=== PATIENT | female | born 1985 | race African-American/Black ===

== ENCOUNTER 2016-07-01 11:11 | Emergency (ER) | payer MEDICAID ==
--- NOTE | 2016-07-01 12:00 | ER Document Report ---
ED Medical Screen (RME) - General Chief Complaint: Lower Abdominal Pain Stated Complaint: ABDOMINAL PAIN Time seen by provider: 12:00 Mode of Arrival: Ambulatory Information source: Patient TRAVEL OUTSIDE OF THE [place] IN LAST 30 DAYS: No - HPI Patient complains to provider of: LOWER ABD PAIN Onset: Last week Onset/Duration: Intermittent Context: Patient states she has not had a period in about 2 months. She took a home test which was positive. She was seen 1 month ago and blood test was negative. Patient states she took Plan B pills 1 week ago bleeding started 06/29/2016. Has been having intermittent lower abdominal pain for the past week. Has been getting worse the last few days. States she has had chills, no known fever, has had some diarrhea, some nausea without vomiting Quality of pain: Sharp, Stabbing Severity: Severe Pain Level: 5 Associated Symptoms: Abdominal pain, Chills, Diarrhea, Nausea, Vaginal bleeding. denies: Vomiting Exacerbated by: Denies Relieved by: Denies Similar symptoms previously: No Recently seen / treated by doctor: Yes - Related Data Smoking: Non-smoker Frequency of alcohol use: None Drug Abuse: None Allergies/Adverse Reactions: No Known Allergies Allergy (Verified 07/01/16 11:33) Past Medical History - Past Medical History Cardiac Medical History: Reports: Hx Hypercholesterolemia, Hx Hypertension GI Medical History: Reports: Hx Ulcer Musculoskeltal Medical History: Reports Hx Musculoskeletal Deformity, Reports Hx Musculoskeletal Trauma Psychiatric Medical History: Reports: Hx Anxiety, Hx Depression Past Surgical History: Reports: Hx Abdominal Surgery, Hx Section - 4 - Immunizations Immunizations up to date: Yes Hx Diphtheria, Pertussis, Tetanus Vaccination: Yes - 2014 Physical Exam - Vital signs Vitals: Temp Pulse Resp BP Pulse Ox 98.2 F 77 16 121/76 100 07/01/16 11:21 07/01/16 11:21 07/01/16 11:21 07/01/16 11:21 07/01/16 11:21 Course - Vital Signs Vital signs: Temp Pulse Resp BP Pulse Ox 98.2 F 77 16 121/76 100 07/01/16 11:21 07/01/16 11:21 07/01/16 11:21 07/01/16 11:21 07/01/16 11:21
[2016-07-01] MEDS ORDERED: HYDROCODONE/ACETAMINOPHEN 5-325 MG TABLET PO ONE (12:16)
[2016-07-01] MEDS ORDERED: ONDANSETRON 4 MG TAB.RAPDIS PO ONE (12:16)
[2016-07-01 12:42] LABS: ABSOLUTE EOSINOPHILS # (AUTO) 0.1 10^3/uL (0.0-0.6); ABSOLUTE LYMPHOCYTES (AUTO) 1.9 10^3/uL (0.5-4.7); ABSOLUTE MONOCYTES (AUTO) 0.4 10^3/uL (0.1-1.4); BASOPHILS % (AUTO) 0.9 % (0-2); EOSINOPHILS % (AUTO) 1.4 % (0-6); HEMATOCRIT 30.4 % (36.0-47.0); HEMOGLOBIN 9.3 g/dL (12.0-15.5); HGB HCT DIFFERENCE -2.5; LYMPHOCYTES % (AUTO) 34.5 % (13-45); MEAN CORPUSCULAR HEMOGLOBIN 17.5 pg (27.0-33.4); MEAN CORPUSCULAR HGB CONC 30.5 g/dL (32.0-36.0); MEAN CORPUSCULAR VOLUME 57 fl (80-97); MONOCYTES % (AUTO) 6.8 % (3-13); RED CELL DISTRIBUTION WIDTH 23.1 % (11.5-14.0); SEGMENTED NEUTROPHILS % (AUTO) 56.4 % (42-78); WHITE BLOOD COUNT 5.4 10^3/uL (4.0-10.5)
[2016-07-01 12:57] LABS: ALANINE AMINOTRANSFERASE 46 U/L (9-52); ALKALINE PHOSPHATASE 66 U/L (38-126); ANION GAP 14 (5-19); ASPARTATE AMINO TRANSFERASE 25 U/L (14-36); BILIRUBIN,TOTAL 0.3 mg/dL (0.2-1.3); BLOOD UREA NITROGEN 8 mg/dL (7-20); CALCIUM 9.4 mg/dL (8.4-10.2); CARBON DIOXIDE 22 mmol/L (22-30); CHLORIDE 107 mmol/L (98-107); CREATININE RESULT 0.67 mg/dL (0.52-1.25); GLUCOSE 81 mg/dL (75-110); POTASSIUM 3.7 mmol/L (3.6-5.0); SODIUM 142.7 mmol/L (137-145); TOTAL PROTEIN 7.5 g/dL (6.3-8.2)
[2016-07-01 13:04] LABS: ANISOCYTOSIS 3+; HYPOCHROMASIA 3+; MICROCYTOSIS 4+; OVALOCYTES 2+; POIKILOCYTOSIS 3+; ROULEAUX SLIGHT; SCHISTOCYTES 1+; TEAR DROP CELLS 1+
[2016-07-01 13:50] LABS: APPEARANCE,URINE CLOUDY; BILIRUBIN,URINE NEGATIVE (NEGATIVE); GLUCOSE, URINE NEGATIVE (NEGATIVE); KETONES,URINE NEGATIVE (NEGATIVE); URINE SPECIFIC GRAVITY 1.019
[2016-07-01 13:51] LABS: BACTERIA,URINE 2+ /HPF; LEUKOCYTE ESTERASE,URINE LARGE (NEGATIVE); NITRITE,URINE NEGATIVE (NEGATIVE); PROTEIN,URINE 100 mg/dL (NEGATIVE); RBC,URINE TOO NUMEROUS TO CNT /HPF; UROBILINOGEN,URINE NEGATIVE mg/dL (<2.0); WBC,URINE 20-30 /HPF
[2016-07-01] MEDS ORDERED: NAPROXEN 375 MG TABLET PO ONE (14:18)
--- NOTE | 2016-07-01 16:27 | ER Document Report ---
ED GI/ - General Chief Complaint: Lower Abdominal Pain Stated Complaint: ABDOMINAL PAIN Mode of Arrival: Ambulatory Information source: Patient Notes: 31 y/o F presents to ED c/o pelvic cramping and vaginal bleeding. Pt reports last normal menstrual period was 04/17/16. had a positive home urine test at home last month but was seen in the ED the following day and had negative hcg. Reports took three plan B pills last week after unprotected intercourse with significant other. began having pelvic pain/cramping and vaginal bleeding last week worse over the last 3 days. States bleeding is similar to menstrual period. Denies fever, n/v, chest pain, sob, dysuria, flank pain, or vaginal discharge. Patient states has appointment with primary care provider/[facility] in 2 days but could not wait until then. TRAVEL OUTSIDE OF THE [place] IN LAST 30 DAYS: No - HPI Patient complains to provider of: Pelvic pain, Vaginal bleeding Onset: Last week Timing/Duration: Persistent Quality of pain: Cramping Severity at maximum: Moderate Severity in ED: Moderate Pain Level: 3 Vaginal bleeding (Compared to normal period): Similar Menstrual period history: Irregular Sexual history: Active, Unprotected intercourse. denies: New partner, Multiple partners, Rectal penetration, STD exposure, control patch, Condoms, Depo, IUD Similar symptoms previously: Yes Recently seen / treated by doctor: Yes - Related Data Allergies/Adverse Reactions: No Known Allergies Allergy (Verified 07/01/16 11:33) Past Medical History - General Information source: Patient, Relative - Social History Smoking Status: Former Smoker Chew tobacco use (# tins/day): No Frequency of alcohol use: None Drug Abuse: None Family History: CAD, DM, Hyperlipidemia, Hypertension, Malignancy Patient has suicidal ideation: No Patient has homicidal ideation: No - Past Medical History Cardiac Medical History: Reports: Hx Hypercholesterolemia, Hx Hypertension GI Medical History: Reports: Hx Ulcer Musculoskeltal Medical History: Reports Hx Musculoskeletal Deformity, Reports Hx Musculoskeletal Trauma Psychiatric Medical History: Reports: Hx Anxiety, Hx Depression Past Surgical History: Reports: Hx Abdominal Surgery, Hx Section - 4 - Immunizations Immunizations up to date: Yes Hx Diphtheria, Pertussis, Tetanus Vaccination: Yes - 2014 Review of Systems - Review of Systems Constitutional: No symptoms reported EENT: No symptoms reported Cardiovascular: No symptoms reported Respiratory: No symptoms reported Gastrointestinal: No symptoms reported Genitourinary: No symptoms reported Female Genitourinary: See HPI Musculoskeletal: No symptoms reported Skin: No symptoms reported Hematologic/Lymphatic: No symptoms reported Neurological/Psychological: No symptoms reported -: Yes All other systems reviewed and negative Physical Exam - Vital signs Vitals: Temp Pulse Resp BP Pulse Ox 98.2 F 77 16 121/76 100 07/01/16 11:21 07/01/16 11:21 07/01/16 11:21 07/01/16 11:21 07/01/16 11:21 Interpretation: Normal - General General appearance: Appears well, Alert In distress: None - HEENT Head: Normocephalic, Atraumatic Eyes: Normal Pupils: PERRL - Respiratory Respiratory status: No respiratory distress Chest status: Nontender Breath sounds: Normal Chest palpation: Normal - Cardiovascular Rhythm: Regular Heart sounds: Normal auscultation Murmur: No Pulses: Normal: Radial Normal capillary refill: Yes - Abdominal Inspection: Normal Distension: No distension Bowel sounds: Normal Tenderness: Tender - Mild tenderness with palpation to mid lower and bilateral pelvic/suprapubic area.. No: Nontender, McBurney's point, Tidwell's sign, Guarding, Rebound, Other Organomegaly: No organomegaly - Genitourinary Notes: Patient refused pelvic exam. - Back Back: Normal, Nontender. No: Tender, Deformity/step-off, CVA tenderness, Vertebra tenderness, Scars, Scoliosis, Wounds, Other - Extremities General upper extremity: Normal inspection, Nontender, Normal color, Normal ROM , Normal strength, Normal temperature. No: Tender, Edema General lower extremity: Normal inspection, Nontender, Normal color, Normal ROM , Normal strength, Normal temperature, Normal weight bearing. No: Tender, Edema - Neurological Neuro grossly intact: Yes Cognition: Normal Orientation: AAOx4 [place] Coma Scale Eye Opening: Spontaneous [place] Coma Scale Verbal: Oriented [place] Coma Scale Motor: Obeys Commands Irene Coma Scale Total: 15 Speech: Normal Motor strength normal: LUE, RUE, LLE, RLE Sensory: Normal - Psychological Associated symptoms: Normal affect, Normal mood - Skin Skin Temperature: Warm Skin Moisture: Dry Skin Color: Normal Skin Turgor: Elastic Course - Re-evaluation Re-evalutation: 07/01/16 16:15 Patient hemodynamically stable, in no distress, afebrile. Pelvic ultrasound unremarkable. Patient refused pelvic exam. Decreased hemoglobin on CBC which compared to previous ED result is improved. Serum hCG negative. Will treat for possible UTI due to UA results. No suggestion or emergent infectious, inflammatory, vascular etiology at this time. Patient appears stable for discharge and agrees with home care, follow-up, and ED return precautions. - Vital Signs Vital signs: Temp Pulse Resp BP Pulse Ox 98.1 F 81 18 130/80 H 100 07/01/16 16:28 07/01/16 16:28 07/01/16 16:28 07/01/16 16:28 07/01/16 16:28 - Laboratory Result Diagrams: 07/01/16 12:18 07/01/16 12:18 Laboratory results interpreted by me: 07/01/16 07/01/16 12:18 13:18 RBC 5.30 H Hgb 9.3 L Hct 30.4 L MCV 57 L MCH 17.5 L MCHC 30.5 L RDW 23.1 H Urine Protein 100 H Urine Blood LARGE H Ur Leukocyte Esterase LARGE H - Diagnostic Test Radiology reviewed: Image reviewed, Reports reviewed Discharge - Discharge Clinical Impression: Pelvic pain, Vaginal bleeding UTI (urinary tract infection) Qualifiers: Urinary tract infection type: site unspecified Hematuria presence: with hematuria Qualified Code(s): N39.0 - Urinary tract infection, site not specified Condition: Stable Disposition: HOME, SELF-CARE Additional Instructions: PELVIC PAIN: There are many causes of pain in the pelvic area. The cause could be the tubes, ovaries, uterus, intestines, appendix, pelvic muscles and connective tissue, or the urinary tract. The cause of your pelvic pain is not clear. However, it seems safe to treat you outside the hospital. If the pain sounds like a temporary problem, we sometimes wait to see if it goes away. Other patients may need additional tests, such as pelvic ultrasound or cultures. Conditions may change. Call us or come back for reexamination if any problems occur, such as: (1) Pain that becomes more severe, steady, or becomes concentrated in one specific area. Also, pain that is more severe with movement or coughing. (2) Vomiting that persists or becomes more frequent. (3) Blood in the vomitus, urine, or bowel movements. Blood in the stool may have a tarry or black appearance. (4) Shaking chills or fever greater than 100 degrees. (5) The abdomen becomes more distended or swollen. (6) Bowel movements cease. (7) Heavy vaginal bleeding. Vaginal Bleeding You are having an episode of abnormal bleeding. Causes of abnormal vaginal bleeding can include miscarriage or tubal , tumors such as cancer or benign fibroids, medication effects, or hormone imbalance. Testing can eliminate unsuspected , tumors, or infection as a cause. "Dysfunctional uterine bleeding" is due to hormone imbalance, and is especially common at times when the normal cycle is disturbed -- whether by recent , use of control pills or hormones, or impending menopause. If the bleeding is innocent, most commonly a short course of hormones is given to restore the uterus to normal. Sometimes, the normal menstrual cycle corrects itself naturally. Sometimes , brief hormone therapy, or even a D&C is required. Your physician will advise you. Treatment for anemia may be required if bleeding is severe. You should rest and avoid intercourse until the bleeding is controlled. Call the doctor or return for re-examination if you feel faint, have increasing pain, or have a major increase in the amount of bleeding. URINARY TRACT INFECTION: Your evaluation indicates that you have a urinary tract infection. This is due to germs growing in the bladder. This is a common problem. This infection usually responds quickly to antibiotics. Your antibiotic should be taken exactly as prescribed. Drink plenty of fluids -- three to four quarts a day. Occasionally, a bladder anesthetic will be prescribed to help stop the feeling of urgency until the antibiotic has a chance to clear the infection. This may cause your urine to be dark orange. Certain urine infections require a culture. If the doctor obtained a culture, the results will be back in two days. You should call to see if a change in treatment is needed. A repeat urinalysis after you finish treatment is often recommended. The physician will let you know if further testing is required. Call the doctor if you develop fever, chills, flank pain, inability to urinate, or blood in the urine. ANTIBIOTIC THERAPY: You have been given an antibiotic prescription. It's important that you take all the medication, unless instructed otherwise by your physician. Failure to complete the entire course can result in relapse of your condition. Common side effects of antibiotics include nausea, intestinal cramping, or diarrhea. Women may develop vaginal yeast infections, and babies can get yeast (thrush) in the mouth following the use of antibiotics. Contact your physician if you develop significant side effects from this medication. Allergy to this antibiotic can result in hives, wheezing, faintness, or itching. If symptoms of allergy occur, stop the medication and call the doctor. CEPHALEXIN: The antibiotic you've been prescribed is a member of the cephalosporin class. This type of antibiotic covers a wide variety of infections, including those of the skin, lungs, and urinary tract. It's useful for staph infections. This antibiotic is slightly similar to the penicillin family. In rare cases , a person who is allergic to penicillin will also be allergic to this medication. If you have had a severe allergic reaction to penicillin, and have not taken this antibiotic since that time, notify your doctor. Antibiotics which cover many germs ("broad spectrum" antibiotics) are more likely to cause diarrhea or "yeast" infections. Women prone to vaginal yeast problems may suffer an attack after taking this antibiotic. In infants, oral thrush (white spots "stuck" on the cheek) or yeast diaper rash may result. See your doctor if these problems occur. Call at once if you develop itching, hives , shortness of breath, or lightheadedness. Fluconazole Fluconazole (Diflucan) is an antifungal drug. It is useful for serious fungal infections, but is also excellent for oral or vaginal yeast infections. Diflucan interacts with some medicines. This is a concern if you are taking anticoagulants (such as Coumadin), phenytoin (Dilantin), cyclosporin, or oral hypoglycemics (such as tolbutamide, Orinase, glipizide, Glucotrol, glyburide, DiaBeta, Glynase, and Micronase). Be sure the doctor knows if you are taking one of these medicines. We don't know how Diflucan affects . If you are planning to become , discuss this with your doctor. Diflucan has few side effects. Minor side effects may include nausea, headache, or diarrhea. Call the doctor if you develop a skin rash, shortness of breath, or other new symptoms. Oral Narcotic Medication You have been given a prescription for pain control. This medication is a narcotic. It's best taken with food, as nausea can result if taken on an empty stomach. Don't operate machinery or drive within six hours of taking this medication. Do not combine this medicine with alcohol, or with any medication which can cause sedation (such as cold tablets or sleeping pills) unless you get permission from the physician. Narcotics tend to cause constipation. If possible, drink plenty of fluids and eat a diet high in fiber and fruits. Use of Bqaq-Rnl-Fczjsca Ibuprofen Ibuprofen (Advil, Nuprin, Medipren, Motrin IB) is an excellent, safe drug for fever and pain control. In addition, it has anti- inflammatory effects which may be beneficial, especially in the treatment of injuries. It's best to take ibuprofen with food. Persons with ulcer disease or allergy to aspirin should notify their physician of this before taking ibuprofen. Ibuprofen can be given every four to six hours, for a total of four doses daily. Age Pain or fever dose Antiinflammatory dose 6-8 yr 200 mg (1 tab) 200 mg (1 tab) 9-11 yr 200 mg (1 tab) 200-400 mg (1-2 tab) 11-14 yr 200-400 mg (1-2 tab) 400 mg (2 tab) 15-adult 400 mg (2 tab) 600 mg (3 tab) FOLLOW-UP CARE: Keep your appointment and follow-up with your primary care provider/[facility] in 2 days. Return to the Emergency Department for any worsening symptoms or concerns. Prescriptions: Cephalexin Monohydrate [Keflex 500 mg Capsule] 500 mg PO Q6H 5 Days Fluconazole [Diflucan] 150 mg PO ONCE PRN #1 tablet PRN Reason: Hydrocodone/Acetaminophen [[place] 5-325 mg Tablet] 1 tab PO Q6H PRN #8 tablet PRN Reason: Referrals: MIKE ADAME MD [Primary Care Provider] - Follow up tomorrow
[2016-07-01 16:30] VITALS: BP 130/80
== END 2016-07-01 16:38 | disposition home or self-care (01) ==
LOC: ER 11:11
DX: N39.0 Urinary tract infection, site not specified (principal); R31.9 Hematuria, unspecified; N93.9 Abnormal uterine and vaginal bleeding, unspecified; R10.2 Pelvic and perineal pain; I10 Essential (primary) hypertension; Z87.891 Personal history of nicotine dependence; Z87.19 Personal history of other diseases of the digestive system
CPT/HCPCS: 99284; 36415; 87086; 84702; 85025; 80053; 81001; 76856; 93976; S0119; J3490

== ENCOUNTER 2016-09-30 13:49 | Emergency (ER) | payer MEDICAID ==
--- NOTE | 2016-09-30 14:03 | ER Document Report ---
ED Medical Screen (RME) - General Mode of Arrival: Wheelchair Information source: Patient, Relative TRAVEL OUTSIDE OF THE [place] IN LAST 30 DAYS: No - HPI Patient complains to provider of: Syncopal episode Onset: This afternoon Associated Symptoms: Other - see notes above <VIRGINIA LARSEN - Last Filed: 09/30/16 14:24> <ADRIANAOSIRIS CRISTIAN - Last Filed: 09/30/16 14:54> - General Chief Complaint: Passed Out Prior to Arrival Stated Complaint: WEAKNESS Notes: 31 year old female with history of hypertension and hyperlipidemia presents to the ED accompanied by her who states that the patient was getting her nails done at the salon when she started complaining of feeling faint and then proceeded to pass out just prior to arrival. The states that the patient was additionally complaining of fatigue, back pain, headache, leg numbness, and right sided abdominal pain (last few days), but no vomiting or diarrhea. reports that the patient had a similar episode when she suffered a heat stroke. (VIRGINIA LARSEN) - Related Data Allergies/Adverse Reactions: No Known Allergies Allergy (Verified 09/30/16 13:55) Past Medical History - General Information source: Patient, Relative - Past Medical History Cardiac Medical History: Reports: Hx Hypercholesterolemia, Hx Hypertension Renal/ Medical History: Denies: Hx Peritoneal Dialysis GI Medical History: Reports: Hx Ulcer Musculoskeltal Medical History: Reports Hx Musculoskeletal Deformity, Reports Hx Musculoskeletal Trauma Psychiatric Medical History: Reports: Hx Anxiety, Hx Depression Past Surgical History: Reports: Hx Abdominal Surgery, Hx Section - 4 - Immunizations Immunizations up to date: Yes Hx Diphtheria, Pertussis, Tetanus Vaccination: Yes - 2014 <VIRGINIA LARSEN - Last Filed: 09/30/16 14:24> Review of Systems - Review of Systems Constitutional: See HPI, Malaise, Weakness EENT: No symptoms reported Cardiovascular: No symptoms reported Respiratory: No symptoms reported Gastrointestinal: See HPI, Abdominal pain - right side Genitourinary: No symptoms reported Female Genitourinary: No symptoms reported Musculoskeletal: See HPI, Back pain Skin: No symptoms reported Hematologic/Lymphatic: No symptoms reported Neurological/Psychological: See HPI, Lost consciousness - syncopal episode earlier this afternoon, Headaches -: Yes All other systems reviewed and negative <VIRGINIA LARSEN - Last Filed: 09/30/16 14:24> Physical Exam - General General appearance: Alert, Other - Patient is responsive. Drowsy, but easily arousable. In distress: None - Respiratory Respiratory status: No respiratory distress Breath sounds: Normal - Cardiovascular Rhythm: Regular Heart sounds: Normal auscultation Pulses: Normal: Dorsalis pedis - Abdominal Inspection: Normal Distension: No distension Tenderness: Tender - RLQ abdominal pain - Extremities General upper extremity: Normal inspection, Normal ROM General lower extremity: Normal inspection, Normal ROM <VIRGINIA LARSEN - Last Filed: 09/30/16 14:24> Course - Laboratory Result Diagrams: 09/30/16 14:08 09/30/16 14:08 <VIRGINIA LARSEN - Last Filed: 09/30/16 14:24> - Laboratory Result Diagrams: 09/30/16 14:08 09/30/16 14:08 <OSIRIS WRIGHT - Last Filed: 09/30/16 14:54> - Re-evaluation Re-evalutation: 09/30/16 14:54 I personally performed the services described in the documentation, reviewed and edited the documentation which was dictated to the scribe in my presence, and it accurately records my words and actions. (OSIRIS WRIGHT) - Laboratory Laboratory results interpreted by me: 09/30/16 09/30/16 14:08 14:08 Hgb 9.6 L Hct 30.4 L MCV 61 L MCH 19.2 L MCHC 31.6 L RDW 20.6 H Potassium 3.5 L Glucose 120 H AST 48 H Scribe Documentation - Scribe Written by Kathia:: Kathia Burdick, 09/30/2016 1430 acting as scribe for :: Adriana <VIRGINIA LARSEN - Last Filed: 09/30/16 14:24>
[2016-09-30 14:20] LABS: ABSOLUTE BASOPHILS # (AUTO) 0.1 10^3/uL (0.0-0.2); ABSOLUTE EOSINOPHILS # (AUTO) 0.1 10^3/uL (0.0-0.6); ABSOLUTE LYMPHOCYTES (AUTO) 2.7 10^3/uL (0.5-4.7); ABSOLUTE MONOCYTES (AUTO) 0.6 10^3/uL (0.1-1.4); ABSOLUTE NEUT (AUTO) 3.4 10^3/uL (1.7-8.2); BASOPHILS % (AUTO) 1.5 % (0-2); EOSINOPHILS % (AUTO) 1.1 % (0-6); HEMATOCRIT 30.4 % (36.0-47.0); HEMOGLOBIN 9.6 g/dL (12.0-15.5); HGB HCT DIFFERENCE -1.6; LYMPHOCYTES % (AUTO) 38.9 % (13-45); MEAN CORPUSCULAR HEMOGLOBIN 19.2 pg (27.0-33.4); MEAN CORPUSCULAR HGB CONC 31.6 g/dL (32.0-36.0); MEAN CORPUSCULAR VOLUME 61 fl (80-97); MONOCYTES % (AUTO) 9.4 % (3-13); RED CELL DISTRIBUTION WIDTH 20.6 % (11.5-14.0); SEGMENTED NEUTROPHILS % (AUTO) 49.1 % (42-78); WHITE BLOOD COUNT 6.9 10^3/uL (4.0-10.5)
[2016-09-30 14:25] LABS: PROTHROMBIN TIME 12.7 SEC (11.4-15.4)
[2016-09-30 14:42] LABS: ALANINE AMINOTRANSFERASE 42 U/L (9-52); ALKALINE PHOSPHATASE 87 U/L (38-126); ANION GAP 13 (5-19); ASPARTATE AMINO TRANSFERASE 48 U/L (14-36); BILIRUBIN,DIRECT 0.3 mg/dL (0.0-0.4); BILIRUBIN,TOTAL 0.4 mg/dL (0.2-1.3); BLOOD UREA NITROGEN 11 mg/dL (7-20); CALCIUM 9.2 mg/dL (8.4-10.2); CARBON DIOXIDE 28 mmol/L (22-30); CHLORIDE 102 mmol/L (98-107); CREATININE RESULT 0.63 mg/dL (0.52-1.25); GLUCOSE 120 mg/dL (75-110); POTASSIUM 3.5 mmol/L (3.6-5.0); SODIUM 142.9 mmol/L (137-145); TOTAL PROTEIN 7.7 g/dL (6.3-8.2)
[2016-09-30] MEDS ORDERED: NORMAL SALINE 1000 ML 1,000 ML IV ONE (14:45)
[2016-09-30 14:52] LABS: ANISOCYTOSIS 2+; HYPOCHROMASIA 2+; MICROCYTOSIS 3+; OVALOCYTES 2+; POIKILOCYTOSIS 2+; POLYCHROMASIA 1+; ROULEAUX 1+; SCHISTOCYTES SLIGHT; TEAR DROP CELLS SLIGHT
--- NOTE | 2016-09-30 14:58 | ER Document Report ---
ED Dizziness/Weakness - General Chief Complaint: Passed Out Prior to Arrival Stated Complaint: WEAKNESS Mode of Arrival: Wheelchair Information source: Patient, Friend Notes: This is a 31-year-old -[place]ian female who presents to the emergency department for evaluation of syncope. Patient states that she has been feeling tired for the past few days and has had some intermittent right-sided abdominal flank pain. Today she was getting her nails done when she began to feel lightheaded and like she might pass out. Her fianc assisted her towards the bathroom but enroute she did have a syncopal episode and she was helped into a chair... she did not fall and did not hit her head. No seizure activity, no loss of bowel/bladder. Pt states that she has passed out before secondary to anxiety or secondary to heat stroke. No recent fevers, chills, vomiting, diarrhea. Currently she reports vague right flank and lower quadrant abdominal pain, and headache. TRAVEL OUTSIDE OF THE [place] IN LAST 30 DAYS: No - Related Data Allergies/Adverse Reactions: No Known Allergies Allergy (Verified 09/30/16 13:55) Past Medical History - General Information source: Patient, Relative, [facility] Records - Social History Smoking Status: Current Some Day Smoker Frequency of alcohol use: Rare Drug Abuse: None Family History: CAD, DM, Hyperlipidemia, Hypertension, Malignancy Patient has suicidal ideation: No Patient has homicidal ideation: No Renal/ Medical History: Denies: Hx Peritoneal Dialysis GI Medical History: Reports: Hx Ulcer Musculoskeltal Medical History: Reports Hx Musculoskeletal Deformity, Reports Hx Musculoskeletal Trauma Psychiatric Medical History: Reports: Hx Anxiety, Hx Depression Past Surgical History: Reports: Hx Abdominal Surgery, Hx Section - 4 - Immunizations Immunizations up to date: Yes Hx Diphtheria, Pertussis, Tetanus Vaccination: Yes - 2014 Review of Systems - Review of Systems Notes: REVIEW OF SYSTEMS: CONSTITUTIONAL : Denies fever, chills, or sweats. Denies recent illness. EENT: Denies eye, ear, throat, or mouth pain or symptoms. Denies nasal or sinus congestion. CARDIOVASCULAR: Denies chest pain. RESPIRATORY: Denies cough, cold, or chest congestion. Denies shortness of breath, difficulty breathing, or wheezing. GASTROINTESTINAL: As per history of present illness: GENITOURINARY: Denies difficulty urinating, painful urination, burning, frequency, or blood in urine. FEMALE GENITOURINARY: Denies vaginal bleeding, abnormal or irregular periods. LMP: 09/04/16 MUSCULOSKELETAL: Chronic back pain SKIN: Denies rash or skin lesions. HEMATOLOGIC : Denies easy bruising or bleeding. LYMPHATIC: Denies swollen, enlarged glands. NEUROLOGICAL: As per history of present illness PSYCHIATRIC: Denies anxiety or stress or depression. ALL OTHER SYSTEMS REVIEWED AND NEGATIVE. Physical Exam - Vital signs Vitals: Resp Pulse Ox 17 100 09/30/16 14:39 09/30/16 14:39 - Notes Notes: PHYSICAL EXAMINATION: GENERAL: alert and conversant adult female, appears older than stated age, appears tired, well-nourished and in no acute distress. HEAD: Atraumatic, normocephalic. EYES: Pupils equal round and reactive to light, extraocular movements intact, sclera anicteric, conjunctiva are normal. ENT: nares patent, oropharynx clear without exudates. Moist mucous membranes. NECK: Normal range of motion, supple without lymphadenopathy LUNGS: Breath sounds clear to auscultation bilaterally and equal. No wheezes rales or rhonchi. HEART: Regular rate and rhythm without murmurs ABDOMEN: Soft, mild R flank, RLQ, suprapubic TTP, normoactive bowel sounds. No guarding, no rebound. No masses appreciated. EXTREMITIES: Normal range of motion, no pitting or edema. No cyanosis. NEUROLOGICAL: Cranial nerves grossly intact. Normal speech. Motor strength +5/ 5 bilateral upper and lower extremities, sensation intact PSYCH: Normal mood,flat affect SKIN: Warm, Dry, normal turgor, no rashes or lesions noted. Course - Re-evaluation Re-evalutation: 09/30/16 16:13 Labs and radiology reviewed. CT of abdomen and pelvis is negative as is chest x -ray EKG is within normal limits. Labs demonstrate an anemia which upon chart review patient to be her chronic baseline. - Vital Signs Vital signs: Temp Pulse Resp BP Pulse Ox 98.1 F 13 103/53 L 99 09/30/16 14:41 09/30/16 15:01 09/30/16 15:00 09/30/16 15:01 - Laboratory Result Diagrams: 09/30/16 14:08 09/30/16 14:08 Laboratory results interpreted by me: 09/30/16 09/30/16 09/30/16 14:08 14:08 14:08 Hgb 9.6 L Hct 30.4 L MCV 61 L MCH 19.2 L MCHC 31.6 L RDW 20.6 H Potassium 3.5 L Glucose 120 H AST 48 H Urine Protein Salicylates < 1.0 L Acetaminophen < 10 L 09/30/16 16:20 Hgb Hct MCV MCH MCHC RDW Potassium Glucose AST Urine Protein 30 H Salicylates Acetaminophen - Diagnostic Test Radiology reviewed: Image reviewed - CT abd/pelvis: 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 There is a first-degree AV block. Nonspecific T-wave abnormalities. There is no ST segment elevation or depression. Discharge - Discharge Clinical Impression: Chronic anemia Syncope Qualifiers: Syncope type: unspecified Qualified Code(s): R55 - Syncope and collapse Condition: Stable Disposition: HOME, SELF-CARE Additional Instructions: Syncopal Episode Syncope (fainting or near-fainting) can occur from many different health problems. Or it can be a simple fainting spell requiring no treatment. It is safe for you to go home, but further evaluation will likely be necessary. Your work-up may include tests for internal bleeding, heart disease, medication problems, or near-strokes. Tests are not always required, however, depending on the nature of your problem. The warning signs of an impending faint include: dizziness, lightheadedness , nausea, hot flashes, tingling, and weakness. If this happens, lay down and put your feet up, then wait until all of these symptoms have passed before standing up again. If these episodes become recurrent, or if you develop chest pain, heart palpitations, mental confusion, blurred vision, or headache, then you should call the physician, or go to the emergency room. Dehydration Dehydration can result from vomiting or diarrhea, fever, or decreased intake of fluids. If severe, hospitalization and intravenous fluids may be required. Most cases are treated at home with fluids by mouth. For the next 24 hours, drink lots of clear fluids. In mild cases, this can be soda pop or sports drinks. For more severe dehydration, the doctor may recommend special fluids such as Pedialyte or Lytren. Try to get three liters ( 3 quarts) of fluid per day. If vomiting occurs, continue to drink the fluids frequently (every 15 to 20 minutes), but in small amounts (one or two ounces). Depending on the type of dehydration, the doctor may prescribe antinausea medicine or potassium replacements. Call the doctor or return for re-examination if you become progressively weak, vomit repeatedly, or have other new symptoms. Anemia You have been found to have a significant anemia (a lower than normal amount of red blood cells). Anemia can be due to iron deficiency, vitamin deficiency, abnormal bleeding, or internal diseases. Usually, further tests are necessary to find the exact cause of the anemia. The most common cause of anemia is iron deficiency, often brought on by blood loss. This can be treated with iron supplements. If this appears to be the most likely cause, iron tablets may be prescribed even before all tests are complete. Contact the doctor at once if you note black or tarry-looking stools, bloody vomiting, shortness of breath, chest pain, or faintness. Follow up with your primary physician this week. Take iron supplements as previously prescribed. Rest and drink pleny of fluids. Return to ER for any worsening symptoms or concerns. Referrals: MIKE ADAME MD [Primary Care Provider] - Follow up as needed
[2016-09-30 15:01] LABS: ALCOHOL < 10 mg/dL (NONE DETECTED)
[2016-09-30] MEDS ORDERED: ACETAMINOPHEN 325 MG TABLET PO ONE (16:00)
[2016-09-30 17:04] LABS: URINE BARBITURATES SCREEN NEGATIVE; URINE METHADONE SCREEN NEGATIVE; URINE OPIATES LOW NEGATIVE; URINE PHENCYCLIDINE SCREEN NEGATIVE
[2016-09-30 17:08] LABS: APPEARANCE,URINE CLEAR; BILIRUBIN,URINE NEGATIVE (NEGATIVE); GLUCOSE, URINE NEGATIVE (NEGATIVE); KETONES,URINE NEGATIVE (NEGATIVE); LEUKOCYTE ESTERASE,URINE NEGATIVE (NEGATIVE); NITRITE,URINE NEGATIVE (NEGATIVE); PROTEIN,URINE 30 mg/dL (NEGATIVE); UROBILINOGEN,URINE NEGATIVE mg/dL (<2.0)
[2016-09-30 17:13] LABS: URINE SPECIFIC GRAVITY > 1.060
[2016-09-30 19:05] VITALS: BP 116/87
--- NOTE | 2016-10-01 22:10 | EKG REPORT ---
SEVERITY:- ABNORMAL ECG - SINUS RHYTHM FIRST DEGREE AV BLOCK BORDERLINE T ABNORMALITIES, ANTERIOR LEADS : Confirmed by: Dolores Monique MD 01-Oct-2016 22:09:09
== END 2016-09-30 19:00 | disposition home or self-care (01) ==
LOC: ER 13:49
DX: R55 Syncope and collapse (principal); D64.9 Anemia, unspecified; R53.1 Weakness; F17.200 Nicotine dependence, unspecified, uncomplicated
CPT/HCPCS: 93005; 99284; 36415; 87086; 80307 ×4; 84703; 85025; 85610; 81025; 80053; 81001; 71010; 74177; 93010; J3490; J7030

== ENCOUNTER 2016-11-28 20:34 | Emergency (ER) | payer MEDICAID ==
[2016-11-28 21:41] LABS: ABSOLUTE BASOPHILS # (AUTO) 0.1 10^3/uL (0.0-0.2); ABSOLUTE EOSINOPHILS # (AUTO) 0.2 10^3/uL (0.0-0.6); ABSOLUTE LYMPHOCYTES (AUTO) 2.3 10^3/uL (0.5-4.7); ABSOLUTE MONOCYTES (AUTO) 0.8 10^3/uL (0.1-1.4); ABSOLUTE NEUT (AUTO) 3.6 10^3/uL (1.7-8.2); BASOPHILS % (AUTO) 1.2 % (0-2); EOSINOPHILS % (AUTO) 2.7 % (0-6); HEMATOCRIT 37.3 % (36.0-47.0); HEMOGLOBIN 11.8 g/dL (12.0-15.5); HGB HCT DIFFERENCE -1.9; LYMPHOCYTES % (AUTO) 32.6 % (13-45); MEAN CORPUSCULAR HEMOGLOBIN 22.3 pg (27.0-33.4); MEAN CORPUSCULAR HGB CONC 31.7 g/dL (32.0-36.0); MEAN CORPUSCULAR VOLUME 70 fl (80-97); MONOCYTES % (AUTO) 10.9 % (3-13); RED CELL DISTRIBUTION WIDTH 23.6 % (11.5-14.0); SEGMENTED NEUTROPHILS % (AUTO) 52.6 % (42-78); WHITE BLOOD COUNT 6.9 10^3/uL (4.0-10.5)
[2016-11-28 22:11] LABS: ANISOCYTOSIS 2+; HYPOCHROMASIA 1+; MICROCYTOSIS 2+; OVALOCYTES SLIGHT; POIKILOCYTOSIS 2+; TOXIC GRANULATION SLIGHT
[2016-11-28 22:12] LABS: ROULEAUX SLIGHT; SCHISTOCYTES SLIGHT
[2016-11-28] MEDS ORDERED: ONDANSETRON HCL INJ/PF 4 MG/2 ML SDV IV ONE (22:59)
[2016-11-28] MEDS ORDERED: MORPHINE SULFATE 10 MG/ML INJ IV ONE (22:59)
--- NOTE | 2016-11-28 23:02 | ER Document Report ---
ED General - General Chief Complaint: Abdominal Pain Stated Complaint: VAGINAL BLEEDING Time Seen by Provider: 11/28/16 22:29 Mode of Arrival: Medic Information source: Patient Notes: This is a 31-year-old -Bangl[place] female who presents with 3 days of worsening right-sided abdominal pain. She also presents with vaginal bleeding. She states that her menstrual cycle began yesterday but that today the bleeding has become very heavy to the point where she is changing her pad 2-3 times an hour. She also reports passing nickel size clots. She has had no syncope. No fevers or chills. No nausea or vomiting. She does have a prior history of chronic iron deficiency anemia but no prior history of blood transfusion. TRAVEL OUTSIDE OF THE [place] IN LAST 30 DAYS: No - Related Data Allergies/Adverse Reactions: No Known Allergies Allergy (Verified 09/30/16 13:55) Past Medical History - General Information source: Patient, [facility] Records - Social History Smoking Status: Never Smoker Chew tobacco use (# tins/day): No Frequency of alcohol use: None Drug Abuse: None Family History: CAD, DM, Hyperlipidemia, Hypertension, Malignancy - Past Medical History Cardiac Medical History: Reports: Hx Hypercholesterolemia, Hx Hypertension Renal/ Medical History: Reports: Hx Ovarian Cysts. Denies: Hx Peritoneal Dialysis GI Medical History: Reports: Hx Ulcer Musculoskeltal Medical History: Reports Hx Musculoskeletal Deformity, Reports Hx Musculoskeletal Trauma Psychiatric Medical History: Reports: Hx Anxiety, Hx Depression Past Surgical History: Reports: Hx Abdominal Surgery, Hx Section - 4 - Immunizations Immunizations up to date: Yes Hx Diphtheria, Pertussis, Tetanus Vaccination: Yes - 2014 Review of Systems - Review of Systems Constitutional: No symptoms reported. denies: Chills, Fever, Recent illness EENT: No symptoms reported Cardiovascular: No symptoms reported Respiratory: No symptoms reported Gastrointestinal: See HPI, Abdominal pain Genitourinary: No symptoms reported Female Genitourinary: See HPI Musculoskeletal: No symptoms reported Skin: No symptoms reported Hematologic/Lymphatic: Anemia Neurological/Psychological: No symptoms reported Physical Exam - Vital signs Vitals: Temp Pulse Resp BP Pulse Ox 98.2 F 95 18 129/94 H 98 11/28/16 20:40 11/28/16 20:40 11/28/16 20:40 11/28/16 20:40 11/28/16 20:40 - Notes Notes: PHYSICAL EXAMINATION: GENERAL: Well-appearing, well-nourished and in no acute distress. HEAD: Atraumatic, normocephalic. EYES: Pupils equal round and reactive to light, extraocular movements intact, sclera anicteric, conjunctiva are normal. ENT: nares patent, oropharynx clear without exudates. Moist mucous membranes. NECK: Normal range of motion, supple without lymphadenopathy LUNGS: Breath sounds clear to auscultation bilaterally and equal. No wheezes rales or rhonchi. HEART: Regular rate and rhythm without murmurs ABDOMEN: Soft, normoactive bowel sounds. Mild RLQ TTP. No guarding, no rebound. No masses appreciated. PELVIC: No external lesions. Moderate blood in vault. No clots or tissue noted. Cervix visualized with mild bleeding. EXTREMITIES: Normal range of motion NEUROLOGICAL: Cranial nerves grossly intact. No gross focal motor or sensory deficits appreciated. PSYCH: Normal mood, normal affect. SKIN: Warm, Dry, normal turgor, no rashes or lesions noted. Course - Re-evaluation Re-evalutation: 11/29/16 05:23 Patient has remained hemodynamically stable in the ER. Her pelvic ultrasound demonstrated no acute abnormality with the right ovary. Her CT demonstrated a normal appendix however she did have increased stool burden in the right colon. She will be treated with Provera for her menorrhagia. She is to follow-up with her [employer] physicians at [facility] on Thursday. Strict return precautions were discussed. She is comfortable with this plan and would like to go home this morning. - Vital Signs Vital signs: Temp Pulse Resp BP Pulse Ox 98.2 F 95 20 103/85 100 11/28/16 20:40 11/28/16 20:40 11/29/16 03:01 11/29/16 03:01 11/29/16 03:01 - Laboratory Result Diagrams: 11/28/16 21:20 11/28/16 21:20 Laboratory results interpreted by me: 11/28/16 21:20 RBC 5.30 H Hgb 11.8 L MCV 70 L MCH 22.3 L MCHC 31.7 L RDW 23.6 H 11/29/16 05:26 Serum HCG negative Discharge - Discharge Clinical Impression: Abdominal pain in female patient Menorrhagia Qualifiers: Menorrahagia type: with irregular cycle Qualified Code(s): N92.1 - Excessive and frequent menstruation with irregular cycle Condition: Stable Disposition: HOME, SELF-CARE Additional Instructions: VAGINAL BLEEDING: You are having an episode of abnormal bleeding. Causes of abnormal vaginal bleeding can include miscarriage or tubal , tumors such as cancer or benign fibroids, medication effects, or hormone imbalance. Testing can eliminate unsuspected , tumors, or infection as a cause. "Dysfunctional uterine bleeding" is due to hormone imbalance, and is especially common at times when the normal cycle is disturbed -- whether by recent , use of control pills or hormones, or impending menopause. If the bleeding is innocent, most commonly a short course of hormones is given to restore the uterus to normal. Sometimes, the normal menstrual cycle corrects itself naturally. Sometimes , brief hormone therapy, or even a D&C is required. Your physician will advise you. Treatment for anemia may be required if bleeding is severe. You should rest and avoid intercourse until the bleeding is controlled. Call the doctor or return for re-examination if you feel faint, have increasing pain, or have a major increase in the amount of bleeding. NORMAL EXAM AND WORKUP: At this time, except for vaginal bleeding, your examination and workup show no significant abnormality. No significant abnormal physical findings were noted. All laboratory, EKG, and imaging (x-ray, CT scans, ultrasound) studies that were ordered show no significant abnormality. Although your examination and all studies that were ordered showed no significant abnormal finding, there are no examinations and no studies that are 100% accurate. There is always the possibility that some abnormality could exist and not be detected with physical examination or within the limits and capabilities of laboratory and other studies. You should return or follow up as you were instructed on your visit today for further evaluation if your symptoms do not resolve. PROVERA: Provera (medroxyprogesterone) is usually used to stop excessive uterine bleeding or to regulate the periods. Provera is a form of progesterone, the hormone that stimulates the uterus lining to mature during the second half of your cycle. High doses of Provera can usually stop uterine bleeding. It's most useful for the abnormal bleeding that occurs when periods are irregular, such as around menopause. Provera usually isn't helpful for bleeding that occurs after Depo-Provera or Norplant. There is often another heavy "period" when you finish the Provera. Afterwards, the periods usually return to normal within a month or two. Contact your doctor if bleeding becomes more severe, or if you develop abdominal pain, lightheadedness, fever, or other new symptoms. ORAL NARCOTIC MEDICATION: You have been given a prescription for pain control. This medication is a narcotic. It's best taken with food, as nausea can result if taken on an empty stomach. Don't operate machinery or drive within six hours of taking this medication. Do not combine this medicine with alcohol, or with any medication which can cause sedation (such as cold tablets or sleeping pills) unless you get permission from the physician. Narcotics tend to cause constipation. If possible, drink plenty of fluids and eat a diet high in fiber and fruits. Please be aware that prescription narcotics also have the potential for abuse. People become addicted to these medications because of the general sense of wellbeing that they induce. This feeling along with a significant reduction in tension, anxiety, and aggression provides a stimulating seductive quality to these drugs. Once your pain is under control, we encourage you to discard your unused narcotics. FOLLOW-UP CARE: If you have been referred to a physician for follow-up care, call the physician s office for an appointment as you were instructed or within the next two days. If you experience worsening or a significant change in your symptoms (very heavy bleeding with large clots of blood, passage of tissue, more severe abdominal / pelvic pain or cramping, feeling faint or severe weakness, fever, etc.), notify the physician immediately or return to the Emergency Department at any time for re-evaluation. [facility]STETRIC[facility]GYNECOLOG[facility] ([facility] [place]: [facility] [address] [place] [address] [phone] Prescriptions: Hydrocodone/Acetaminophen [[place] 5-325 mg Tablet] 1 tab PO Q6H PRN #10 tablet PRN Reason: For Pain Medroxyprogesterone Acet [Provera 10 Mg Tablet] 10 mg PO DAILY #4 tablet Referrals: [facility] [Provider Group] - 12/01/16
[2016-11-28 23:23] LABS: ALANINE AMINOTRANSFERASE 46 U/L (9-52); ALBUMIN 3.7 g/dL (3.5-5.0); ALKALINE PHOSPHATASE 79 U/L (38-126); ANION GAP 10 (5-19); ASPARTATE AMINO TRANSFERASE 34 U/L (14-36); BILIRUBIN,DIRECT 0.3 mg/dL (0.0-0.4); BILIRUBIN,TOTAL 0.3 mg/dL (0.2-1.3); BLOOD UREA NITROGEN 12 mg/dL (7-20); CALCIUM 9.2 mg/dL (8.4-10.2); CARBON DIOXIDE 26 mmol/L (22-30); CHLORIDE 103 mmol/L (98-107); CREATININE RESULT 0.66 mg/dL (0.52-1.25); GLUCOSE 85 mg/dL (75-110); POTASSIUM 3.6 mmol/L (3.6-5.0); SODIUM 139.3 mmol/L (137-145); TOTAL PROTEIN 7.4 g/dL (6.3-8.2)
[2016-11-29] MEDS ORDERED: HYDROMORPHONE HCL INJ/PF 2 MG/ML AMPULE IV ONE (00:36)
[2016-11-29 01:54] LABS: PROTHROMBIN TIME 12.6 SEC (11.4-15.4)
[2016-11-29 01:55] LABS: PARTIAL THROMBOPLASTIN TIME 28.1 SEC (23.5-35.8)
--- NOTE | 2016-11-29 03:02 | RADIOLOGY REPORT (SQ) ---
EXAM DESCRIPTION: U/S NON OB PEL TV W/DOPPLER COMPLETED DATE/TIME: 11/29/2016 2:26 am REASON FOR STUDY: severe R adnexal pain and vaginal bleeding . Negative serum beta HCG. COMPARISON: Pelvic ultrasound 07/01/2016, CT abdomen and pelvis 09/30/2016. TECHNIQUE: Dynamic and static grayscale images acquired of the pelvis via transvaginal approach and recorded on PACS. Additional selected color Doppler and spectral images recorded. LIMITATIONS: Overlying bowel gas. FINDINGS: UTERUS: Measures 10.6 x 4.9 x 8.8 cm. There is a bicornuate configuration of the uterus. No focal myometrial mass was identified. ENDOMETRIAL STRIPE: The right-sided endometrium measures 11.9 mm, the left-sided endometrium measures 4.8 mm. CERVIX: Measures 4.2 cm in length. RIGHT OVARY: The right ovary measures 2.8 x 3.6 x 2.4 cm. Flow by Doppler was shown to the right ova ry. LEFT OVARY: The left ovary was obscured by overlying bowel gas. FREE FLUID: None noted. IMPRESSION: Bicornuate uterus. Nonvisualized left ovary. No sonographic abnormality at the right ovary. TECHNICAL DOCUMENTATION: JOB ID: [id number] [id number] 2010 [employer]- All Rights Reserved
--- NOTE | 2016-11-29 04:41 | RADIOLOGY REPORT (SQ) ---
EXAM DESCRIPTION: CT ABD/PELVIS WITH IV ONLY COMPLETED DATE/TIME: 11/29/2016 4:05 am REASON FOR STUDY: RLQ pain x 3 days. Heavy vaginal bleeding with clots. COMPARISON: CT abdomen and pelvis 09/30/2016. TECHNIQUE: CT scan of the abdomen and pelvis performed using helical scanning technique with dynamic intravenous contrast injection. No oral contrast. Images reviewed with lung, soft tissue, and bone windows. Reconstructed coronal and sagittal MPR images reviewed. Delayed images for evaluation of the urinary system also acquired. All images stored on PACS. All CT scanners at this facility use dose modulation, iterative reconstruction, and/or weight based d osing when appropriate to reduce radiation dose to as low as reasonably achievable (ALARA). [facility]: Dose Right [facility]: CareDose [facility]: Dose Right [facility]: Teradose 4D [facility]: [employer] CONTRAST TYPE AND DOSE: 64mL Isovue 370 RENAL FUNCTION: Creatinine 0.66 RADIATION DOSE: 12.40mGy. LIMITATIONS: None. FINDINGS: LOWER CHEST: No consolidation or pleural effusion. LIVER: Normal size. No masses or dilated ducts. SPLEEN: Normal size. PANCREAS: No significant calcifications. No adjacent inflammation or peripancreatic fluid collections . Pancreatic duct not dilated. GALLBLADDER: No identified stones by CT criteria. No inflammatory changes to suggest cholecystitis. ADRENAL GLANDS: No significant masses or asymmetry. RIGHT KIDNEY AND URETER: Absent. LEFT KIDNEY AND URETER: No solid masses. No significant calcifications. No hydronephrosis or hydr oureter. AORTA AND VESSELS: No abdominal aortic aneurysm. RETROPERITONEUM: No retroperitoneal hemorrhage or masses. BOWEL AND PERITONEAL CAVITY: No dilated small bowel loops or inflammatory changes. No free fluid or f ree air. Large amount of stool in the colon. APPENDIX: Normal. PELVIS: The urinary bladder is partially distended. The uterus is present. No free fluid. ABDOMINAL WALL: There is diastasis recti. BONES: No acute findings. Osseous hemangioma at T11 vertebral body. IMPRESSION: Large amount of stool in the colon. Absent right kidney. Otherwise, no acute findings. TECHNICAL DOCUMENTATION: JOB ID: [id number] [facility] Quality ID # [id number]: Final reports with documentation of one or more dose reduction techniques (e.g., Au tomated exposure control, adjustment of the mA and/or kV according to patient size, use of iterative reconstruction technique) 2010 [employer]- All Rights Reserved
[2016-11-29] MEDS ORDERED: HYDROCODONE/ACETAMINOPHEN 5-325 MG TABLET PO ONE (05:13)
[2016-11-29] MEDS ORDERED: MEDROXYPROGESTERONE ACET 10 MG TABLET PO ONE (05:14)
[2016-11-29 06:27] VITALS: BP 119/70
== END 2016-11-29 05:20 | disposition home or self-care (01) ==
LOC: ER 20:34
DX: N92.1 Excessive and frequent menstruation with irregular cycle (principal); R10.9 Unspecified abdominal pain
CPT/HCPCS: 99284; 51701; 96374; 96375; 86900; 86901; 36415; 86850; 84703; 85025; 85610; 85730; 80053; 76830; 93976; 74177; J3490; J2270; J1170; J2405

== ENCOUNTER 2017-01-19 13:34 | Emergency (ER) | payer MEDICAID ==
--- NOTE | 2017-01-19 14:38 | ER Document Report ---
ED GI/ - General Chief Complaint: Flank Pain Stated Complaint: LEFT FLANK PAIN,URINATION PROBLEMS Time Seen by Provider: 01/19/17 14:34 Mode of Arrival: Ambulatory Information source: Patient TRAVEL OUTSIDE OF THE [place] IN LAST 30 DAYS: No - HPI Patient complains to provider of: Other - Pt with one kidney with L-sided flank pain for the past 1-2 days. Denies h/o kidney stones - Related Data Allergies/Adverse Reactions: No Known Allergies Allergy (Verified 01/19/17 13:59) Past Medical History - Social History Smoking Status: Never Smoker Chew tobacco use (# tins/day): No Frequency of alcohol use: None Drug Abuse: None Family History: CAD, DM, Hyperlipidemia, Hypertension, Malignancy - Past Medical History Cardiac Medical History: Reports: Hx Hypercholesterolemia, Hx Hypertension Renal/ Medical History: Reports: Hx Ovarian Cysts. Denies: Hx Peritoneal Dialysis GI Medical History: Reports: Hx Ulcer Musculoskeltal Medical History: Reports Hx Musculoskeletal Deformity, Reports Hx Musculoskeletal Trauma Psychiatric Medical History: Reports: Hx Anxiety, Hx Depression Past Surgical History: Reports: Hx Abdominal Surgery, Hx Section - 4 - Immunizations Immunizations up to date: Yes Hx Diphtheria, Pertussis, Tetanus Vaccination: Yes - 2014 Physical Exam - Vital signs Vitals: Temp Pulse Resp BP Pulse Ox 98.1 F 67 16 111/65 100 01/19/17 14:02 01/19/17 14:02 01/19/17 14:02 01/19/17 14:02 01/19/17 14:02 Course - Vital Signs Vital signs: Temp Pulse Resp BP Pulse Ox 98.1 F 67 16 111/65 100 01/19/17 14:02 01/19/17 14:02 01/19/17 14:02 01/19/17 14:02 01/19/17 14:02
[2017-01-19] MEDS ORDERED: TRAMADOL HCL 50 MG TABLET PO ONE (14:56)
[2017-01-19] MEDS ORDERED: IBUPROFEN 600 MG TABLET PO ONE (15:01)
[2017-01-19 15:15] LABS: ABSOLUTE EOSINOPHILS # (AUTO) 0.1 10^3/uL (0.0-0.6); ABSOLUTE LYMPHOCYTES (AUTO) 2.1 10^3/uL (0.5-4.7); ABSOLUTE MONOCYTES (AUTO) 0.5 10^3/uL (0.1-1.4); ABSOLUTE NEUT (AUTO) 1.4 10^3/uL (1.7-8.2); BASOPHILS % (AUTO) 0.2 % (0-2); EOSINOPHILS % (AUTO) 3.6 % (0-6); HEMATOCRIT 38.2 % (36.0-47.0); HEMOGLOBIN 12.5 g/dL (12.0-15.5); HGB HCT DIFFERENCE -0.7; LYMPHOCYTES % (AUTO) 50.8 % (13-45); MEAN CORPUSCULAR HEMOGLOBIN 24.2 pg (27.0-33.4); MEAN CORPUSCULAR HGB CONC 32.8 g/dL (32.0-36.0); MEAN CORPUSCULAR VOLUME 74 fl (80-97); MONOCYTES % (AUTO) 11.6 % (3-13); RED BLOOD COUNT 5.17 10^6/uL (3.72-5.28); SEGMENTED NEUTROPHILS % (AUTO) 33.8 % (42-78); WHITE BLOOD COUNT 4.1 10^3/uL (4.0-10.5)
[2017-01-19 15:18] LABS: APPEARANCE,URINE SLIGHTLY-CLOUDY; BILIRUBIN,URINE NEGATIVE (NEGATIVE); GLUCOSE, URINE NEGATIVE (NEGATIVE); KETONES,URINE NEGATIVE (NEGATIVE); LEUKOCYTE ESTERASE,URINE NEGATIVE (NEGATIVE); NITRITE,URINE NEGATIVE (NEGATIVE); PROTEIN,URINE NEGATIVE (NEGATIVE); URINE SPECIFIC GRAVITY 1.026; UROBILINOGEN,URINE NEGATIVE mg/dL (<2.0)
[2017-01-19 15:31] LABS: ALANINE AMINOTRANSFERASE 51 U/L (9-52); ALBUMIN 3.8 g/dL (3.5-5.0); ALKALINE PHOSPHATASE 95 U/L (38-126); ANION GAP 9 (5-19); ASPARTATE AMINO TRANSFERASE 26 U/L (14-36); BILIRUBIN,DIRECT 0.3 mg/dL (0.0-0.4); BILIRUBIN,TOTAL 0.3 mg/dL (0.2-1.3); BLOOD UREA NITROGEN 17 mg/dL (7-20); CALCIUM 9.3 mg/dL (8.4-10.2); CARBON DIOXIDE 26 mmol/L (22-30); CHLORIDE 106 mmol/L (98-107); CREATININE RESULT 0.76 mg/dL (0.52-1.25); GLUCOSE 77 mg/dL (75-110); POTASSIUM 4.3 mmol/L (3.6-5.0); SODIUM 141.4 mmol/L (137-145); TOTAL PROTEIN 7.4 g/dL (6.3-8.2)
[2017-01-19 15:42] LABS: ANISOCYTOSIS 1+; HYPOCHROMASIA 1+; MICROCYTOSIS 2+; OVALOCYTES SLIGHT; POIKILOCYTOSIS 1+; TARGET CELLS SLIGHT; TEAR DROP CELLS SLIGHT
--- NOTE | 2017-01-19 16:08 | RADIOLOGY REPORT (SQ) ---
EXAM DESCRIPTION: CT LTD RENAL STONE PROTOCOL ON COMPLETED DATE/TIME: 01/19/2017 3:36 pm REASON FOR STUDY: L flank pain COMPARISON: None. TECHNIQUE: CT scan of the abdomen and pelvis performed without intravenous or oral contrast. Images reviewed with lung, soft tissue, and bone windows. Reconstructed coronal and sagittal MPR images revi ewed. All images stored on PACS. All CT scanners at this facility use dose modulation, iterative reconstruction, and/or weight based d osing when appropriate to reduce radiation dose to as low as reasonably achievable (ALARA). [facility]: Dose Right [facility]: CareDose [facility]: Dose Right [facility]: Teradose 4D [facility]: Smart Earth Class Mail RADIATION DOSE: Up-to-date CT equipment and radiation dose reduction techniques were employed. CTDIv ol: 5.5 mGy. DLP: 256 mGy-cm.mGy. LIMITATIONS: Lack of oral contrast and paucity of intra-abdominal fat. FINDINGS: LOWER CHEST: No significant findings. No nodules or infiltrates. NON-CONTRASTED LIVER, SPLEEN, ADRENALS: Evaluation limited by lack of IV contrast. No identified sign ificant masses. PANCREAS: No masses. No peripancreatic inflammatory changes. GALLBLADDER: Contracted. No stones. RIGHT KIDNEY AND URETER: Absent LEFT KIDNEY AND URETER: Compensatory hypertrophy. No masses. No significant calcifications. No h ydronephrosis or hydroureter. AORTA AND RETROPERITONEUM: No aneurysm. No retroperitoneal masses or adenopathy. BOWEL AND PERITONEAL CAVITY: No obvious masses or inflammatory changes. No free fluid. APPENDIX: Not identified. PELVIS, BLADDER, AND ABDOMINAL WALL:The urinary bladder is unremarkable. Uterus is normal for age. There is no adnexal mass or fluid collection. BONES: Mild levoscoliosis in the upper lumbar spine. There is a likely hemangioma involving the T11 vertebral body. OTHER: No other significant finding. IMPRESSION: 1. Solitary left kidney with no ureteral stone or obstruction. 2. Mild scoliosis. There is a likely hemangioma at T11. TECHNICAL DOCUMENTATION: JOB ID: [id number] Quality ID # [id number]: Final reports with documentation of one or more dose reduction techniques (e.g., Au tomated exposure control, adjustment of the mA and/or kV according to patient size, use of iterative reconstruction technique) 2010 [employer]- All Rights Reserved
[2017-01-19] MEDS ORDERED: HYDROCODONE/ACETAMINOPHEN 5-325 MG TABLET PO ONE (16:18)
[2017-01-19 16:33] VITALS: BP 117/87
== END 2017-01-19 16:37 | disposition home or self-care (01) ==
LOC: ER 13:34
DX: R10.9 Unspecified abdominal pain (principal); I10 Essential (primary) hypertension; Z90.5 Acquired absence of kidney; Z87.42 Personal history of other diseases of the female genital tract
CPT/HCPCS: 99284; 36415; 85025; 81025; 80053; 81001; 76380; J3490

== ENCOUNTER → 2017-03-11 | Outpatient (CLI) | payer MEDICAID ==
--- NOTE | 2017-03-11 17:01 | WOMENS IMAGING REPORT ---
EXAM DESCRIPTION: BILAT DIAGNOSTIC MAMMO W/CAD; U/S BREAST UNILATERAL, COMPL COMPLETED DATE/TIME: 03/11/2017 9:49 am; 03/11/2017 10:44 am REASON FOR STUDY: MASTODYNIA; N64.4; LT BREAST PAIN N64.4 MASTODYNIA COMPARISON: None. TECHNIQUE: Standard craniocaudal and mediolateral oblique views of each breast recorded using digita l acquisition. Bilateral 90 mediolateral views. Left breast ultrasound was performed today for left breast pain. Patient indicated that she has diff use right breast pain today, she will return for right breast ultrasound for followup. LIMITATIONS: None. FINDINGS: RIGHT BREAST MASSES: No suspicious masses. CALCIFICATIONS: No new or suspicious calcifications. ARCHITECTURAL DISTORTION: None. DEVELOPING DENSITY: None. ASYMMETRY: None noted. OTHER: No other significant findings. LEFT BREAST MASSES: No suspicious masses. CALCIFICATIONS: No new or suspicious calcifications. ARCHITECTURAL DISTORTION: None. DEVELOPING DENSITY: None. ASYMMETRY: None noted. OTHER: No other significant finding. Read with the assistance of CAD: .[facility] - R2 Cenova Version 1.3 .[facility] Imaging - R2 Cenova Version 1.3 .[facility] - R2 Cenova Version 2.4 .[facility] – [place] - R2 Cenova Version 2.4 .[facility] - R2 Platform Builder Version 9.2 Left breast ultrasound: Ultrasound of the left breast was performed. No focal findings. No cysts. No masses. No worrisome acoustic absorption. IMPRESSION: No mammographic or sonographic evidence for malignancy left breast. No mammographic evidence for malignancy right breast. Patient indicates that she has right breast pa in. She will return for follow-up right breast ultrasound. BREAST DENSITY: c. The breasts are heterogeneously dense, which may obscure small masses. BIRAD: 1 Negative. RECOMMENDATION: RECOMMENDED FOLLOW UP: Right breast ultrasound is pending. Clinical followup for bilateral breast pain. Patient should begin bilateral screening tomosynthesis yearly, based upon her lifetime risk assessmen t for breast cancer Kelsy model. SPECIFIC INTERVENTION/IMAGING/CONSULTATION RECOMMENDED:Right breast ultrasound for breast pain. COMMUNICATION:Patient notified by letter COMMENT: The patient has been notified of the results by letter per MQSA requirements. Additional no tification policies are in place for contacting patient with suspicious or incomplete findings. Quality ID #[id number]: The [employer] recommends an annual screening mammogram for women aged 40 years or over. This facility utilizes a reminder system to ensure that all patients receive reminder letters, and/or direct phone calls for appointments. This includes reminders for routine scr eening mammograms, diagnostic mammograms, or other Breast Imaging Interventions when appropriate. Th is patient will be placed in the appropriate reminder system. The [employer] (ACR) has developed recommendations for screening MRI of the breast s in certain patient populations, to be used in conjunction with mammography. Breast MRI surveillanc e may be appropriate for women with more than 20% lifetime risk of developing breast cancer as deter mined by genetic testing, significant family history of the disease, or history of mantle radiation f or Hodgkins Disease. ACR Practice Guidelines 2008. TECHNICAL DOCUMENTATION: FINDING NUMBER: (1) ASSESSMENT: (1) JOB ID: [id number] [employer]- All Rights Reserved
--- NOTE | 2017-03-11 17:01 | WOMENS IMAGING REPORT ---
EXAM DESCRIPTION: BILAT DIAGNOSTIC MAMMO W/CAD; U/S BREAST UNILATERAL, COMPL COMPLETED DATE/TIME: 03/11/2017 9:49 am; 03/11/2017 10:44 am REASON FOR STUDY: MASTODYNIA; N64.4; LT BREAST PAIN N64.4 MASTODYNIA COMPARISON: None. TECHNIQUE: Standard craniocaudal and mediolateral oblique views of each breast recorded using digita l acquisition. Bilateral 90 mediolateral views. Left breast ultrasound was performed today for left breast pain. Patient indicated that she has diff use right breast pain today, she will return for right breast ultrasound for followup. LIMITATIONS: None. FINDINGS: RIGHT BREAST MASSES: No suspicious masses. CALCIFICATIONS: No new or suspicious calcifications. ARCHITECTURAL DISTORTION: None. DEVELOPING DENSITY: None. ASYMMETRY: None noted. OTHER: No other significant findings. LEFT BREAST MASSES: No suspicious masses. CALCIFICATIONS: No new or suspicious calcifications. ARCHITECTURAL DISTORTION: None. DEVELOPING DENSITY: None. ASYMMETRY: None noted. OTHER: No other significant finding. Read with the assistance of CAD: .[facility] - R2 Cenova Version 1.3 .[facility] - R2 Cenova Version 1.3 .[facility] Imaging - R2 Cenova Version 2.4 .[facility] [place] - R2 Cenova Version 2.4 .[facility] - R2 Store Host Version 9.2 Left breast ultrasound: Ultrasound of the left breast was performed. No focal findings. No cysts. No masses. No worrisome acoustic absorption. IMPRESSION: No mammographic or sonographic evidence for malignancy left breast. No mammographic evidence for malignancy right breast. Patient indicates that she has right breast pa in. She will return for follow-up right breast ultrasound. BREAST DENSITY: c. The breasts are heterogeneously dense, which may obscure small masses. BIRAD: 1 Negative. RECOMMENDATION: RECOMMENDED FOLLOW UP: Right breast ultrasound is pending. Clinical followup for bilateral breast pain. Patient should begin bilateral screening tomosynthesis yearly, based upon her lifetime risk assessmen t for breast cancer Kelsy model. SPECIFIC INTERVENTION/IMAGING/CONSULTATION RECOMMENDED:Right breast ultrasound for breast pain. COMMUNICATION:Patient notified by letter COMMENT: The patient has been notified of the results by letter per MQSA requirements. Additional no tification policies are in place for contacting patient with suspicious or incomplete findings. Quality ID #[id number]: The [employer] recommends an annual screening mammogram for women aged 40 years or over. This facility utilizes a reminder system to ensure that all patients receive reminder letters, and/or direct phone calls for appointments. This includes reminders for routine scr eening mammograms, diagnostic mammograms, or other Breast Imaging Interventions when appropriate. Th is patient will be placed in the appropriate reminder system. The [employer] (ACR) has developed recommendations for screening MRI of the breast s in certain patient populations, to be used in conjunction with mammography. Breast MRI surveillanc e may be appropriate for women with more than 20% lifetime risk of developing breast cancer as deter mined by genetic testing, significant family history of the disease, or history of mantle radiation f or Hodgkins Disease. ACR Practice Guidelines 2008. TECHNICAL DOCUMENTATION: FINDING NUMBER: (1) ASSESSMENT: (1) JOB ID: [id number] [employer] ([employer])- All Rights Reserved
== END ==
LOC: WI 09:27
PROVIDERS: ATTEND Family Medicine
DX: N64.4 Mastodynia (principal)
CPT/HCPCS: 76641; G0204; 77066

== ENCOUNTER 2017-03-25 11:57 | Emergency (ER) | payer MEDICAID ==
[2017-03-25 12:01] VITALS: BP 124/77
[2017-03-25] MEDS ORDERED: OXYCODONE-ACETAMINOPHEN 5-325 MG TABLET PO ONE (12:54)
[2017-03-25] MEDS ORDERED: LIDOCAINE 5% (700 MG) TRANSDERMAL ADH..PATCH TP ONE (12:54)
--- NOTE | 2017-03-25 13:00 | ER Document Report ---
ED Neck/Back Problem - General Chief Complaint: Headache Stated Complaint: HEADACHE,BACK PAIN Time Seen by Provider: 03/25/17 12:36 Mode of Arrival: Ambulatory Information source: Patient Notes: 32-year-old female presents to ED for complaint of headache caused by her backache. She has a history of scoliosis and has frequent backaches. She is on oxycodone and Tylenol and Advil for her back pain. She states she ran out of her Percocet yesterday and has been using Tylenol and ibuprofen. States she has an appointment with her doctor tomorrow to get a refill on the Percocet. TRAVEL OUTSIDE OF THE [place] IN LAST 30 DAYS: No - HPI Patient complains to provider of: Pain, Neck - And head, Lower back Onset: Other - 2 days Onset: Chronic Timing: Still present Quality of pain: Achy, Sharp Pain Level: 4 Context: Lifting, Turning Recent injury: No Associated symptoms: Lower back pain Exacerbated by: Nothing Relieved by: Nothing Similar symptoms previously: Yes Recently seen / treated by doctor: No - Related Data Allergies/Adverse Reactions: acetaminophen [From Tylenol-Codeine #3] Adverse Reaction (Verified 03/25/17 12: 00) Anxiety codeine [From Tylenol-Codeine #3] Adverse Reaction (Verified 03/25/17 12:00) Anxiety tramadol Adverse Reaction (Verified 03/25/17 12:00) Anxiety Past Medical History - General Information source: Patient - Social History Smoking Status: Never Smoker Cigarette use (# per day): No Chew tobacco use (# tins/day): No Smoking Education Provided: No Frequency of alcohol use: None Drug Abuse: None Family History: CAD, DM, Hyperlipidemia, Hypertension, Malignancy Patient has suicidal ideation: No Patient has homicidal ideation: No - Past Medical History Cardiac Medical History: Reports: Hx Hypercholesterolemia, Hx Hypertension Pulmonary Medical History: Reports: None EENT Medical History: Reports: None Neurological Medical History: Reports: None Endocrine Medical History: Reports: None Renal/ Medical History: Reports: Hx Ovarian Cysts Malignancy Medical History: Reports: None GI Medical History: Reports: Hx Ulcer Musculoskeltal Medical History: Reports Hx Muscle Spasm, Reports Hx Musculoskeletal Deformity, Reports Hx Musculoskeletal Trauma, Reports Other - scoliosis Skin Medical History: Reports None Psychiatric Medical History: Reports: Hx Anxiety, Hx Depression Traumatic Medical History: Reports: None Infectious Medical History: Reports: None Past Surgical History: Reports: Hx Abdominal Surgery, Hx Section - 4 - Immunizations Immunizations up to date: Yes Hx Diphtheria, Pertussis, Tetanus Vaccination: Yes - 2014 Review of Systems - Review of Systems Constitutional: No symptoms reported EENT: No symptoms reported Cardiovascular: No symptoms reported Respiratory: No symptoms reported Gastrointestinal: No symptoms reported Genitourinary: No symptoms reported Female Genitourinary: No symptoms reported Musculoskeletal: Back pain, Muscle pain Skin: No symptoms reported Hematologic/Lymphatic: No symptoms reported Neurological/Psychological: Headaches -: Yes All other systems reviewed and negative Physical Exam - Vital signs Vitals: Temp Pulse Resp BP Pulse Ox 99.0 F 91 14 124/77 100 03/25/17 12:00 03/25/17 12:00 03/25/17 12:00 03/25/17 12:00 03/25/17 12:00 Interpretation: Normal - General General appearance: Appears well, Alert - HEENT Head: Normocephalic, Atraumatic Eyes: Normal Pupils: PERRL - Respiratory Respiratory status: No respiratory distress Chest status: Nontender Breath sounds: Normal Chest palpation: Normal - Cardiovascular Rhythm: Regular Heart sounds: Normal auscultation Murmur: No - Abdominal Inspection: Normal Distension: No distension Bowel sounds: Normal Tenderness: Nontender Organomegaly: No organomegaly - Back Back: Normal, Nontender, Scoliosis. No: Tender, Deformity/step-off, CVA tenderness, Vertebra tenderness, Scars, Wounds - Extremities General upper extremity: Normal inspection, Nontender, Normal color, Normal ROM , Normal temperature General lower extremity: Normal inspection, Nontender, Normal color, Normal ROM , Normal temperature, Normal weight bearing. No: Santi's sign - Neurological Neuro grossly intact: Yes Cognition: Normal Orientation: AAOx4 Irene Coma Scale Eye Opening: Spontaneous [place]ao Coma Scale Verbal: Oriented Irene Coma Scale Motor: Obeys Commands Irene Coma Scale Total: 15 Speech: Normal Cranial nerves: Normal Cerebellar coordination: Normal Motor strength normal: LUE, RUE, LLE, RLE Additional motor exam normals: Equal prototyper Babinski reflex: Normal (flexor plantar) Sensory: Normal Knee - Reflex grade: 2 = Normal Ankle - Reflex grade: 2 = Normal - Psychological Associated symptoms: Normal affect, Normal mood - Skin Skin Temperature: Warm Skin Moisture: Dry Skin Color: Normal Course - Re-evaluation Re-evalutation: 03/25/17 13:08 No loss control of bowel bladder, no loss of control of the legs, and no loss of sensation. No signs or symptoms of cauda equina. Patient states that the headache is due to the scoliosis which is causing her to be tense. - Vital Signs Vital signs: Temp Pulse Resp BP Pulse Ox 99.0 F 91 14 124/77 100 03/25/17 12:00 03/25/17 12:00 03/25/17 12:00 03/25/17 12:00 03/25/17 12:00 Discharge - Discharge Clinical Impression: Scoliosis Qualifiers: Scoliosis type: unspecified scoliosis Spinal region: unspecified Qualified Code (s): M41.9 - Scoliosis, unspecified Headache Qualifiers: Headache type: unspecified Headache chronicity pattern: unspecified pattern Intractability: not intractable Qualified Code(s): R51 - Headache Condition: Stable Disposition: HOME, SELF-CARE Additional Instructions: LOW BACK PAIN: Three out of every four people will have an episode of disabling back pain during their lifetime. Most commonly the pain is due to straining of the muscles and ligaments in the low back. Usual treatment includes: (1) Rest on a firm surface. Avoid lying on your stomach. (2) Ice pack the painful area. After a few days, gentle heat may be used intermittently to relax the area, or ice packs can be continued. (3) Medication may be needed -- muscle relaxers and antiinflammatory medicines are commonly used. (4) As the back improves, exercises are prescribed to strengthen the back and abdominal muscles. Your doctor will advise you on the proper care for your back at each stage in your recovery. You may be better in a few days -- or healing may take several weeks. If new symptoms of a "herniated disc" (radiation of pain, numbness, or tingling down the back of the leg or weakness in the leg) occur, you should be re-examined. Further testing may be necessary. I will give you a Lidoderm patch in the emergency room. This can only stay on for 12 hours then needs to be removed. As you have Medicaid, you will probably not be able to afford these at home but you can use Aspercreme. Chronic Pain Control Stress, inactivity, and depression make pain more severe regardless of the cause of the pain. Stress and poor physical condition can cause pain such as headaches and backache. Relaxation: Rest in a quiet place with your eyes closed for 20 minutes twice daily. Concentrate on a pleasant image, or simply "feel" your breathing. Clear your mind. Stress management: Deal with your "stressors." Either take action, or eliminate the stressor from your life. Don't let things hang over you. Accept those things you can't change. Nutrition: Eat small, balanced meals -- don't skip, don't overeat. Meals should be high-carbohydrate, low-sugar, low-fat. Exercise: Exercise helps painful conditions and eases stress. Get 30 minutes of moderate exercise, five days a week. Do an activity that does not flare your pain. Precautions: Pain which continues to disrupt daily activities, or which changes in nature, requires a medical evaluation. Pain Clinic referral is available. We do not manage chronic pain in the Emergency Department. We will try to appropriately help you through an acute flare of your chronic painful condition , but for on-going chronic pain that does not improve, you will need to see your private doctor or house painting instructor. We do not provide repeated medication management of chronic painful conditions. If you wish, we can provide the name of local pain management physicians. ORAL NARCOTIC MEDICATION: You have been given a percocet for pain control. This medication is a narcotic. It's best taken with food, as nausea can result if taken on an empty stomach. Don't operate machinery or drive within six hours of taking this medication. Do not combine this medicine with alcohol, or with any medication which can cause sedation (such as cold tablets or sleeping pills) unless you get permission from the physician. Narcotics tend to cause constipation. If possible, drink plenty of fluids and eat a diet high in fiber and fruits. Please be aware that prescription narcotics also have the potential for abuse. People become addicted to these medications because of the general sense of wellbeing that they induce. This feeling along with a significant reduction in tension, anxiety, and aggression provides a stimulating seductive quality to these drugs. Once your pain is under control, we encourage you to discard your unused narcotics. ICE PACKS: Apply ice packs frequently against the painful area. Many different schedules are recommended, such as "20 minutes on, 20 minutes off" or "one hour ice, two hours rest." If you need to work, you may need to go longer between ice treatments. You should plan to have the area ice packed AT LEAST one fourth of the time. The ice should be applied over the wrap, tape, or splint, or over a layer of cloth -- not directly against the skin. Some ice bags have a built-in cloth and can be put directly on the skin. WARM PACKS: After approximately two days, apply gentle heat (such as a heating pad or hot water bottle) for about 20 to 30 minutes about every two hours -- at least four times daily. Warmth and elevation will help you make a more rapid recovery , and will ease the pain considerably. Do not use HOT heat, and never apply heat for longer than 30 minutes. The continuous heat can invisibly damage skin and muscles -- even when no burn is seen on the surface. Damaged muscles can make you MORE sore. FOLLOW-UP CARE: If you have been referred to a physician for follow-up care, call the physician s office for an appointment as you were instructed or within the next two days. If you experience worsening or a significant change in your symptoms, notify the physician immediately or return to the Emergency Department at any time for re-evaluation. Referrals: MIKE ADAME MD [ACTIVE STAFF] - Follow up as needed
== END 2017-03-25 13:15 | disposition home or self-care (01) ==
LOC: ER 11:57
DX: M41.9 Scoliosis, unspecified (principal); R51 Headache; M54.2 Cervicalgia; M54.5 Low back pain; G89.29 Other chronic pain; Z79.891 Long term (current) use of opiate analgesic; Z79.1 Long term (current) use of non-steroidal anti-inflammatories (NSAID); Z79.899 Other long term (current) drug therapy; I10 Essential (primary) hypertension
CPT/HCPCS: 99284; J3490

== ENCOUNTER 2017-04-14 12:46 | Emergency (ER) | payer MEDICAID ==
[2017-04-14 12:56] VITALS: BP 122/72
--- NOTE | 2017-04-14 14:17 | ER Document Report ---
ED Fall - General Chief Complaint: Fall Injury Stated Complaint: FALL/LEFT LEG PAIN Time Seen by Provider: 04/14/17 13:30 Mode of Arrival: Wheelchair Information source: Patient Notes: 32-year-old female presents to ED for complaint of left leg and bilateral shoulder pain after she fell down the stairs last night. She states she fell down 6 stairs. States she has bruises to right upper arm and left lower leg. TRAVEL OUTSIDE OF THE [place] IN LAST 30 DAYS: No - HPI Occurred: Yesterday Where: Home Context: Tripped Associated symptoms: None Location of injury/pain: Upper extremity, Lower extremity Quality of pain: Sharp Severity: Severe Pain Level: 5 - Related data Allergies/Adverse Reactions: acetaminophen [From Tylenol-Codeine #3] Adverse Reaction (Verified 04/14/17 12: 54) Anxiety codeine [From Tylenol-Codeine #3] Adverse Reaction (Verified 04/14/17 12:54) Anxiety tramadol Adverse Reaction (Verified 04/14/17 12:54) Anxiety Past Medical History - General Information source: Patient - Social History Smoking Status: Former Smoker Cigarette use (# per day): No Chew tobacco use (# tins/day): No Smoking Education Provided: No Frequency of alcohol use: None Drug Abuse: None Lives with: Family Family History: CAD, DM, Hyperlipidemia, Hypertension, Malignancy - Past Medical History Cardiac Medical History: Reports: Hx Hypercholesterolemia, Hx Hypertension Renal/ Medical History: Reports: Hx Ovarian Cysts. Denies: Hx Peritoneal Dialysis GI Medical History: Reports: Hx Ulcer Musculoskeltal Medical History: Reports Hx Muscle Spasm, Reports Hx Musculoskeletal Deformity, Reports Hx Musculoskeletal Trauma Psychiatric Medical History: Reports: Hx Anxiety, Hx Depression Past Surgical History: Reports: Hx Abdominal Surgery, Hx Section - 4 - Immunizations Immunizations up to date: Yes Hx Diphtheria, Pertussis, Tetanus Vaccination: Yes - 2014 Review of Systems - Review of Systems Constitutional: No symptoms reported EENT: No symptoms reported Cardiovascular: No symptoms reported Respiratory: No symptoms reported Gastrointestinal: No symptoms reported Genitourinary: No symptoms reported Female Genitourinary: No symptoms reported Musculoskeletal: Muscle pain, Muscle stiffness, Other - Bilateral shoulder right arm and left leg pain Skin: Other - Ecchymosis to right upper arm and left lower leg Hematologic/Lymphatic: No symptoms reported Neurological/Psychological: No symptoms reported -: Yes All other systems reviewed and negative Physical Exam - Vital signs Vitals: Temp Pulse BP Pulse Ox 98.4 F 76 122/72 99 04/14/17 12:53 04/14/17 12:53 04/14/17 12:53 04/14/17 12:53 Interpretation: Normal - General General appearance: Appears well, Alert - HEENT Head: Normocephalic, Atraumatic Eyes: Normal Pupils: PERRL - Respiratory Respiratory status: No respiratory distress Chest status: Nontender Breath sounds: Normal Chest palpation: Normal - Cardiovascular Rhythm: Regular Heart sounds: Normal auscultation Murmur: No - Abdominal Inspection: Normal Distension: No distension Bowel sounds: Normal Tenderness: Nontender Organomegaly: No organomegaly - Back Back: Normal, Nontender - Extremities General upper extremity: Normal color, Normal ROM, Normal temperature General lower extremity: Normal inspection, Nontender, Normal color, Normal ROM , Normal temperature, Normal weight bearing. No: Santi's sign Shoulder: Tender. No: Limited ROM Arm: Tender, Ecchymosis Elbow: Normal, Nontender Thigh: Normal, Nontender Knee: Normal, Nontender Calf: Tender, Ecchymosis Ankle: Normal, Nontender Foot: Normal, Nontender - Neurological Neuro grossly intact: Yes Cognition: Normal Orientation: AAOx4 [place] Coma Scale Eye Opening: Spontaneous [place] Coma Scale Verbal: Oriented [place] Coma Scale Motor: Obeys Commands [place] Coma Scale Total: 15 Speech: Normal Motor strength normal: LUE, RUE, LLE, RLE Sensory: Normal - Psychological Associated symptoms: Normal affect, Normal mood - Skin Skin Temperature: Warm Skin Moisture: Dry Skin Color: Normal Course - Re-evaluation Re-evalutation: 04/14/17 19:26 X-rays discussed with patient and written reports given to patient pain. Patient is on chronic pain management gets 90 Percocets a month. There is no acute fractures no acute injuries except for contusions and bruises. Patient requested a Eduarod wrap to her left lower leg. This was applied by nurse. Patient was discharged home to follow-up with her primary doctor. - Vital Signs Vital signs: Temp Pulse Resp BP Pulse Ox 98.4 F 76 122/72 99 04/14/17 12:53 04/14/17 12:53 04/14/17 12:53 04/14/17 12:53 - Diagnostic Test Radiology reviewed: Image reviewed, Reports reviewed Procedures - Immobilization Left Leg Immobilizer type: Eduardo wrap Performed by: RN Post-Proc Neuro Vasc Exam: Normal Discharge - Discharge Clinical Impression: Fall Qualifiers: Encounter type: initial encounter Qualified Code(s): W19.XXXA - Unspecified fall, initial encounter Contusion of left lower leg Qualifiers: Encounter type: initial encounter Qualified Code(s): S80.12XA - Contusion of left lower leg, initial encounter Bilateral shoulder injury Qualifiers: Encounter type: initial encounter Qualified Code(s): S49.91XA - Unspecified injury of right shoulder and upper arm, initial encounter Condition: Stable Disposition: HOME, SELF-CARE Additional Instructions: MUSCLE STRAIN: You have strained a muscle -- torn the fibers within the muscle. This often occurs with strenuous exertion, or during an injury that suddenly stretches the muscle. The seriousness of a strain varies. Some strains heal within days, others cause problems for months. X-rays cannot show a muscle strain. X-rays are taken only if symptoms suggest that a fracture could be present. The usual treatment of a muscle strain is rest and ice packs. Sometimes, a sling, splint, or crutches may be necessary to rest the muscle. The muscle can be used again once pain subsides. Severe strains require a special exercise and stretching program to prevent permanent stiffness and disability. Your doctor will advise you if this will be necessary. Call the doctor immediately if pain or swelling becomes severe, or if numbness or discoloration develop. CONTUSION: Your injury has resulted in a contusion -- a crushing of the deep tissues. No injury to important structures was detected during the physician's exam. Contusions vary in the amount of pain they cause, and in the length of time required for healing. Typically, the area will become bruised, and will remain painful to touch for two or three weeks. However, most patients are back to working and playing within a few days. After the initial period of rest and cold-packs, your symptoms (together with the doctor's recommendations) will determine how rapidly you can get back to full activity. Usually this means "do what feels okay, but don't do things that hurt." If re-examination was recommended, it's important to follow up as instructed. Call the doctor or return any time if pain increases, if swelling becomes severe, if you develop numbness or weakness in an injured extremity, or if any other alarming symptoms occur. USE OF TYLENOL (ACETAMINOPHEN): Acetaminophen may be taken for pain relief or fever control. It's much safer than aspirin, offering a wider range of "safe" dosages. It is safe during . Some brand names are Tylenol, Panadol, Datril, Anacin 3, Tempra, and Liquiprin. Acetaminophen can be repeated every four hours. The following are maximum recommended dosages: WEIGHT Dose Drops Elixir Chewable( 80mg) (LBS.) drprs=droppers tsp=teaspoon 6 40 mg 0.4 ml (1/2) 6-11 80 mg 0.8 ml (full) tsp 1 tab 12-16 120 mg 1 1/2 drprs 3/4 tsp 1 1/2 tabs 17-23 160 mg 2 drprs 1 tsp 2 tabs 24-30 240 mg 3 drprs 1 1/2 tsp 3 tabs 30-35 320 mg 2 tsp 4 tabs 36-41 360 mg 2 1/4 tsp 4 1/2 tabs 42-47 400 mg 2 1/2 tsp 5 tabs 48-53 480 mg 3 tsp 6 tabs 54-59 520 mg 3 1/4 tsp 6 1/2 tabs 60-64 560 mg 3 1/2 tsp 7 tabs 65-70 600 mg 3 3/4 tsp 7 1/2 tabs 71-76 640 mg 4 tsp 8 tabs 77-82 720 mg 4 1/2 tsp 9 tabs 83-88 800 mg 5 tsp 10 tabs >89 pounds or adults 650 mg to 900 mg Acetaminophen can be repeated every four hours. Maximum dose not to exceed 4000 mg a day. These maximum recommended dosages are slightly higher than the dosages written on the product container, but these dosages are very safe and below the toxic dosage for acetaminophen. Shoulder Injury You have injured your shoulder. This usually results from stretching or tearing of the tendons during trauma. Time and protection are required in order to heal properly. Many injuries are quite disabling, and should be taken seriously. Initial treatment includes cold packs and a sling to rest the shoulder. The physician has assessed the seriousness of your injury, and has outlined a treatment plan. Understand that this treatment may change, depending on how you progress. If a re-examination was recommended, it is important that you follow up as instructed. Some shoulder injuries (such as partial tear of the rotator cuff) are only suspected after you've failed to improve. Call us if there's severe pain, numbness, or loss of function. ICE PACKS: Apply ice packs frequently against the painful area. Many different schedules are recommended, such as "20 minutes on, 20 minutes off" or "one hour ice, two hours rest." If you need to work, you may need to go longer between ice treatments. You should plan to have the area ice packed AT LEAST one fourth of the time. The ice should be applied over the wrap, tape, or splint, or over a layer of cloth -- not directly against the skin. Some ice bags have a built-in cloth and can be put directly on the skin. WARM PACKS: After approximately two days, apply gentle heat (such as a heating pad or hot water bottle) for about 20 to 30 minutes about every two hours -- at least four times daily. Warmth and elevation will help you make a more rapid recovery , and will ease the pain considerably. Do not use HOT heat, and never apply heat for longer than 30 minutes. The continuous heat can invisibly damage skin and muscles -- even when no burn is seen on the surface. Damaged muscles can make you MORE sore. Chronic Pain Control Stress, inactivity, and depression make pain more severe regardless of the cause of the pain. Stress and poor physical condition can cause pain such as headaches and backache. Relaxation: Rest in a quiet place with your eyes closed for 20 minutes twice daily. Concentrate on a pleasant image, or simply "feel" your breathing. Clear your mind. Stress management: Deal with your "stressors." Either take action, or eliminate the stressor from your life. Don't let things hang over you. Accept those things you can't change. Nutrition: Eat small, balanced meals -- don't skip, don't overeat. Meals should be high-carbohydrate, low-sugar, low-fat. Exercise: Exercise helps painful conditions and eases stress. Get 30 minutes of moderate exercise, five days a week. Do an activity that does not flare your pain. Precautions: Pain which continues to disrupt daily activities, or which changes in nature, requires a medical evaluation. Pain Clinic referral is available. We do not manage chronic pain in the Emergency Department. We will try to appropriately help you through an acute flare of your chronic painful condition , but for on-going chronic pain that does not improve, you will need to see your private doctor or sign painter helper. We do not provide repeated medication management of chronic painful conditions. If you wish, we can provide the name of local pain management physicians. FOLLOW-UP CARE: If you have been referred to a physician for follow-up care, call the physician s office for an appointment as you were instructed or within the next two days. If you experience worsening or a significant change in your symptoms, notify the physician immediately or return to the Emergency Department at any time for re-evaluation. Referrals: MIKE ADAME MD [Primary Care Provider] - Follow up as needed NELL BRANDT MD [ACTIVE STAFF] - Follow up as needed
--- NOTE | 2017-04-14 14:48 | RADIOLOGY REPORT (SQ) ---
EXAM DESCRIPTION: TIBIA FIBULA LEFT COMPLETED DATE/TIME: 04/14/2017 2:32 pm REASON FOR STUDY: fall yesterday with pain COMPARISON: None. NUMBER OF VIEWS: Two views. TECHNIQUE: Two radiographic images acquired of the left tibia and fibula to include the knee and ank le in at least one projection. LIMITATIONS: None. FINDINGS: MINERALIZATION: Normal. BONES: No acute fracture or dislocation. No worrisome bone lesions. SOFT TISSUES: No obvious swelling or foreign body. OTHER: No other significant finding. IMPRESSION: NEGATIVE STUDY OF THE LEFT TIBIA AND FIBULA. NO RADIOGRAPHIC EVIDENCE OF ACUTE INJURY. TECHNICAL DOCUMENTATION: JOB ID: [id number] [employer]- All Rights Reserved
--- NOTE | 2017-04-14 14:50 | RADIOLOGY REPORT (SQ) ---
EXAM DESCRIPTION: SHOULDER BILAT 2 OR MORE VIEWS COMPLETED DATE/TIME: 04/14/2017 2:32 pm REASON FOR STUDY: fall yesterday with pain COMPARISON: None. NUMBER OF VIEWS: Three views. TECHNIQUE: Internal rotation, external rotation, and Y view images acquired of the right and left sh oulder. LIMITATIONS: None. FINDINGS: MINERALIZATION: Normal. BONES: No acute fracture or dislocation. No worrisome bone lesions. Mild convex rightward thoracic curvature. JOINTS: No glenohumeral malalignment or acromioclavicular joint widening bilaterally VISUALIZED LUNGS AND RIBS: No pneumothorax. No rib fracture. SOFT TISSUES: No radiopaque foreign body. OTHER: No other significant finding. IMPRESSION: No acute changes TECHNICAL DOCUMENTATION: JOB ID: [id number] [employer]- All Rights Reserved
== END 2017-04-14 15:43 | disposition home or self-care (01) ==
LOC: ER 12:46
DX: S80.12XA Contusion of left lower leg, initial encounter (principal); S40.021A Contusion of right upper arm, initial encounter; S49.92XA Unspecified injury of left shoulder and upper arm, initial encounter; M79.605 Pain in left leg; M25.511 Pain in right shoulder; M25.512 Pain in left shoulder; W10.9XXA Fall (on) (from) unspecified stairs and steps, initial encounter; Y93.89 Activity, other specified; Y92.009 Unspecified place in unspecified non-institutional (private) residence as the place of occurrence of the external cause; I10 Essential (primary) hypertension; G89.29 Other chronic pain; Z79.891 Long term (current) use of opiate analgesic; Z87.891 Personal history of nicotine dependence
CPT/HCPCS: 99283

== ENCOUNTER 2017-06-15 11:26 | Emergency (ER) | payer MEDICAID ==
[2017-06-15] MEDS ORDERED: CLINDAMYCIN HCL 150 MG CAPSULE PO ONE (12:57)
--- NOTE | 2017-06-15 13:05 | ER Document Report ---
ED General - General Chief Complaint: Toothache Stated Complaint: TOOTHACHE Time Seen by Provider: 06/15/17 12:43 Mode of Arrival: Ambulatory Information source: Patient, Friend TRAVEL OUTSIDE OF THE [place] IN LAST 30 DAYS: No - HPI Context: 32-year-old female presents today with complaints of left lower dental pain that started approximately 1 week ago. pain is 6/10, achy and throbbing with eating. denies any fevers or chills. denies cp, sob, n/v/d, blurred vision, double vision. does not have a dentist. better with advil, worse with eating hard foods. reports cold sensitivity. - Related Data Allergies/Adverse Reactions: acetaminophen [From Tylenol-Codeine #3] Adverse Reaction (Verified 06/15/17 11: 29) Anxiety codeine [From Tylenol-Codeine #3] Adverse Reaction (Verified 06/15/17 11:29) Anxiety tramadol Adverse Reaction (Verified 06/15/17 11:29) Anxiety Past Medical History - General Information source: Patient - Social History Smoking Status: Never Smoker Frequency of alcohol use: None Drug Abuse: None Family History: CAD, DM, Hyperlipidemia, Hypertension, Malignancy Patient has suicidal ideation: No Patient has homicidal ideation: No - Past Medical History Cardiac Medical History: Reports: Hx Hypercholesterolemia, Hx Hypertension Renal/ Medical History: Reports: Hx Ovarian Cysts. Denies: Hx Peritoneal Dialysis GI Medical History: Reports: Hx Ulcer Musculoskeltal Medical History: Reports Hx Muscle Spasm, Reports Hx Musculoskeletal Deformity, Reports Hx Musculoskeletal Trauma Psychiatric Medical History: Reports: Hx Anxiety, Hx Depression Past Surgical History: Reports: Hx Abdominal Surgery, Hx Section - 4 - Immunizations Immunizations up to date: Yes Hx Diphtheria, Pertussis, Tetanus Vaccination: Yes - 2014 Review of Systems - Review of Systems Constitutional: No symptoms reported EENT: Dental problem Cardiovascular: No symptoms reported Respiratory: No symptoms reported Gastrointestinal: No symptoms reported Genitourinary: No symptoms reported Musculoskeletal: No symptoms reported Skin: No symptoms reported Physical Exam - Vital signs Vitals: Temp Pulse Resp BP Pulse Ox 98.7 F 73 14 129/74 H 99 06/15/17 11:34 06/15/17 11:34 06/15/17 11:34 06/15/17 11:34 06/15/17 11:34 Interpretation: Normal - General General appearance: Appears well - HEENT Eyes: Normal Conjunctiva: Normal Pupils: PERRL Tympanic membrane: Normal Notes: #18 gingiva with swelling, erythema and induration. No drainage or open wounds. No fluctuance. No facial swelling. - Respiratory Respiratory status: No respiratory distress Chest status: Nontender Breath sounds: Normal - Cardiovascular Rhythm: Regular Murmur: No Normal capillary refill: Yes - Abdominal Inspection: Normal - Neurological Neuro grossly intact: Yes - Skin Skin Temperature: Warm Skin Moisture: Dry Course - Re-evaluation Re-evalutation: After performing a Medical Screening Examination, I estimate there is LOW risk for a DEEP SPACE INFECTION (e.g., STEPHEN'S ANGINA OR RETROPHARYNGEAL ABSCESS), MENINGITIS, INTRACRANIAL HEMORRHAGE, or AIRWAY COMPROMISE, thus I consider the discharge disposition reasonable. Also, there is no evidence or peritonitis, sepsis, or toxicity. I have reevaluated this patient multiple times and no significant life threatening changes are noted. The patient and I have discussed the diagnosis and risks, and we agree with discharging home with close follow-up with the understanding that symptoms and presentations can change. We also discussed returning to the Emergency Department immediately if new or worsening symptoms occur. We have discussed the symptoms which are most concerning (e.g., changing or worsening pain, trouble swallowing or breathing, neck stiffness or fever) that necessitate immediate return. 06/15/17 13:07 - Vital Signs Vital signs: Temp Pulse Resp BP Pulse Ox 98.7 F 73 14 129/74 H 99 06/15/17 11:34 06/15/17 11:34 06/15/17 11:34 06/15/17 11:34 06/15/17 11:34 Discharge - Discharge Clinical Impression: Dental caries Condition: Good Disposition: HOME, SELF-CARE Instructions: Caring [facility], Clindamycin ([facility]), Toothache ([facility]) Additional Instructions: Follow-up with dentist. Take antibiotics as directed. Saltwater gargles. Use Peridex, do not drink or eat after. Take meloxicam once a day, did not take any ibuprofen or other NSAIDs as directed. Return to ER if signs and symptoms become worse. Prescriptions: Chlorhexidine Gluconate [Peridex 0.12% Oral Rinse 473 ml] 15 ml MM QHS #1 bottle Clindamycin HCl 300 mg PO Q6 #28 capsule Lidocaine 30 gm TP PRN PRN #1 oint...g. PRN Reason: Meloxicam 7.5 mg PO DAILY #7 tablet Referrals: CHARMAINE HERNANDEZ DO [Primary Care Provider] - Follow up in 3-5 days
[2017-06-15] MEDS ORDERED: KETOROLAC TROMETHAMINE 60 MG/2 ML SDV IM ONE (13:39)
[2017-06-15 13:50] VITALS: BP 122/83
== END 2017-06-15 13:51 | disposition home or self-care (01) ==
LOC: ER 11:26
DX: K02.9 Dental caries, unspecified (principal); K08.89 Other specified disorders of teeth and supporting structures; I10 Essential (primary) hypertension
CPT/HCPCS: 99282; J3490

== ENCOUNTER 2017-08-14 10:21 | Emergency (ER) | payer MEDICAID ==
[2017-08-14 10:37] VITALS: BP 103/69
--- NOTE | 2017-08-14 10:52 | ER Document Report ---
ED Medical Screen (RME) - General Chief Complaint: Chest Pain Stated Complaint: BODY WEAKNESS Time Seen by Provider: 08/14/17 10:51 Mode of Arrival: Ambulatory Information source: Patient Notes: 32-year-old female with a history of iron deficiency anemia and fainting who presents to the emergency room with weakness, fatigue, foul-smelling flatulence. Patient denies any fever, chills, shortness of breath, chest pain, abdominal pain, black stools. Patient does see Dr. Norris and had seen this doctor 2 days ago. TRAVEL OUTSIDE OF THE [place] IN LAST 30 DAYS: No - Related Data Allergies/Adverse Reactions: acetaminophen [From Tylenol-Codeine #3] Adverse Reaction (Verified 08/14/17 10: 22) Anxiety codeine [From Tylenol-Codeine #3] Adverse Reaction (Verified 08/14/17 10:22) Anxiety tramadol Adverse Reaction (Verified 08/14/17 10:22) Anxiety Past Medical History - Social History Chew tobacco use (# tins/day): No Frequency of alcohol use: None Drug Abuse: None - Past Medical History Cardiac Medical History: Reports: Hx Hypercholesterolemia, Hx Hypertension Renal/ Medical History: Reports: Hx Ovarian Cysts. Denies: Hx Peritoneal Dialysis GI Medical History: Reports: Hx Ulcer Musculoskeltal Medical History: Reports Hx Muscle Spasm, Reports Hx Musculoskeletal Deformity, Reports Hx Musculoskeletal Trauma Psychiatric Medical History: Reports: Hx Anxiety, Hx Depression Past Surgical History: Reports: Hx Abdominal Surgery, Hx Section - 4 - Immunizations Immunizations up to date: Yes Hx Diphtheria, Pertussis, Tetanus Vaccination: Yes - 2014 Physical Exam - Vital signs Vitals: Temp Pulse Resp BP Pulse Ox 98.2 F 71 18 103/69 100 08/14/17 10:35 08/14/17 10:35 08/14/17 10:35 08/14/17 10:35 08/14/17 10:35 Course - Vital Signs Vital signs: Temp Pulse Resp BP Pulse Ox 98.2 F 71 18 103/69 100 08/14/17 10:35 08/14/17 10:35 08/14/17 10:35 08/14/17 10:35 08/14/17 10:35
--- NOTE | 2017-08-14 11:03 | EKG REPORT ---
SEVERITY:- ABNORMAL ECG - SINUS RHYTHM FIRST DEGREE AV BLOCK : Confirmed by: Devang Angel 14-Aug-2017 11:02:15
[2017-08-14 11:18] LABS: APPEARANCE,URINE CLEAR; BILIRUBIN,URINE NEGATIVE (NEGATIVE); COLOR,URINE YELLOW; GLUCOSE, URINE NEGATIVE (NEGATIVE); KETONES,URINE NEGATIVE (NEGATIVE); LEUKOCYTE ESTERASE,URINE NEGATIVE (NEGATIVE); NITRITE,URINE NEGATIVE (NEGATIVE); PROTEIN,URINE NEGATIVE (NEGATIVE); URINE SPECIFIC GRAVITY 1.024; UROBILINOGEN,URINE NEGATIVE mg/dL (<2.0)
[2017-08-14 11:29] LABS: ABSOLUTE BASOPHILS # (AUTO) 0.1 10^3/uL (0.0-0.2); ABSOLUTE EOSINOPHILS # (AUTO) 0.1 10^3/uL (0.0-0.6); ABSOLUTE LYMPHOCYTES (AUTO) 1.8 10^3/uL (0.5-4.7); ABSOLUTE MONOCYTES (AUTO) 0.5 10^3/uL (0.1-1.4); ABSOLUTE NEUT (AUTO) 2.4 10^3/uL (1.7-8.2); BASOPHILS % (AUTO) 1.6 % (0-2); EOSINOPHILS % (AUTO) 1.9 % (0-6); HEMOGLOBIN 10.2 g/dL (12.0-15.5); MEAN CORPUSCULAR HEMOGLOBIN 20.1 pg (27.0-33.4); MEAN CORPUSCULAR HGB CONC 30.9 g/dL (32.0-36.0); MEAN CORPUSCULAR VOLUME 65 fl (80-97); MONOCYTES % (AUTO) 10.1 % (3-13); PLATELET COUNT 234 10^3/uL (150-450); RED BLOOD COUNT 5.08 10^6/uL (3.72-5.28); RED CELL DISTRIBUTION WIDTH 18.3 % (11.5-14.0); SEGMENTED NEUTROPHILS % (AUTO) 49.4 % (42-78); TOTAL CELLS COUNTED % (AUTO) 100 %; WHITE BLOOD COUNT 4.9 10^3/uL (4.0-10.5)
[2017-08-14 11:31] LABS: ALANINE AMINOTRANSFERASE 23 U/L (9-52); ALBUMIN 4.2 g/dL (3.5-5.0); ALKALINE PHOSPHATASE 74 U/L (38-126); ANION GAP 9 (5-19); ASPARTATE AMINO TRANSFERASE 23 U/L (14-36); BLOOD UREA NITROGEN 14 mg/dL (7-20); CALCIUM 9.8 mg/dL (8.4-10.2); CARBON DIOXIDE 28 mmol/L (22-30); CHLORIDE 103 mmol/L (98-107); GLUCOSE 79 mg/dL (75-110); POTASSIUM 4.5 mmol/L (3.6-5.0); SODIUM 140.2 mmol/L (137-145)
[2017-08-14 11:32] LABS: BILIRUBIN,TOTAL < 0.1 mg/dL (0.2-1.3)
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
[2017-08-14 11:45] LABS: CREATINE KINASE 51 U/L (30-135)
[2017-08-14 11:58] LABS: CREATINE KINASE MB 0.26 ng/mL (<4.55)
[2017-08-14 11:59] LABS: TROPONIN I < 0.012 ng/mL
== END 2017-08-14 12:18 | disposition left against medical advice (07) ==
LOC: ER 10:21
DX: R07.9 Chest pain, unspecified (principal); R53.83 Other fatigue; Z86.2 Personal history of diseases of the blood and blood-forming organs and certain disorders involving the immune mechanism; R53.1 Weakness; R63.0 Anorexia; E78.00 Pure hypercholesterolemia, unspecified; I10 Essential (primary) hypertension; Z87.891 Personal history of nicotine dependence
CPT/HCPCS: 36415; 80053; 81001; 82550; 82553; 84443; 84484; 85025; 93005; 93010; 99285

== ENCOUNTER 2017-08-26 22:45 | Emergency (ER) | payer MEDICAID ==
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
[2017-08-27] MEDS ORDERED: ASPIRIN 81 MG TABLET, CHEWABLE PO ONE (01:07)
[2017-08-27 01:17] LABS: ABSOLUTE BASOPHILS # (AUTO) 0.1 10^3/uL (0.0-0.2); ABSOLUTE EOSINOPHILS # (AUTO) 0.1 10^3/uL (0.0-0.6); ABSOLUTE LYMPHOCYTES (AUTO) 2.5 10^3/uL (0.5-4.7); ABSOLUTE MONOCYTES (AUTO) 0.4 10^3/uL (0.1-1.4); BASOPHILS % (AUTO) 2.2 % (0-2); EOSINOPHILS % (AUTO) 2.7 % (0-6); HEMATOCRIT 30.5 % (36.0-47.0); HEMOGLOBIN 9.9 g/dL (12.0-15.5); LYMPHOCYTES % (AUTO) 48.6 % (13-45); MEAN CORPUSCULAR HEMOGLOBIN 20.6 pg (27.0-33.4); MEAN CORPUSCULAR HGB CONC 32.3 g/dL (32.0-36.0); MONOCYTES % (AUTO) 8.3 % (3-13); PLATELET COUNT 180 10^3/uL (150-450); RED CELL DISTRIBUTION WIDTH 19.1 % (11.5-14.0); SEGMENTED NEUTROPHILS % (AUTO) 38.2 % (42-78); TOTAL CELLS COUNTED % (AUTO) 100 %; WHITE BLOOD COUNT 5.2 10^3/uL (4.0-10.5)
[2017-08-27 01:28] LABS: APPEARANCE,URINE CLEAR; BILIRUBIN,URINE NEGATIVE (NEGATIVE); COLOR,URINE YELLOW; GLUCOSE, URINE NEGATIVE (NEGATIVE); KETONES,URINE NEGATIVE (NEGATIVE); LEUKOCYTE ESTERASE,URINE NEGATIVE (NEGATIVE); NITRITE,URINE NEGATIVE (NEGATIVE); PROTEIN,URINE NEGATIVE (NEGATIVE); URINE SPECIFIC GRAVITY 1.029; UROBILINOGEN,URINE NEGATIVE mg/dL (<2.0)
[2017-08-27 01:29] LABS: ANION GAP 9 (5-19); BLOOD UREA NITROGEN 12 mg/dL (7-20); CALCIUM 9.2 mg/dL (8.4-10.2); CARBON DIOXIDE 25 mmol/L (22-30); CHLORIDE 106 mmol/L (98-107); GLUCOSE 108 mg/dL (75-110); POTASSIUM 3.2 mmol/L (3.6-5.0); SODIUM 140.2 mmol/L (137-145)
--- NOTE | 2017-08-27 01:36 | RADIOLOGY REPORT (SQ) ---
EXAM DESCRIPTION: CHEST PA/LAT CLINICAL HISTORY: 32 years, Female, chest pain COMPARISON: September 30, 2016 NUMBER OF VIEWS: 2 FINDINGS: Normal lung volume, clear parenchyma, normal cardiac silhouette, and mild scoliotic curvature. IMPRESSION: No acute cardiopulmonary findings.
[2017-08-27 01:42] LABS: ANISOCYTOSIS 2+; HYPOCHROMASIA 3+; OVALOCYTES SLIGHT; PLATELET COMMENT ADEQUATE; POIKILOCYTOSIS SLIGHT; POLYCHROMASIA SLIGHT
[2017-08-27 01:44] LABS: MEAN CORPUSCULAR VOLUME 64 fl (80-97)
[2017-08-27 02:47] VITALS: BP 108/73
--- NOTE | 2017-08-27 09:31 | EKG REPORT ---
SEVERITY:- BORDERLINE ECG - SINUS RHYTHM PROBABLE LEFT ATRIAL ABNORMALITY : Confirmed by: Armani De La Cruz MD 27-Aug-2017 09:30:39
== END 2017-08-27 02:25 | disposition home or self-care (01) ==
LOC: ER 22:45
DX: R07.89 Other chest pain (principal)
CPT/HCPCS: 36415; 71046; 80048; 81001; 84443; 84484; 84703; 85025; 93005; 93010; 99285

== ENCOUNTER → 2017-08-28 | Outpatient (CLI) | payer MEDICAID ==
--- NOTE | 2017-08-28 17:01 | RADIOLOGY REPORT (SQ) ---
EXAM DESCRIPTION: U/S NON-OB PELVIS TV W/O DOP COMPLETED DATE/TIME: 08/28/2017 3:19 pm REASON FOR STUDY: R10.2 PELVIC AND PERINEAL PAIN R10.2 PELVIC AND PERINEAL PAIN COMPARISON: None. TECHNIQUE: Dynamic and static grayscale images acquired of the pelvis via transvaginal approach and recorded on PACS. Additional selected color Doppler and spectral images recorded. LIMITATIONS: Body habitus. FINDINGS: UTERUS: Bicornuate uterus. No mass. ENDOMETRIAL STRIPE: See below. CERVIX: No nabothian cysts. RIGHT OVARY: No abnormal masses. RIGHT OVARY DOPPLER: Normal arterial vascular flow without evidence for torsion. LEFT OVARY: Small cyst or dominant follicle measuring 1.6 cm. LEFT OVARY DOPPLER: Normal arterial vascular flow without evidence for torsion. FREE FLUID: Small amount. OTHER: No other significant finding. MEASUREMENTS: UTERUS: 11.3 x 7.4 x 4.3 cm ENDOMETRIAL STRIPE: 6 mm and 7 mm. RIGHT OVARY: 3.8 x 1.8 x 2.4 cm LEFT OVARY: 3.3 x 2.4 x 2.6 cm IMPRESSION: Technically limited study. Bicornuate uterus. No acute findings. TECHNICAL DOCUMENTATION: JOB ID: [id number] [employer]- All Rights Reserved Reading location - IP/workstation name: [email or web address]
== END ==
LOC: RAD 13:55
PROVIDERS: ATTEND Family Medicine
DX: R10.2 Pelvic and perineal pain (principal)
CPT/HCPCS: 76830

== ENCOUNTER 2018-01-27 14:01 | Emergency (ER) | payer MEDICAID ==
[2018-01-27 14:15] VITALS: BP 125/85
--- NOTE | 2018-01-27 21:50 | EKG REPORT ---
SEVERITY:- BORDERLINE ECG - SINUS RHYTHM PROBABLE LEFT ATRIAL ABNORMALITY : Confirmed by: Devang Angel 27-Jan-2018 21:50:21
== END 2018-01-27 15:55 | disposition left against medical advice (07) ==
LOC: ER 14:01
DX: Z53.21 Procedure and treatment not carried out due to patient leaving prior to being seen by health care provider (principal)
CPT/HCPCS: 93005; 93010

== ENCOUNTER 2018-02-01 21:03 | Emergency (ER) | payer MEDICAID ==
[2018-02-02] MEDS ORDERED: HYDROMORPHONE HCL INJ/PF 2 MG/ML AMPULE IM ONE (00:25)
[2018-02-02] MEDS ORDERED: LIDOCAINE 5% (700 MG) TRANSDERMAL ADH..PATCH TP ONE (00:25)
--- NOTE | 2018-02-02 00:28 | ER Document Report ---
HPI - HPI Patient complains to provider of: Low back pain Onset: Other - Chronic, worse today Onset/Duration: Worse Quality of pain: Sharp Pain Level: 5 Context: Patient presents complaining of a flareup of her chronic low back pain. Patient states she has scoliosis and takes narcotics to treat her chronic pain. Patient states that she has had her pain medication today and the medicine has not helped her back pain. Patient denies any new injury. Patient states pain is in the location that she always has her chronic back pain. Patient denies any fever, urinary retention or incontinence. Patient denies any radiculopathy or paresthesia. Patient states that her primary doctor did have an MRI performed 2 weeks ago which showed scoliosis. Associated Symptoms: Other - Low back pain. denies: Fever Exacerbated by: Movement Relieved by: Denies Similar symptoms previously: Yes Recently seen / treated by doctor: Yes - ROS ROS below otherwise negative: Yes Systems Reviewed and Negative: Yes All other systems reviewed and negative - CONSTITUTIONAL Constitutional: DENIES: Fever, Chills - EENT EENT: DENIES: Sore Throat, Ear Pain, Eye problems - NEURO Neurology: DENIES: Vision blurred - GASTROINTESTINAL Gastrointestinal: DENIES: Abdominal Pain, Nausea, Black / Bloody Stools - MUSCULOSKELETAL Musculoskeletal: REPORTS: Back Pain. DENIES: Extremity pain - DERM Skin Color: Normal Skin Problems: None Past Medical History - General Information source: Patient - Social History Smoking Status: Never Smoker Chew tobacco use (# tins/day): No Frequency of alcohol use: None Drug Abuse: None Occupation: None Lives with: Family Family History: CAD, DM, Hyperlipidemia, Hypertension, Malignancy Patient has suicidal ideation: No Patient has homicidal ideation: No - Past Medical History Cardiac Medical History: Reports: Hx Hypercholesterolemia Renal/ Medical History: Reports: Hx Ovarian Cysts. Denies: Hx Peritoneal Dialysis GI Medical History: Reports: Hx Ulcer Musculoskeletal Medical History: Reports Hx Muscle Spasm, Reports Hx Musculoskeletal Deformity, Reports Hx Musculoskeletal Trauma Psychiatric Medical History: Reports: Hx Anxiety, Hx Depression Past Surgical History: Reports: Hx Section - 4, Hx Hysterectomy - Immunizations Immunizations up to date: Yes Hx Diphtheria, Pertussis, Tetanus Vaccination: Yes - 2014 Vertical Provider Document - CONSTITUTIONAL Agree With Documented VS: Yes Exam Limitations: No Limitations General Appearance: WD/WN, No Apparent Distress Notes: PHYSICAL EXAMINATION: GENERAL: Well-appearing, well-nourished and in no acute distress. HEAD: Atraumatic, normocephalic. EYES: sclera clear, anicteric, conjunctiva are normal. ENT: nares patent, Moist mucous membranes. NECK: Normal range of motion, supple no lymphadenopathy LUNGS: respirations unlabored HEART: Regular rate and rhythm without murmurs EXTREMITIES: Normal range of motion, no pitting or edema. No cyanosis. Gait normal, pt ambulates without difficulty BACK: Lower thoracolumbar midline tenderness, no deformities or step-offs. No CVA tenderness. NEUROLOGICAL: Cranial nerves grossly intact. Normal speech, normal gait. No saddle anesthesia. 2+ bilateral patellar reflexes, no footdrop PSYCH: Normal mood, normal affect. SKIN: Warm, Dry, normal turgor, no rashes or lesions noted. - INFECTION CONTROL TRAVEL OUTSIDE OF THE [place] IN LAST 30 DAYS: No Course - Re-evaluation Re-evalutation: 02/02/18 00:26 The patient presents with low back pain without signs of spinal cord compression , cauda equina syndrome, infection, aneurysm, or other serious etiology. The patient is neurologically intact. Given the extremely risk of these diagnoses further testing and evaluation for these possibilities does not appear to be indicated at this time. Patient has been instructed to return if the symptoms worsen or change in any way. - Vital Signs Vital signs: Temp Pulse Resp BP Pulse Ox 98.0 F 88 14 124/81 99 02/01/18 21:16 02/01/18 21:16 02/01/18 21:16 02/01/18 21:16 02/01/18 21:16 Discharge - Discharge Clinical Impression: Chronic back pain Qualifiers: Back pain location: low back pain Back pain laterality: midline Sciatica presence: without sciatica Qualified Code(s): M54.5 - Low back pain Condition: Stable Disposition: HOME, SELF-CARE Instructions: Chronic Back Pain ([facility]), Ice Packs ([facility]), Warm Packs ([facility]) Additional Instructions: Return immediately for any new or worsening symptoms Followup with your primary care provider, call tomorrow to make a followup appointment Referrals: SHIRA NEVAREZ PA-C [PHYSICIAN RECREATION DIRECTOR] - Follow up tomorrow
[2018-02-02 00:46] VITALS: BP 121/71
== END 2018-02-02 01:04 | disposition home or self-care (01) ==
LOC: ER 21:03
DX: G89.29 Other chronic pain (principal); M54.5 Low back pain; E78.00 Pure hypercholesterolemia, unspecified; Z90.710 Acquired absence of both cervix and uterus
CPT/HCPCS: 99283; 96372; J1170; J3490

== ENCOUNTER 2018-02-15 18:14 | Emergency (ER) | payer MEDICAID ==
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
[2018-02-15] MEDS ORDERED: MORPHINE SULFATE 10 MG/ML INJ IV ONE (19:34)
[2018-02-15] MEDS ORDERED: NORMAL SALINE 1000 ML 1,000 ML IV ONE (19:34)
[2018-02-15] MEDS ORDERED: ONDANSETRON HCL INJ/PF 4 MG/2 ML SDV IV ONE (19:34)
--- NOTE | 2018-02-15 20:15 | RADIOLOGY REPORT (SQ) ---
EXAM DESCRIPTION: CHEST 2 VIEWS COMPLETED DATE/TIME: 02/15/2018 7:59 pm REASON FOR STUDY: back pain COMPARISON: 08/27/2017 EXAM PARAMETERS: NUMBER OF VIEWS: two views TECHNIQUE: Digital Frontal and Lateral radiographic views of the chest acquired. RADIATION DOSE: NA LIMITATIONS: none FINDINGS: LUNGS AND PLEURA: No opacities, masses or pneumothorax. No pleural effusion. MEDIASTINUM AND HILAR STRUCTURES: No masses or contour abnormalities. HEART AND VASCULAR STRUCTURES: Heart normal size. No evidence for failure. BONES: Stable scoliosis. HARDWARE: None in the chest. OTHER: No other significant finding. IMPRESSION: NO ACUTE RADIOGRAPHIC FINDING IN THE CHEST. TECHNICAL DOCUMENTATION: JOB ID: [id number] [employer]- All Rights Reserved Reading location - IP/workstation name: [email or web address]
[2018-02-15 20:38] LABS: ABSOLUTE BASOPHILS # (AUTO) 0.1 10^3/uL (0.0-0.2); ABSOLUTE EOSINOPHILS # (AUTO) 0.1 10^3/uL (0.0-0.6); ABSOLUTE LYMPHOCYTES (AUTO) 1.8 10^3/uL (0.5-4.7); ABSOLUTE MONOCYTES (AUTO) 0.6 10^3/uL (0.1-1.4); ABSOLUTE NEUT (AUTO) 3.4 10^3/uL (1.7-8.2); BASOPHILS % (AUTO) 1.3 % (0-2); EOSINOPHILS % (AUTO) 1.1 % (0-6); HEMATOCRIT 40.8 % (36.0-47.0); HEMOGLOBIN 13.1 g/dL (12.0-15.5); LYMPHOCYTES % (AUTO) 30.1 % (13-45); MEAN CORPUSCULAR HEMOGLOBIN 22.8 pg (27.0-33.4); MEAN CORPUSCULAR HGB CONC 32.2 g/dL (32.0-36.0); MEAN CORPUSCULAR VOLUME 71 fl (80-97); MONOCYTES % (AUTO) 9.8 % (3-13); PLATELET COUNT 224 10^3/uL (150-450); RED BLOOD COUNT 5.77 10^6/uL (3.72-5.28); RED CELL DISTRIBUTION WIDTH 20.2 % (11.5-14.0); SEGMENTED NEUTROPHILS % (AUTO) 57.7 % (42-78); TOTAL CELLS COUNTED % (AUTO) 100 %; WHITE BLOOD COUNT 5.9 10^3/uL (4.0-10.5)
[2018-02-15 20:53] LABS: ALANINE AMINOTRANSFERASE 32 U/L (9-52); ALBUMIN 4.6 g/dL (3.5-5.0); ALKALINE PHOSPHATASE 69 U/L (38-126); ANION GAP 15 (5-19); ASPARTATE AMINO TRANSFERASE 29 U/L (14-36); BILIRUBIN,DIRECT 0.2 mg/dL (0.0-0.4); BILIRUBIN,TOTAL 0.3 mg/dL (0.2-1.3); BLOOD UREA NITROGEN 12 mg/dL (7-20); CALCIUM 9.9 mg/dL (8.4-10.2); CARBON DIOXIDE 26 mmol/L (22-30); CHLORIDE 102 mmol/L (98-107); GLUCOSE 72 mg/dL (75-110); POTASSIUM 3.7 mmol/L (3.6-5.0); SODIUM 142.6 mmol/L (137-145); TOTAL PROTEIN 8.4 g/dL (6.3-8.2)
[2018-02-15] MEDS ORDERED: HYDROMORPHONE HCL INJ/PF 2 MG/ML AMPULE IV ONE (21:27)
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
--- NOTE | 2018-02-15 22:21 | RADIOLOGY REPORT (SQ) ---
EXAM DESCRIPTION: CT ABD/PELVIS WITH IV ONLY COMPLETED DATE/TIME: 02/15/2018 10:09 pm REASON FOR STUDY: abd pain COMPARISON: 11/29/2016 TECHNIQUE: CT scan of the abdomen and pelvis performed using helical scanning technique with dynamic intravenous contrast injection. No oral contrast. Images reviewed with lung, soft tissue, and bone windows. Reconstructed coronal and sagittal MPR images reviewed. Delayed images for evaluation of the urinary system also acquired. All images stored on PACS. All CT scanners at this facility use dose modulation, iterative reconstruction, and/or weight based d osing when appropriate to reduce radiation dose to as low as reasonably achievable (ALARA). [facility]: Dose Right [facility]: CareDose [facility]: Dose Right [facility]: Teradose 4D [facility]: [employer] CONTRAST TYPE AND DOSE: contrast/concentration: Isovue 300.00 mg/ml; Total Contrast Delivered: 61.0 ml; Total Saline Delivered: 35.0 ml RENAL FUNCTION: None required. The patient is less than 50 years old. RADIATION DOSE: CT Rad equipment meets quality standard of care and radiation dose reduction techniq ues were employed. CTDIvol: 4.8 mGy. DLP: 423 mGy-cm.. LIMITATIONS: None. FINDINGS: LOWER CHEST: No significant findings. No nodules or infiltrates. LIVER: Normal size. No masses. No dilated ducts. SPLEEN: Normal size. No focal lesions. PANCREAS: No masses. No significant calcifications. No adjacent inflammation or peripancreatic fluid collections. Pancreatic duct not dilated. GALLBLADDER: No identified stones by CT criteria. No inflammatory changes to suggest cholecystitis. ADRENAL GLANDS: No significant masses or asymmetry. RIGHT KIDNEY AND URETER: Absent LEFT KIDNEY AND URETER: No solid masses. No significant calcifications. No hydronephrosis or hydr oureter. AORTA AND VESSELS: No aneurysm. No dissection. Renal arteries, SMA, celiac without stenosis. RETROPERITONEUM: No retroperitoneal adenopathy, hemorrhage or masses. BOWEL AND PERITONEAL CAVITY: No masses or inflammatory changes. No free fluid or peritoneal masses. APPENDIX: Normal. PELVIS: No mass. No free fluid. Normal bladder. ABDOMINAL WALL: No masses. No hernias. BONES: Scoliosis. OTHER: No other significant finding. IMPRESSION: No acute findings. Absent right kidney. TECHNICAL DOCUMENTATION: JOB ID: [id number] Quality ID # [id number]: Final reports with documentation of one or more dose reduction techniques (e.g., Au tomated exposure control, adjustment of the mA and/or kV according to patient size, use of iterative reconstruction technique) 2010 [employer]- All Rights Reserved Reading location - IP/workstation name: [email or web address]
[2018-02-15] MEDS ORDERED: HYDROCODONE/ACETAMINOPHEN 5-325 MG (6 TAB/ER DISP) PO PRN (22:52)
[2018-02-15] MEDS ORDERED: ONDANSETRON ODT 4 MG TAB (6 TAB/ER DISP) PO PRN (22:52)
[2018-02-16 02:42] VITALS: BP 119/79
== END 2018-02-15 23:25 | disposition home or self-care (01) ==
LOC: ER 18:14
DX: R10.9 Unspecified abdominal pain (principal); M54.5 Low back pain; Y00.XXXA Assault by blunt object, initial encounter; Z90.5 Acquired absence of kidney; G89.29 Other chronic pain; I10 Essential (primary) hypertension
CPT/HCPCS: 99285; 96361; 96374; 96375; 36415; 85025; 80053; 71046; 74177; J2270; J1170; J2405; J7030

== ENCOUNTER 2018-02-21 20:19 | Emergency (ER) | payer MEDICAID ==
[2018-02-21 20:46] VITALS: BP 115/76
[2018-02-21] MEDS ORDERED: HYDROCODONE/ACETAMINOPHEN 5-325 MG (6 TAB/ER DISP) PO PRN (21:46)
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
== END 2018-02-21 22:03 | disposition home or self-care (01) ==
LOC: ER 20:19
DX: O9A.219 Injury, poisoning and certain other consequences of external causes complicating pregnancy, unspecified trimester (principal); S70.12XA Contusion of left thigh, initial encounter; M54.5 Low back pain; Y00.XXXA Assault by blunt object, initial encounter; O26.899 Other specified pregnancy related conditions, unspecified trimester; O99.89 Other specified diseases and conditions complicating pregnancy, childbirth and the puerperium; M41.9 Scoliosis, unspecified; O99.320 Drug use complicating pregnancy, unspecified trimester; F11.20 Opioid dependence, uncomplicated; O16.9 Unspecified maternal hypertension, unspecified trimester
CPT/HCPCS: 99283

== ENCOUNTER 2018-04-05 17:05 | Emergency (ER) | payer SELFPAY ==
[2018-04-05 17:24] VITALS: BP 112/75
[2018-04-05] MEDS ORDERED: OXYCODONE HCL IR 5 MG TABLET PO ONE (17:59)
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
== END 2018-04-05 18:27 | disposition home or self-care (01) ==
LOC: ER 17:05
DX: G89.29 Other chronic pain (principal); M54.5 Low back pain; T39.96XA Underdosing of unspecified nonopioid analgesic, antipyretic and antirheumatic, initial encounter; Z91.128 Patient's intentional underdosing of medication regimen for other reason; Z91.14 Patient's other noncompliance with medication regimen; I10 Essential (primary) hypertension
CPT/HCPCS: 99283

== ENCOUNTER 2018-04-09 08:28 | Emergency (ER) | payer SELFPAY ==
[2018-04-09 08:41] VITALS: BP 109/79
[2018-04-09] MEDS ORDERED: LORAZEPAM 1 MG TABLET PO ONE (09:36)
--- NOTE | 2018-04-09 09:51 | ER Document Report ---
HPI - HPI Pain Level: 4 Notes: Patient is a 33-year-old female with a history of chronic pain and chronic opioid abuse who presents to the ED requesting narcotic medication as her PCM will not give her another refill. Patient was last refilled for 60-10 mg oxycodone's 2 weeks ago, but states that she left them in [place]. Patient was here a few days ago and received 10 mg oxycodone p.o. once. Patient states that her primary care doctor told her to come here. Patient states that she has chronic neck and back pain that remains unchanged. She is eating and drinking without any difficulties. She is urinating normally and having normal bowel movements. Denies any headache, fever, changes in vision/speech/mentation /hearing, URI, sore throat, chest pain, palpitations, syncope, cough, shortness of breath, wheeze, dyspnea, abdominal pain, nausea/vomiting/diarrhea, urinary retention, dysuria, hematuria, loss of control of bowel or bladder, numbness/ tingling, saddle anesthesia, muscle paralysis/weakness, or rash. - ROS Systems Reviewed and Negative: Yes All other systems reviewed and negative - CONSTITUTIONAL Constitutional: DENIES: Fever, Chills - EENT EENT: DENIES: Sore Throat, Ear Pain, Eye problems - NEURO Neurology: DENIES: Headache - CARDIOVASCULAR Cardiovascular: DENIES: Chest pain - RESPIRATORY Respiratory: DENIES: Trouble Breathing, Coughing - GASTROINTESTINAL Gastrointestinal: DENIES: Abdominal Pain, Black / Bloody Stools - URINARY Urinary: DENIES: Dysuria, Urgency, Frequency - REPRODUCTIVE Reproductive: DENIES: : - MUSCULOSKELETAL Musculoskeletal: DENIES: Extremity pain Past Medical History - Social History Smoking Status: Smoker,Current Status Unk Family History: CAD, DM, Hyperlipidemia, Hypertension, Malignancy Patient has suicidal ideation: No Patient has homicidal ideation: No - Past Medical History Cardiac Medical History: Reports: Hx Hypercholesterolemia, Hx Hypertension Renal/ Medical History: Reports: Hx Ovarian Cysts. Denies: Hx Peritoneal Dialysis GI Medical History: Reports: Hx Ulcer Musculoskeletal Medical History: Reports Hx Muscle Spasm, Reports Hx Musculoskeletal Deformity, Reports Hx Musculoskeletal Trauma Psychiatric Medical History: Reports: Hx Anxiety, Hx Depression Past Surgical History: Reports: Hx Abdominal Surgery, Hx Section - 4, Hx Hysterectomy, Hx Kidney (Renal Surgery) - one removed - Immunizations Immunizations up to date: Yes Hx Diphtheria, Pertussis, Tetanus Vaccination: Yes - 2014 [facility] Provider Document - CONSTITUTIONAL Agree With Documented VS: Yes Notes: PHYSICAL EXAMINATION: GENERAL: Well-appearing, well-nourished and in no acute distress. Neck: Full range of motion. No midline tenderness. No rigidity/meningismus. + tenderness and hypersensitivity to light palpation C-paraspinal mm. LUNGS: Breath sounds clear to auscultation bilaterally and equal. No wheezes rales or rhonchi. HEART: Regular rate and rhythm without murmurs, rubs, gallops. ABDOMEN: Soft, nontender, nondistended abdomen. No guarding, no rebound. No masses appreciated. Normal bowel sounds present. No CVA tenderness bilaterally. No pulsatile mass Musculoskeletal: LE's b/l: FROM to passive/active. Strength 5+/5. No deficits noted. No bony tenderness of extremities. Back: FROM to passive/active. Strength 5+/5. No vertebral point tenderness, stepoffs, or deformities. No other bony tenderness, erythema, swelling, or ecchymosis. SLR negative b/l. + very hypersensitive to light palpation throughout the T/L spine paraspinally. No SI jt tenderness. No foot drop Extremities: No cyanosis, clubbing, or edema b/l. Peripheral pulses 2+. Capillary refill less than 2 seconds. NEUROLOGICAL: Normal speech, normal gait. Normal sensory, motor exams. Reflexes 2+ b/l. PSYCH: Normal mood, normal affect. SKIN: Warm, Dry, normal turgor, no rashes or lesions noted. - INFECTION CONTROL TRAVEL OUTSIDE OF THE [place] IN LAST 30 DAYS: No Course - Re-evaluation Re-evalutation: 04/09/18 09:40 Patient is an afebrile, well-hydrated, 33-year-old female who presents to the ED with chronic neck and low back pain. Vitals are acceptable. PE is otherwise unremarkable for any focal neurological deficits. Patient declined any other treatment including Toradol, Lidoderm patches, steroids. She has no significant tachycardia, tachypnea, or hypoxia. She is nontoxic-appearing and is tolerating p.o. without difficulties. There are no signs of infection. No other red flag symptoms noted. No other labs or imaging warranted at this time based on H&P. Low suspicion for any meningitis, fracture, expanding/ruptured AAA, cauda equina syndrome, epidural mass lesion/abscess, herniated disc causing severe spinal stenosis, severe withdrawal, or other systemic infection at this time. Patient is aware that this condition can change from initial presentation and that she needs monitor symptoms closely for any acute changes. Conservative measures otherwise for symptoms. Recheck with your PCM in 3-5 days. Consider consult with orthopedic/physical therapy. Return to the ED with any worsening/concerning symptoms otherwise as reviewed discharge. Patient is in agreement. I did thoroughly review with patient that I believe her pain is primarily hyper analgesia from chronic opioid use. Patient is very hypersensitive to light touch and has been on chronic narcotics for years. I reviewed with patient thoroughly our chronic narcotic policy and I will not be refilling her medications. Patient has declined any other conservative alternative measure that I have offered her. I reviewed with patient that she should consider going through complete detox to see what her true pain is at and she has been on narcotics for such a long time and I believe that this can benefit her in the long run. I did review with patient that she should be on a pain contract as well. Reviewed that this will not only help protect her but her provider that she is getting her medicine from as well if she is going to continue with narcotics. Pt had a very emotional conversation with me that did involve anger at times, but I told her my position on chronic opiod use and our policy that I will not be giving her the narcotics. I do feel that I went well beyond what someone would have educated her on in regards to chronic opiod use, and gave her 20 minutes or more of discussion alone (in supertrack). I do not expect a great review, possibly even a complaint, but I feel strongly that the patient should be seeking care from a specialist and considering detox. - Vital Signs Vital signs: Temp Pulse Resp BP Pulse Ox 98.4 F 84 18 109/79 100 04/09/18 08:39 04/09/18 08:39 04/09/18 08:39 04/09/18 08:39 04/09/18 08:39 Discharge - Discharge Clinical Impression: Chronic back pain Qualifiers: Back pain location: low back pain Back pain laterality: bilateral Sciatica presence: without sciatica Qualified Code(s): M54.5 - Low back pain; G89.29 - Other chronic pain; G89.29 - Other chronic pain Condition: Stable Disposition: HOME, SELF-CARE Instructions: Low Back Pain ([facility]), Stretching Exercises for the Back ([facility]) Additional Instructions: As reviewed, I encourage you to consider complete detox from narcotics. I would consider being under a pain contract and seeing a specialist for your pain to help give you a 'team treatment approach' while considering other treatment modalities. You have declined steroids, antiinflammatories, and lidoderm patches today. Rest, Ice, Compression Tylenol/ibuprofen as needed Light stretches daily Strength exercises as able Moist heat and massage may help F/u with your PCP in 3-5 days for a recheck Consider consult(s) with Orthopedics/physical therapy/pain management for ongoing/worsening symptoms Return to the ED with any worsening symptoms and/or development of fever, headache, chest pain, palpitations, syncope, shortness of breath, trouble breathing, abdominal pain, n/v/d, blood in stool/urine, loss of control of bowel /bladder, urinary retention, muscle weakness/paralysis, saddle anesthesia, numbness/tingling, or other worsening symptoms that are concerning to you. Prescriptions: Hydroxyzine HCl 25 mg PO TID PRN #10 tablet PRN Reason: Forms: Smoking Cessation Education Referrals: SHIRA NEVAREZ PA-C [PHYSICIAN MEDICAL GENETICS DIRECTOR] - Follow up in 3-5 days [facility] [Provider Group] - Follow up as needed
== END 2018-04-09 10:01 | disposition home or self-care (01) ==
LOC: ER 08:28
DX: G89.29 Other chronic pain (principal); M54.5 Low back pain; M54.2 Cervicalgia; I10 Essential (primary) hypertension
CPT/HCPCS: 99283

== ENCOUNTER 2018-05-24 23:13 | Emergency (ER) | payer SELFPAY ==
[2018-05-25 00:27] LABS: ABSOLUTE BASOPHILS # (AUTO) 0.1 10^3/uL (0.0-0.2); ABSOLUTE EOSINOPHILS # (AUTO) 0.1 10^3/uL (0.0-0.6); ABSOLUTE LYMPHOCYTES (AUTO) 2.1 10^3/uL (0.5-4.7); ABSOLUTE MONOCYTES (AUTO) 0.5 10^3/uL (0.1-1.4); BASOPHILS % (AUTO) 0.8 % (0-2); EOSINOPHILS % (AUTO) 0.9 % (0-6); HEMATOCRIT 41.6 % (36.0-47.0); HEMOGLOBIN 13.7 g/dL (12.0-15.5); LYMPHOCYTES % (AUTO) 31.5 % (13-45); MEAN CORPUSCULAR HEMOGLOBIN 24.8 pg (27.0-33.4); MEAN CORPUSCULAR VOLUME 75 fl (80-97); MONOCYTES % (AUTO) 6.9 % (3-13); PLATELET COUNT 191 10^3/uL (150-450); RED BLOOD COUNT 5.55 10^6/uL (3.72-5.28); RED CELL DISTRIBUTION WIDTH 17.2 % (11.5-14.0); SEGMENTED NEUTROPHILS % (AUTO) 59.9 % (42-78); TOTAL CELLS COUNTED % (AUTO) 100 %; WHITE BLOOD COUNT 6.7 10^3/uL (4.0-10.5)
[2018-05-25 01:43] LABS: ALANINE AMINOTRANSFERASE 48 U/L (9-52); ALBUMIN 4.4 g/dL (3.5-5.0); ALKALINE PHOSPHATASE 74 U/L (38-126); ANION GAP 13 (5-19); ASPARTATE AMINO TRANSFERASE 33 U/L (14-36); BILIRUBIN,DIRECT 0.1 mg/dL (0.0-0.4); BILIRUBIN,TOTAL 0.2 mg/dL (0.2-1.3); BLOOD UREA NITROGEN 11 mg/dL (7-20); CALCIUM 9.7 mg/dL (8.4-10.2); CARBON DIOXIDE 24 mmol/L (22-30); CHLORIDE 103 mmol/L (98-107); GLUCOSE 95 mg/dL (75-110); LIPASE 69.9 U/L (23-300); POTASSIUM 4.1 mmol/L (3.6-5.0); SODIUM 140.4 mmol/L (137-145); TOTAL PROTEIN 7.9 g/dL (6.3-8.2)
== END 2018-05-25 00:50 | disposition left against medical advice (07) ==
LOC: ER 23:13
DX: Z53.21 Procedure and treatment not carried out due to patient leaving prior to being seen by health care provider (principal)
CPT/HCPCS: 36415; 80053; 83690; 84703; 85025

== ENCOUNTER 2018-06-06 10:19 | Emergency (ER) | payer SELFPAY ==
--- NOTE | 2018-06-06 10:45 | ER Document Report ---
ED Medical Screen (RME) - General Chief Complaint: Abdominal Pain Stated Complaint: BACK PAIN Time Seen by Provider: 06/06/18 10:31 TRAVEL OUTSIDE OF THE [place] IN LAST 30 DAYS: No - HPI Notes: 06/06/18 10:44 Right lower quadrant abdominal pain worse over the last few days however chronic issue going coming for the last few months. Patient also has scoliosis and is on chronic pain management states is been then able to follow-up with her chronic pain management due to lack of payment. Patient denies any fever chills nausea vomiting states partial hysterectomy - Related Data Allergies/Adverse Reactions: codeine [From Tylenol-Codeine #3] Adverse Reaction (Verified 04/09/18 08:30) Anxiety tramadol Adverse Reaction (Verified 04/09/18 08:30) Anxiety Past Medical History - Social History Frequency of alcohol use: Occasional Drug Abuse: None - Past Medical History Cardiac Medical History: Reports: Hx Hypercholesterolemia, Hx Hypertension Renal/ Medical History: Reports: Hx Ovarian Cysts. Denies: Hx Peritoneal Dialysis GI Medical History: Reports: Hx Ulcer Musculoskeltal Medical History: Reports Hx Muscle Spasm, Reports Hx Musculoskeletal Deformity, Reports Hx Musculoskeletal Trauma Psychiatric Medical History: Reports: Hx Anxiety, Hx Depression Past Surgical History: Reports: Hx Abdominal Surgery, Hx Section - 4, Hx Hysterectomy, Hx Kidney (Renal Surgery) - one removed - Immunizations Immunizations up to date: Yes Hx Diphtheria, Pertussis, Tetanus Vaccination: Yes - 2014 Review of Systems - Review of Systems Gastrointestinal: Abdominal pain -: Yes All other systems reviewed and negative Physical Exam - Vital signs Vitals: Temp Pulse Resp BP Pulse Ox 97.6 F 89 14 118/75 97 06/06/18 10:21 06/06/18 10:21 06/06/18 10:21 06/06/18 10:21 06/06/18 10:21 - Respiratory Respiratory status: No respiratory distress Chest status: Nontender Breath sounds: Normal Chest palpation: Normal - Cardiovascular Rhythm: Regular Heart sounds: Normal auscultation Course - Vital Signs Vital signs: Temp Pulse Resp BP Pulse Ox 97.6 F 89 14 118/75 97 06/06/18 10:21 06/06/18 10:21 06/06/18 10:21 06/06/18 10:21 06/06/18 10:21
[2018-06-06] MEDS ORDERED: ACETAMINOPHEN 325 MG TABLET PO ONE (10:49)
[2018-06-06] MEDS ORDERED: DICYCLOMINE HCL 20 MG TABLET PO ONE (10:49)
[2018-06-06 11:11] LABS: ABSOLUTE LYMPHOCYTES (AUTO) 1.1 10^3/uL (0.5-4.7); ABSOLUTE MONOCYTES (AUTO) 0.4 10^3/uL (0.1-1.4); ABSOLUTE NEUT (AUTO) 3.8 10^3/uL (1.7-8.2); BASOPHILS % (AUTO) 0.9 % (0-2); EOSINOPHILS % (AUTO) 0.7 % (0-6); HEMATOCRIT 40.9 % (36.0-47.0); HEMOGLOBIN 13.6 g/dL (12.0-15.5); LYMPHOCYTES % (AUTO) 20.3 % (13-45); MEAN CORPUSCULAR HEMOGLOBIN 25.3 pg (27.0-33.4); MEAN CORPUSCULAR HGB CONC 33.3 g/dL (32.0-36.0); MEAN CORPUSCULAR VOLUME 76 fl (80-97); MONOCYTES % (AUTO) 8.1 % (3-13); PLATELET COUNT 197 10^3/uL (150-450); RED CELL DISTRIBUTION WIDTH 16.7 % (11.5-14.0); TOTAL CELLS COUNTED % (AUTO) 100 %; WHITE BLOOD COUNT 5.4 10^3/uL (4.0-10.5)
[2018-06-06 11:24] LABS: ALANINE AMINOTRANSFERASE 28 U/L (9-52); ALBUMIN 4.5 g/dL (3.5-5.0); ALKALINE PHOSPHATASE 72 U/L (38-126); ANION GAP 14 (5-19); ASPARTATE AMINO TRANSFERASE 16 U/L (14-36); BILIRUBIN,DIRECT 0.2 mg/dL (0.0-0.4); BILIRUBIN,TOTAL 0.6 mg/dL (0.2-1.3); BLOOD UREA NITROGEN 13 mg/dL (7-20); CALCIUM 9.9 mg/dL (8.4-10.2); CARBON DIOXIDE 27 mmol/L (22-30); CHLORIDE 102 mmol/L (98-107); GLUCOSE 94 mg/dL (75-110); POTASSIUM 4.1 mmol/L (3.6-5.0); SODIUM 143.1 mmol/L (137-145); TOTAL PROTEIN 8.2 g/dL (6.3-8.2)
[2018-06-06] MEDS ORDERED: MORPHINE SULFATE 10 MG/ML INJ IM ONE (12:02)
[2018-06-06 12:20] LABS: T.VAGINALIS (WET MOUNT) NO TRICHOMONAS SEEN; WBCS (WET MOUNT) FEW WBCS SEEN; YEAST (WET MOUNT) NO YEAST SEEN
--- NOTE | 2018-06-06 12:26 | ER Document Report ---
ED General - General Chief Complaint: Abdominal Pain Stated Complaint: BACK PAIN Time Seen by Provider: 06/06/18 10:31 Mode of Arrival: Ambulatory Information source: Patient, [facility] Records, Outside Facility Records Notes: 33-year-old female with hypertension, hyperlipidemia, depression, anxiety, chronic back pain, chronic abdominal pain presents with complaint of back and abdominal pain. Patient states back pain is ongoing for several years since having her last son. Patient's abdominal pain has been intermittent for 1 month. It is located in the right lower quadrant and described as a stabbing pain. Patient denies associated nausea, vomiting, diarrhea, chest pain, shortness of breath, fever, chills, recent injury, history of IV drug use. Patient denies being in pain management. She denies any current narcotic medication use although her narcotic database shows that the patient received 130 10 mg oxycodone tablets in the month of April provided by 3 different physicians. Patient is tearful, difficult to interview and not cooperative with exam. TRAVEL OUTSIDE OF THE [place] IN LAST 30 DAYS: No - HPI Onset: Other Onset/Duration: Gradual, Intermittent, Worse Quality of pain: Sharp, Throbbing Severity: Moderate Associated symptoms: Other - Back pain, abdominal pain. denies: Chest pain, Nonproductive cough, Productive cough, Fever, Nausea, Vomiting, Shortness of breath Exacerbated by: Denies Relieved by: Denies Similar symptoms previously: Yes Recently seen / treated by doctor: Yes - Related Data Allergies/Adverse Reactions: codeine [From Tylenol-Codeine #3] Adverse Reaction (Verified 04/09/18 08:30) Anxiety tramadol Adverse Reaction (Verified 04/09/18 08:30) Anxiety Past Medical History - General Information source: Patient - Social History Smoking Status: Never Smoker Frequency of alcohol use: Occasional Drug Abuse: None, Prescription drugs Lives with: Family Family History: CAD, DM, Hyperlipidemia, Hypertension, Malignancy Patient has suicidal ideation: No Patient has homicidal ideation: No - Past Medical History Cardiac Medical History: Reports: Hx Hypercholesterolemia, Hx Hypertension Renal/ Medical History: Reports: Hx Ovarian Cysts. Denies: Hx Peritoneal Dialysis GI Medical History: Reports: Hx Ulcer Musculoskeletal Medical History: Reports Hx Muscle Spasm, Reports Hx Musculoskeletal Deformity, Reports Hx Musculoskeletal Trauma Psychiatric Medical History: Reports: Hx Anxiety, Hx Depression Past Surgical History: Reports: Hx Abdominal Surgery, Hx Section - 4, Hx Hysterectomy, Hx Kidney (Renal Surgery) - one removed - Immunizations Immunizations up to date: Yes Hx Diphtheria, Pertussis, Tetanus Vaccination: Yes - 2014 Review of Systems - Review of Systems Notes: REVIEW OF SYSTEMS: CONSTITUTIONAL : Denies fever, chills, or sweats. Denies recent illness. Denies weight loss, recent hospitalizations. EENT: Denies visual changes, eye pain. Denies sore throat, oral lesions, difficulty swallowing. CARDIOVASCULAR: Denies chest pain. Denies palpitations. Denies lower extremity edema. RESPIRATORY: Denies cough. Denies shortness of breath, wheezing. GASTROINTESTINAL: Denies abdominal distention. Denies nausea, vomiting, or diarrhea. Denies blood in vomitus, stools, or per rectum. Denies black, tarry stools. Denies constipation. GENITOURINARY: Denies difficulty urinating, painful urination, frequency, blood in urine, or vaginal discharge. MUSCULOSKELETAL: Denies back or neck pain or stiffness. Denies joint pain or swelling. SKIN: Denies rash, lesions or sores. HEMATOLOGIC : Denies easy bruising or bleeding. LYMPHATIC: Denies swollen glands. NEUROLOGICAL: Denies confusion or altered mental status. Denies loss of consciousness. Denies dizziness or lightheadedness. Denies headache. Denies weakness or paralysis. Denies problems difficulty with ambulation, slurred speech. Denies sensory loss, numbness, or tingling. Denies seizures. PSYCHIATRIC: Denies anxiety or stress. Denies depression, suicidal ideation, or homicidal ideation. Denies visual or auditory hallucinations. Physical Exam - Vital signs Vitals: Temp Pulse Resp BP Pulse Ox 97.6 F 89 14 118/75 97 06/06/18 10:21 06/06/18 10:21 06/06/18 10:21 06/06/18 10:21 06/06/18 10:21 - Notes Notes: PHYSICAL EXAMINATION: GENERAL: Appears to be in pain HEAD: Atraumatic, normocephalic. EYES: Pupils equal round and reactive to light, extraocular movements intact, conjunctiva are normal. ENT: Nares patent, oropharynx clear without exudates. Moist mucous membranes. NECK: Normal range of motion, supple without lymphadenopathy LUNGS: Breath sounds clear to auscultation bilaterally and equal. No wheezes rales or rhonchi. HEART: Regular rate and rhythm without murmurs ABDOMEN: Tenderness with palpation to the right lower quadrant.. No guarding, no rebound. No masses appreciated. No CVA tenderness. Female : Pelvic exam; External genitalia unremarkable. Speculum exam with white discharge. Vaginal wall unremarkable. Absence of cervix secondary to hysterectomy. Right adnexal tenderness or masses appreciated. Swabs obtained for gonorrhea, chlamydia and wet prep. Musculoskeletal: Normal range of motion, no pitting or edema. No cyanosis. No midline tenderness of the NEUROLOGICAL: Cranial nerves grossly intact. Normal speech, normal gait. Normal sensory, motor exams. 5/5 dorsi and plantar flexion. Ambulates without difficulty. PSYCH: Tearful, uncooperative SKIN: Warm, Dry, normal turgor, no rashes or lesions noted. Course - Re-evaluation Re-evalutation: Laboratory 06/06/18 06/06/18 06/06/18 10:52 10:52 11:58 WBC 5.4 RBC 5.40 H Hgb 13.6 Hct 40.9 MCV 76 L MCH 25.3 L MCHC 33.3 RDW 16.7 H Plt Count 197 Seg Neutrophils % 70.0 Lymphocytes % 20.3 Monocytes % 8.1 Eosinophils % 0.7 Basophils % 0.9 Absolute Neutrophils 3.8 Absolute Lymphocytes 1.1 Absolute Monocytes 0.4 Absolute Eosinophils 0.0 Absolute Basophils 0.0 Sodium 143.1 Potassium 4.1 Chloride 102 Carbon Dioxide 27 Anion Gap 14 BUN 13 Creatinine 0.71 Est GFR ( Amer) > 60 Est GFR (Non-Af Amer) > 60 Glucose 94 Calcium 9.9 Total Bilirubin 0.6 Direct Bilirubin 0.2 Neonat Total Bilirubin Not Reportable Neonat Direct Bilirubin Not Reportable Neonat Indirect Bili Not Reportable AST 16 ALT 28 Alkaline Phosphatase 72 Total Protein 8.2 Albumin 4.5 Lipase 73.0 Urine Color Urine Appearance Urine pH Ur Specific [place] Urine Protein Urine Glucose (UA) Urine Ketones Urine Blood Urine Nitrite Urine Bilirubin Urine Urobilinogen Ur Leukocyte Esterase Urine WBC (Auto) Urine RBC (Auto) Urine Bacteria (Auto) Squamous Epi Cells Auto Urine Mucus (Auto) Urine Ascorbic Acid Urine HCG, Qual Trichomonas (Wet Prep) Vaginal WBC Vaginal Yeast Chlamydia DNA (PCR) NOT DETECTED N.gonorrhoeae DNA (PCR) NOT DETECTED 06/06/18 06/06/18 11:58 16:00 WBC RBC Hgb Hct MCV MCH MCHC RDW Plt Count Seg Neutrophils % Lymphocytes % Monocytes % Eosinophils % Basophils % Absolute Neutrophils Absolute Lymphocytes Absolute Monocytes Absolute Eosinophils Absolute Basophils Sodium Potassium Chloride Carbon Dioxide Anion Gap BUN Creatinine Est GFR ( Amer) Est GFR (Non-Af Amer) Glucose Calcium Total Bilirubin Direct Bilirubin Neonat Total Bilirubin Neonat Direct Bilirubin Neonat Indirect Bili AST ALT Alkaline Phosphatase Total Protein Albumin Lipase Urine Color YELLOW Urine Appearance SLIGHTLY-CLOUDY Urine pH 5.0 Ur Specific [place] > 1.060 Urine Protein NEGATIVE Urine Glucose (UA) NEGATIVE Urine Ketones 80 H Urine Blood NEGATIVE Urine Nitrite NEGATIVE Urine Bilirubin NEGATIVE Urine Urobilinogen NEGATIVE Ur Leukocyte Esterase NEGATIVE Urine WBC (Auto) 1 Urine RBC (Auto) 2 Urine Bacteria (Auto) TRACE Squamous Epi Cells Auto 10 Urine Mucus (Auto) RARE Urine Ascorbic Acid NEGATIVE Urine HCG, Qual NEGATIVE Trichomonas (Wet Prep) NO TRICHOMONAS SEEN Vaginal WBC FEW WBCS SEEN Vaginal Yeast NO YEAST SEEN Chlamydia DNA (PCR) N.gonorrhoeae DNA (PCR) Pelvis Ultrasound 06/06/18 10:40 IMPRESSION: Limited, transabdominal only examination status post hysterectomy. The bilateral ovaries are nonvisualized. Consider CT to further evaluate unexplained right adnexal pain. Abdomen/Pelvis CT 06/06/18 12:47 IMPRESSION: No acute findings. Absent right kidney. Temp Pulse Resp BP Pulse Ox 98.1 F 88 18 124/76 99 06/06/18 16:45 06/06/18 16:45 06/06/18 16:45 06/06/18 16:45 06/06/18 16:45 33-year-old female with chronic back pain and chronic abdominal pain presents with complaint of back and abdominal pain that have been ongoing for over several years with worsening of pain over the last month. Patient states that she has not been able to afford to go back to the physician who provides her with her narcotic medications. Vital signs reviewed and within normal limits. Patient is afebrile, normotensive, not tachycardic or hypoxic. Patient's narcotic report was obtained which showed that the patient received 130 tabs of 10 mg oxycodone from 3 different providers in the month of April with the last prescription being filled on May 27, 2018 for 40 tabs. Patient is tearful, uncooperative, difficult to interview. Consistently request pain medication. Previous medical records and nursing notes reviewed. Patient has had multiple CAT scans in the past. She has been seen multiple times for her back pain. She has no red flag symptoms including saddle anesthesia weakness, fever, urinary retention, fecal incontinence, history of IV drug use. Transvaginal ultrasound was ordered but patient refused and a transabdominal ultrasound was performed which was not useful in assessing the patient's pain. I did try to avoid repeat CAT scan of the abdomen and pelvis and discussed the risks of cancer in the future due to radiation exposure but patient continues to complain of severe right lower quadrant pain and is willing to accept the risk. CAT scan of the abdomen pelvis showed no evidence of appendicitis, urolithiasis, aneurysm, abscess, free fluid in the abdomen. Patient is displaying drug-seeking behavior. She was patient 1 of our psychiatric room secondary to overflow so care was or not initially on but after the patient's persistent complaint of pain I wanted to observe her while she was alone. Patient was observed sleeping comfortably and every time I would enter the room she would sit up and start complaining of pain. Patient is requesting home- going pain medication which she was denied. I did explain the emergency department will not provide her any further narcotic medications. Patient persistently asks me why she cannot be given any further pain medications and when I explained to her that she had an exorbitant amount of pain medications prescribed to her in the month of April she stated "well it is May now" . She was provided pain medication in the emergency department as well as Benadryl. She persistently asked for my presence in the room. Patient discharged home with Nicole. Presentation of a well appearing patient complaining of acute on chronic back pain. No rapid progression of symptoms, systemic symptoms including fevers, chills, weight loss, history of recent bacterial infection, bilateral symptoms, numbness, weakness, difficulty walking , urinary retention or bowel incontinence, personal history of cancer, immunosuppression, diabetes, known AAA, or history of IV drug use. Exam is without point tenderness over vertebral bodies, pulsatile abdominal mass, and patient has symmetric and intact lower extremity strength, sensation, and reflexes without clonus. 2+ symmetric medial malleolar and dorsalis pedis pulses 06/06/18 16:53 Patient refusing transvaginal ultrasound. She has persistently requested pain medication. Denies filling her 130 tabs of 10 mg oxycodone although it is documented in the narcotic databank. No evidence of infection, appendicitis, PID. 06/06/18 20:58 06/06/18 21:06 06/06/18 21:07 - Vital Signs Vital signs: Temp Pulse Resp BP Pulse Ox 98.1 F 88 18 124/76 99 06/06/18 16:45 06/06/18 16:45 06/06/18 16:45 06/06/18 16:45 06/06/18 16:45 - Laboratory Result Diagrams: 06/06/18 10:52 06/06/18 10:52 Laboratory results interpreted by me: 06/06/18 06/06/18 10:52 16:00 RBC 5.40 H MCV 76 L MCH 25.3 L RDW 16.7 H Urine Ketones 80 H - Diagnostic Test Radiology reviewed: Image reviewed, Reports reviewed Discharge - Discharge Clinical Impression: Chronic abdominal pain, Drug-seeking behavior Chronic back pain Qualifiers: Back pain location: low back pain Back pain laterality: right Sciatica presence : without sciatica Qualified Code(s): M54.5 - Low back pain Condition: Good Disposition: HOME, SELF-CARE Instructions: Abdominal Pain ([facility]), Oral Narcotic Medication ([facility]) Additional Instructions: Please take Tylenol as needed for your pain. Your narcotic data report shows that you received 130 tabs of 10 mg oxycodone in the month of April 2018 with your last prescription administered on May 25, 2018 with a quantity of 40. You will not receive any further narcotic medication. It is against the law to provide you with any further home going narcotic medication at this time. You have been seen in the Emergency Department (ED) for abdominal pain. Your evaluation did not identify a clear cause of your symptoms but was generally reassuring. Please follow up with your doctor as soon as possible regarding today's emergent visit and the symptoms that are bothering you. Return to the ED if your abdominal pain worsens or fails to improve, you develop bloody vomiting, bloody diarrhea, you are unable to tolerate fluids due to vomiting, fever greater than 101, or other symptoms that concern you. You have been seen in the Emergency Department (ED) today for back pain. Your workup and exam have not shown any acute abnormalities and you are likely suffering from muscle strain or possible problems with your discs, but there is no treatment that will fix your symptoms at this time. Please take the naproxen that has been prescribed as directed. You should also purchase a local lidocaine cream such as "aspercreme with lidocaine" and use per bottle instructions to the affected area. Apply heat to the area as often as you are able. Continue to keep active and avoid prolonged periods of bed rest. Please follow up with your doctor as soon as possible regarding today's ED visit and your back pain. Return to the ED for worsening back pain, fever, weakness or numbness of either leg, or if you develop either (1) an inability to urinate or have bowel movements, or (2) loss of your ability to control your bathroom functions (if you start having "accidents"), or if you develop other new symptoms that concern you.concern you. Prescriptions: Dicyclomine HCl [Bentyl 20 mg Tablet] 20 mg PO QID #15 tablet Forms: Return to Work
--- NOTE | 2018-06-06 12:33 | RADIOLOGY REPORT (SQ) ---
EXAM DESCRIPTION: U/S NON OB PEL W/DOPPLER COMPLETED DATE/TIME: 06/06/2018 11:53 am REASON FOR STUDY: Right adnexal pain COMPARISON: 08/28/2017 TECHNIQUE: Dynamic and static grayscale images acquired of the pelvis via transabdominal approach an d recorded on PACS. Additional selected color Doppler and spectral images recorded. LIMITATIONS: Transabdominal only examination performed due to patient refusal of transvaginal portio n of the examination. FINDINGS: UTERUS: Status post hysterectomy. RIGHT OVARY AND DOPPLER: Nonvisualized. LEFT OVARY AND DOPPLER: Nonvisualized. FREE FLUID: None noted. OTHER: No other significant finding. IMPRESSION: Limited, transabdominal only examination status post hysterectomy. The bilateral ovarie s are nonvisualized. Consider CT to further evaluate unexplained right adnexal pain. TECHNICAL DOCUMENTATION: JOB ID: [id number] [employer]- All Rights Reserved Rev-11/13 Reading location - IP/workstation name: [email or web address]
[2018-06-06] MEDS ORDERED: OXYCODONE-ACETAMINOPHEN 5-325 MG TABLET PO ONE (12:47)
[2018-06-06 13:51] LABS: CHLAM PCR NOT DETECTED (NOT DETECT); GON PCR NOT DETECTED (NOT DETECT)
--- NOTE | 2018-06-06 14:02 | RADIOLOGY REPORT (SQ) ---
EXAM DESCRIPTION: CT ABD/PELVIS WITH IV ONLY COMPLETED DATE/TIME: 06/06/2018 1:51 pm REASON FOR STUDY: Right lower quadrant abdominal pain COMPARISON: Teen TECHNIQUE: CT scan of the abdomen and pelvis performed using helical scanning technique with dynamic intravenous contrast injection. No oral contrast. Images reviewed with lung, soft tissue, and bone windows. Reconstructed coronal and sagittal MPR images reviewed. Delayed images for evaluation of the urinary system also acquired. All images stored on PACS. All CT scanners at this facility use dose modulation, iterative reconstruction, and/or weight based d osing when appropriate to reduce radiation dose to as low as reasonably achievable (ALARA). [facility]: Dose Right [facility]: CareDose [facility]: Dose Right [facility]: Teradose 4D [facility]: Smart Biopharmacopae CONTRAST TYPE AND DOSE: Not recorded not recorded RENAL FUNCTION: Choose RADIATION DOSE: CT Rad equipment meets quality standard of care and radiation dose reduction techniq ues were employed. CTDIvol: 4.8 - 5.2 mGy. DLP: 503 mGy-cm.. LIMITATIONS: None. FINDINGS: LOWER CHEST: No significant findings. No nodules or infiltrates. LIVER: Normal size. No masses. No dilated ducts. SPLEEN: Normal size. No focal lesions. PANCREAS: No masses. No significant calcifications. No adjacent inflammation or peripancreatic fluid collections. Pancreatic duct not dilated. GALLBLADDER: No identified stones by CT criteria. No inflammatory changes to suggest cholecystitis. ADRENAL GLANDS: No significant masses or asymmetry. RIGHT KIDNEY AND URETER: Absent. LEFT KIDNEY AND URETER: No solid masses. No significant calcifications. No hydronephrosis or hydr oureter. AORTA AND VESSELS: No aneurysm. No dissection. Renal arteries, SMA, celiac without stenosis. RETROPERITONEUM: No retroperitoneal adenopathy, hemorrhage or masses. BOWEL AND PERITONEAL CAVITY: No masses or inflammatory changes. No free fluid or peritoneal masses. APPENDIX: Normal. PELVIS: No mass. No free fluid. Normal bladder. ABDOMINAL WALL: No masses. No hernias. BONES: No significant or acute findings. OTHER: No other significant finding. IMPRESSION: No acute findings. Absent right kidney. TECHNICAL DOCUMENTATION: JOB ID: [id number] Quality ID # [id number]: Final reports with documentation of one or more dose reduction techniques (e.g., Au tomated exposure control, adjustment of the mA and/or kV according to patient size, use of iterative reconstruction technique) 2010 [employer]- All Rights Reserved Reading location - IP/workstation name: [email or web address]
[2018-06-06] MEDS ORDERED: HYDROMORPHONE HCL INJ/PF 2 MG/ML AMPULE IM ONE (14:12)
[2018-06-06] MEDS ORDERED: FENTANYL CITRATE INJ/PF 100 MCG/2 ML AMPUL IV ONE (15:09)
[2018-06-06 16:33] LABS: APPEARANCE,URINE SLIGHTLY-CLOUDY; BILIRUBIN,URINE NEGATIVE (NEGATIVE); COLOR,URINE YELLOW; GLUCOSE, URINE NEGATIVE (NEGATIVE); KETONES,URINE 80 mg/dL (NEGATIVE); LEUKOCYTE ESTERASE,URINE NEGATIVE (NEGATIVE); NITRITE,URINE NEGATIVE (NEGATIVE); PROTEIN,URINE NEGATIVE (NEGATIVE); UROBILINOGEN,URINE NEGATIVE mg/dL (<2.0)
[2018-06-06] MEDS ORDERED: DIPHENHYDRAMINE HCL 50 MG/ML VIAL IV ONE (16:38)
[2018-06-06 16:39] LABS: URINE SPECIFIC GRAVITY > 1.060
[2018-06-06 17:22] VITALS: BP 124/76
== END 2018-06-06 17:18 | disposition home or self-care (01) ==
LOC: ER 10:19
DX: M54.5 Low back pain (principal); R10.9 Unspecified abdominal pain; M54.9 Dorsalgia, unspecified; G89.29 Other chronic pain; Z76.5 Malingerer [conscious simulation]; I10 Essential (primary) hypertension; E78.5 Hyperlipidemia, unspecified; F32.9 Major depressive disorder, single episode, unspecified; F41.9 Anxiety disorder, unspecified; R10.31 Right lower quadrant pain; Z79.899 Other long term (current) drug therapy
CPT/HCPCS: 99284; 96372; 96374; 96375; 36415; 87210; 83690; 85025; 81025; 80053; 81001; 87491; 87591; 76856; 93976; 74177; J3490; J1200; J3010; J2270; J1170

== ENCOUNTER 2018-06-11 11:55 | Emergency (ER) | payer SELFPAY ==
--- NOTE | 2018-06-11 12:39 | ER Document Report ---
ED General - General Chief Complaint: Chest Pain Stated Complaint: CHEST PAIN, DIZZY Time Seen by Provider: 06/11/18 12:34 Mode of Arrival: Ambulatory Information source: Patient Notes: Chief complaint: Anxiety History of complain:( obtained from----patient) 33 years old female presents today with anxiety attack with the chest pain shortness of breath lasted about an hour ago. After she received the news that 10-year relationship has ended as well as her 2 kids are being taken away from her by the DSS. Currently feeling more comfortable. Denies any left arm numbness tingling sensation nausea vomiting palpitation or diaphoresis Onset: Duration: Severity: Quality: Context: Exacerbating factor and relieving factors: REVIEW OF SYSTEMS: CONSTITUTIONAL : Denies fever, chills, or sweats. Denies recent illness. EENT: Denies eye, ear, throat, or mouth pain or symptoms. Denies nasal or sinus congestion or discharge. Denies throat, tongue, or mouth swelling or difficulty swallowing. CARDIOVASCULAR: Denies chest pain. Denies palpitations or racing or irregular heart beat. Denies ankle edema. RESPIRATORY: Denies cough, cold, or chest congestion. Denies shortness of breath, difficulty breathing, or wheezing. GASTROINTESTINAL: Denies distention. Denies nausea, vomiting, or diarrhea. Denies blood in vomitus, stools, or per rectum. Denies black, tarry stools. Denies constipation. GENITOURINARY: Denies difficulty urinating, painful urination, burning, frequency, blood in urine, or discharge. FEMALE GENITOURINARY: Denies vaginal bleeding, heavy or abnormal periods, irregular periods. Denies vaginal discharge or odor. MUSCULOSKELETAL: Denies back or neck pain or stiffness. Denies joint pain or swelling. SKIN: Denies rash, lesions or sores. HEMATOLOGIC : Denies easy bruising or bleeding. LYMPHATIC: Denies swollen, enlarged glands. NEUROLOGICAL: Denies confusion or altered mental status. Denies passing out or loss of consciousness. Denies dizziness or lightheadedness. Denies headache. Denies weakness or paralysis or loss of use of either side. Denies problems with gait or speech. Denies sensory loss, numbness, or tingling. Denies seizures. PSYCHIATRIC: Denies anxiety or stress. Denies depression, suicidal ideation, or homicidal ideation. ALL OTHER SYSTEMS REVIEWED AND NEGATIVE. PHYSICAL EXAMINATION: GENERAL: Well-appearing, well-nourished and in no acute distress. HEAD: Atraumatic, normocephalic. EYES: Pupils equal round and reactive to light, extraocular movements intact, conjunctiva are normal. ENT: Nares patent, oropharynx clear without exudates. Moist mucous membranes. NECK: Normal range of motion, supple without lymphadenopathy LUNGS: Breath sounds clear to auscultation bilaterally and equal. No wheezes rales or rhonchi. HEART: Regular rate and rhythm without murmurs ABDOMEN: Soft, nontender, nondistended abdomen. No guarding, no rebound. No masses appreciated. Examination of genitals-deferred Musculoskeletal: Normal range of motion, no pitting or edema. No cyanosis. NEUROLOGICAL: Cranial nerves grossly intact. Normal speech, normal gait. Normal sensory, motor exams PSYCH: Normal mood, normal affect. SKIN: Warm, Dry, normal turgor, no rashes or lesions noted. Dictation was performed using [employer] voice recognition software TRAVEL OUTSIDE OF THE [place] IN LAST 30 DAYS: No - HPI Notes: Dictated - Related Data Allergies/Adverse Reactions: codeine [From Tylenol-Codeine #3] Adverse Reaction (Verified 06/11/18 11:57) Anxiety tramadol Adverse Reaction (Verified 06/11/18 11:57) Anxiety Past Medical History - Social History Smoking Status: Current Every Day Smoker Cigarette use (# per day): No Chew tobacco use (# tins/day): No Smoking Education Provided: No Frequency of alcohol use: Rare Drug Abuse: None Lives with: Family Family History: Reviewed & Not Pertinent, CAD, DM, Hyperlipidemia, Hypertension , Malignancy Patient has suicidal ideation: No Patient has homicidal ideation: No - Past Medical History Cardiac Medical History: Reports: Hx Hypercholesterolemia, Hx Hypertension Renal/ Medical History: Reports: Hx Ovarian Cysts. Denies: Hx Peritoneal Dialysis GI Medical History: Reports: Hx Ulcer Musculoskeletal Medical History: Reports Hx Muscle Spasm, Reports Hx Musculoskeletal Deformity, Reports Hx Musculoskeletal Trauma Psychiatric Medical History: Reports: Hx Anxiety, Hx Depression Past Surgical History: Reports: Hx Abdominal Surgery, Hx Section - 4, Hx Hysterectomy, Hx Kidney (Renal Surgery) - one removed - Immunizations Immunizations up to date: Yes Hx Diphtheria, Pertussis, Tetanus Vaccination: Yes - 2014 Review of Systems - Review of Systems Notes: Dictated Physical Exam - Vital signs Vitals: Temp Pulse Resp BP Pulse Ox 98.6 F 77 16 120/79 100 06/11/18 12:13 06/11/18 12:13 06/11/18 12:13 06/11/18 12:13 06/11/18 12:13 - Notes Notes: Dictated Course - Re-evaluation Re-evalutation: 06/11/18 12:38 Given BuSpar - Vital Signs Vital signs: Temp Pulse Resp BP Pulse Ox 98.6 F 77 16 120/79 100 06/11/18 12:13 06/11/18 12:13 06/11/18 12:13 06/11/18 12:13 06/11/18 12:13 - EKG Interpretation by Md EKG shows normal: Sinus rhythm - 72 bpm normal axis no acute ST-T wave changes. Discharge - Discharge Clinical Impression: Anxiety Condition: Fair Instructions: Anxiety ([facility]) Prescriptions: Buspirone HCl [Buspar 10 mg Tablet] 10 mg PO BID #60 tablet
[2018-06-11 13:17] VITALS: BP 114/89
--- NOTE | 2018-06-12 07:49 | EKG REPORT ---
SEVERITY:- NORMAL ECG - SINUS RHYTHM : Confirmed by: Dolores Monique MD 12-Jun-2018 07:48:28
== END 2018-06-11 13:17 | disposition home or self-care (01) ==
LOC: ER 11:55
DX: F41.9 Anxiety disorder, unspecified (principal); R07.9 Chest pain, unspecified; R42 Dizziness and giddiness; F17.200 Nicotine dependence, unspecified, uncomplicated; E78.00 Pure hypercholesterolemia, unspecified; I10 Essential (primary) hypertension; Z90.710 Acquired absence of both cervix and uterus
CPT/HCPCS: 93005; 93010; 99284

== ENCOUNTER 2018-07-06 21:11 | Emergency (ER) | payer SELFPAY ==
[2018-07-06] MEDS ORDERED: HYDROCODONE/ACETAMINOPHEN 10-325 MG TABLET PO ONE (22:55)
[2018-07-06] MEDS ORDERED: FLUCONAZOLE 100 MG TABLET PO ONE (22:56)
--- NOTE | 2018-07-06 23:37 | RADIOLOGY REPORT (SQ) ---
EXAM DESCRIPTION: XR FEMUR 2 VIEWS COMPLETED DATE/TME: 07/06/2018 23:08 CLINICAL HISTORY: 33 years, Female, pain COMPARISON: None. NUMBER OF VIEWS: 4 TECHNIQUE: 4 view right femur LIMITATIONS: None. FINDINGS: Negative for acute fracture or dislocation. Joint spaces are preserved. Soft tissues are unremarkable IMPRESSION: Negative exam copyright 2011 [employer]- All Rights Reserved
--- NOTE | 2018-07-06 23:42 | RADIOLOGY REPORT (SQ) ---
EXAM DESCRIPTION: XR LUMBAR SPINE ANTEROPOSTERIOR, LATERAL, AND OBLIQUES COMPLETED DATE/TME: 07/06/2018 23:08 CLINICAL HISTORY: 33 years, Female, pain COMPARISON: 11/15/2016 lumbar spine NUMBER OF VIEWS: 5 TECHNIQUE: 5 view lumbar spine LIMITATIONS: None. FINDINGS: Levoconvex scoliosis of the upper lumbar spine. 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 5 lumbar type vertebral bodies. No discrete pars defects. Height and alignment is preserved. Disc spaces are maintained IMPRESSION: Levoconvex scoliosis of the upper lumbar spine. Remainder unremarkable copyright 2010 [employer]- All Rights Reserved
[2018-07-07] MEDS ORDERED: HYDROCODONE/ACETAMINOPHEN 5-325 MG (6 TAB/ER DISP) PO PRN (00:11)
--- NOTE | 2018-07-07 00:17 | ER Document Report ---
ED General - General Chief Complaint: Back Pain Stated Complaint: LOWER BACK PAIN Time Seen by Provider: 07/06/18 22:14 Notes: Patient is a 33-year-old female presents to the emergency department complaining of chronic back pain. Patient states she has a long-standing history of chronic back pain due to scoliosis. States 2 days ago she fell in the bathroom hitting her right lower back and her right femur. Patient states she has had increased pain ever since. Patient states she recently lost her insurance and has Been unable to get any of her narcotic pain medications represcribed. Patient is also complaining of vaginal itching. Patient states she has had multiple yeast infections due to "stress" states she is not concerned about sexually transmitted diseases. States she has a scant white discharge and vaginal itching. Patient denies dysuria, loss of bowel or bladder, urinary retention. Past medical history: Scoliosis Medications: Ativan, Percocet Allergies: Toradol, Flexeril, lidocaine, tramadol, codeine TRAVEL OUTSIDE OF THE [place] IN LAST 30 DAYS: No - Related Data Allergies/Adverse Reactions: codeine [From Tylenol-Codeine #3] Adverse Reaction (Verified 06/11/18 11:57) Anxiety tramadol Adverse Reaction (Verified 06/11/18 11:57) Anxiety Past Medical History - General Information source: Patient - Social History Smoking Status: Never Smoker Family History: Reviewed & Not Pertinent, CAD, DM, Hyperlipidemia, Hypertension, Malignancy Patient has suicidal ideation: No Patient has homicidal ideation: No - Past Medical History Cardiac Medical History: Reports: Hx Hypercholesterolemia, Hx Hypertension Renal/ Medical History: Reports: Hx Ovarian Cysts. Denies: Hx Peritoneal Dialysis GI Medical History: Reports: Hx Ulcer Musculoskeletal Medical History: Reports Hx Muscle Spasm, Reports Hx Musculoskeletal Deformity, Reports Hx Musculoskeletal Trauma Psychiatric Medical History: Reports: Hx Anxiety, Hx Depression Past Surgical History: Reports: Hx Abdominal Surgery, Hx Section - 4, Hx Hysterectomy, Hx Kidney (Renal Surgery) - one removed - Immunizations Immunizations up to date: Yes Hx Diphtheria, Pertussis, Tetanus Vaccination: Yes - 2014 Review of Systems - Review of Systems Constitutional: No symptoms reported EENT: No symptoms reported Cardiovascular: No symptoms reported Respiratory: No symptoms reported Gastrointestinal: No symptoms reported Genitourinary: See HPI Female Genitourinary: See HPI Musculoskeletal: See HPI Skin: No symptoms reported Hematologic/Lymphatic: No symptoms reported Neurological/Psychological: No symptoms reported Physical Exam - Vital signs Vitals: Temp Pulse Resp BP Pulse Ox 98.4 F 71 15 113/73 100 07/06/18 21:38 07/06/18 21:38 07/06/18 21:38 07/06/18 21:38 07/06/18 21:38 - Notes Notes: GENERAL: Alert, interacts well. No acute distress. HEAD: Normocephalic, atraumatic. EYES: Pupils equal, round, and reactive to light. Extraocular movements intact. ENT: Oral mucosa moist, tongue midline. NECK: Full range of motion. Supple. Trachea midline. LUNGS: Clear to auscultation bilaterally, no wheezes, rales, or rhonchi. No respiratory distress. HEART: Regular rate and rhythm. No murmur ABDOMEN: Soft, non-tender. Non-distended. Bowel sounds present in all 4 quadrants. EXTREMITIES: Moves all 4 extremities spontaneously. No edema, normal radial and dorsalis pedis pulses bilaterally. No cyanosis. 5 out of 5 strength all 4 extremities. Patient complains of distal right femur pain more so upon palpation. Patient denies any right hip pain, right knee pain, right ankle pain. BACK: no cervical, thoracic midline tenderness. No saddle anesthesia, normal distal neurovascular exam. Patient does complain of lumbar spinal tenderness as well as bilateral paraspinal tenderness. NEUROLOGICAL: Alert and oriented x3. Normal speech. cranial nerves II through XII grossly intact PSYCH: Normal affect, normal mood. SKIN: Warm, dry, normal turgor. No rashes or lesions noted. Course - Re-evaluation Re-evalutation: 07/07/18 00:15 Patient's x-ray reveals no signs of fractures. It does reveal extensive history of scoliosis which patient admits to. Patient's pain was treated in the emergency room. Discussed with her I am unable to write her prescriptions for l david-term pain management. Discussed following up at [facility] for potential referrals. Patient is refusing a pelvic exam at this time. Patient states she has extensive history with yeast infections and this feels just like a yeast infection. Patient states she is not sexually active and has not been sexually active for years. Discussed treatment with Diflucan. Patient states that is typically what her primary care provider gives her. Patient stable for discharge. - Vital Signs Vital signs: Temp Pulse Resp BP Pulse Ox 98.4 F 71 15 113/73 100 07/06/18 21:38 07/06/18 21:38 07/06/18 21:38 07/06/18 21:38 07/06/18 21:38 Discharge - Discharge Clinical Impression: Yeast infection Chronic lower back pain Qualifiers: Back pain laterality: bilateral Sciatica presence: without sciatica Qualified Code(s): M54.5 - Low back pain; G89.29 - Other chronic pain Condition: Stable Disposition: HOME, SELF-CARE Instructions: Warm Packs ([facility]), Low Back Pain ([facility]), Vaginal Yeast Infection ([facility]) Additional Instructions: As we discussed you have been seen and treated in the emergency department for your lower back pain and a vaginal yeast infection. Please take medications as prescribed. Please follow-up with your primary care provider in the next 24-48 hours. Phone numbers for [facility] will be provided in this packet. Please return to the emergency room for any other concerning symptoms. Prescriptions: Fluconazole [Diflucan] 150 mg PO ONCE PRN #1 tablet PRN Reason: Referrals: [facility] [Provider Group] - Follow up as needed
[2018-07-07 00:33] VITALS: BP 112/80
== END 2018-07-07 00:36 | disposition home or self-care (01) ==
LOC: ER 21:11
DX: B37.3 Candidiasis of vulva and vagina (principal); M54.5 Low back pain; G89.29 Other chronic pain; M54.9 Dorsalgia, unspecified; I10 Essential (primary) hypertension; W19.XXXA Unspecified fall, initial encounter; Y92.002 Bathroom of unspecified non-institutional (private) residence as the place of occurrence of the external cause; Z79.899 Other long term (current) drug therapy
CPT/HCPCS: 72110; 99283

== ENCOUNTER 2018-07-07 13:26 | Emergency (ER) | payer SELFPAY ==
[2018-07-07 13:40] VITALS: BP 127/87
[2018-07-07] MEDS ORDERED: OXYCODONE-ACETAMINOPHEN 5-325 MG TABLET PO ONE (14:24)
--- NOTE | 2018-07-07 14:43 | ER Document Report ---
HPI - HPI Time Seen by Provider: 07/07/18 13:49 Pain Level: 5 Notes: Patient is a 33-year-old male who presents to the emergency department with chief complaint of back pain that radiates into her left leg. Patient states she was seen here last night for the same complaint and the pain has not improved. Patient reports that she was being prescribed chronic pain medications, Percocet however she lost her insurance and has been unable to afford to see a provider to have them refilled. She denies any new injury. She denies any numbness, tingling or saddle anesthesia. She denies any bowel incontinence and reports she is able to urinate without difficulty. She reports that she had x-rays obtained last night and was given hydrocodone however she states hydrocodone does not help her pain. - CONSTITUTIONAL Constitutional: DENIES: Fever, Chills - REPRODUCTIVE Reproductive: DENIES: : - MUSCULOSKELETAL Musculoskeletal: REPORTS: Extremity pain - right leg Past Medical History - Social History Smoking Status: Unknown if Ever Smoked Family History: Reviewed & Not Pertinent, CAD, DM, Hyperlipidemia, Hypertension, Malignancy Patient has suicidal ideation: No Patient has homicidal ideation: No - Past Medical History Cardiac Medical History: Reports: Hx Hypercholesterolemia, Hx Hypertension Renal/ Medical History: Reports: Hx Ovarian Cysts. Denies: Hx Peritoneal Dialysis GI Medical History: Reports: Hx Ulcer Musculoskeletal Medical History: Reports Hx Muscle Spasm, Reports Hx Musculoskeletal Deformity, Reports Hx Musculoskeletal Trauma Psychiatric Medical History: Reports: Hx Anxiety, Hx Depression Past Surgical History: Reports: Hx Abdominal Surgery, Hx Section - 4, Hx Hysterectomy, Hx Kidney (Renal Surgery) - one removed - Immunizations Immunizations up to date: Yes Hx Diphtheria, Pertussis, Tetanus Vaccination: Yes - 2014 [facility] Provider Document - CONSTITUTIONAL Notes: PHYSICAL EXAMINATION: GENERAL: Well-appearing, well-nourished and in no acute distress. HEAD: Atraumatic, normocephalic. EYES: Pupils equal round extraocular movements intact, conjunctiva are normal. ENT: Nares patent NECK: Normal range of motion LUNGS: No respiratory distress Musculoskeletal: Normal range of motion NEUROLOGICAL: Normal speech, normal gait. PSYCH: Normal mood, normal affect. SKIN: Warm, Dry, normal turgor, no rashes or lesions noted. - INFECTION CONTROL TRAVEL OUTSIDE OF THE [place] IN LAST 30 DAYS: No Course - Re-evaluation Re-evalutation: Extensive discussion was had with the patient while the nurse was at bedside regarding chronic pain in the emergency department. I explained to the patient that since she does not have any new injury we are unable to prescribe opioid medications for chronic pain. I did offer her a dose of Percocet here in the emergency department as she is tearful and reporting her pain is 5/5. I did offer patient alternative therapies such as Tylenol, ibuprofen, Toradol (which she states she is allergic to and her allergy record was updated), Voltaren gel or Voltaren tablets and lidocaine patches. Patient declines any of these and states that she does not want to "experiment" with medications and the only thing that works for her is Percocet 10 mg tablets. Patient then asked if it was possible that she had a blood clot in her leg. Patient has no swelling or erythema noted. Patient now reporting that she has a history of blood clots. I did tell patient that although it does not appear that she has a blood clot I would be happy to order a venous Doppler ultrasound if that would make her feel more comfortable. I also indicated that if she did have a blood clot we would be prescribing blood thinners and not opioid pain medications. Patient declining the venous Doppler and requesting to speak to somebody to get a second opinion. Charge nurse went to the bedside, patient agrees to take 1 tablet of Percocet and be discharged home. - Vital Signs Vital signs: Temp Pulse Resp BP Pulse Ox 97.8 F 71 20 127/87 H 100 07/07/18 13:38 07/07/18 13:38 07/07/18 13:38 07/07/18 13:38 07/07/18 13:38 Discharge - Discharge Clinical Impression: Back pain Qualifiers: Back pain location: back pain in unspecified location Chronicity: chronic Back pain laterality: unspecified Qualified Code(s): M54.9 - Dorsalgia, unspecified Leg pain Qualifiers: Laterality: unspecified laterality Qualified Code(s): M79.606 - Pain in leg, unspecified Condition: Stable Disposition: HOME, SELF-CARE Additional Instructions: Chronic Pain Control Stress, inactivity, and depression make pain more severe regardless of the cause of the pain. Stress and poor physical condition can cause pain such as headaches and backache. Relaxation: Rest in a quiet place with your eyes closed for 20 minutes twice daily. Concentrate on a pleasant image, or simply "feel" your breathing. Clear your mind. Stress management: Deal with your "stressors." Either take action, or eliminate the stressor from your life. Don't let things hang over you. Accept those things you can't change. Nutrition: Eat small, balanced meals -- don't skip, don't overeat. Meals should be high-carbohydrate, low-sugar, low-fat. Exercise: Exercise helps painful conditions and eases stress. Get 30 minutes of moderate exercise, five days a week. Do an activity that does not flare your pain. Precautions: Pain which continues to disrupt daily activities, or which changes in nature, requires a medical evaluation. Pain Clinic referral is available. We do not manage chronic pain in the Emergency Department. We will try to appropriately help you through an acute flare of your chronic painful condition, but for on-going chronic pain that does not improve, you will need to see your private doctor or ski edge painter. We do not provide repeated medication management of chronic painful conditions. If you wish, we can provide the name of local pain management physicians.
== END 2018-07-07 14:50 | disposition home or self-care (01) ==
LOC: ER 13:26
DX: G89.29 Other chronic pain (principal); M54.9 Dorsalgia, unspecified; I10 Essential (primary) hypertension; M79.606 Pain in leg, unspecified
CPT/HCPCS: 99283

== ENCOUNTER 2018-07-07 19:08 | Emergency (ER) | payer SELFPAY ==
[2018-07-07 19:33] VITALS: BP 131/97
--- NOTE | 2018-07-07 19:59 | ER Document Report ---
HPI - HPI Pain Level: 3 - REPRODUCTIVE Reproductive: DENIES: : Past Medical History - Social History Family History: Reviewed & Not Pertinent, CAD, DM, Hyperlipidemia, Hypertension, Malignancy - Past Medical History Cardiac Medical History: Reports: Hx Hypercholesterolemia, Hx Hypertension Renal/ Medical History: Reports: Hx Ovarian Cysts. Denies: Hx Peritoneal Dialysis GI Medical History: Reports: Hx Ulcer Musculoskeletal Medical History: Reports Hx Muscle Spasm, Reports Hx Musculoskel etal Deformity, Reports Hx Musculoskeletal Trauma Psychiatric Medical History: Reports: Hx Anxiety, Hx Depression Past Surgical History: Reports: Hx Abdominal Surgery, Hx Section - 4, Hx Hysterectomy, Hx Kidney (Renal Surgery) - one removed - Immunizations Immunizations up to date: Yes Hx Diphtheria, Pertussis, Tetanus Vaccination: Yes - 2014 [employer] Provider Document - INFECTION CONTROL TRAVEL OUTSIDE OF THE [place] IN LAST 30 DAYS: No Course - Vital Signs Vital signs: Temp Pulse Resp BP Pulse Ox 98.5 F 99 18 131/97 H 100 07/07/18 19:31 07/07/18 19:31 07/07/18 19:31 07/07/18 19:31 07/07/18 19:31
--- NOTE | 2018-07-07 22:38 | ER Document Report ---
ED General - General Chief Complaint: Back Pain Stated Complaint: BACK PAIN Time Seen by Provider: 07/07/18 21:14 Notes: Patient is a 33-year-old female. This is her third visit in the last 36 hours. She presents with back pain. She says she has a history of chronic back pain and issues with her lower back. She used to be on oxycodone. Patient's last prescription was in May. Last prescription was June 09. Patient says she is been out of her pain medicine for 2-3 days now. Says she is having pain in her back and she wants him for pain. She was seen by the physician's pizza hut assistant yesterday. Physician's pizza hut assistant tried to explain to her that we do not prescribe chronic pain medicine that she would have to follow back up with primary care doctor. Patient was upset with this and left. Patient says that she lost her insurance and that when she has not been back to her doctor. She denies any vomiting. No diarrhea. No abdominal cramping. No symptoms consistent with withdrawal at this time. No weakness or numbness in her legs. Difficulty urinating. Last bowel movement was yesterday and was normal. No loss of bowel control. TRAVEL OUTSIDE OF THE [place] IN LAST 30 DAYS: No - Related Data Allergies/Adverse Reactions: ketorolac [From Toradol] Allergy (Verified 07/07/18 19:10) Hives codeine [From Tylenol-Codeine #3] Adverse Reaction (Verified 07/07/18 19:10) Anxiety tramadol Adverse Reaction (Verified 07/07/18 19:10) Anxiety Past Medical History - Social History Smoking Status: Never Smoker Chew tobacco use (# tins/day): No Frequency of alcohol use: None Drug Abuse: None Family History: Reviewed & Not Pertinent, CAD, DM, Hyperlipidemia, Hypertension, Malignancy Patient has suicidal ideation: No Patient has homicidal ideation: No - Past Medical History Cardiac Medical History: Reports: Hx Hypercholesterolemia, Hx Hypertension Renal/ Medical History: Reports: Hx Ovarian Cysts. Denies: Hx Peritoneal Dialysis GI Medical History: Reports: Hx Ulcer Musculoskeletal Medical History: Reports Hx Muscle Spasm, Reports Hx Musculoskeletal Deformity, Reports Hx Musculoskeletal Trauma Psychiatric Medical History: Reports: Hx Anxiety, Hx Depression Past Surgical History: Reports: Hx Abdominal Surgery, Hx Section - 4, Hx Hysterectomy, Hx Kidney (Renal Surgery) - one removed - Immunizations Immunizations up to date: Yes Hx Diphtheria, Pertussis, Tetanus Vaccination: Yes - 2014 Review of Systems - Review of Systems Notes: My Normal Review Basic REVIEW OF SYSTEMS: CONSTITUTIONAL : Denies fever, chills, or sweats. Denies recent illness. RESPIRATORY: Denies cough, cold, or chest congestion. Denies shortness of breath, difficulty breathing, or wheezing. GASTROINTESTINAL: Denies abdominal pain. Denies nausea, vomiting, or diarrhea. GENITOURINARY: Denies difficulty urinating, painful urination, burning, frequency, or blood in urine. MUSCULOSKELETAL: Back pain SKIN: Denies rash or skin lesions. NEUROLOGICAL: Denies sensory or motor loss. ALL OTHER SYSTEMS REVIEWED AND NEGATIVE. Physical Exam - Vital signs Vitals: Temp Pulse Resp BP Pulse Ox 98.5 F 99 18 131/97 H 100 07/07/18 19:31 07/07/18 19:31 07/07/18 19:31 07/07/18 19:31 07/07/18 19:31 - Notes Notes: General Appearance: Well nourished, alert, cooperative, no acute distress, moderate obvious discomfort. Vitals: reviewed, See vital signs table. Eyes: PERRL, EOMI, Conjuctiva clear Back pain: Some painful reproduction is mainly over the right lumbar paraspinal musculature. Some pain to the left as well. Minimal midline tenderness. No redness or swelling over the back. No tenderness to thoracic spine. Extremities: strength 5/5 in all extremities, good pulses in all extremities, no swelling or tenderness in the extremities, no edema. Skin: warm, dry, appropriate color, no rash Neuro: speech clear, oriented x 3, normal affect, responds appropriately to questions. Patient has good strength plantar dorsiflexion against resistance. Good distal sensation. No signs of lower extremity weakness on exam. Course - Re-evaluation Re-evalutation: 07/08/18 06:11 I spoke with the patient at length. I spent a lot of time explaining to the patient how opiate medications work and why she has increasing pain now that she no longer has her medications. Patient became very upset every time I mentioned the opiate medications and the fact that they up regulate her pain receptors and therefore without these medications she has increasing pain however as her pain receptors start to reset her pain would improve. I informed her that based on recommendations and guidelines from CDC and state boards it is not appropriate for me to continue prescribing pain medicine for her chronic back pain and this should be managed by a single prescriber such as a bait painter. I informed her that this is for her benefit and for her health and not to ignore her pain. I informed her that there are other things that I could do for her pain such as to a trial of gabapentin to see if this helps with her pain and also this would help blunt withdrawal and there is other medicines we could use to help blunt any future withdrawal she might develop. Fortunately patient does not have any withdrawal symptoms at this time I suspect this because patient says she has been taking some leftover tramadol that she had. This was confusing to make being the patient actually has tramadol as an allergy on her allergy list. When I asked her about this she then immediately said that she is allergic to tramadol however this does not make sense being that she has been taking it the last few days. I did look up the patient on the state controlled substance database. Her last prescription was filled on June 09 and was filled for a 30-day supply which means that the patient should still have medications for at least another 2 days. She says she ran out 2-3 days ago. I talked her about this and patient says that she was taking them as prescribed and that she disagreed with state controlled substance database. Anytime I mentioned a medication to help her with her pain other than opiates patient immediately becomes upset and says she does not want that and says that I am not helping her. I informed her that this is the way that I think is appropriate to help her and I think what is best for health. Patient eventually became further upset and said that she does not want me to see her anymore and wishes to leave. Currently patient has no signs of cauda equina syndrome. She has good strength in her lower extremities. She denies any numbness in her extremities. She has not had any loss of bowel control. She has been urinating fine. I feel that she is safe to be discharged as she requests. I informed her that even though she does not want my help today we are more than willing to try to help her in t he future if she changes her mind about the appropriate opiate alternative treatments that we are willing to offer her. Dictation of this chart was performed using voice recognition software; therefo re, there may be some unintended grammatical errors. - Vital Signs Vital signs: Temp Pulse Resp BP Pulse Ox 98.5 F 99 18 131/97 H 100 07/07/18 19:31 07/07/18 19:31 07/07/18 19:31 07/07/18 19:31 07/07/18 19:31 Discharge - Discharge Clinical Impression: Chronic lower back pain Qualifiers: Back pain laterality: bilateral Sciatica presence: without sciatica Qualified Code(s): M54.5 - Low back pain Opiate dependence Qualifiers: Substance use status: uncomplicated Qualified Code(s): F11.20 - Opioid dependence, uncomplicated Condition: Good Disposition: HOME, SELF-CARE Additional Instructions: As discussed with you, your worsening back pain is related to you being without your chronic pain medicine. Going without your pain medicine causes your pain to increase and could eventually create withdrawl symptoms such as vomiting, abdominal pain, and diarrhea. I want to prescribe a medication called gabapentin which would help some with the pain and potentially blunt any withdrawl symptoms. We could alos do other medicaitions such as phenergan for nausea in case you do develop nausea form withdrawl. You have refused this medication today. I recomeend you at least start taking Ibuprofen 400mg every 6 hours with food in conjunction with Tylenol 500mg every 4 hours for pain control. Even though you are refusing this treatment at this time we are more than happy to see you again in the ER if you change your mind about the above mentioned treatment options we want to provide and feel are best for you. Please return to the ER if you have loss of bowel control, inability to urinate, leg weakness, leg numbness, or have further concerns
== END 2018-07-07 23:20 | disposition home or self-care (01) ==
LOC: ER 19:08
DX: G89.29 Other chronic pain (principal); M54.5 Low back pain; F11.20 Opioid dependence, uncomplicated; I10 Essential (primary) hypertension; Z88.8 Allergy status to other drugs, medicaments and biological substances
CPT/HCPCS: 99283

== ENCOUNTER 2018-07-19 09:44 | Emergency (ER) | payer SELFPAY ==
[2018-07-19 09:55] VITALS: BP 103/77
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
--- NOTE | 2018-07-19 12:10 | RADIOLOGY REPORT (SQ) ---
EXAM DESCRIPTION: KNEE RIGHT 4 VIEWS COMPLETED DATE/TIME: 07/19/2018 12:00 pm REASON FOR STUDY: pain s/p injury COMPARISON: None. NUMBER OF VIEWS: Four views. TECHNIQUE: AP, lateral, and both oblique radiographic images acquired of the right knee. LIMITATIONS: None. FINDINGS: MINERALIZATION: Normal. BONES: No acute fracture or dislocation. No worrisome bone lesions. JOINT: No effusion. SOFT TISSUES: No soft tissue swelling. No radio-opaque foreign body. OTHER: No other significant finding. IMPRESSION: 1. NEGATIVE STUDY OF THE RIGHT KNEE. TECHNICAL DOCUMENTATION: JOB ID: [id number] [employer]- All Rights Reserved Reading location - IP/workstation name: [email or web address]
--- NOTE | 2018-07-19 12:13 | RADIOLOGY REPORT (SQ) ---
EXAM DESCRIPTION: L SPINE WHOLE COMPLETED DATE/TIME: 07/19/2018 12:00 pm REASON FOR STUDY: pain s/p injury COMPARISON: 07/06/2018 NUMBER OF VIEWS: Five views including obliques. TECHNIQUE: AP, lateral, oblique, and sacral radiographic images acquired of the lumbar spine. LIMITATIONS: None. FINDINGS: MINERALIZATION: Normal. SEGMENTATION: Normal. No transitional anatomy. ALIGNMENT: Levoconvex scoliosis of the lumbar spine, stable finding. VERTEBRAE: Maintained height. No fracture or worrisome bone lesion. DISCS: Preserved height. No significant osteophytes or end plate irregularity. POSTERIOR ELEMENTS: Pedicles and facets are intact. No pars defect or posterior arch defects. HARDWARE: None in the spine. PARASPINAL SOFT TISSUES: Normal. PELVIS: Intact as visualized. No fractures or worrisome bone lesions. SI joints intact. OTHER: No other significant finding. IMPRESSION: 1. No significant interval changes since the prior study dated 07/06/2018. Levoconvex sc oliosis of the lumbar spine. 2. No acute osseous findings. TECHNICAL DOCUMENTATION: JOB ID: [id number] [employer]- All Rights Reserved Reading location - IP/workstation name: [email or web address]
== END 2018-07-19 13:53 | disposition home or self-care (01) ==
LOC: ER 09:44
DX: M25.561 Pain in right knee (principal); M54.5 Low back pain; Y01.XXXA Assault by pushing from high place, initial encounter; Z87.891 Personal history of nicotine dependence; I10 Essential (primary) hypertension
CPT/HCPCS: 99283; 73564; 72110; L1830

== ENCOUNTER 2018-08-11 18:03 | Emergency (ER) | payer SELFPAY ==
[2018-08-11] MEDS ORDERED: LORAZEPAM INJ 2 MG/1 ML VIAL IM ONE (19:00)
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
[2018-08-11 23:02] VITALS: BP 136/81
[2018-08-12] MEDS ORDERED: OXYCODONE-ACETAMINOPHEN 5-325 MG TABLET PO ONE (00:31)
--- NOTE | 2018-08-12 01:23 | RADIOLOGY REPORT (SQ) ---
EXAM DESCRIPTION: XR LUMBAR SPINE ANTEROPOSTERIOR, LATERAL, AND OBLIQUES COMPLETED DATE/TME: 08/12/2018 00:31 CLINICAL HISTORY: 33 years, Female, fall down stairs, tender over thoracolumbar juncti COMPARISON: 07/19/2018 NUMBER OF VIEWS: Five TECHNIQUE: Findings the lumbar spine LIMITATIONS: None. FINDINGS: Again noted is mild levoscoliosis of the lumbar spine. There is no acute fracture or subluxation. The vertebral heights and disc spaces are maintained. IMPRESSION: No acute fracture or subluxation. copyright 2010 [employer]- All Rights Reserved
--- NOTE | 2018-08-12 01:24 | RADIOLOGY REPORT (SQ) ---
EXAM DESCRIPTION: XR THORACIC SPINE 2 VIEWS COMPLETED DATE/TME: 08/12/2018 00:31 CLINICAL HISTORY: 33 years, Female, fall down stairs, tender over thoracolumbar juncti COMPARISON: None. NUMBER OF VIEWS: Two TECHNIQUE: Two views of the thoracic spine LIMITATIONS: None. FINDINGS: There is mild dextroscoliosis of the mid to lower thoracic spine. There is no acute fractures or subluxation. The vertebral heights are maintained. No large paraspinal hematoma. No rib fracture is identified. The visualized portions of the lungs are clear. IMPRESSION: No acute fracture or subluxation copyright 2010 [employer]- All Rights Reserved
--- NOTE | 2018-08-12 04:03 | ER Document Report ---
Entered by MARILEE ROSA SCRIBE 08/12/18 0115 Acting as scribe for:TESSY BRIZUELA DO ED General - General Chief Complaint: Back Pain Stated Complaint: BACK PAIN Time Seen by Provider: 08/11/18 19:00 Mode of Arrival: Ambulatory Information source: Patient Notes: Patient is a 33 year old female with scoliosis presents to the emergency department complaining of back pain and an elevated blood pressure. Patient states she fell down a copious amount of stairs 2 days ago while doing laundry in [place]. She states she presented to the ED in [place] and reports she was told there was nothing they could do for her symptoms. She her back pain pain is located on her left side and sends pain into her legs bilaterally. She denies any dysuria or fecal and urinary incontinence. She states while at her mother's house today, she recorded a blood pressure of 169/105 which is abnormal for her. On the way to the emergency department today she reports having spasms of her hands and feet which have since completely resolved. Patient states due to her scoliosis she was previously prescribed 5 mg Percocet for years and had recently been transitioned to 10 mg Percocets, further states she feels this is the only medications that works for her. Patient last had narcotic pain medications prescribed to her at the end of June. States she has not had any in several weeks because she cannot afford to go to pain management. TRAVEL OUTSIDE OF THE [place] IN LAST 30 DAYS: No - Related Data Allergies/Adverse Reactions: ketorolac [From Toradol] Allergy (Verified 08/11/18 18:05) Hives codeine [From Tylenol-Codeine #3] Adverse Reaction (Verified 08/11/18 18:05) Anxiety tramadol Adverse Reaction (Verified 08/11/18 18:05) Anxiety Past Medical History - General Information source: Patient - Social History Smoking Status: Current Every Day Smoker Cigarette use (# per day): No Chew tobacco use (# tins/day): No Smoking Education Provided: No Family History: Reviewed & Not Pertinent, CAD, DM, Hyperlipidemia, Hypertension, Malignancy Patient has suicidal ideation: No Patient has homicidal ideation: No - Past Medical History Cardiac Medical History: Reports: Hx Hypercholesterolemia, Hx Hypertension Renal/ Medical History: Reports: Hx Ovarian Cysts GI Medical History: Reports: Hx Ulcer Musculoskeletal Medical History: Reports Hx Muscle Spasm, Reports Hx Musculoskeletal Deformity, Reports Hx Musculoskeletal Trauma Psychiatric Medical History: Reports: Hx Anxiety, Hx Depression Past Surgical History: Reports: Hx Abdominal Surgery, Hx Section - 4, Hx Hysterectomy, Hx Kidney (Renal Surgery) - one removed - Immunizations Immunizations up to date: Yes Hx Diphtheria, Pertussis, Tetanus Vaccination: Yes - 2014 Review of Systems - Review of Systems Constitutional: No symptoms reported EENT: No symptoms reported Cardiovascular: No symptoms reported Respiratory: No symptoms reported Gastrointestinal: No symptoms reported Genitourinary: No symptoms reported Female Genitourinary: No symptoms reported Musculoskeletal: See HPI, Back pain Skin: No symptoms reported Hematologic/Lymphatic: No symptoms reported Neurological/Psychological: No symptoms reported -: Yes All other systems reviewed and negative Physical Exam - Vital signs Vitals: Pulse Resp BP Pulse Ox 150 H 19 152/100 H 100 08/11/18 18:16 08/11/18 18:16 08/11/18 18:16 08/11/18 18:16 - Notes Notes: GENERAL: Alert, interacts well. No acute distress. Laying on her side, able to sit up without difficulty. HEAD: Normocephalic, atraumatic. EYES: Pupils equal, round, and reactive to light. Extraocular movements intact. ENT: Oral mucosa moist, tongue midline. NECK: Full range of motion. Supple. Trachea midline. LUNGS: Clear to auscultation bilaterally, no wheezes, rales, or rhonchi. No respiratory distress. HEART: Mild tachycardia. During my examination her heart rate was approximately 110, she was no longer tachycardic to the 150s as she was on her intake vitals, no murmurs, gallops, or rubs. ABDOMEN: Soft, non-tender. Non-distended. Bowel sounds present in all 4 quadrants. EXTREMITIES: Moves all 4 extremities spontaneously. No edema, radial and arnie salis pedis pulses 2/4 bilaterally. No cyanosis. Initially reports no sensation to the inner thighs, then states she has decreased sensation to the inner thighs. Negative straight leg raise which causes pain in her calf, not continuously from her buttock to her calf. 5 out of 5 great toe raising strength bilaterally. NEUROLOGICAL: Alert and oriented x3. Normal speech. PSYCH: Normal affect, normal mood. SKIN: Warm, dry, normal turgor. No rashes or lesions noted. BACK: Midline bony tenderness palpation, no signs of trauma, step-offs or deformities. Course - Re-evaluation Re-evalutation: 08/12/18 02:00 No evidence of cauda equina. No red flag symptoms. Given the midline bony tenderness to palpation patient had radiographic imaging performed, x-rays are negative for any acute process. Patient was given 1 Percocet 5 mg here for pain. Patient will be discharged to home, offered muscle relaxers in the form of Robaxin. - Vital Signs Vital signs: Temp Pulse Resp BP Pulse Ox 97.7 F 110 H 20 136/81 H 100 08/11/18 23:00 08/11/18 23:00 08/11/18 23:00 08/11/18 23:00 08/11/18 23:00 Discharge - Discharge Clinical Impression: Lumbar contusion Qualifiers: Encounter type: initial encounter Qualified Code(s): S30.0XXA - Contusion of lower back and pelvis, initial encounter Low back pain Qualifiers: Chronicity: acute Back pain laterality: bilateral Sciatica presence: with sciatica Sciatica laterality: bilateral sciatica Qualified Code(s): M54.42 - Lumbago with sciatica, left side; M54.41 - Lumbago with sciatica, right side Condition: Stable Disposition: HOME, SELF-CARE Additional Instructions: Low Back Pain Three out of every four people will have an episode of disabling back pain during their lifetime. Most commonly the pain is due to straining of the muscles and ligaments in the low back. Usual treatment includes: (1) Rest on a firm surface. Avoid lying on your stomach. (2) Ice pack the painful area. After a few days, gentle heat may be used intermittently to relax the area, or ice packs can be continued. (3) Medication may be needed -- muscle relaxers and antiinflammatory medicines are commonly used. (4) As the back improves, exercises are prescribed to strengthen the back and abdominal muscles. Your doctor will advise you on the proper care for your back at each stage in your recovery. You may be better in a few days -- or healing may take several weeks. If new symptoms of a "herniated disc" (radiation of pain, numbness, or tingling down the back of the leg or weakness in the leg) occur, you should be re-examined. Further testing may be necessary. Muscle Relaxers Muscle relaxing medications are usually prescribed for acute muscle spasm or injury to the neck and back. They are often combined with antiinflammatory pain medication for increased relief. You may stop the muscle relaxer when the pain and stiffness have improved. Start the medication again if spasms recur. Muscle relaxers may cause drowsiness, especially with the first dose. Do not operate machinery or drive while under the effects of the medication. Most muscle relaxers last up to 24 hours. Do not combine the medication with alcohol. Prescriptions: Methocarbamol [Robaxin 750 mg Tablet] 750 mg PO ASDIR PRN #40 tablet PRN Reason: Scribe Attestation: 08/12/18 04:03 I personally performed the services described in the documentation, reviewed and edited the documentation which was dictated to the scribe in my presence, and it accurately records my words and actions. I personally performed the services described in the documentation, reviewed and edited the documentation which was dictated to the scribe in my presence, and it accurately records my words and actions.
== END 2018-08-12 02:39 | disposition home or self-care (01) ==
LOC: ER 18:03
DX: S30.0XXA Contusion of lower back and pelvis, initial encounter (principal); M54.42 Lumbago with sciatica, left side; M54.41 Lumbago with sciatica, right side; M54.9 Dorsalgia, unspecified; R03.0 Elevated blood-pressure reading, without diagnosis of hypertension; M41.9 Scoliosis, unspecified; M79.604 Pain in right leg; M79.605 Pain in left leg; M62.838 Other muscle spasm; W10.9XXA Fall (on) (from) unspecified stairs and steps, initial encounter; I10 Essential (primary) hypertension; F17.200 Nicotine dependence, unspecified, uncomplicated
CPT/HCPCS: 99283; 72110; 72070; J2060

== ENCOUNTER 2018-08-28 02:34 | Emergency (ER) | payer SELFPAY ==
[2018-08-28] MEDS ORDERED: LORAZEPAM INJ 2 MG/1 ML VIAL IV ONE (02:57)
[2018-08-28 03:09] LABS: ABSOLUTE EOSINOPHILS # (AUTO) 0.1 10^3/uL (0.0-0.6); ABSOLUTE LYMPHOCYTES (AUTO) 2.8 10^3/uL (0.5-4.7); ABSOLUTE MONOCYTES (AUTO) 0.4 10^3/uL (0.1-1.4); ABSOLUTE NEUT (AUTO) 1.9 10^3/uL (1.7-8.2); BASOPHILS % (AUTO) 0.8 % (0-2); EOSINOPHILS % (AUTO) 1.6 % (0-6); HEMATOCRIT 45.4 % (36.0-47.0); HEMOGLOBIN 15.2 g/dL (12.0-15.5); LYMPHOCYTES % (AUTO) 52.8 % (13-45); MEAN CORPUSCULAR HEMOGLOBIN 25.9 pg (27.0-33.4); MEAN CORPUSCULAR HGB CONC 33.4 g/dL (32.0-36.0); MEAN CORPUSCULAR VOLUME 78 fl (80-97); MONOCYTES % (AUTO) 8.2 % (3-13); PLATELET COUNT 206 10^3/uL (150-450); RED BLOOD COUNT 5.86 10^6/uL (3.72-5.28); RED CELL DISTRIBUTION WIDTH 14.5 % (11.5-14.0); SEGMENTED NEUTROPHILS % (AUTO) 36.6 % (42-78); TOTAL CELLS COUNTED % (AUTO) 100 %; WHITE BLOOD COUNT 5.3 10^3/uL (4.0-10.5)
[2018-08-28] MEDS: NORMAL SALINE 1000 ML 1,000 ML IV PRN ×2 (03:09→04:12)
[2018-08-28 03:22] LABS: ALANINE AMINOTRANSFERASE 23 U/L (9-52); ALCOHOL 20 mg/dL (NONE DETECTED); ALKALINE PHOSPHATASE 93 U/L (38-126); ANION GAP 18 (5-19); ASPARTATE AMINO TRANSFERASE 44 U/L (14-36); BILIRUBIN,DIRECT 0.2 mg/dL (0.0-0.4); BILIRUBIN,TOTAL 0.2 mg/dL (0.2-1.3); BLOOD UREA NITROGEN 14 mg/dL (7-20); CALCIUM 10.1 mg/dL (8.4-10.2); CARBON DIOXIDE 24 mmol/L (22-30); CHLORIDE 102 mmol/L (98-107); GLUCOSE 146 mg/dL (75-110); POTASSIUM 3.1 mmol/L (3.6-5.0); SODIUM 143.6 mmol/L (137-145); TOTAL PROTEIN 8.3 g/dL (6.3-8.2)
[2018-08-28 03:36] LABS: ACETAMINOPHEN < 10 ug/mL (10-30); SALICYLATE < 1.0 mg/dL (2.0-20.0)
[2018-08-28 03:55] LABS: APPEARANCE,URINE CLEAR; BILIRUBIN,URINE NEGATIVE (NEGATIVE); COLOR,URINE STRAW; GLUCOSE, URINE 50 mg/dL (NEGATIVE); KETONES,URINE TRACE mg/dL (NEGATIVE); LEUKOCYTE ESTERASE,URINE NEGATIVE (NEGATIVE); NITRITE,URINE NEGATIVE (NEGATIVE); PROTEIN,URINE NEGATIVE (NEGATIVE); URINE SPECIFIC GRAVITY 1.013; UROBILINOGEN,URINE NEGATIVE mg/dL (<2.0)
[2018-08-28 04:09] LABS: URINE AMPHETAMINES SCREEN NEGATIVE; URINE BARBITURATES SCREEN NEGATIVE; URINE BENZODIAZEPINES SCREEN UNCONFIRMED POSITIVE; URINE COCAINE SCREEN NEGATIVE; URINE MARIJUANA (THC) SCREEN NEGATIVE; URINE METHADONE SCREEN NEGATIVE; URINE PHENCYCLIDINE SCREEN NEGATIVE
[2018-08-28] MEDS ORDERED: ACETAMINOPHEN 325 MG TABLET PO ONE (04:15)
--- NOTE | 2018-08-28 04:46 | RADIOLOGY REPORT (SQ) ---
EXAM DESCRIPTION: XR THORACIC SPINE 2 VIEWS COMPLETED DATE/TME: 08/28/2018 02:58 CLINICAL HISTORY: 33 years, Female, fell off stool, back hurts COMPARISON: None. NUMBER OF VIEWS: Two TECHNIQUE: Two views of the thoracic spine LIMITATIONS: None. FINDINGS: There is mild S-shaped scoliosis of the thoracolumbar spine. There is no acute fracture or subluxation. The vertebral heights are maintained. The visualized portions of the lungs are clear. IMPRESSION: No acute fracture or subluxation of the thoracic spine copyright 2010 [email or web address]- All Rights Reserved
--- NOTE | 2018-08-28 04:47 | RADIOLOGY REPORT (SQ) ---
EXAM DESCRIPTION: XR LUMBAR SPINE ANTEROPOSTERIOR, LATERAL, AND OBLIQUES COMPLETED DATE/TME: 08/28/2018 02:58 CLINICAL HISTORY: 33 years, Female, fell off stool, back hurts COMPARISON: 08/12/2018 NUMBER OF VIEWS: Five TECHNIQUE: Five views of the lumbar spine LIMITATIONS: None. FINDINGS: There is mild levoscoliosis of the lumbar spine. There is no acute fracture or subluxation. The vertebral heights are maintained. There is mild facet arthropathy at L5-S1 IMPRESSION: No acute fracture or subluxation copyright 2010 [employer]- All Rights Reserved
[2018-08-28] MEDS ORDERED: CLONIDINE 0.1 MG/24 HR PATCH.TDWK TD ONE (04:49)
[2018-08-28] MEDS ORDERED: CLONIDINE HCL 0.1 MG TABLET PO ONE (04:50)
[2018-08-28] MEDS ORDERED: POTASSIUM CHLORIDE 10 MEQ CAPSULE.ER PO ONE (05:20)
[2018-08-28 05:37] VITALS: BP 129/91
[2018-08-28 05:41] LABS: BACTERIA (WET MOUNT) 4+ BACTERIA SEEN; EPITHELIALS (WET MOUNT) 4+ EPITHELIALS SEEN; RBCS (WET MOUNT) FEW RBCS SEEN; T.VAGINALIS (WET MOUNT) NO TRICHOMONAS SEEN; WBCS (WET MOUNT) 1+ WBCS SEEN; YEAST (WET MOUNT) NO YEAST SEEN
--- NOTE | 2018-08-28 06:28 | ER Document Report ---
Entered by NIMA ESCUDERO SCRIBE 08/28/18 0322 Acting as scribe for:TESSY BRIZUELA DO ED General - General Chief Complaint: Overdose Stated Complaint: POSSIBLE OVERDOSE Time Seen by Provider: 08/28/18 02:45 Primary Care Provider: OCTAVIO HOYOS PA-C [Primary Care Provider] - Follow up in 3-5 days Mode of Arrival: Ambulatory Information source: Patient Notes: 33 year old female that presents to the emergency department today with complaints of possibly "ingesting [place]" at a green party with friends just prior to arrival. Patient states she was at a green party with friends and after drinking a "bahAdWired mama punch" fell out of a barstool. Patient states she was "feeling weird" prior to falling backwards out of the stool. Patient complains of mid back pain from striking her back on the floor when she fell. Patient states her legs are numb bilaterally. Patient states she only had on one cup of this punch. TRAVEL OUTSIDE OF THE [place] IN LAST 30 DAYS: No - Related Data Allergies/Adverse Reactions: ketorolac [From Toradol] Allergy (Verified 08/28/18 03:18) Hives codeine [From Tylenol-Codeine #3] Adverse Reaction (Verified 08/28/18 03:18) Anxiety tramadol Adverse Reaction (Verified 08/28/18 03:18) Anxiety Past Medical History - General Information source: Patient - Social History Smoking Status: Never Smoker Cigarette use (# per day): No Frequency of alcohol use: None Drug Abuse: None Lives with: Family Family History: Reviewed & Not Pertinent, CAD, DM, Hyperlipidemia, Hypertension, Malignancy - Past Medical History Cardiac Medical History: Reports: Hx Hypercholesterolemia, Hx Hypertension Renal/ Medical History: Reports: Hx Ovarian Cysts GI Medical History: Reports: Hx Ulcer Musculoskeletal Medical History: Reports Hx Muscle Spasm, Reports Hx Musculoskeletal Deformity, Reports Hx Musculoskeletal Trauma Psychiatric Medical History: Reports: Hx Anxiety, Hx Depression Past Surgical History: Reports: Hx Abdominal Surgery, Hx Section - 4, Hx Hysterectomy, Hx Kidney (Renal Surgery) - one removed - Immunizations Immunizations up to date: Yes Hx Diphtheria, Pertussis, Tetanus Vaccination: Yes - 2014 Review of Systems - Review of Systems Constitutional: See HPI, Other - possible ingestion of "[place]" EENT: No symptoms reported Cardiovascular: No symptoms reported Respiratory: No symptoms reported Gastrointestinal: No symptoms reported Genitourinary: No symptoms reported Female Genitourinary: No symptoms reported Musculoskeletal: See HPI, Back pain Skin: No symptoms reported Hematologic/Lymphatic: No symptoms reported Neurological/Psychological: See HPI, Numbness - legs bilaterally -: Yes All other systems reviewed and negative Physical Exam - Vital signs Vitals: Pulse Ox 100 08/28/18 02:54 - Notes Notes: PHYSICAL EXAM GENERAL: Alert, interacts well. No acute distress. HEAD: Normocephalic, atraumatic. EYES: Pupils equal, round, and reactive to light. Extraocular movements intact. ENT: Oral mucosa moist, tongue midline. NECK: Full range of motion. Supple. Trachea midline. LUNGS: Clear to auscultation bilaterally, no wheezes, rales, or rhonchi. No respiratory distress. HEART: Regular rate and rhythm. No murmurs, gallops, or rubs. ABDOMEN: Soft, non-tender. Non-distended. Bowel sounds present in all 4 quadra nts. No guarding, rigidity, or rebound. BACK: Mild scoliosis. Mild tenderness with palpation over the thoracolumbar junction without step-off/deformity. EXTREMITIES: Moves all 4 extremities spontaneously. No edema, radial and dorsalis pedis pulses 2/4 bilaterally. No cyanosis. 5 out of 5 great toe raising strength bilaterally. NEUROLOGICAL: Alert and oriented x3. Normal speech. Biceps and patellar DTRs 2+ bilaterally. Sensation intact. PSYCH: Anxious. SKIN: Warm, dry, normal turgor. No rashes or lesions noted. PELVIC: Thick white discharge, no cervical motion tenderness, no external skin changes, no odor. Course - Re-evaluation Re-evalutation: 08/28/18 05:12 CBC grossly unremarkable, CMP shows slightly low potassium at 3.1 otherwise unremarkable, test is negative, urinalysis shows trace ketones otherwise unremarkable, salicylates and acetaminophen are undetectable, alcohol level was 20, there are unconfirmed opiates and benzodiazepines. 08/28/18 05:13 Thoracic and lumbar spine x-rays do not show any acute fracture. There is a mild S-shaped scoliosis of the thoracolumbar spine. And mild facet arthropathy at L5-S1. Patient's heart rate and blood pressure both came down slightly with the Ativan. She appears much less anxious at this time. She is refusing acetaminophen for pain at this time. Patient lists ketorolac, codeine and tramadol as allergies. I am concerned that her hypertension and tachycardia are being caused by narcotic withdrawal. When I saw this patient 2 weeks ago she told me that she had been out of her narcotics for 2 weeks however one Percocet normalized her heart rate and her blood pressure. Her presentation was very similar to today. Patient today tells me that she will not be able to see pending management until the end of August, 2 weeks ago she told me she would not be able to see them until the end of July. This week she tells me that she has narcotics in her urine because she still has 2 Percocet left over from Octavio Hoyos that she has saved and is only taking one half at a time. 2 weeks ago she told me that she was completely out of her narcotics from KATIUSKA Prather. 2 weeks ago she told me that I was heartless for leaving her to not have any pain medication for the next 2 weeks until she got into see pain management. Today she is telling me that she will not be in to see pain management for another month. At this point I am very concerned that the patient is exhibiting potential drug- seeking behaviors. I am concerned by the presence of opiates and benzodiazepines in her urine drug screen. Patient has no explanation for why there are benzodiazepines in her urine drug screen. Patient is being given clonidine 0.1 mg by mouth to help control her heart rate and her blood pressure from her narcotic withdrawal. Patient at this time now mentions that she has an odor "down there". Patient wants to know if her scoliosis might be causing this. I told her no and patient then questioned whether or not the clonidine would help with her odor. Discussed with patient that if she is concerned about any problems with her vagina we could discuss this further. Patient states she knows what the problem is that she "has a bacterial infection in her vagina, that is what makes that smell all fishy and shit and to have the discharge." Patient has grudgingly agreed to allow me to perform a pelvic exam prior to prescribing metronidazole for possible bacterial vaginosis. Additionally did discuss with the patient my concerns that she states that she has been told by her primary care provider KATIUSKA Prather that she has such severe scoliosis that she needs to be on narcotics all the time and that she will be in a wheelchair within 5 years. Patient then asks me if I can refer her to have a lenka put in her spine. Discussed with patient that she needs to follow-up with orthospine or other hospital cleaning specialist to discuss her scoliosis and whether or not they feel she is at risk for the scoliosis progressing. I find it unlikely that with her degree of curvature she would need daily narcotics for her pain. Discussed with patient that I am concerned that there may be other causes for her chronic pain that still need to be fully investigated. 08/28/18 05:54 Wet prep shows 4+ epithelials, 4+ bacteria, no trichomonas and no yeast. Given these findings despite the lack of a fishy odor on examination patient will be treated for bacterial vaginosis using Flagyl 500 mg twice a day for the next 7 days. Patient has been given clonidine, I would like to wait until her heart rate normalizes however patient is refusing to stay treated patient is no acute distress, is not having significant pain right now, does appear significantly improved since she arrived. Patient will be discharged home. - Vital Signs Vital signs: Temp Pulse Resp BP Pulse Ox 15 129/91 H 100 08/28/18 05:01 08/28/18 05:01 08/28/18 04:21 - Laboratory Result Diagrams: 08/28/18 02:53 08/28/18 02:53 Laboratory results interpreted by me: 08/28/18 08/28/18 08/28/18 02:53 02:53 03:44 RBC 5.86 H MCV 78 L MCH 25.9 L RDW 14.5 H Seg Neutrophils % 36.6 L Lymphocytes % 52.8 H Potassium 3.1 L Glucose 146 H AST 44 H Total Protein 8.3 H Urine Glucose (UA) 50 H Urine Ketones TRACE H Salicylates < 1.0 L Acetaminophen < 10 L Discharge - Discharge Clinical Impression: Hypokalemia, Bacterial vaginosis Fall at home Qualifiers: Encounter type: initial encounter Qualified Code(s): W19.XXXA - Unspecified fall, initial encounter; Y92.009 - Unspecified place in unspecified non- institutional (private) residence as the place of occurrence of the external cause Low back pain Qualifiers: Chronicity: chronic Back pain laterality: bilateral Sciatica presence: without sciatica Qualified Code(s): M54.5 - Low back pain; G89.29 - Other chronic pain Scoliosis Qualifiers: Scoliosis type: unspecified scoliosis Spinal region: thoracolumbar Qualified Code(s): M41.9 - Scoliosis, unspecified Condition: Stable Disposition: HOME, SELF-CARE Additional Instructions: I am sorry that you are having continuing pain with your back. It is very important that you continue to work through your primary care provider KATIUSKA Garcia to further investigate where your pain is coming from. It is very i mportant that you follow-up with a specialist such as an orthopedic spine surgeon or a neurosurgeon who deals with spines to discuss Mr. Hoyos's conclusion that your back pain, which he feels needs daily narcotics, is coming from your scoliosis. You told me that you are concerned that you may need a lenka in your spine. This should be discussed with ortho spine or a neurosurgeon. You also have bacterial vaginosis. Please take 1 tablet of metronidazole twice a day for the next 7 days. Today you appear to be in narcotic withdrawal and appeared to be having an anxiety attack. Your symptoms improved with Ativan and clonidine. Please do not take narcotics unless they are prescribed to you. Prescriptions: Fluconazole [Diflucan] 150 mg PO ONCE PRN #1 tablet PRN Reason: Metronidazole [Flagyl 500 mg Tablet] 500 mg PO BID #14 tablet Referrals: OCTAVIO HOYOS PA-C [Primary Care Provider] - Follow up in 3-5 days I personally performed the services described in the documentation, reviewed and edited the documentation which was dictated to the scribe in my presence, and it accurately records my words and actions.
[2018-08-28 07:06] LABS: CHLAM PCR NOT DETECTED (NOT DETECT); GON PCR NOT DETECTED (NOT DETECT)
--- NOTE | 2018-08-29 22:52 | EKG REPORT ---
SEVERITY:- ABNORMAL ECG - SINUS TACHYCARDIA DESTINY, CONSIDER BIATRIAL ABNORMALITIES ST DEPRESSION, CONSIDER ISCHEMIA, ANT-LAT LDS PROLONGED QT INTERVAL : Confirmed by: Devang Angel 29-Aug-2018 22:51:32
== END 2018-08-28 06:02 | disposition home or self-care (01) ==
LOC: ER 02:34
DX: Z04.3 Encounter for examination and observation following other accident (principal); M41.9 Scoliosis, unspecified; M12.9 Arthropathy, unspecified; M54.5 Low back pain; G89.29 Other chronic pain; F19.939 Other psychoactive substance use, unspecified with withdrawal, unspecified; E87.6 Hypokalemia; N76.0 Acute vaginitis; B96.89 Other specified bacterial agents as the cause of diseases classified elsewhere; R00.0 Tachycardia, unspecified; I10 Essential (primary) hypertension; R20.0 Anesthesia of skin; Z88.8 Allergy status to other drugs, medicaments and biological substances
CPT/HCPCS: 93005; 99284; 96361; 96374; 36415; 87210; 80307 ×4; 84703; 85025; 80053; 81001; 87491; 87591; 72110; 72070; 93010; J2060; J7030

== ENCOUNTER 2018-09-13 19:13 | Emergency (ER) | payer SELFPAY | END 2018-09-13 21:30 | disposition left against medical advice (07) | LOC: ER 19:13 | DX: Z53.21 Procedure and treatment not carried out due to patient leaving prior to being seen by health care provider (principal) ==

== ENCOUNTER 2018-09-14 | Emergency (ER) | payer SELFPAY ==
[2018-09-14] MEDS ORDERED: NORMAL SALINE 1000 ML 1,000 ML IV ONE (00:06)
[2018-09-14] MEDS ORDERED: DIAZEPAM 5 MG TABLET PO ONE (00:10)
--- NOTE | 2018-09-14 00:12 | ER Document Report ---
Addendum entered and electronically signed by STANFORD HUTCHINSON PA 09/26/18 07:37: Discharge - Discharge Clinical Impression: Tachycardia, Lumbar muscle pain Lower back pain Qualifiers: Chronicity: acute Back pain laterality: bilateral Sciatica presence: without sciatica Qualified Code(s): M54.5 - Low back pain Condition: Stable Disposition: HOME, SELF-CARE Additional Instructions: Your workup shows that your thyroid screening test the TSH is elevated, this can be consistent with hypothyroidism, I recommend a follow-up with primary care for a thyroid panel for additional management. You will likely be progressively sore for approximately 48 hours. Apply heat, avoid lifting/twisting, take Robaxin muscle relaxer, and rest. Return for any concerning symptoms including inability to urinate, inability to control your bowels, numbness, fever, passing out, or any other concerning symptoms. Prescriptions: Methocarbamol [Robaxin-750] 750 mg PO QID PRN #20 tablet PRN Reason: Forms: Return to Work Referrals: SHIRA NEVAREZ PA-C [PHYSICIAN [employer]INE] - Follow up as needed Original Note: ED General - General Stated Complaint: BACK PAIN,PALPITATIONS Time Seen by Provider: 09/14/18 00:06 Primary Care Provider: SHIRA NEVAREZ PA-C [PHYSICIAN [employer]] - Follow up as needed Notes: Patient is a 33-year-old female that comes emergency department for chief complaint of back pain and palpitations. She states that she was at work, she lifted an ice bucket, she slipped on a piece of ice, jerked her back, felt pain in her lower back. She states that since that time she feels like her heart is been racing. She states that she has a history of panic attacks, she states she took one half of a 0.5 mg tablet of Ativan but this did not help her feeling of racing heart and anxiety. She denies chest pain, she denies any other locations of pain, she denies numbness in her legs, incontinence of bowel, inability to urinate. She reports past medical history of chronic back pain, hysterectomy, and panic attacks, denies medical history otherwise. TRAVEL OUTSIDE OF THE [place] IN LAST 30 DAYS: No - Related Data Allergies/Adverse Reactions: ketorolac [From Toradol] Allergy (Verified 08/28/18 03:18) Hives codeine [From Tylenol-Codeine #3] Adverse Reaction (Verified 08/28/18 03:18) Anxiety tramadol Adverse Reaction (Verified 08/28/18 03:18) Anxiety Past Medical History - General Information source: Patient - Social History Smoking Status: Never Smoker Frequency of alcohol use: None Lives with: Family Family History: Reviewed & Not Pertinent, CAD, DM, Hyperlipidemia, Hypertension, Malignancy - Past Medical History Cardiac Medical History: Reports: Hx Hypercholesterolemia, Hx Hypertension Renal/ Medical History: Reports: Hx Ovarian Cysts. Denies: Hx Peritoneal Dialysis GI Medical History: Reports: Hx Ulcer Musculoskeletal Medical History: Reports Hx Muscle Spasm, Reports Hx Musculoskeletal Deformity, Reports Hx Musculoskeletal Trauma Psychiatric Medical History: Reports: Hx Anxiety, Hx Depression Past Surgical History: Reports: Hx Abdominal Surgery, Hx Section - 4, Hx Hysterectomy, Hx Kidney (Renal Surgery) - one removed - Immunizations Immunizations up to date: Yes Hx Diphtheria, Pertussis, Tetanus Vaccination: Yes - 2014 Review of Systems - Review of Systems Constitutional: No symptoms reported EENT: No symptoms reported Cardiovascular: See HPI Respiratory: No symptoms reported Gastrointestinal: No symptoms reported Genitourinary: No symptoms reported Female Genitourinary: No symptoms reported Musculoskeletal: See HPI Skin: No symptoms reported Hematologic/Lymphatic: No symptoms reported Neurological/Psychological: No symptoms reported Physical Exam - Vital signs Vitals: Temp Pulse Resp BP Pulse Ox 98.0 F 133 H 14 132/98 H 100 09/14/18 00:01 09/14/18 00:01 09/14/18 00:01 09/14/18 00:01 09/14/18 00:01 - Notes Notes: GENERAL: Patient mildly anxious but does not appear to be in distress. HEAD: Normocephalic, atraumatic. EYES: Pupils equal, round, and reactive to light. Extraocular movements intact. ENT: Oral mucosa moist, tongue midline. Oropharynx unremarkable. Airway patent. Nares patent, no nasal septal hematoma, TM's intact. NECK: Full range of motion. Supple. Trachea midline. LUNGS: Clear to auscultation bilaterally, no wheezes, rales, or rhonchi. No respiratory distress. HEART: Sinus tachycardia, normal rhythm, no murmur. ABDOMEN: Soft, non-tender. Non-distended. Bowel sounds present in all 4 quadrants. GENITOURINARY: Deferred EXTREMITIES: Moves all 4 extremities spontaneously. No edema, normal radial and dorsalis pedis pulses bilaterally. No cyanosis. BACK: no cervical, thoracic, lumbar midline tenderness. There is some mild bilateral paralumbar musculature tenderness, otherwise unremarkable exam. No saddle anesthesia, normal distal neurovascular exam. NEUROLOGICAL: Alert and oriented x3. Normal speech. [cranial nerves II through XII grossly intact]. PSYCH: Anxious and borderline tearful SKIN: Warm, dry, normal turgor. No rashes or lesions noted. Course - Re-evaluation Re-evalutation: On initial evaluation patient is anxious, borderline tearful, otherwise her examination is unremarkable. She has mild tenderness in the bilateral paralumbar musculature, there is no midline tenderness, no saddle anesthesia, no neurological deficits noted or reported. She is afebrile. She denies chest pain, shortness of breath. She states she feels her heart elevate and feels like occasionally there is palpitation. She denies dizziness or syncope. EKG shows sinus tachycardia with no T wave inversions or ST segment changes in consecutive leads, unremarkable ID interval and QTc. CBC unremarkable, chemistry shows borderline hypokalemia. TSH is elevated. Patient was given some Valium because of reported back pain and her anxiety on exam, she was also given some IV fluids. Heart rate came down to 110 on monitoring, when I enter the room patient becomes anxious and her heart rate elevates again. Appears to be some anxiety component. Patient began explaining to me why she needs to be on long-term pain medication, she states that her doctor told her that if she does not take opiate medication because of her scoliosis that she will end up being stuck in a wheelchair. I explained that based on her back strain I cannot give her an opiate prescription, and her back strain today does not warrant this either. I had a long conversation with patient at bedside including workup and recommendations. Patient did vent about home, her back, and then calmed down and asked about her thyroid panel. After the discussion at bedside patient's heart rate did decrease into the 90s, how ever unfortunately this was not recorded, I did note this on bedside monitoring. I do not suspect a pulmonary embolism, she has no symptoms suggesting this, we do not suspect infection causing her back pain because of her specific injury and benign exam, I feel patient is stable for discharge. I did discuss her thyroid panel follow-up because of her abnormal TSH, I did discuss return precautions with patient in detail. - Vital Signs Vital signs: Temp Pulse Resp BP Pulse Ox 98.0 F 133 H 18 126/88 H 100 09/14/18 00:01 09/14/18 00:01 09/14/18 02:01 09/14/18 02:01 09/14/18 02:01 - Laboratory Result Diagrams: 09/14/18 00:08 09/14/18 01:15 Laboratory results interpreted by me: 09/14/18 09/14/18 09/14/18 00:08 00:08 01:15 RBC 5.68 H MCV 77 L MCH 25.9 L RDW 14.4 H Potassium 3.4 L Creatinine 0.51 L TSH 8.86 H Discharge - Discharge Clinical Impression: Tachycardia Lower back pain Qualifiers: Chronicity: acute Back pain laterality: bilateral Sciatica presence: without sciatica Qualified Code(s): M54.5 - Low back pain Condition: Stable Disposition: HOME, SELF-CARE Additional Instructions: Your workup shows that your thyroid screening test the TSH is elevated, this can be consistent with hypothyroidism, I recommend a follow-up with primary care for a thyroid panel for additional management. You will likely be progressively sore for approximately 48 hours. Apply heat, avoid lifting/twisting, take Robaxin muscle relaxer, and rest. Return for any concerning symptoms including inability to urinate, inability to control your bowels, numbness, fever, passing out, or any other concerning symptoms. Prescriptions: Methocarbamol [Robaxin-750] 750 mg PO QID PRN #20 tablet PRN Reason: Forms: Return to Work Referrals: SHIRA NEVAREZ PA-C [PHYSICIAN [employer]] - Follow up as needed
[2018-09-14 00:21] LABS: ABSOLUTE BASOPHILS # (AUTO) 0.1 10^3/uL (0.0-0.2); ABSOLUTE MONOCYTES (AUTO) 0.6 10^3/uL (0.1-1.4); ABSOLUTE NEUT (AUTO) 4.4 10^3/uL (1.7-8.2); EOSINOPHILS % (AUTO) 0.2 % (0-6); HEMATOCRIT 43.9 % (36.0-47.0); HEMOGLOBIN 14.7 g/dL (12.0-15.5); LYMPHOCYTES % (AUTO) 28.5 % (13-45); MEAN CORPUSCULAR HEMOGLOBIN 25.9 pg (27.0-33.4); MEAN CORPUSCULAR HGB CONC 33.5 g/dL (32.0-36.0); MEAN CORPUSCULAR VOLUME 77 fl (80-97); MONOCYTES % (AUTO) 8.9 % (3-13); PLATELET COUNT 194 10^3/uL (150-450); RED BLOOD COUNT 5.68 10^6/uL (3.72-5.28); RED CELL DISTRIBUTION WIDTH 14.4 % (11.5-14.0); SEGMENTED NEUTROPHILS % (AUTO) 61.4 % (42-78); TOTAL CELLS COUNTED % (AUTO) 100 %; WHITE BLOOD COUNT 7.1 10^3/uL (4.0-10.5)
[2018-09-14 01:40] LABS: ANION GAP 10 (5-19); BLOOD UREA NITROGEN 9 mg/dL (7-20); CALCIUM 9.3 mg/dL (8.4-10.2); CARBON DIOXIDE 23 mmol/L (22-30); CHLORIDE 105 mmol/L (98-107); GLUCOSE 78 mg/dL (75-110); POTASSIUM 3.4 mmol/L (3.6-5.0); SODIUM 137.5 mmol/L (137-145)
[2018-09-14] MEDS ORDERED: OXYCODONE-ACETAMINOPHEN 5-325 MG TABLET PO ONE (02:11)
[2018-09-14 02:13] VITALS: BP 126/88
--- NOTE | 2018-09-14 17:05 | EKG REPORT ---
SEVERITY:- BORDERLINE ECG - SINUS TACHYCARDIA BORDERLINE T WAVE ABNORMALITIES : Confirmed by: Devang Angel 14-Sep-2018 17:03:59
== END 2018-09-14 02:32 | disposition home or self-care (01) ==
LOC: ER
DX: S39.012A Strain of muscle, fascia and tendon of lower back, initial encounter (principal); W18.41XA Slipping, tripping and stumbling without falling due to stepping on object, initial encounter; Y93.89 Activity, other specified; Y99.0 Civilian activity done for income or pay; F41.9 Anxiety disorder, unspecified; R00.0 Tachycardia, unspecified; I10 Essential (primary) hypertension; Z88.8 Allergy status to other drugs, medicaments and biological substances
CPT/HCPCS: 93005; 99285; 96360; 36415; 84443; 85025; 80048; 93010; J7030

== ENCOUNTER 2018-09-16 18:50 | Emergency (ER) | payer SELFPAY ==
[2018-09-16 19:22] VITALS: BP 136/89
[2018-09-16] MEDS ORDERED: METRONIDAZOLE 500 MG TABLET PO ONE (20:20)
--- NOTE | 2018-09-16 20:23 | ER Document Report ---
ED GI/ - General Chief Complaint: Vaginal Discharge Stated Complaint: VAGINAL DISCHARGE Time Seen by Provider: 09/16/18 20:18 Mode of Arrival: Ambulatory Information source: Patient Notes: 33-year-old female presents to ED for facial smelling foul odor vaginal discharge since her last couple visits. She states she was told that she had bacterial vaginosis but never received any antibiotics or treatment. She states she would like to get the treatment for the bacterial vaginosis. She is having no symptoms except for the foul-smelling fishy odor vaginal discharge. She denies any pelvic pain or pain with urination. She is alert oriented respirations regular and unlabored speaking in full sentences. We will send self swabs for GC chlamydia and a wet mount and a urinalysis and treat the patient with Flagyl for the bacterial vaginosis that was positive on her last visit. TRAVEL OUTSIDE OF THE [place] IN LAST 30 DAYS: No - HPI Patient complains to provider of: Vaginal discharge Onset: Other - More than 2 weeks Timing/Duration: Persistent Quality of pain: No pain Pain Level: Denies Vaginal bleeding (Compared to normal period): None Associated symptoms: Vaginal discharge Exacerbated by: Denies Relieved by: Denies Similar symptoms previously: Yes Recently seen / treated by doctor: Yes - Related Data Allergies/Adverse Reactions: ketorolac [From Toradol] Allergy (Verified 08/28/18 03:18) Hives codeine [From Tylenol-Codeine #3] Adverse Reaction (Verified 08/28/18 03:18) Anxiety tramadol Adverse Reaction (Verified 08/28/18 03:18) Anxiety Past Medical History - General Information source: Patient - Social History Smoking Status: Never Smoker Frequency of alcohol use: Social Drug Abuse: Marijuana Occupation: fast food Lives with: Family Family History: Reviewed & Not Pertinent, CAD, DM, Hyperlipidemia, Hypertension, Malignancy Patient has suicidal ideation: No Patient has homicidal ideation: No - Past Medical History Cardiac Medical History: Reports: Hx Hypercholesterolemia, Hx Hypertension Pulmonary Medical History: Reports: None EENT Medical History: Reports: None Neurological Medical History: Reports: None Endocrine Medical History: Reports: None Renal/ Medical History: Reports: Hx Ovarian Cysts Malignancy Medical History: Reports: None GI Medical History: Reports: Hx Ulcer Musculoskeletal Medical History: Reports Hx Muscle Spasm, Reports Hx Musculoskeletal Deformity, Reports Hx Musculoskeletal Trauma Skin Medical History: Reports None Psychiatric Medical History: Reports: Hx Anxiety, Hx Depression Traumatic Medical History: Reports: None Infectious Medical History: Reports: None Past Surgical History: Reports: Hx Abdominal Surgery, Hx Section - 4, Hx Hysterectomy, Hx Kidney (Renal Surgery) - one removed - Immunizations Immunizations up to date: Yes Hx Diphtheria, Pertussis, Tetanus Vaccination: Yes - 2014 Review of Systems - Review of Systems Constitutional: No symptoms reported EENT: No symptoms reported Cardiovascular: No symptoms reported Respiratory: No symptoms reported Gastrointestinal: No symptoms reported Genitourinary: No symptoms reported Female Genitourinary: Vaginal discharge Musculoskeletal: No symptoms reported Skin: No symptoms reported Hematologic/Lymphatic: No symptoms reported Neurological/Psychological: No symptoms reported Physical Exam - Vital signs Vitals: Temp Pulse Resp BP Pulse Ox 98.2 F 98 16 136/89 H 100 09/16/18 19:21 09/16/18 19:21 09/16/18 19:21 09/16/18 19:21 09/16/18 19:21 Interpretation: Normal - General General appearance: Appears well, Alert - HEENT Head: Normocephalic, Atraumatic Eyes: Normal Pupils: PERRL - Respiratory Respiratory status: No respiratory distress Chest status: Nontender Breath sounds: Normal Chest palpation: Normal - Cardiovascular Rhythm: Regular Heart sounds: Normal auscultation Murmur: No - Abdominal Inspection: Normal Distension: No distension Bowel sounds: Normal Tenderness: Nontender Organomegaly: No organomegaly - Genitourinary Notes: She did self swabs she states there is no pain just a foul-smelling vaginal discharge. Patient was diagnosed with bacterial vaginosis about 2 weeks ago and was not treated yet. - Back Back: Normal, Nontender - Extremities General upper extremity: Normal inspection, Nontender, Normal color, Normal ROM, Normal temperature General lower extremity: Normal inspection, Nontender, Normal color, Normal ROM, Normal temperature, Normal weight bearing. No: Santi's sign - Neurological Neuro grossly intact: Yes Cognition: Normal Orientation: AAOx4 Irene Coma Scale Eye Opening: Spontaneous [place] Coma Scale Verbal: Oriented [place] Coma Scale Motor: Obeys Commands Irene Coma Scale Total: 15 Speech: Normal Motor strength normal: LUE, RUE, LLE, RLE Sensory: Normal - Psychological Associated symptoms: Normal affect, Normal mood - Skin Skin Temperature: Warm Skin Moisture: Dry Skin Color: Normal Course - Vital Signs Vital signs: Temp Pulse Resp BP Pulse Ox 98.2 F 98 16 136/89 H 100 09/16/18 19:21 09/16/18 19:21 09/16/18 19:21 09/16/18 19:21 09/16/18 19:21 - Laboratory Laboratory results interpreted by me: 09/16/18 20:15 Urine Ketones TRACE H Urine Urobilinogen 2.0 H Discharge - Discharge Clinical Impression: Bacterial vaginosis Condition: Stable Disposition: HOME, SELF-CARE Additional Instructions: VAGINOSIS, BACTERIAL: Your exam shows you have bacterial vaginosis. This condition is due to an overgrowth of bacteria in the vagina. Symptoms may include vaginal itching or pain, a smelly discharge, and sometimes burning with urination. Normally this is not transmitted by sexual contact. Vaginosis can be treated with oral or topical antibiotics. Metronidazole (Flagyl) pills are usually effective. Topical vaginal creams include Cleocin and Metro-Gel. You should avoid sexual contact until your symptoms are all better. Call the doctor if you develop pelvic pain, fever, or problems with urination, or if you don't improve as expected. METRONIDAZOLE: Metronidazole (Flagyl) has been prescribed. This medication is used to kill a type of bacteria called anaerobes, and protozoan parasites such as trichomonas and Giardia. Flagyl often causes a metallic taste in the mouth and mild nausea. Do not use alcohol in any form with Flagyl (including alcohol in medication elixirs). Flagyl interacts with alcohol to cause flushing, palpitations, headache, stomach cramps, and vomiting. Do not use Flagyl if you are taking Antabuse (disulfiram). Call the doctor at once if you develop rash, shortness of breath, itching, or lightheadedness. FOLLOW-UP CARE: If you have been referred to a physician for follow-up care, call the physicians office for an appointment as you were instructed or within the next two days. If you experience worsening or a significant change in your symptoms, notify the physician immediately or return to the Emergency Department at any time for re-evaluation. Prescriptions: Metronidazole [Flagyl 500 mg Tablet] 500 mg PO BID #14 tablet Forms: Elevated Blood Pressure
[2018-09-16 20:36] LABS: BACTERIA (WET MOUNT) 3+ BACTERIA SEEN; EPITHELIALS (WET MOUNT) 4+ EPITHELIALS SEEN; T.VAGINALIS (WET MOUNT) NO TRICHOMONAS SEEN; WBCS (WET MOUNT) FEW WBCS SEEN; YEAST (WET MOUNT) NO YEAST SEEN
[2018-09-16 20:41] LABS: APPEARANCE,URINE SLIGHTLY-CLOUDY; BILIRUBIN,URINE NEGATIVE (NEGATIVE); COLOR,URINE YELLOW; GLUCOSE, URINE NEGATIVE (NEGATIVE); KETONES,URINE TRACE mg/dL (NEGATIVE); LEUKOCYTE ESTERASE,URINE NEGATIVE (NEGATIVE); NITRITE,URINE NEGATIVE (NEGATIVE); PROTEIN,URINE NEGATIVE (NEGATIVE); URINE SPECIFIC GRAVITY 1.021
[2018-09-16 22:03] LABS: CHLAM PCR NOT DETECTED (NOT DETECT); GON PCR NOT DETECTED (NOT DETECT)
== END 2018-09-16 20:38 | disposition home or self-care (01) ==
LOC: ER 18:50
DX: N76.0 Acute vaginitis (principal); B96.89 Other specified bacterial agents as the cause of diseases classified elsewhere; E78.00 Pure hypercholesterolemia, unspecified; I10 Essential (primary) hypertension; Z90.710 Acquired absence of both cervix and uterus; Z88.6 Allergy status to analgesic agent
CPT/HCPCS: 81001; 87210; 87491; 87591; 99283

== ENCOUNTER 2018-09-28 11:06 | Emergency (ER) | payer SELFPAY ==
--- NOTE | 2018-09-28 11:24 | ER Document Report ---
ED Medical Screen (RME) - General Chief Complaint: Back Pain Stated Complaint: BACK PAIN Time Seen by Provider: 09/28/18 11:24 TRAVEL OUTSIDE OF THE [place] IN LAST 30 DAYS: No - HPI Notes: 09/28/18 11:24 Patient is a 33-year-old female, well known to the ED, with a history of feeling palpitations over the last couple days which she has had before. Patient states that her thyroid is "out of whack." Patient also has ongoing chronic left lower back pain, anxiety, and elevated blood pressure. She is eating and drinking without difficulty. She is urinating normally and having normal bowel movements. No other concerns or complaints. No significant cardiopulmonary medical history otherwise. Denies any headache, fever, neck pain, URI, sore throat, chest pain, syncope, cough, shortness of breath, wheeze, dyspnea, abdominal pain, nausea/vomiting/diarrhea, urinary retention, dysuria, hematuria, loss of control of bowel or bladder, numbness/tingling, saddle anesthesia, muscle paralysis/weakness, or rash. I have treated and performed a rapid initial assessment of this patient. A comprehensive ED assessment and evaluation of the patient, analysis of test results and completion of medical decision making process will be conducted by additional ED providers. PHYSICAL EXAMINATION: GENERAL: Well-appearing, well-nourished and in no acute distress. A&Ox4. Answers questions appropriately. LUNGS: Breath sounds clear to auscultation bilaterally and equal. No wheezes rales or rhonchi. HEART: Regular rate and rhythm without murmurs, rubs, gallops. Extremities: No cyanosis, clubbing, or edema b/l. NEUROLOGICAL: Normal speech, normal gait. PSYCH: Normal mood, normal affect. - Related Data Allergies/Adverse Reactions: ketorolac [From Toradol] Allergy (Verified 08/28/18 03:18) Hives codeine [From Tylenol-Codeine #3] Adverse Reaction (Verified 08/28/18 03:18) Anxiety tramadol Adverse Reaction (Verified 08/28/18 03:18) Anxiety Past Medical History - Social History Chew tobacco use (# tins/day): No Frequency of alcohol use: None Drug Abuse: None - Past Medical History Cardiac Medical History: Reports: Hx Hypercholesterolemia, Hx Hypertension Renal/ Medical History: Reports: Hx Ovarian Cysts. Denies: Hx Peritoneal Dialysis GI Medical History: Reports: Hx Ulcer Musculoskeltal Medical History: Reports Hx Muscle Spasm, Reports Hx Musculoskeletal Deformity, Reports Hx Musculoskeletal Trauma Psychiatric Medical History: Reports: Hx Anxiety, Hx Depression Past Surgical History: Reports: Hx Abdominal Surgery, Hx Section - 4, Hx Hysterectomy, Hx Kidney (Renal Surgery) - one removed - Immunizations Immunizations up to date: Yes Hx Diphtheria, Pertussis, Tetanus Vaccination: Yes - 2014
[2018-09-28 12:34] LABS: ABSOLUTE LYMPHOCYTES (AUTO) 1.2 10^3/uL (0.5-4.7); ABSOLUTE MONOCYTES (AUTO) 0.5 10^3/uL (0.1-1.4); ABSOLUTE NEUT (AUTO) 3.4 10^3/uL (1.7-8.2); BASOPHILS % (AUTO) 0.7 % (0-2); EOSINOPHILS % (AUTO) 0.8 % (0-6); HEMATOCRIT 42.1 % (36.0-47.0); MEAN CORPUSCULAR HEMOGLOBIN 25.7 pg (27.0-33.4); MEAN CORPUSCULAR HGB CONC 33.2 g/dL (32.0-36.0); MEAN CORPUSCULAR VOLUME 78 fl (80-97); MONOCYTES % (AUTO) 10.5 % (3-13); PLATELET COUNT 155 10^3/uL (150-450); RED BLOOD COUNT 5.43 10^6/uL (3.72-5.28); RED CELL DISTRIBUTION WIDTH 14.7 % (11.5-14.0); TOTAL CELLS COUNTED % (AUTO) 100 %; WHITE BLOOD COUNT 5.2 10^3/uL (4.0-10.5)
[2018-09-28] MEDS ORDERED: ACETAMINOPHEN 325 MG TABLET PO ONE (12:35)
[2018-09-28 12:55] LABS: ALANINE AMINOTRANSFERASE 27 U/L (9-52); ALBUMIN 3.9 g/dL (3.5-5.0); ALKALINE PHOSPHATASE 83 U/L (38-126); ANION GAP 8 (5-19); ASPARTATE AMINO TRANSFERASE 20 U/L (14-36); BILIRUBIN,DIRECT 0.1 mg/dL (0.0-0.4); BILIRUBIN,TOTAL 0.1 mg/dL (0.2-1.3); BLOOD UREA NITROGEN 14 mg/dL (7-20); CALCIUM 9.7 mg/dL (8.4-10.2); CARBON DIOXIDE 31 mmol/L (22-30); CHLORIDE 100 mmol/L (98-107); GLUCOSE 99 mg/dL (75-110); PHOSPHORUS 3.7 mg/dL (2.5-4.5); POTASSIUM 4.1 mmol/L (3.6-5.0); SODIUM 139.3 mmol/L (137-145); TOTAL PROTEIN 7.2 g/dL (6.3-8.2)
[2018-09-28 13:02] VITALS: BP 120/80
[2018-09-28 13:11] LABS: FREE T3 5.76 pg/mL (2.77-5.27); FREE T4 (FREE THYROXINE) 1.51 ng/dL (0.78-2.19)
[2018-09-28 13:24] LABS: THYROID STIMULATING HORMONE 0.49 uIU/mL (0.47-4.68)
--- NOTE | 2018-09-28 13:29 | EKG REPORT ---
SEVERITY:- NORMAL ECG - SINUS RHYTHM : Confirmed by: Armani De La Cruz MD 28-Sep-2018 13:28:51
== END 2018-09-28 12:25 | disposition left against medical advice (07) ==
LOC: ER 11:06
DX: Z53.21 Procedure and treatment not carried out due to patient leaving prior to being seen by health care provider (principal); M54.9 Dorsalgia, unspecified; R00.2 Palpitations; M54.5 Low back pain; G89.29 Other chronic pain; I10 Essential (primary) hypertension
CPT/HCPCS: 36415; 80053; 83735; 84100; 84439; 84443; 84481; 85025; 93005; 93010; 99281

== ENCOUNTER 2018-10-02 16:46 | Observation (INO) | payer SELFPAY ==
[2018-10-02] MEDS ORDERED: ASPIRIN 81 MG TABLET, CHEWABLE PO ONE (17:01)
[2018-10-02] MEDS ORDERED: HYDROMORPHONE HCL INJ/PF 2 MG/ML AMPULE IV ONE (17:03)
[2018-10-02] MEDS ORDERED: ONDANSETRON HCL INJ/PF 4 MG/2 ML SDV IV ONE (17:04)
--- NOTE | 2018-10-02 17:13 | ER Document Report ---
ED General - General Chief Complaint: Chest Pain Stated Complaint: CHEST PAIN Time Seen by Provider: 10/02/18 16:54 Mode of Arrival: Ambulatory Information source: Patient TRAVEL OUTSIDE OF THE [place] IN LAST 30 DAYS: No - HPI Patient complains to provider of: Chest and back pain, palpitations, question thyroid problem Onset: Just prior to arrival Onset/Duration: Sudden Quality of pain: Sharp, Stabbing Severity: Severe Pain Level: 5 Associated symptoms: denies: Chills, Fever Exacerbated by: Denies Relieved by: Denies Similar symptoms previously: No Recently seen / treated by doctor: No Notes: 33-year-old -[place] female with multiple visits to the ER for pain complaints coming in today with chest and back pain and shortness of breath. Patient has very tachycardic and blood pressure is high. Apparently she was seen here recently being worked up and eloped or left AGAINST MEDICAL ADVICE. - Related Data Allergies/Adverse Reactions: ketorolac [From Toradol] Allergy (Verified 10/02/18 16:47) Hives codeine [From Tylenol-Codeine #3] Adverse Reaction (Verified 10/02/18 16:47) Anxiety tramadol Adverse Reaction (Verified 10/02/18 16:47) Anxiety Past Medical History - General Information source: Patient - Social History Smoking Status: Smoker,Current Status Unk Family History: Reviewed & Not Pertinent, CAD, DM, Hyperlipidemia, Hypertension, Malignancy - Past Medical History Cardiac Medical History: Reports: Hx Hypercholesterolemia, Hx Hypertension Renal/ Medical History: Reports: Hx Ovarian Cysts. Denies: Hx Peritoneal Dialysis GI Medical History: Reports: Hx Ulcer Musculoskeletal Medical History: Reports Hx Muscle Spasm, Reports Hx Musculoskeletal Deformity, Reports Hx Musculoskeletal Trauma Psychiatric Medical History: Reports: Hx Anxiety, Hx Depression Past Surgical History: Reports: Hx Abdominal Surgery, Hx Section - 4, Hx Hysterectomy, Hx Kidney (Renal Surgery) - one removed - Immunizations Immunizations up to date: Yes Hx Diphtheria, Pertussis, Tetanus Vaccination: Yes - 2014 Review of Systems - Review of Systems Notes: Constitutional: No fevers. No chills. EENT: No eye redness. No eye pain. No ear pain. No sore throat. Cardiovascular: Positive for chest pain, positive for tachycardia Respiratory: No cough. Positive for shortness of breath Gastrointestinal: No abdominal pain. No nausea, vomiting, or diarrhea. Genitourinary: Atraumatic. No lesions. No pain. No discharge. Musculoskeletal: Atraumatic. No swelling. No deformities. Positive for back pain Skin: No rash or lesions. Lymphatic: No swollen lymph nodes. Neurologic: No headache. No syncope. Psychiatric: No suicidal or homicidal ideation. Physical Exam - Vital signs Vitals: Temp Pulse Resp BP Pulse Ox 97.8 F 137 H 16 166/105 H 100 10/02/18 17:02 10/02/18 17:02 10/02/18 17:02 10/02/18 17:02 10/02/18 17:02 - Notes Notes: General: Well-developed, well-nourished. Mild to moderate distress. Non-toxic appearing. Cardiac: Well-perfused. Sinus tachycardia Pulmonary: No respiratory distress. No cyanosis. Bilateral lung walters are clear to auscultation. Abdominal: Non-distended. Non-rigid. Bowels sounds are present in all four quadrants. No guarding or rebound. HEENT: Head is atraumatic. Conjunctivae not reddened. No tearing. PERRL. EOMI. Orbits atraumatic. No periorbital swelling or erythema. Oropharynx is without erythema, swelling, or exudates. Neck: Supple. No adenopathy. No meningismus. Dermatologic: Warm with good turgor. No rash. Atraumatic. Chest: Atraumatic. No chest wall tenderness to palpation. Musculoskeletal: Moves all extremities well. No range of motion deficits. no muscular or joint tenderness. No paraspinal muscle tenderness. no midline spinal tenderness or step-off. Genitourinary: Examination deferred Neurologic: No gross neurologic deficits. Psychiatric: Normal mood. Course - Re-evaluation Re-evalutation: 10/02/18 17:23 There is a mixed bag of diagnoses possible. Given patient's very rapid heart rate and back and chest pain PE is high on my list as is aortic issues. We will check the thyroid gland and a drug screen as well as typical cardiac workup pain medication for her pain to reduce the stress. We may need to give something for the heart rate if this does not come down on its own. 10/02/18 19:49 Patient continues tachycardic in the 140s regular rhythm. I am and asked the hospitalist to admit her as I do not have a definitive cause for her tachycardia or chest pain. Dr. Chen asked me to give a small bolus of Cardizem 10 mg now and give 250 bolus of IV normal saline with 100 mils per hour thereafter. He w ill assess and admit - Vital Signs Vital signs: Temp Pulse Resp BP Pulse Ox 97.8 F 137 H 16 166/105 H 100 10/02/18 17:02 10/02/18 17:02 10/02/18 17:02 10/02/18 17:02 10/02/18 17:02 - Laboratory Result Diagrams: 10/02/18 17:31 10/02/18 17:31 Laboratory results interpreted by me: 10/02/18 17:31 WBC 3.3 L RBC 5.56 H MCV 78 L MCH 26.0 L RDW 14.8 H Absolute Neutrophils 1.5 L - EKG Interpretation by Tx EKG shows normal: Sinus rhythm, [place], QRS Complexes, ST-T Waves Rate: Tachycardia Discharge - Discharge Clinical Impression: Tachycardia Chest pain Qualifiers: Chest pain type: unspecified Qualified Code(s): R07.9 - Chest pain, unspecified Condition: Stable Disposition: ADMITTED OBSERVATION Admitting Provider: April (Hospitalist) Unit Admitted: Telemetry
--- NOTE | 2018-10-02 17:29 | RADIOLOGY REPORT (SQ) ---
EXAM DESCRIPTION: CHEST 2 VIEWS COMPLETED DATE/TIME: 10/02/2018 5:21 pm REASON FOR STUDY: cp COMPARISON: 02/15/2018 and earlier EXAM PARAMETERS: NUMBER OF VIEWS: two views TECHNIQUE: Digital Frontal and Lateral radiographic views of the chest acquired. RADIATION DOSE: NA LIMITATIONS: none FINDINGS: LUNGS AND PLEURA: No opacities, masses or pneumothorax. No pleural effusion. MEDIASTINUM AND HILAR STRUCTURES: No masses or contour abnormalities. HEART AND VASCULAR STRUCTURES: Heart normal size. No evidence for failure. BONES: No acute findings. HARDWARE: None in the chest. OTHER: No other significant finding. IMPRESSION: NO ACUTE RADIOGRAPHIC FINDING IN THE CHEST. TECHNICAL DOCUMENTATION: JOB ID: [id number] [employer]- All Rights Reserved Reading location - IP/workstation name: [email or web address]
[2018-10-02 17:51] LABS: ABSOLUTE EOSINOPHILS # (AUTO) 0.1 10^3/uL (0.0-0.6); ABSOLUTE LYMPHOCYTES (AUTO) 1.4 10^3/uL (0.5-4.7); ABSOLUTE MONOCYTES (AUTO) 0.4 10^3/uL (0.1-1.4); ABSOLUTE NEUT (AUTO) 1.5 10^3/uL (1.7-8.2); BASOPHILS % (AUTO) 1.2 % (0-2); HEMATOCRIT 43.3 % (36.0-47.0); HEMOGLOBIN 14.5 g/dL (12.0-15.5); LYMPHOCYTES % (AUTO) 41.8 % (13-45); MEAN CORPUSCULAR HGB CONC 33.4 g/dL (32.0-36.0); MEAN CORPUSCULAR VOLUME 78 fl (80-97); MONOCYTES % (AUTO) 10.7 % (3-13); PLATELET COUNT 163 10^3/uL (150-450); RED BLOOD COUNT 5.56 10^6/uL (3.72-5.28); RED CELL DISTRIBUTION WIDTH 14.8 % (11.5-14.0); SEGMENTED NEUTROPHILS % (AUTO) 44.3 % (42-78); TOTAL CELLS COUNTED % (AUTO) 100 %; WHITE BLOOD COUNT 3.3 10^3/uL (4.0-10.5)
[2018-10-02 18:28] LABS: ALANINE AMINOTRANSFERASE 19 U/L (9-52); ALBUMIN 4.4 g/dL (3.5-5.0); ALKALINE PHOSPHATASE 66 U/L (38-126); ANION GAP 11 (5-19); ASPARTATE AMINO TRANSFERASE 19 U/L (14-36); BILIRUBIN,DIRECT 0.2 mg/dL (0.0-0.4); BILIRUBIN,TOTAL 0.3 mg/dL (0.2-1.3); BLOOD UREA NITROGEN 13 mg/dL (7-20); CARBON DIOXIDE 25 mmol/L (22-30); CHLORIDE 103 mmol/L (98-107); GLUCOSE 103 mg/dL (75-110); POTASSIUM 4.3 mmol/L (3.6-5.0); SODIUM 138.6 mmol/L (137-145); TOTAL PROTEIN 7.9 g/dL (6.3-8.2)
--- NOTE | 2018-10-02 18:34 | RADIOLOGY REPORT (SQ) ---
EXAM DESCRIPTION: CTA CHEST COMPLETED DATE/TIME: 10/02/2018 6:21 pm REASON FOR STUDY: chest pain, tachycardia COMPARISON: Same day chest radiograph and earlier TECHNIQUE: CT scan of the chest performed using helical scanning technique with dynamic intravenous contrast injection. Images reviewed with lung, soft tissue and bone windows. Reconstructed coronal and sagittal MPR images reviewed. Additional 3 dimensional post-processing performed to develop Maximal Intensity Projection images (AR P). All images stored on PACS. All CT scanners at this facility use dose modulation, iterative reconstruction, and/or weight based d osing when appropriate to reduce radiation dose to as low as reasonably achievable (ALARA). [facility]: Dose Right [facility]: CareDose [facility]: Dose Right [facility]: Teradose 4D [facility]: [employer] CONTRAST TYPE AND DOSE: contrast/concentration: Isovue 350.00 mg/ml; Total Contrast Delivered: 65.0 ml; Total Saline Delivered: 89.4 ml 65 mL IV of Omnipaque 350- low osmolar. Contrast bolus optimized for the pulmonary arteries. Not diagnostic for the aorta. RENAL FUNCTION: BUN 14 creatinine 0.75 RADIATION DOSE: CT Rad equipment meets quality standard of care and radiation dose reduction techniq ues were employed. CTDIvol: 14.5 - 19.8 mGy. DLP: 482 mGy-cm. . LIMITATIONS: None. FINDINGS: LUNGS AND PLEURA: No masses, infiltrates, or pneumothorax. No pleural effusions or pleura l calcifications. AORTA AND GREAT VESSELS: No aneurysm. Contrast bolus not optimized for the aorta. HEART: No pericardial effusion. No significant coronary artery calcifications. PULMONARY ARTERIES: No pulmonary embolus visualized. HILAR AND MEDIASTINAL STRUCTURES: No identified masses or abnormal nodes. HARDWARE: None in the chest. UPPER ABDOMEN: No significant findings. Limited exam. THYROID AND OTHER SOFT TISSUES: No masses. No adenopathy. BONES: T12 vertebral body hemangioma. No acute osseous finding. 3D MIPS: Confirm above findings. OTHER: No other significant finding. IMPRESSION: NORMAL CTA OF THE CHEST. NO PULMONARY EMBOLI. COMMENT: Quality ID # [id number]: Final reports with documentation of one or more dose reduction techniques (e.g., Automated exposure control, adjustment of the mA and/or kV according to patient size, use of iterative reconstruction technique) TECHNICAL DOCUMENTATION: JOB ID: [id number]- All Rights Reserved Reading location - IP/workstation name: [email or web address]
[2018-10-02] MEDS ORDERED: DILTIAZEM HCL INJ 25 MG/5 ML VIAL IV ONE (19:44)
[2018-10-02] MEDS ORDERED: NORMAL SALINE 250 ML IV ONE (19:45)
[2018-10-02] MEDS ORDERED: NORMAL SALINE 1000 ML 1,000 ML IV ONE (19:46)
[2018-10-02] MEDS ORDERED: ACETAMINOPHEN 325 MG TABLET PO PRN (20:23)
[2018-10-02] MEDS ORDERED: GLUCAGON,HUMAN RECOMB 1 MG INJ SUBCUT PRN (20:23)
[2018-10-02] MEDS ORDERED: ZOLPIDEM TARTRATE 5 MG TABLET PO PRN (20:23)
[2018-10-02] MEDS ORDERED: NORMAL SALINE 1000 ML 1,000 ML IV PRN (20:23)
[2018-10-02] MEDS ORDERED: ONDANSETRON HCL INJ/PF 4 MG/2 ML SDV IV PRN (20:23)
[2018-10-02] MEDS ORDERED: DEXTROSE 50%-WATER 25 GM/50 ML DISP.SYRIN IV PRN ×2 (20:23)
[2018-10-02] MEDS ORDERED: MAGNESIUM HYDROXIDE SUSP 30 ML UDCUP PO PRN (20:23)
[2018-10-02] MEDS ORDERED: DEXTROSE 40% GEL 15 GM TUBE PO PRN ×2 (20:23)
[2018-10-02] MEDS ORDERED: NITROGLYCERIN 0.4 MG/TAB 25 TAB/BOTTLE SL PRN (20:34)
[2018-10-02] MEDS ORDERED: GABAPENTIN 100 MG CAPSULE PO PRN (20:35)
--- NOTE | 2018-10-02 21:08 | EKG REPORT ---
SEVERITY:- BORDERLINE ECG - SINUS TACHYCARDIA BORDERLINE T ABNORMALITIES, ANTERIOR LEADS : Confirmed by: Armani De La Cruz MD 02-Oct-2018 21:07:20
[2018-10-02 21:15] LABS: FREE T3 4.62 pg/mL (2.77-5.27); FREE T4 (FREE THYROXINE) 1.06 ng/dL (0.78-2.19)
[2018-10-02] MEDS ORDERED: BUSPIRONE HCL 10 MG TABLET PO ONE (21:30)
[2018-10-02] MEDS ORDERED: HYDROXYZINE PAMOATE 25 MG CAPSULE PO PRN (21:30)
[2018-10-02] MEDS: MORPHINE SULFATE 10 MG/ML INJ IV PRN (21:31)
[2018-10-02] MEDS ORDERED: DICYCLOMINE HCL 20 MG TABLET PO SCH (22:00)
[2018-10-02] MEDS ORDERED: CHLORHEXIDINE GLUCONATE 0.12% ORAL RINSE 15 ML UDC MM SCH (22:00)
[2018-10-02 22:19] LABS: URINE AMPHETAMINES SCREEN NEGATIVE; URINE BARBITURATES SCREEN NEGATIVE; URINE BENZODIAZEPINES SCREEN NEGATIVE; URINE COCAINE SCREEN UNCONFIRMED POSITIVE; URINE MARIJUANA (THC) SCREEN NEGATIVE; URINE METHADONE SCREEN NEGATIVE; URINE PHENCYCLIDINE SCREEN NEGATIVE
--- NOTE | 2018-10-02 22:38 | PDOC H&P ---
History of Present Illness Admission Date/PCP: 10/02/18 19:57 Patient complains of: Chest pain History of Present Illness: ARIANA CHAN is a 33 year old -[place] female who presented to the emergency room with acute onset of midsternal chest pain felt this pressure and tightness and graded 10/10 in severity with occasional radiation to back and associated dyspnea as well as palpitations. She admits to dry cough without wheezing. She denies any fever or chills. No nausea or vomiting or abdominal pain. No bleeding diathesis. She has been recently treated for bacterial vaginosis with p.o. Flagyl. She finished that 3 days ago. Upon presentation to the emergency room her EKG showed sinus tachycardia with a rate of 121 with poor R wave progression. Her vital signs revealed a pulse of 137 with a blood pressure 165, temperature 97.8 and pulse 79% on room air with respiratory rate of 16. Labs revealed a WBC of 3.3 and microcytosis with abs olute neutrophils of 1.5. CMP was unremarkable and percent of my back negative. I checked the TSH level that came back normal. I also ordered free T3 and free T4 that M of normal. Her urine test and drug screen are currently pending. Portable chest x-ray showed no acute cardiopulmonary disease. She had a chest CTA that showed no evidence for PE and was essentially normal. An abdom inal CT scan also came back unremarkable The patient was given 1 mg of IV Dilaudid and 4 baby aspirin as well as 10 mg of IV Cardizem and 8 mg of IV Zofran. She will be admitted to an observation te lemetry bed for further evaluation and management. Past Medical History Medical History: Other - Ongoing marijuana abuse Cardiac Medical History: Reports: Hyperlipidema, Hypertension Musculoskeletal History Note: History of scoliosis. She has not been apparently compliant with treatment Psychiatric Medical History: Reports: Depression, Other - Panic Hematology: Reports: Anemia Past Surgical History Past Surgical History: Reports: Section - 4, Hysterectomy Social History Smoking Status: Never Smoker Drugs: Marijuana Past Social History Note: She denies any history of tobacco or alcohol abuse. She smokes marijuana and has done it 2 weeks ago. She drinks a glass of wine about every month Family History Family History: CAD, DM, Hyperlipidemia, Hypertension, Malignancy Parental Family History Reviewed: Yes Children Family History Reviewed: Yes Sibling(s) Family History Reviewed.: Yes Medication/Allergy Home Medications: Cephalexin Monohydrate [Keflex 500 mg Capsule] 500 mg PO Q6H 5 Days capsule 07/01/16 Fluconazole [Diflucan] 150 mg PO ONCE PRN #1 tablet 07/01/16 Hydrocodone/Acetaminophen [Newberry 5-325 mg Tablet] 1 tab PO Q6H PRN #8 tablet 0 07/01/16 Hydrocodone/Acetaminophen [Newberry 5-325 mg Tablet] 1 tab PO Q6H PRN #10 tablet 11/29/16 Medroxyprogesterone Acet [Provera 10 Mg Tablet] 10 mg PO DAILY #4 tablet 11/29/16 Hydrocodone/Acetaminophen [Newberry 5-325 mg Tablet] 1 tab PO BID #10 tablet 01/19/17 Chlorhexidine Gluconate [Peridex 0.12% Oral Rinse 473 ml] 15 ml MM QHS #1 bottle 06/15/17 Clindamycin HCl 300 mg PO Q6 #28 capsule 06/15/17 Lidocaine 30 gm TP PRN PRN #1 oint...g. 06/15/17 Meloxicam 7.5 mg PO DAILY #7 tablet 06/15/17 Gabapentin 2 cap PO BID PRN #30 capsule 02/21/18 Promethazine HCl [Phenergan 25 mg Tablet] 25 mg PO Q6H PRN #20 tablet 02/21/18 Hydroxyzine HCl 25 mg PO TID PRN #10 tablet 04/09/18 Dicyclomine HCl [Bentyl 20 mg Tablet] 20 mg PO QID #15 tablet 06/06/18 Buspirone HCl [Buspar 10 mg Tablet] 10 mg PO BID #60 tablet 06/11/18 Fluconazole [Diflucan] 150 mg PO ONCE PRN #1 tablet 07/07/18 Methocarbamol [Robaxin 750 mg Tablet] 750 mg PO ASDIR PRN #40 tablet 08/12/18 Fluconazole [Diflucan] 150 mg PO ONCE PRN #1 tablet 08/28/18 Metronidazole [Flagyl 500 mg Tablet] 500 mg PO BID #14 tablet 08/28/18 Methocarbamol [Robaxin-750] 750 mg PO QID PRN #20 tablet 09/14/18 Metronidazole [Flagyl 500 mg Tablet] 500 mg PO BID #14 tablet 09/16/18 Allergies/Adverse Reactions: ketorolac [From Toradol] Allergy (Verified 04/06/19 16:47) Hives codeine [From Tylenol-Codeine #3] Adverse Reaction (Verified 10/02/18 16:47) Anxiety tramadol Adverse Reaction (Verified 10/02/18 16:47) Anxiety Review of Systems Review of Systems: As per history of present illness. All pertinent systems were reviewed above. Constitutional, HEENT, cardiovascular, respiratory, GI, , musculoskeletal, neuro, psychiatric, endocrine, integumentary and hematologic systems were reviewed and are otherwise negative/unremarkable except for positive findings mentioned above in the HPI. Physical Exam Vital Signs: Temp Pulse Resp BP Pulse Ox 98.6 F 98 12 145/85 H 99 10/02/18 21:01 10/02/18 21:49 10/02/18 21:01 10/02/18 21:01 10/02/18 21:01 Intake & Output 10/01/18 10/02/18 10/03/18 06:59 06:59 06:59 Intake Total 250 Balance 250 Weight 54.5 kg Exam: Generally: Pleasant middle-aged -[place]aur[place] female in no acute distress Vital signs-as listed Head - atraumatic, normocephalic. Pupils - equal, round and reactive to light and accommodation. Extraocular movements are intact. No scleral icterus. Oropharynx - moist mucous membranes and tongue. No pharyngeal erythema or exudate. Neck - supple. No JVD. Carotid pulses 2+ bilaterally. No carotid bruits. No palpable thyromegaly or lymphadenopathy. Cardiovascular - regular rate and rhythm. Normal S1 and S2. No murmurs, gallops or rubs. Lungs - clear to auscultation bilaterally. Abdomen - soft and nontender. Positive bowel sounds. No palpable organomegaly or masses. Extremities - no pitting edema, clubbing or cyanosis. Neuro - grossly non-focal. Skin - no rashes. Breast, pelvic and rectal - deferred Results Laboratory Results: 10/02/18 17:31 10/02/18 17:31 10/02/18 10/02/18 10/02/18 17:31 17:31 17:31 WBC 3.3 L RBC 5.56 H Hgb 14.5 Hct 43.3 MCV 78 L MCH 26.0 L MCHC 33.4 RDW 14.8 H Plt Count 163 Seg Neutrophils % 44.3 Lymphocytes % 41.8 Monocytes % 10.7 Eosinophils % 2.0 Basophils % 1.2 Absolute Neutrophils 1.5 L Absolute Lymphocytes 1.4 Absolute Monocytes 0.4 Absolute Eosinophils 0.1 Absolute Basophils 0.0 Sodium 138.6 Potassium 4.3 Chloride 103 Carbon Dioxide 25 Anion Gap 11 BUN 13 Creatinine 0.73 Est GFR ( Amer) > 60 Est GFR (Non-Af Amer) > 60 Glucose 103 Calcium 10.0 Magnesium Total Bilirubin 0.3 AST 19 ALT 19 Alkaline Phosphatase 66 Total Protein 7.9 Albumin 4.4 TSH 0.87 Free T4 Free T3 pg/mL 10/02/18 10/02/18 17:31 17:31 WBC RBC Hgb Hct MCV MCH MCHC RDW Plt Count Seg Neutrophils % Lymphocytes % Monocytes % Eosinophils % Basophils % Absolute Neutrophils Absolute Lymphocytes Absolute Monocytes Absolute Eosinophils Absolute Basophils Sodium Potassium Chloride Carbon Dioxide Anion Gap BUN Creatinine Est GFR ( Amer) Est GFR (Non-Af Amer) Glucose Calcium Magnesium 1.8 Total Bilirubin AST ALT Alkaline Phosphatase Total Protein Albumin TSH Free T4 1.06 Free T3 pg/mL 4.62 10/02/18 17:31 Troponin I < 0.012 Impressions: Chest X-Ray 10/02/18 17:05 IMPRESSION: NO ACUTE RADIOGRAPHIC FINDING IN THE CHEST. Chest/Abdomen CTA 10/02/18 17:14 IMPRESSION: NORMAL CTA OF THE CHEST. NO PULMONARY EMBOLI. Assessment and Plan - Diagnosis (1) Chest pain Qualifiers: Chest pain type: unspecified Qualified Code(s): R07.9 - Chest pain, unspecified Is this a current diagnosis for this admission?: Yes Plan: Chest pain, rule out acute coronary syndrome. The patient will be admitted to an observation telemetry bed. Will follow serial cardiac enzymes and EKGs. We will obtain a cardiology consult in a.m. for further cardiac risk stratification. The patient will be placed on cautious aspirin as well as p.r.n. sublingual nitroglycerin and morphine sulfate for pain. I suspect GI etiology as she has been on BC powder for headache. (2) Sinus tachycardia Is this a current diagnosis for this admission?: Yes Plan: Thyroid function is normal. Chest CT angiogram came back negative blood pressure and heart rate have improved exam. Potassium was 4.3. Will optimize her magnesium came back 1.8. This could be related to panic attacks or possible drug withdrawal. Her urine drug screen is pending. We will continue monitoring her. (3) Chronic low back pain Is this a current diagnosis for this admission?: No Plan: Pain management will be provided. (4) Hypertension Is this a current diagnosis for this admission?: Yes Plan: This is apparently diet managed. Her blood pressure is currently better. He will be monitored while she is here. (5) Dyslipidemia Is this a current diagnosis for this admission?: Yes Plan: We will check fasting lipids in a.m. (6) DVT prophylaxis Is this a current diagnosis for this admission?: Yes Plan: Subcutaneous Lovenox and GI prophylaxis with PPI therapy for the possibility of GI etiology especially given the fact that she takes BC powder for her headache.. - Time Within: within 24 hours - Plan Summary Plan Summary: The plan of care was discussed in details with the patient. I answered all questions. The patient agreed to proceed with the above-mentioned plan. The patient is presumably full code. This note was created by [employer] software and may contain typo errors that may have not been proofread.
[2018-10-02] MEDS: HYDROCODONE/ACETAMINOPHEN 5-325 MG TABLET PO PRN (23:53)
[2018-10-03 00:36] LABS: CREATINE KINASE MB < 0.22 ng/mL (<4.55); TROPONIN I < 0.012 ng/mL
[2018-10-03] MEDS: MORPHINE SULFATE 10 MG/ML INJ IV PRN ×3 (02:00→10:53)
[2018-10-03] MEDS ORDERED: PANTOPRAZOLE SODIUM 40 MG TABLET.DR PO SCH (06:00)
[2018-10-03 06:42] LABS: ABSOLUTE BASOPHILS # (AUTO) 0.1 10^3/uL (0.0-0.2); ABSOLUTE EOSINOPHILS # (AUTO) 0.1 10^3/uL (0.0-0.6); ABSOLUTE MONOCYTES (AUTO) 0.4 10^3/uL (0.1-1.4); ABSOLUTE NEUT (AUTO) 1.7 10^3/uL (1.7-8.2); BASOPHILS % (AUTO) 1.3 % (0-2); HEMATOCRIT 37.4 % (36.0-47.0); LYMPHOCYTES % (AUTO) 46.9 % (13-45); MEAN CORPUSCULAR HEMOGLOBIN 25.8 pg (27.0-33.4); MEAN CORPUSCULAR HGB CONC 33.3 g/dL (32.0-36.0); MEAN CORPUSCULAR VOLUME 78 fl (80-97); MONOCYTES % (AUTO) 9.7 % (3-13); PLATELET COUNT 132 10^3/uL (150-450); RED BLOOD COUNT 4.82 10^6/uL (3.72-5.28); RED CELL DISTRIBUTION WIDTH 14.9 % (11.5-14.0); SEGMENTED NEUTROPHILS % (AUTO) 40.1 % (42-78); TOTAL CELLS COUNTED % (AUTO) 100 %; WHITE BLOOD COUNT 4.3 10^3/uL (4.0-10.5)
[2018-10-03 06:47] LABS: HEMOGLOBIN 12.4 g/dL (12.0-15.5)
[2018-10-03 06:57] LABS: ANION GAP 6 (5-19); BLOOD UREA NITROGEN 10 mg/dL (7-20); CARBON DIOXIDE 24 mmol/L (22-30); CHLORIDE 107 mmol/L (98-107); GLUCOSE 99 mg/dL (75-110); POTASSIUM 3.4 mmol/L (3.6-5.0); SODIUM 136.7 mmol/L (137-145)
[2018-10-03 07:08] LABS: CREATINE KINASE MB < 0.22 ng/mL (<4.55); TROPONIN I < 0.012 ng/mL
--- NOTE | 2018-10-03 09:43 | EKG REPORT ---
SEVERITY:- ABNORMAL ECG - SINUS RHYTHM FIRST DEGREE AV BLOCK NONSPECIFIC ST-T CHANGES : Confirmed by: Armani De La Cruz MD 03-Oct-2018 09:42:42
[2018-10-03] MEDS: HYDROCODONE/ACETAMINOPHEN 5-325 MG TABLET PO PRN (09:57)
[2018-10-03] MEDS ORDERED: CLOPIDOGREL BISULFATE 75 MG TABLET PO SCH (10:00)
[2018-10-03] MEDS ORDERED: ENOXAPARIN SODIUM INJ 40 MG/0.4 ML DISP.SYRIN SUBCUT SCH (10:00)
[2018-10-03] MEDS ORDERED: BUSPIRONE HCL 10 MG TABLET PO SCH (10:00)
[2018-10-03 12:26] LABS: CREATINE KINASE MB < 0.22 ng/mL (<4.55); TROPONIN I < 0.012 ng/mL
--- NOTE | 2018-10-03 12:58 | PDOC DISCHARGE SUMMARY ---
General - Admit/Disc Date/PCP Admission Date/Primary Care Provider: 10/02/18 19:57 Discharge Date: 10/03/18 - Discharge Diagnosis (1) Chest pain Is this a current diagnosis for this admission?: Yes Summary: Chest pain, rule out acute coronary syndrome. The patient will be admitted to an observation telemetry bed. Will follow serial cardiac enzymes and EKGs. We will obtain a cardiology consult in a.m. for further cardiac risk stratification. The patient will be placed on cautious aspirin as well as p.r.n. sublingual nitroglycerin and morphine sulfate for pain. I suspect GI etiology as she has been on BC powder for headache. 10/03/2018 patient denies any chest pains this morning. EKG and cardiac enzymes came back negative so far. Acute coronary syndrome is unlikely. Patient is advised to follow-up with primary care's physician in 3-5 days and also with Dr. Monique in 1 week time. Patient agreed with the discharge plan. Chest pain most likely secondary to GI etiology due to use of BC powder. (2) Sinus tachycardia Is this a current diagnosis for this admission?: Yes Summary: Thyroid function is normal. Chest CT angiogram came back negative blood pressure and heart rate have improved exam. Potassium was 4.3. Will optimize her magnesium came back 1.8. This could be related to panic attacks or possible drug withdrawal. Her urine drug screen is pending. We will continue monitoring her. 10/03/2018-patient came in with sinus tachycardia CT was negative for PE and pulse rate this morning is 63. Urine drug screen is positive for cocaine and opiates. Tachycardia may be most likely secondary to polysubstance abuse. (3) Hypertension Is this a current diagnosis for this admission?: No Summary: 10/03/2018-patient's latest blood pressure is 101/60. Patient is given the history of hypertension not on home medications. (4) Polysubstance abuse Is this a current diagnosis for this admission?: Yes Summary: 10/03/2018-patient came in with urine drug screen is positive for cocaine and opiates counseling was provided for more than 20 minutes. Strongly advised to quit taking cocaine and opiates. - Additional Information Discharge Diet: Cardiac Discharge Activity: Activity As Tolerated Prescriptions: Oxycodone HCl/Acetaminophen [Percocet 5-325 mg Tablet] 1 tab PO Q8HP PRN #10 tab PRN Reason: Home Medications: Atorvastatin Calcium [Lipitor 10 mg Tablet] 10 mg PO QHS tablet 10/03/18 Chlorhexidine Gluconate [Periogard 0.12% Oral Rinse 15 ml] 15 ml MM QHS udc 10/03/18 Oxycodone HCl/Acetaminophen [Percocet 5-325 mg Tablet] 1 tab PO Q8HP PRN #10 tab 10/03/18 History of Present Illness History of Present Illness: ARIANA CHAN is a 33 year old female 33 year old -[place] female who presented to the emergency room with acute onset of midsternal chest pain felt this pressure and tightness and graded 10/10 in severity with occasional radiation to back and associated dyspnea as well as palpitations. She admits to dry cough without wheezing. She denies any fever or chills. No nausea or vomiting or abdominal pain. No bleeding diathesis. She has been recently treated for bacterial vaginosis with p.o. Flagyl. She finished that 3 days ago. Upon presentation to the emergency room her EKG showed sinus tachycardia with a rate of 121 with poor R wave progression. Her vital signs revealed a pulse of 137 with a blood pressure 165, temperature 97.8 and pulse 79% on room air with respiratory rate of 16. Labs revealed a WBC of 3.3 and microcytosis with absolute neutrophils of 1.5. CMP was unremarkable and percent of my back negative. I checked the TSH level that came back normal. I also ordered free T3 and free T4 that M of normal. Her urine test and drug screen are currently pending. Portable chest x-ray showed no acute cardiopulmonary dis ease. She had a chest CTA that showed no evidence for PE and was essentially normal. An abdominal CT scan also came back unremarkable The patient was given 1 mg of IV Dilaudid and 4 baby aspirin as well as 10 mg of IV Cardizem and 8 mg of IV Zofran. She will be admitted to an observation telemetry bed for further evaluation and management. Physical Exam Vital Signs: Temp Pulse Resp BP Pulse Ox 98.2 F 65 18 101/59 L 99 10/03/18 11:58 10/03/18 11:58 10/03/18 11:58 10/03/18 11:58 10/03/18 11:58 Intake & Output 10/02/18 10/03/18 10/04/18 06:59 06:59 06:59 Intake Total 250 Balance 250 Weight 55.3 kg General appearance: PRESENT: no acute distress Head exam: PRESENT: atraumatic Eye exam: PRESENT: PERRLA Mouth exam: PRESENT: moist, tongue midline Teeth exam: PRESENT: poor dentation Neck exam: ABSENT: carotid bruit, JVD, lymphadenopathy, thyromegaly Respiratory exam: PRESENT: clear to auscultation esperanza. ABSENT: rales, rhonchi, wheezes Cardiovascular exam: PRESENT: RRR. ABSENT: diastolic murmur, rubs, systolic murmur GI/Abdominal exam: PRESENT: normal bowel sounds, soft. ABSENT: distended, guarding, mass, organolmegaly, rebound, tenderness Extremities exam: PRESENT: full ROM. ABSENT: calf tenderness, clubbing, pedal edema Neurological exam: PRESENT: alert, awake, oriented to person, oriented to place, oriented to time, oriented to situation, CN II-XII grossly intact. ABSENT: motor sensory deficit Psychiatric exam: PRESENT: appropriate affect, normal mood. ABSENT: homicidal ideation, suicidal ideation Results Laboratory Results: 10/03/18 06:14 10/03/18 06:14 10/02/18 10/02/18 10/02/18 17:31 17:31 17:31 WBC 3.3 L RBC 5.56 H Hgb 14.5 Hct 43.3 MCV 78 L MCH 26.0 L MCHC 33.4 RDW 14.8 H Plt Count 163 Seg Neutrophils % 44.3 Lymphocytes % 41.8 Monocytes % 10.7 Eosinophils % 2.0 Basophils % 1.2 Absolute Neutrophils 1.5 L Absolute Lymphocytes 1.4 Absolute Monocytes 0.4 Absolute Eosinophils 0.1 Absolute Basophils 0.0 Sodium 138.6 Potassium 4.3 Chloride 103 Carbon Dioxide 25 Anion Gap 11 BUN 13 Creatinine 0.73 Est GFR ( Amer) > 60 Est GFR (Non-Af Amer) > 60 Glucose 103 Calcium 10.0 Magnesium Total Bilirubin 0.3 AST 19 ALT 19 Alkaline Phosphatase 66 Total Protein 7.9 Albumin 4.4 TSH 0.87 Free T4 Free T3 pg/mL 10/02/18 10/02/18 10/03/18 17:31 17:31 06:14 WBC 4.3 RBC 4.82 Hgb 12.4 D Hct 37.4 MCV 78 L MCH 25.8 L MCHC 33.3 RDW 14.9 H Plt Count 132 L Seg Neutrophils % 40.1 L Lymphocytes % 46.9 H Monocytes % 9.7 Eosinophils % 2.0 Basophils % 1.3 Absolute Neutrophils 1.7 Absolute Lymphocytes 2.0 Absolute Monocytes 0.4 Absolute Eosinophils 0.1 Absolute Basophils 0.1 Sodium Potassium Chloride Carbon Dioxide Anion Gap BUN Creatinine Est GFR ( Amer) Est GFR (Non-Af Amer) Glucose Calcium Magnesium 1.8 Total Bilirubin AST ALT Alkaline Phosphatase Total Protein Albumin TSH Free T4 1.06 Free T3 pg/mL 4.62 10/03/18 06:14 WBC RBC Hgb Hct MCV MCH MCHC RDW Plt Count Seg Neutrophils % Lymphocytes % Monocytes % Eosinophils % Basophils % Absolute Neutrophils Absolute Lymphocytes Absolute Monocytes Absolute Eosinophils Absolute Basophils Sodium 136.7 L Potassium 3.4 L Chloride 107 Carbon Dioxide 24 Anion Gap 6 BUN 10 Creatinine 0.51 L Est GFR ( Amer) > 60 Est GFR (Non-Af Amer) > 60 Glucose 99 Calcium 9.0 Magnesium Total Bilirubin AST ALT Alkaline Phosphatase Total Protein Albumin TSH Free T4 Free T3 pg/mL 10/02/18 10/02/18 10/02/18 17:31 23:43 23:43 Creatine Kinase 43 CK-MB (CK-2) < 0.22 Troponin I < 0.012 < 0.012 10/03/18 10/03/18 10/03/18 06:14 06:14 11:46 Creatine Kinase 43 38 CK-MB (CK-2) < 0.22 Troponin I < 0.012 10/03/18 11:46 Creatine Kinase CK-MB (CK-2) < 0.22 Troponin I < 0.012 Impressions: Chest X-Ray 10/02/18 17:05 IMPRESSION: NO ACUTE RADIOGRAPHIC FINDING IN THE CHEST. Chest/Abdomen CTA 10/02/18 17:14 IMPRESSION: NORMAL CTA OF THE CHEST. NO PULMONARY EMBOLI. Qualifiers - * PATIENT BEING DISCHARGED WITH ANY OF THE FOLLOWING DIAGNOSIS: No VTE patient discharged on overlapping Therapy?: No
[2018-10-03 13:31] VITALS: BP 115/87
[2018-10-03] MEDS ORDERED: ATORVASTATIN CALCIUM 10 MG TABLET PO SCH (22:00)
== END 2018-10-03 14:02 | disposition home or self-care (01) ==
LOC: ER 16:46 → EH 19:57 → 5 22:20
PROVIDERS: ADMIT Family Medicine; ATTEND Family Medicine
DX: R07.89 Other chest pain (principal); R00.0 Tachycardia, unspecified; I10 Essential (primary) hypertension; F14.10 Cocaine abuse, uncomplicated; F11.10 Opioid abuse, uncomplicated; Z71.51 Drug abuse counseling and surveillance of drug abuser; R05 Cough; R06.00 Dyspnea, unspecified; F12.10 Cannabis abuse, uncomplicated; E78.5 Hyperlipidemia, unspecified; G89.29 Other chronic pain; M54.5 Low back pain; M41.9 Scoliosis, unspecified; Z90.710 Acquired absence of both cervix and uterus; Z82.49 Family history of ischemic heart disease and other diseases of the circulatory system; Z90.5 Acquired absence of kidney
CPT/HCPCS: 93005 ×2; 99285; 96361; 96374; 96375; 36415 ×2; 84439; 82553 ×2; 82550 ×2; 83735; 84443; 85025 ×2; 81025; 80048; 80053; 84484 ×2; 80307; 84481; 71046; 71275; 93010 ×2; G0378 ×3; J3490 ×3; J2270 ×2; J1170; J2405; J7030; J7050

== ENCOUNTER 2018-10-21 11:00 | Emergency (ER) | payer SELFPAY ==
[2018-10-21 11:04] VITALS: BP 145/98
--- NOTE | 2018-10-21 12:30 | EKG REPORT ---
SEVERITY:- BORDERLINE ECG - SINUS RHYTHM NONSPECIFIC ST-T CHANGES- INFERIOR LEADS : Confirmed by: Armani De La Cruz MD 21-Oct-2018 12:29:13
== END 2018-10-21 11:58 | disposition left against medical advice (07) ==
LOC: ER 11:00
DX: Z53.21 Procedure and treatment not carried out due to patient leaving prior to being seen by health care provider (principal)
CPT/HCPCS: 93005; 93010

== ENCOUNTER 2018-11-15 10:57 | Emergency (ER) | payer SELFPAY ==
[2018-11-15 11:12] VITALS: BP 107/77
--- NOTE | 2018-11-15 12:11 | RADIOLOGY REPORT (SQ) ---
EXAM DESCRIPTION: RIBS RIGHT W/PA CHEST COMPLETED DATE/TIME: 11/15/2018 12:01 pm REASON FOR STUDY: right rib pain after falling off horse COMPARISON: None. TECHNIQUE: Frontal view of the chest and additional views of the right ribs acquired. NUMBER OF VIEWS: Three view. LIMITATIONS: None. FINDINGS: FRONTAL CXR: No pneumothorax. No pleural effusion. No atelectasis or infiltrates. RIBS: No displaced rib fractures. No lytic or blastic bony lesions. OTHER: Thoracolumbar scoliosis. No other significant finding. IMPRESSION: NO PNEUMOTHORAX. NO DISPLACED RIB FRACTURES. COMMENT: SITE OF TRAUMA/COMPLAINT MARKED/STAMP COMPLETED: NO. TECHNICAL DOCUMENTATION: JOB ID: [id number] [employer]- All Rights Reserved Reading location - IP/workstation name: [email or web address]
[2018-11-15] MEDS ORDERED: ACETAMINOPHEN 325 MG TABLET PO ONE (12:17)
--- NOTE | 2018-11-15 12:22 | ER Document Report ---
ED Fall - General Chief Complaint: Rib Pain Stated Complaint: FALL/RIB PAIN Time Seen by Provider: 11/15/18 11:53 Mode of Arrival: Ambulatory Information source: Patient TRAVEL OUTSIDE OF THE [place] IN LAST 30 DAYS: No - HPI Patient complains to provider of: RIGHT RIB PAIN, FALL OFF HORSE Notes: Patient here with complaints of right-sided chest wall pain after falling off of a horse 2 days ago. Patient states she was riding horse, she was very anxious prior to this happening. States that the horse started to run, she tried to get off of the horse and the horse stopped causing her to fall off the horse and hit her right ribs on the grass ground. No head injury, no loss of consciousness. She states it did knock the wind out of her. She now complaining of some right lateral chest wall pain worse with movement and deep breath. No shortness of breath. No fever. No blood thinners. No blurred or loss vision. No numbness, tingling, weakness. She denies any abdominal pain. She does complain of some chronic back pain. She denies any extremity injuries. She denies any other injuries or complaints at this time. - Related data Allergies/Adverse Reactions: ketorolac [From Toradol] Allergy (Verified 10/02/18 16:47) Hives codeine [From Tylenol-Codeine #3] Adverse Reaction (Verified 10/02/18 16:47) Anxiety tramadol Adverse Reaction (Verified 10/02/18 16:47) Anxiety Past Medical History - Social History Smoking Status: Unknown if Ever Smoked Chew tobacco use (# tins/day): No Frequency of alcohol use: None Drug Abuse: None Family History: CAD, DM, Hyperlipidemia, Hypertension, Malignancy Patient has suicidal ideation: No Patient has homicidal ideation: No - Past Medical History Cardiac Medical History: Reports: Hx Hypercholesterolemia, Hx Hypertension Renal/ Medical History: Reports: Hx Ovarian Cysts. Denies: Hx Peritoneal Dialysis GI Medical History: Reports: Hx Ulcer Musculoskeletal Medical History: Reports Hx Muscle Spasm, Reports Hx Musculoskeletal Deformity, Reports Hx Musculoskeletal Trauma Psychiatric Medical History: Reports: Hx Anxiety, Hx Depression Past Surgical History: Reports: Hx Abdominal Surgery, Hx Section - 4, Hx Hysterectomy, Hx Kidney (Renal Surgery) - one removed - Immunizations Immunizations up to date: Yes Hx Diphtheria, Pertussis, Tetanus Vaccination: Yes - 2014 Review of Systems - Review of Systems -: Yes All other systems reviewed and negative Physical Exam - Vital signs Vitals: Temp Pulse Resp BP Pulse Ox 98.3 F 86 16 107/77 99 11/15/18 11:10 11/15/18 11:10 11/15/18 11:10 11/15/18 11:10 11/15/18 11:10 - Notes Notes: GENERAL: alert, cooperative, nontoxic, no distress. HEAD: normocephalic, atraumatic EYES: conjunctiva pink without discharge, no external redness or swelling. PERRL, EOM'S INTACT EARS: no external swelling, no external redness. No hemotympanum EM NOSE: atraumatic, no external swelling. No bleeding MOUTH/THROAT: mucous membranes moist and pink, posterior pharynx without erythema, swelling, exudate. No trismus or drooling. NECK: soft, supple, full range of motion, no meningismus. No midline tenderness step-offs or crepitus to palpation of the cervical spine. CHEST: no distress, lungs clear and equal throughout. No wheezing, rales, r honchi. Tenderness to palpation to the right upper and lateral chest wall. No ecchymosis. No crepitus. No flail chest. CARDIAC: regular rate and rhythm, no murmur, normal capillary refill, normal pulses. No peripheral edema noted. ABDOMEN: Soft, nontender. No ecchymosis. BACK: full range of motion, no CVA tenderness. No midline tenderness step-offs or crepitus to palpation of the thoracic or lumbar spine. EXTREMITIES: full range of motion of all extremities. No redness, no swelling. NEURO: alert and oriented x 3, no focal deficits, full range of motion of all extremities. Cranial nerves II through XII are grossly intact. Reflexes are normal bilaterally. Normal sensation bilaterally. Normal strength bilaterally. PYSCH: appropriate mood, affect. Patient is cooperative. SKIN: pink, warm, dry, no rash. Course - Re-evaluation Re-evalutation: 11/15/18 12:20 Patient is nontoxic-appearing with stable vitals. Patient here with complaints of right lateral chest pain after falling off a horse 2 days ago. No other injuries. No blood thinners. No loss of consciousness. No abdominal pain. She has no abdominal tenderness on exam. She has right upper chest wall tenderness to palpation with no crepitus or other signs of injury. Right rib series with chest is negative for acute findings. Patient is allergic to Toradol, codeine, tramadol. She is has 800 mg ibuprofen at home. Patient will be given a dose of Tylenol here in the emergency department with instructions to take her 800 mg ibuprofen every 8 hours as well as Tylenol every 6 hours as needed for pain. Follow-up for worsening pain, fever, any further concerns. The patient's emergency department workup and current diagnosis were explained to the patient and or family. Follow-up instructions were provided. Medications if prescribed were discussed. Instructions for when to return to the emergency department including specific worrisome symptoms were discussed with the patient and/or family. - Vital Signs Vital signs: Temp Pulse Resp BP Pulse Ox 98.3 F 86 16 107/77 99 11/15/18 11:10 11/15/18 11:10 11/15/18 11:10 11/15/18 11:10 11/15/18 11:10 - Diagnostic Test Radiology reviewed: Image reviewed, Reports reviewed - Right rib series negative Discharge - Discharge Clinical Impression: Contusion of rib on right side Qualifiers: Encounter type: initial encounter Qualified Code(s): S20.211A - Contusion of right front wall of thorax, initial encounter Condition: Stable Disposition: HOME, SELF-CARE Instructions: Rib Contusion ([facility]) Additional Instructions: Take your 800 mg ibuprofen every 8 hours and the thousand milligrams of Tylenol every 6 hours as needed for pain. Ice to sore area. Follow-up for worsening pain, fever, difficulty breathing or swelling, or for any further concerns. Forms: Elevated Blood Pressure, Smoking Cessation Education Referrals: [facility] [Provider Group] - Follow up as needed
== END 2018-11-15 12:33 | disposition home or self-care (01) ==
LOC: ER 10:57
DX: S20.211A Contusion of right front wall of thorax, initial encounter (principal); R07.81 Pleurodynia; R07.89 Other chest pain; M54.9 Dorsalgia, unspecified; G89.29 Other chronic pain; V80.010A Animal-rider injured by fall from or being thrown from horse in noncollision accident, initial encounter; I10 Essential (primary) hypertension
CPT/HCPCS: 99283

== ENCOUNTER 2018-11-21 10:35 | Emergency (ER) | payer SELFPAY ==
[2018-11-21] MEDS ORDERED: IBUPROFEN 600 MG TABLET PO ONE (11:36)
[2018-11-21] MEDS ORDERED: ACETAMINOPHEN 325 MG TABLET PO ONE (11:36)
--- NOTE | 2018-11-21 11:36 | ER Document Report ---
ED Medical Screen (RME) - General Chief Complaint: Flank Pain Stated Complaint: VOMITING, BACK PAIN Time Seen by Provider: 11/21/18 11:31 TRAVEL OUTSIDE OF THE [place] IN LAST 30 DAYS: No - HPI Notes: 11/21/18 11:34 Patient is a 33-year-old female who is well-known to the emergency department who presents complaining of acute exacerbation of her chronic back pain. Patient states that this pain began this morning. No precipitating event that she is aware of. She is eating and drink without difficulty. She is urinating normally and having normal bowel movements. Denies any headache, fever, URI, sore throat, chest pain, palpitations, syncope, cough, shortness of breath, wheeze, dyspnea, abdominal pain, nausea/vomiting/diarrhea, urinary retention, dysuria, hematuria, loss of control of bowel or bladder, numbness/tingling, saddle anesthesia, muscle paralysis/weakness, or rash. I have treated and performed a rapid initial assessment of this patient. A comprehensive ED assessment and evaluation of the patient, analysis of test results and completion of medical decision making process will be conducted by additional ED providers. PHYSICAL EXAMINATION: GENERAL: no acute resp distress. A&Ox4. Answers questions appropriately. Pt is tearful and seems uncomfortable. LUNGS: Breath sounds clear to auscultation bilaterally and equal. No wheezes rales or rhonchi. HEART: Regular rate and rhythm without murmurs, rubs, gallops. - Related Data Allergies/Adverse Reactions: ketorolac [From Toradol] Allergy (Verified 11/21/18 10:36) Hives codeine [From Tylenol-Codeine #3] Adverse Reaction (Verified 11/21/18 10:36) Anxiety tramadol Adverse Reaction (Verified 11/21/18 10:36) Anxiety Past Medical History - Past Medical History Cardiac Medical History: Reports: Hx Hypercholesterolemia, Hx Hypertension Renal/ Medical History: Reports: Hx Ovarian Cysts. Denies: Hx Peritoneal Dialysis GI Medical History: Reports: Hx Ulcer Musculoskeltal Medical History: Reports Hx Muscle Spasm, Reports Hx Musculo skeletal Deformity, Reports Hx Musculoskeletal Trauma Psychiatric Medical History: Reports: Hx Anxiety, Hx Depression Past Surgical History: Reports: Hx Abdominal Surgery, Hx Section - 4, Hx Hysterectomy, Hx Kidney (Renal Surgery) - one removed - Immunizations Immunizations up to date: Yes Hx Diphtheria, Pertussis, Tetanus Vaccination: Yes - 2014 Physical Exam - Vital signs Vitals: Temp Pulse Resp BP Pulse Ox 99.2 F 82 18 130/79 H 97 11/21/18 10:42 11/21/18 10:42 11/21/18 10:42 11/21/18 10:42 11/21/18 10:42 Course - Vital Signs Vital signs: Temp Pulse Resp BP Pulse Ox 99.2 F 82 18 130/79 H 97 11/21/18 10:42 11/21/18 10:42 11/21/18 10:42 11/21/18 10:42 11/21/18 10:42
[2018-11-21] MEDS ORDERED: METHOCARBAMOL 500 MG TABLET PO ONE (11:37)
[2018-11-21] MEDS ORDERED: LIDOCAINE 5% (700 MG) TRANSDERMAL ADH..PATCH TP ONE (11:37)
[2018-11-21] MEDS ORDERED: ONDANSETRON 4 MG TAB.RAPDIS PO ONE (12:05)
[2018-11-21] MEDS ORDERED: HYDROMORPHONE HCL INJ/PF 2 MG/ML AMPULE IM ONE (12:19)
--- NOTE | 2018-11-21 12:22 | ER Document Report ---
ED General - General Chief Complaint: Flank Pain Stated Complaint: VOMITING, BACK PAIN Time Seen by Provider: 11/21/18 11:31 Mode of Arrival: Ambulatory Information source: Patient, [facility] Records Notes: 33-year-old female with chronic back pain presents with an exacerbation of her pain. Patient denies any recent fall, injury. Patient has had nausea, vomiting secondary to pain. She denies fever, midline tenderness, history of IV drug use, saddle anesthesia, urinary retention, fecal incontinence, lower extremity weakness, inability to ambulate. Patient is here excessively for similar sym ptoms. She states that she has an appointment for pain management. She denies any current pain medication. States that she was seen recently and admitted for back pain which I do not see records of. TRAVEL OUTSIDE OF THE [place] IN LAST 30 DAYS: No - HPI Onset: Other Onset/Duration: Gradual, Persistent Quality of pain: Stabbing Severity: Moderate Pain Level: 3 Associated symptoms: Nausea, Vomiting. denies: Body/muscle aches, Chills, Productive cough, Fever, Hurts to breath, Leg swelling, Shortness of breath, Sweating, Weakness Exacerbated by: Movement, Walking Relieved by: Remaining still Similar symptoms previously: Yes Recently seen / treated by doctor: No - Related Data Allergies/Adverse Reactions: ketorolac [From Toradol] Allergy (Verified 11/21/18 10:36) Hives codeine [From Tylenol-Codeine #3] Adverse Reaction (Verified 11/21/18 10:36) Anxiety tramadol Adverse Reaction (Verified 11/21/18 10:36) Anxiety Past Medical History - General Information source: Patient, [facility] Records - Social History Smoking Status: Never Smoker Chew tobacco use (# tins/day): No Frequency of alcohol use: None Drug Abuse: None Lives with: Family Family History: CAD, DM, Hyperlipidemia, Hypertension, Malignancy Patient has suicidal ideation: No Patient has homicidal ideation: No - Past Medical History Cardiac Medical History: Reports: Hx Hypercholesterolemia, Hx Hypertension Renal/ Medical History: Reports: Hx Ovarian Cysts. Denies: Hx Peritoneal Dialysis GI Medical History: Reports: Hx Ulcer Musculoskeletal Medical History: Reports Hx Muscle Spasm, Reports Hx Musculoskeletal Deformity, Reports Hx Musculoskeletal Trauma Psychiatric Medical History: Reports: Hx Anxiety, Hx Depression Past Surgical History: Reports: Hx Abdominal Surgery, Hx Section - 4, Hx Hysterectomy, Hx Kidney (Renal Surgery) - one removed - Immunizations Immunizations up to date: Yes Hx Diphtheria, Pertussis, Tetanus Vaccination: Yes - 2014 Review of Systems - Review of Systems Notes: REVIEW OF SYSTEMS: CONSTITUTIONAL : Denies fever, chills, or sweats. Denies recent illness. Denies weight loss, recent hospitalizations. EENT: Denies visual changes, eye pain. Denies sore throat, oral lesions, difficulty swallowing. CARDIOVASCULAR: Denies chest pain. Denies palpitations. Denies lower extremity edema. RESPIRATORY: Denies cough. Denies shortness of breath, wheezing. GASTROINTESTINAL: Denies abdominal pain or distention. Denies diarrhea. Denies blood in vomitus, stools, or per rectum. Denies black, tarry stools. Denies constipation. GENITOURINARY: Denies difficulty urinating, painful urination, frequency, blood in urine, or vaginal discharge. MUSCULOSKELETAL: Denies neck pain or stiffness. Denies joint pain or swelling. SKIN: Denies rash, lesions or sores. HEMATOLOGIC : Denies easy bruising or bleeding. LYMPHATIC: Denies swollen glands. NEUROLOGICAL: Denies confusion or altered mental status. Denies loss of consciousness. Denies dizziness or lightheadedness. Denies headache. Denies weakness or paralysis. Denies problems difficulty with ambulation, slurred speech. Denies sensory loss, numbness, or tingling. Denies seizures. PSYCHIATRIC: Denies anxiety or stress. Denies depression, suicidal ideation, or homicidal ideation. Denies visual or auditory hallucinations. Physical Exam - Vital signs Vitals: Temp Pulse Resp BP Pulse Ox 99.2 F 82 18 130/79 H 97 11/21/18 10:42 11/21/18 10:42 11/21/18 10:42 11/21/18 10:42 11/21/18 10:42 - Notes Notes: PHYSICAL EXAMINATION: GENERAL: Well-appearing, well-nourished and in no acute distress. HEAD: Atraumatic, normocephalic. EYES: Pupils equal round and reactive to light, extraocular movements intact, conjunctiva are normal. ENT: Nares patent, oropharynx clear without exudates. Moist mucous membranes. NECK: Normal range of motion, supple without lymphadenopathy LUNGS: Breath sounds clear to auscultation bilaterally and equal. No wheezes rales or rhonchi. HEART: Regular rate and rhythm without murmurs ABDOMEN: Soft, nontender, nondistended abdomen. No guarding, no rebound. No masses appreciated. Female : deferred Musculoskeletal: Normal range of motion, no pitting or edema. No cyanosis. Tenderness with palpation to the right paraspinal musculature of the lumbar spine. No midline tenderness. 5/5 dorsi and plantar flexion. Sensation i ntact. NEUROLOGICAL: Neuro exam Mental status; alert and oriented x3. Cranial nerves II through XII intact. Sensation intact to sharp/dull differentiation in all extremities. Motor; normal tone. No abnormal movements appreciated. No pronator drift. Strength tested and 5/5 in bilateral wrist flexion/extension, elbow flexion/extension, shoulder abduction, straight leg raise, knee flexion/ex tension, ankle dorsiflexion/plantar flexion. Patient refuses to ambulate Coordination; no ataxia. Finger to nose and heel to garcia testing intact bilaterally. Reflexes; brachial radialis, biceps, and patellar reflexes within normal limits and symmetric bilaterally. Babinski with downgoing toes bilaterally. PSYCH: Normal mood, normal affect. SKIN: Warm, Dry, normal turgor, no rashes or lesions noted. Course - Re-evaluation Re-evalutation: 11/22/18 23:06 Laboratory 11/21/18 11/21/18 12:30 12:30 Urine Color YELLOW Urine Appearance CLEAR Urine pH 6.0 Ur Specific [place] 1.025 Urine Protein NEGATIVE Urine Glucose (UA) NEGATIVE Urine Ketones NEGATIVE Urine Blood NEGATIVE Urine Nitrite NEGATIVE Urine Bilirubin NEGATIVE Urine Urobilinogen NEGATIVE Ur Leukocyte Esterase NEGATIVE Urine WBC (Auto) 0 Urine RBC (Auto) 1 U Hyaline Cast (Auto) 1 Squamous Epi Cells Auto 3 Urine Mucus (Auto) OCC Urine Ascorbic Acid NEGATIVE Urine HCG, Qual NEGATIVE Urine Opiates Screen NEGATIVE Urine Methadone Screen NEGATIVE Ur Barbiturates Screen NEGATIVE Ur Phencyclidine Scrn NEGATIVE Ur Amphetamines Screen NEGATIVE U Benzodiazepines Scrn NEGATIVE Urine Cocaine Screen NEGATIVE U Marijuana (THC) Screen NEGATIVE Temp Pulse Resp BP Pulse Ox 97.6 F 86 16 114/61 100 11/21/18 13:53 11/21/18 13:53 11/21/18 13:53 11/21/18 13:53 11/21/18 13:53 Presentation of a well appearing patient complaining of acute on chronic back pain. No rapid progression of symptoms, systemic symptoms including fevers, chills, weight loss, history of recent bacterial infection, bilateral symptoms, numbness, weakness, difficulty walking, urinary retention or bowel incontinence, personal history of cancer, immunosuppression, diabetes, known AAA, or history of IV drug use. Exam is without point tenderness over vertebral bodies, pulsatile abdominal mass, and patient has symmetric and intact lower extremity strength, sensation, and reflexes without clonus. 2+ symmetric medial malleolar and dorsalis pedis pulses Based on history and physical, I have a very low suspicion of a concerning etiology of pain including epidural compression syndrome, spinal infection, transverse myelitis, malignancy, abdominal aortic aneurysm, renal colic, acute lower extremity claudication, neurogenic claudication, ankylosing spondylitis, or other intra-abdominal process. Due to absence of concerning risk factors in history and physical as well as absence of rapidly progressive, severe, or bilateral symptoms, will defer imaging at this point. Plan to manage conservatively with outpatient analgesia, analgesia, and physical therapy. - Acetaminophen 650 q 4 + ibuprofen 600 q 6 - Continue normal daily activities as tolerated by pain - Provide with standard musculoskeletal back pain exercise instructions - Instruct to follow up with primary care provider if symptoms not improving - Provide careful return precautions and concerning symptoms to watch for. 11/22/18 23:08 Patient has been seen numerous times for back pain. Multiple times recently. Declines lidocaine pain patch and specifically asked for Percocet 10's. Patient that narcotic support was reviewed and the patient has a overdose risk score of 500 out of 1000. Previous medical documentation lists prescription drug abuse as 1 of the patient's medical problems. [place] law is very strict regarding prescriptions for chronic pain issues. I encouraged her to obtain primary care or seek pain management. Middle home prescriptions are provided and patient was advised to take Tylenol and Motrin. - Vital Signs Vital signs: Temp Pulse Resp BP Pulse Ox 97.6 F 86 16 114/61 100 11/21/18 13:53 11/21/18 13:53 11/21/18 13:53 11/21/18 13:53 11/21/18 13:53 Discharge - Discharge Clinical Impression: Chronic back pain Qualifiers: Back pain location: low back pain Back pain laterality: bilateral Sciatica presence: without sciatica Qualified Code(s): M54.5 - Low back pain Condition: Good Disposition: HOME, SELF-CARE Instructions: Chronic Back Pain ([facility]), Low Back Pain ([facility]) Additional Instructions: It is against the law for the emergency department to treat your chronic back pain. You must seek a primary care physician or go to pain management. Your narcotics report was reviewed and you have an overdose risk score of 500 out of 1000. You will not receive any narcotic medications from this hospital again.
[2018-11-21 12:47] LABS: APPEARANCE,URINE CLEAR; BILIRUBIN,URINE NEGATIVE (NEGATIVE); COLOR,URINE YELLOW; GLUCOSE, URINE NEGATIVE (NEGATIVE); KETONES,URINE NEGATIVE (NEGATIVE); LEUKOCYTE ESTERASE,URINE NEGATIVE (NEGATIVE); NITRITE,URINE NEGATIVE (NEGATIVE); PROTEIN,URINE NEGATIVE (NEGATIVE); URINE SPECIFIC GRAVITY 1.025; UROBILINOGEN,URINE NEGATIVE mg/dL (<2.0)
[2018-11-21] MEDS ORDERED: FENTANYL CITRATE INJ/PF 100 MCG/2 ML AMPUL IM ONE (13:23)
[2018-11-21] MEDS ORDERED: OXYCODONE-ACETAMINOPHEN 5-325 MG TABLET PO ONE (13:35)
[2018-11-21 13:54] VITALS: BP 114/61
[2018-11-21 14:05] LABS: URINE AMPHETAMINES SCREEN NEGATIVE; URINE BARBITURATES SCREEN NEGATIVE; URINE BENZODIAZEPINES SCREEN NEGATIVE; URINE COCAINE SCREEN NEGATIVE; URINE MARIJUANA (THC) SCREEN NEGATIVE; URINE METHADONE SCREEN NEGATIVE; URINE PHENCYCLIDINE SCREEN NEGATIVE
== END 2018-11-21 13:55 | disposition home or self-care (01) ==
LOC: ER 10:35
DX: M54.5 Low back pain (principal); R10.9 Unspecified abdominal pain; G89.29 Other chronic pain; R11.2 Nausea with vomiting, unspecified; Z90.710 Acquired absence of both cervix and uterus; E78.00 Pure hypercholesterolemia, unspecified; I10 Essential (primary) hypertension; Z88.6 Allergy status to analgesic agent
CPT/HCPCS: 99284; 96372; 36415; 81025; 81001; 80307; S0119; J1170

== ENCOUNTER 2018-12-17 02:28 | Emergency (ER) | payer SELFPAY ==
[2018-12-17 03:01] VITALS: BP 113/70
--- NOTE | 2018-12-17 06:07 | RADIOLOGY REPORT (SQ) ---
EXAM DESCRIPTION: XR HAND 3 OR MORE VIEWS COMPLETED DATE/TME: 12/17/2018 04:05 CLINICAL HISTORY: 33 years, Female, LACERATION COMPARISON: None. NUMBER OF VIEWS: Three TECHNIQUE: Three views of the left hand LIMITATIONS: None. FINDINGS: There is no acute fracture or dislocation. No radiopaque foreign body. No large soft tissue swelling. IMPRESSION: No acute fracture or dislocation. copyright 2010 [employer]- All Rights Reserved
[2018-12-17] MEDS ORDERED: BACITRACIN ZINC OINTMENT 15 GM TP ONE (08:26)
--- NOTE | 2018-12-17 08:27 | ER Document Report ---
ED General - General Chief Complaint: Laceration Stated Complaint: HAND LACERATION Time Seen by Provider: 12/17/18 08:26 Notes: 33 old female presents with laceration to left hand in the palm of her fourth and fifth digit sustained by a piece of glass on a window she was trying to close over 6 hours ago. She was in the waiting room all night. Tetanus is up-to-date. She says her fingers are slightly tingling. She said it was bleeding profusely. TRAVEL OUTSIDE OF THE [place] IN LAST 30 DAYS: No - Related Data Allergies/Adverse Reactions: ketorolac [From Toradol] Allergy (Verified 11/21/18 10:36) Hives codeine [From Tylenol-Codeine #3] Adverse Reaction (Verified 11/21/18 10:36) Anxiety tramadol Adverse Reaction (Verified 11/21/18 10:36) Anxiety Past Medical History - Social History Smoking Status: Unknown if Ever Smoked Family History: CAD, DM, Hyperlipidemia, Hypertension, Malignancy Patient has suicidal ideation: No Patient has homicidal ideation: No - Past Medical History Cardiac Medical History: Reports: Hx Hypercholesterolemia, Hx Hypertension Renal/ Medical History: Reports: Hx Ovarian Cysts. Denies: Hx Peritoneal Dialysis GI Medical History: Reports: Hx Ulcer Musculoskeletal Medical History: Reports Hx Muscle Spasm, Reports Hx Musculoskeletal Deformity, Reports Hx Musculoskeletal Trauma Psychiatric Medical History: Reports: Hx Anxiety, Hx Depression Past Surgical History: Reports: Hx Abdominal Surgery, Hx Section - 4, Hx Hysterectomy, Hx Kidney (Renal Surgery) - one removed - Immunizations Immunizations up to date: Yes Hx Diphtheria, Pertussis, Tetanus Vaccination: Yes - 2014 Review of Systems - Review of Systems Notes: REVIEW OF SYSTEMS GEN: He aches ENT: Denies sore throat, nasal discharge, ear pain EYES: Denies blurry vision, eye pain, discharge CV: Denies chest pain, palpitations, edema RESP: Denies cough, shortness of breath, wheezing GI: Denies abdominal pain, nausea, vomiting, diarrhea MSK: Denies joint pain/swelling, edema, SKIN: Denies rash, skin lesionslacerations LYMPH: Denies swollen glands/lymph nodes NEURO: Denies headache, focal weakness or numbness, dizziness PSYCH: Denies depression, suicidal or homicidal ideation PHYSICAL EXAMINATION General: No acute distress, well-nourished Head: Atraumatic, normocephalic ENT: Mouth normal, oropharynx moist, lips normal Eyes: Conjunctiva normal, pupils equal, lids normal Neck: No JVD, supple, no guarding Resp: No resp distress, equal chest rise GI: Nondistended, no guarding Back: No midline or CVA tenderness Ext: No deformities, no edema Hand: There is a curvilinear laceration on the proximal phalangeal segment volar side of both the fourth and fifth digits combined length is 2 cm. There are shallow, flapappearing, with no involvement of nerves tendons. Sensation is intact distally. No active bleeding. Skin: Well-perfused, no rash Neuro: Awake, alert. Face symmetric.. Physical Exam - Vital signs Vitals: Temp Pulse Resp BP Pulse Ox 98.2 F 77 14 113/70 98 12/17/18 02:56 12/17/18 02:56 12/17/18 02:56 12/17/18 02:56 12/17/18 02:56 Course - Re-evaluation Re-evalutation: 12/17/18 09:17 Patient presents with over 7 to 8-hour old laceration to the hand. High infection risk. Had not been properly cleaned prior to my evaluation unfortunately. I do not see foreign bodies or injury to deep structures despite her feeling of tingling. They were irrigated profusely by tech/nurse including in the lacerations, with tap water, sterilized and bacitracin and a dressing were placed. The patient is concerned about infection and I discussed with her that there is about a 10% risk of infection hers may be slightly higher we will prescribe antibiotics and I let her know the signs of infection to worry about. She was asking for sutures and I explained her that this is probably going to increase her infection risk in the healing will happen in the same manner. She stated she would like a second opinion and I invited her to do so at her dis cretion. I have discussed with the patient there likely diagnosis, aftercare plan, follow-up plans and my usual and customary return precautions. They verbalized understanding of this. - Vital Signs Vital signs: Temp Pulse Resp BP Pulse Ox 98.2 F 77 14 113/70 98 12/17/18 02:56 12/17/18 02:56 12/17/18 02:56 12/17/18 02:56 12/17/18 02:56 Discharge - Discharge Clinical Impression: Laceration of hand without complication, including fingers Qualifiers: Encounter type: initial encounter Laterality: right Qualified Code(s): S61.411A - Laceration without foreign body of right hand, initial encounter Condition: Good Disposition: HOME, SELF-CARE Instructions: Antibiotic Ointment Protection ([facility]), Laceration Care ([facility]) Additional Instructions: Because your lacerations were quite old by the time we were able to assess them, and also because of the contamination I think suturing them was a high risk for infection and leaving them open to heal. For this reason we sterilize him in place antibiotic ointment but did not so them up. Despite the tingling in her fingers I did not find any nerve damage. All hand lacerations have approximately 10% infection risk, with or without antibiotics, but because of your request I will be prescribing you antibiotics. Please keep the area clean and dry and if it does show signs of infection like redness pus drainage or fever please return the emergency room medially. Prescriptions: Doxycycline Hyclate [Vibramycin 100 mg Tablet] 100 mg PO BID #10 tablet
== END 2018-12-17 09:18 | disposition home or self-care (01) ==
LOC: ER 02:28
DX: S61.215A Laceration without foreign body of left ring finger without damage to nail, initial encounter (principal); S61.217A Laceration without foreign body of left little finger without damage to nail, initial encounter; W25.XXXA Contact with sharp glass, initial encounter; Y93.89 Activity, other specified; R20.2 Paresthesia of skin; I10 Essential (primary) hypertension; Z88.8 Allergy status to other drugs, medicaments and biological substances
CPT/HCPCS: 99283; J3490

== ENCOUNTER 2019-01-18 11:19 | Emergency (ER) | payer SELFPAY ==
[2019-01-18 12:20] LABS: APPEARANCE,URINE SLIGHTLY-CLOUDY; BILIRUBIN,URINE NEGATIVE (NEGATIVE); COLOR,URINE YELLOW; GLUCOSE, URINE NEGATIVE (NEGATIVE); KETONES,URINE NEGATIVE (NEGATIVE); LEUKOCYTE ESTERASE,URINE NEGATIVE (NEGATIVE); NITRITE,URINE NEGATIVE (NEGATIVE); PROTEIN,URINE NEGATIVE (NEGATIVE); UROBILINOGEN,URINE NEGATIVE mg/dL (<2.0)
[2019-01-18] MEDS ORDERED: HYDROCODONE/ACETAMINOPHEN 5-325 MG TABLET PO ONE (12:33)
--- NOTE | 2019-01-18 12:34 | ER Document Report ---
ED Neck/Back Problem - General Chief Complaint: Back Pain Stated Complaint: BACK PAIN Time Seen by Provider: 01/18/19 11:45 Primary Care Provider: [facility] [Provider Group] - Follow up as needed Mode of Arrival: Ambulatory Information source: Patient Notes: 33-year-old female presented to ED for complaint of continued chronic pain. She states it is worse for the last 2 days and she is been taking all the ibuprofen she can take. She states she used to have a doctor that treated her for pain and now she can never get in to get pain medicine. Patient is alert oriented respirations regular and unlabored speaking in full sentences walks with even steady gait. She denies any new injuries. She denies any urinary symptoms fevers or chills. TRAVEL OUTSIDE OF THE [place] IN LAST 30 DAYS: No - HPI Patient complains to provider of: Lower back Onset: Other - Longtime chronic worse for the last 2 days Onset: Chronic Quality of pain: Sharp Severity: Severe Pain Level: 5 Associated symptoms: Like prior neck/back pain, Lower back pain Exacerbated by: Movement of trunk Relieved by: Nothing Similar symptoms previously: Yes Recently seen / treated by doctor: Yes - Related Data Allergies/Adverse Reactions: ketorolac [From Toradol] Allergy (Verified 01/18/19 11:28) Hives codeine [From Tylenol-Codeine #3] Adverse Reaction (Verified 01/18/19 11:28) Anxiety tramadol Adverse Reaction (Verified 01/18/19 11:28) Anxiety Past Medical History - General Information source: Patient - Social History Smoking Status: Never Smoker Lives with: Family Family History: CAD, DM, Hyperlipidemia, Hypertension, Malignancy Patient has suicidal ideation: No Patient has homicidal ideation: No - Past Medical History Cardiac Medical History: Reports: Hx Hypercholesterolemia, Hx Hypertension Pulmonary Medical History: Reports: None EENT Medical History: Reports: None Neurological Medical History: Reports: None Endocrine Medical History: Reports: None Renal/ Medical History: Reports: Hx Ovarian Cysts Malignancy Medical History: Reports: None GI Medical History: Reports: Hx Ulcer Musculoskeletal Medical History: Reports Hx Muscle Spasm, Reports Hx Musculoske letal Deformity, Reports Hx Musculoskeletal Trauma Skin Medical History: Reports None Psychiatric Medical History: Reports: Hx Anxiety, Hx Depression Traumatic Medical History: Reports: None Infectious Medical History: Reports: None Past Surgical History: Reports: Hx Abdominal Surgery, Hx Section - 4, Hx Hysterectomy, Hx Kidney (Renal Surgery) - one removed - Immunizations Immunizations up to date: Yes Hx Diphtheria, Pertussis, Tetanus Vaccination: Yes - 2014 Review of Systems - Review of Systems Constitutional: No symptoms reported EENT: No symptoms reported Cardiovascular: No symptoms reported Respiratory: No symptoms reported Gastrointestinal: No symptoms reported Genitourinary: No symptoms reported Female Genitourinary: No symptoms reported Musculoskeletal: Back pain, Muscle pain, Muscle stiffness Skin: No symptoms reported Hematologic/Lymphatic: No symptoms reported Neurological/Psychological: No symptoms reported Physical Exam - Vital signs Vitals: Temp Pulse Resp BP Pulse Ox 98.2 F 81 14 121/81 100 01/18/19 11:31 01/18/19 11:31 01/18/19 11:31 01/18/19 11:31 01/18/19 11:31 Interpretation: Normal - General General appearance: Appears well, Alert - HEENT Head: Normocephalic, Atraumatic Eyes: Normal Pupils: PERRL - Respiratory Respiratory status: No respiratory distress Chest status: Nontender Breath sounds: Normal Chest palpation: Normal - Cardiovascular Rhythm: Regular Heart sounds: Normal auscultation Murmur: No - Abdominal Inspection: Normal Distension: No distension Bowel sounds: Normal Tenderness: Nontender Organomegaly: No organomegaly. No: Mass - No palpable pulsating masses noted - Back Back: Normal, Tender, Scoliosis. No: Deformity/step-off, CVA tenderness, Vertebra tenderness, Scars, Wounds - Extremities General upper extremity: Normal inspection, Nontender, Normal color, Normal ROM, Normal temperature General lower extremity: Normal inspection, Nontender, Normal color, Normal ROM, Normal temperature, Normal weight bearing. No: Santi's sign - Neurological Neuro grossly intact: Yes Cognition: Normal Orientation: AAOx4 [place] Coma Scale Eye Opening: Spontaneous Irene Coma Scale Verbal: Oriented Irene Coma Scale Motor: Obeys Commands Irene Coma Scale Total: 15 Speech: Normal Motor strength normal: LUE, RUE, LLE, RLE Sensory: Normal - Psychological Associated symptoms: Normal affect, Normal mood - Skin Skin Temperature: Warm Skin Moisture: Dry Skin Color: Normal Course - Re-evaluation Re-evalutation: 01/18/19 21:16 After performing a Medical Screening Examination, I estimate there is LOW risk for EXPANDING OR RUPTURED ABDOMINAL AORTIC ANEURYSM, CAUDA EQUINA SYNDROME, EPIDURAL MASS LESION, or HERNIATED DISK CAUSING SEVERE SPINAL STENOSIS, thus I consider the discharge disposition reasonable. I have reevaluated this patient multiple times and no significant life threatening changes are noted. The patient and I have discussed the diagnosis and risks, and we agree with discharging home and close follow-up. We also discussed returning to the Emergency Department immediately if new or worsening symptoms occur with the understanding that symptoms and presentations can change. We have discussed the symptoms which are most concerning (e.g., saddle anesthesia, urinary or bowel incontinence or retention, changing or worsening pain) that necessitate immediate return. - Vital Signs Vital signs: Temp Pulse Resp BP Pulse Ox 97.5 F 76 14 106/91 H 100 01/18/19 13:30 01/18/19 13:30 01/18/19 13:30 01/18/19 13:30 01/18/19 13:30 Discharge - Discharge Clinical Impression: Lower back pain Qualifiers: Chronicity: chronic Back pain laterality: bilateral Sciatica presence: with sciatica Sciatica laterality: bilateral sciatica Qualified Code(s): M54.42 - Lumbago with sciatica, left side Chronic low back pain Qualifiers: Back pain laterality: bilateral Sciatica presence: with sciatica Sciatica laterality: bilateral sciatica Qualified Code(s): M54.42 - Lumbago with sciatica, left side Condition: Stable Disposition: HOME, SELF-CARE Additional Instructions: Chronic Back Pain Chronic back pain (pain persisting longer than three months) is a common problem. A medical evaluation can look for herniated disc, arthritis, osteoporosis, tumors, and infections. But at least half the time, there's no obvious treatable cause. Anxiety and depression tend to worsen back pain. Ibuprofen or other anti-inflammatory medicine can help. A heating pad, used for 15-20 minutes at a time, can ease pain. For this type of back pain, narcotic medicines should be avoided. Muscle relaxers are rarely helpful unless you're having spasms. Activity is important. Find an aerobic exercise program that your back can tolerate. Too much rest makes back pain worse. Specific back exercises are usually prescribed to strengthen the back and abdominal muscles. Often, a physical therapist can help. Avoid heavy lifting, working while bent over, or standing with both knees straight. Most back pain patients do better with a firm mattress. If new symptoms of a "herniated disc" (radiation of pain, numbness, or tingling down the back of the leg or weakness in the leg) occur, you should be re-examined. Chronic Pain Control Stress, inactivity, and depression make pain more severe regardless of the cause of the pain. Stress and poor physical condition can cause pain such as headaches and backache. Relaxation: Rest in a quiet place with your eyes closed for 20 minutes twice daily. Concentrate on a pleasant image, or simply "feel" your breathing. Clear your mind. Stress management: Deal with your "stressors." Either take action, or eliminate the stressor from your life. Don't let things hang over you. Accept those things you can't change. Nutrition: Eat small, balanced meals -- don't skip, don't overeat. Meals should be high-carbohydrate, low-sugar, low-fat. Exercise: Exercise helps painful conditions and eases stress. Get 30 minutes of moderate exercise, five days a week. Do an activity that does not flare your pain. Precautions: Pain which continues to disrupt daily activities, or which changes in nature, requires a medical evaluation. Pain Clinic referral is available. We do not manage chronic pain in the Emergency Department. We will try to appropriately help you through an acute flare of your chronic painful condition, but for on-going chronic pain that does not improve, you will need to see your private doctor or painting technician. We do not provide repeated medication management of chronic painful conditions. If you wish, we can provide the name of local pain management physicians. Ibuprofen Ibuprofen is an excellent, safe drug for pain control. In addition, it has potent antiinflammatory effects which are beneficial, especially in the treatment of injuries, arthritis, or tendonitis. It's best to take ibuprofen with food. Persons with ulcer disease or allergy to aspirin should notify their physician of this before taking ibuprofen. Take the medication exactly as prescribed. Don't take additional doses unless instructed to do so by your doctor. If you develop wheezing, shortness of breath, hives, faintness, stomach pain, vomiting, or dark black stools, return for re-evaluation at once. Ice Packs Apply ice packs frequently against the painful area. Many different schedules are recommended, such as "20 minutes on, 20 minutes off" or "one hour ice, two hours rest." If you need to work, you may need to go longer between ice treatments. You should plan to have the area ice packed AT LEAST one fourth of the time. The ice should be applied over the wrap, tape, or splint, or over a layer of cloth -- not directly against the skin. Some ice bags have a built-in cloth and can be put directly on the skin. Warm Packs After approximately two days, apply gentle heat (such as a heating pad or hot water bottle) for about 20 to 30 minutes about every two hours -- at least four times daily. Warmth and elevation will help you make a more rapid recovery, and will ease the pain considerably. Do not use HOT heat, and never apply heat for longer than 30 minutes. The continuous heat can invisibly damage skin and muscles -- even when no burn is seen on the surface. Damaged muscles can make you MORE sore. Stretching Exercises for the Back The physician has recommended that you begin stretching exercises for your back. These are often used even while the back is painful. However, you should notify the physician if the activities seem to increase your pain. PELVIC TILT: Lie flat on your back with knees bent. Tighten your stomach and buttock muscles so it flattens your lower back against the floor. Hold 10 seconds. Repeat 10 times, twice daily. KNEE RAISE: Lying on the back with knees bent, raise one knee to your chest, then the other. Hold both knees against the chest 10 seconds, then lower one knee at a time. Repeat 10 times, twice daily. PARTIAL TRUNK RAISE: Lie face down, arms at your sides. Keeping your waist on the floor, use your arms raise your chest up. Support yourself on your elbows for 30 seconds. Repeat twice daily, increasing the time to two minutes as you recover. Oral Narcotic Medication You have been given a [place] for pain control. This medication is a narcotic. It's best taken with food, as nausea can result if taken on an empty stomach. Don't operate machinery or drive within six hours of taking this medication. Do not combine this medicine with alcohol, or with any medication which can cause sedation (such as cold tablets or sleeping pills) unless you get permission from the physician. Narcotics tend to cause constipation. If possible, drink plenty of fluids and eat a diet high in fiber and fruits. FOLLOW-UP CARE: If you have been referred to a physician for follow-up care, call the physicians office for an appointment as you were instructed or within the next two days. If you experience worsening or a significant change in your symptoms, notify the physician immediately or return to the Emergency Department at any time for re-evaluation. Referrals: [facility] [Provider Group] - Follow up as needed
[2019-01-18 13:31] VITALS: BP 106/91
== END 2019-01-18 13:29 | disposition home or self-care (01) ==
LOC: ER 11:19
DX: M54.42 Lumbago with sciatica, left side (principal); G89.29 Other chronic pain; E78.00 Pure hypercholesterolemia, unspecified; I10 Essential (primary) hypertension; Z90.710 Acquired absence of both cervix and uterus; Z88.6 Allergy status to analgesic agent
CPT/HCPCS: 81001; 81025; 99283

== ENCOUNTER 2019-01-18 23:43 | Emergency (ER) | payer SELFPAY ==
[2019-01-18] MEDS ORDERED: ASPIRIN 81 MG TABLET, CHEWABLE PO ONE (23:48)
[2019-01-19] MEDS ORDERED: NORMAL SALINE 1000 ML 1,000 ML IV ONE (00:15)
--- NOTE | 2019-01-19 00:17 | ER Document Report ---
ED General - General Chief Complaint: Chest Pain Stated Complaint: CHEST AND BACK PAIN, HEART RACING Time Seen by Provider: 01/19/19 00:09 Primary Care Provider: [facility] [Provider Group] - Follow up in 3-5 days Notes: Patient is a 33-year-old female with history of chronic low back pain that presents to the emergency department for chief complaint of right-sided low back pain. Patient states that her pain is been going on for about 3 years, but got progressively worse over the past 48 hours, she has been seen in the emergency department multiple times for this in the past, she states that her pain got out of control at home, and is worse with walking, and then her blood pressure started going up and she was feeling heart palpitations which typically happens with her back pain. She denies any shortness of breath at this time, admits to having a mild amount of chest pain, but she describes it mainly as palpitations. She currently rates her back pain as a 10 out of 10 describes it as throbbing and aching in the low back, without radiation to the lower extremities. She denies any saddle anesthesia, paresthesias, denies any urinary incontinence, retention, denies any bowel incontinence. Past Medical History: Chronic low back pain Past Surgical History: Hysterectomy Social History: Denies current tobacco, alcohol or illicit drug use. Family History: Reviewed and noncontributory for presenting illness Allergies: Reviewed, see documented allergy list. REVIEW OF SYSTEMS: Other than noted above, the 12 point review of systems was reviewed with the patient and were negative, all pertinent findings are included in the HPI. PHYSICAL EXAMINATION: Vital signs reviewed, nursing noted reviewed. GENERAL: Patient appears uncomfortable on exam HEAD: Atraumatic, normocephalic. EYES: Eyes appear normal, extraocular movements intact, sclera anicteric, conjunctiva are normal. ENT: nares patent, oropharynx clear without exudates. Moist mucous membranes. NECK: Normal range of motion, supple without lymphadenopathy LUNGS: Breath sounds clear to auscultation bilaterally and equal. No wheezes rales or rhonchi. HEART: Heart rate tachycardic, regular rhythm, no audible murmur ABDOMEN: Soft, nontender, normoactive bowel sounds. No rebound, guarding, or rigidity. No masses appreciated. Back: Tenderness to palpation to the paraspinal musculature of the lumbar spine, as well as the midline of the lumbar spine, there is no erythema, or fluctuance, no step-off or deformity, there is no tenderness or step-off or deformity to the thoracic spine. There is pain with range of motion particularly with the left paraspinal musculature. EXTREMITIES: Nontender, good range of motion, no pitting or edema. NEUROLOGICAL: No focal neurological deficits. Moves all extremities spontaneously Motor and sensory grossly intact on exam. PSYCH: Appears uncomfortable on exam, and rather anxious, but answering questions appropriately. SKIN: Warm, Dry, normal turgor, no rashes or lesions noted on exposed skin TRAVEL OUTSIDE OF THE [place] IN LAST 30 DAYS: No - Related Data Allergies/Adverse Reactions: ketorolac [From Toradol] Allergy (Verified 01/18/19 11:28) Hives codeine [From Tylenol-Codeine #3] Adverse Reaction (Verified 01/18/19 11:28) Anxiety tramadol Adverse Reaction (Verified 01/18/19 11:28) Anxiety Past Medical History - Social History Smoking Status: Never Smoker Family History: Reviewed & Not Pertinent, CAD, DM, Hyperlipidemia, Hypertension, Malignancy - Past Medical History Cardiac Medical History: Reports: Hx Hypercholesterolemia, Hx Hypertension Renal/ Medical History: Reports: Hx Ovarian Cysts. Denies: Hx Peritoneal Dialysis GI Medical History: Reports: Hx Ulcer Musculoskeletal Medical History: Reports Hx Muscle Spasm, Reports Hx Musculoskeletal Deformity, Reports Hx Musculoskeletal Trauma Psychiatric Medical History: Reports: Hx Anxiety, Hx Depression Past Surgical History: Reports: Hx Abdominal Surgery, Hx Section - 4, Hx Hysterectomy, Hx Kidney (Renal Surgery) - one removed - Immunizations Immunizations up to date: Yes Hx Diphtheria, Pertussis, Tetanus Vaccination: Yes - 2014 Physical Exam - Vital signs Vitals: Temp Pulse Resp BP Pulse Ox 97.3 F 167 H 24 H 176/99 H 99 01/18/19 23:59 01/18/19 23:59 01/18/19 23:59 01/18/19 23:59 01/18/19 23:59 Course - Re-evaluation Re-evalutation: Patient seen and examined vital signs reviewed. Laboratory data and/or imaging were ordered as appropriate for the patient's presenting symptoms and complaint, with consideration of any critical or life threatening conditions that may be associated with their obtained history and exam as noted above. Patient was treated with IV fentanyl, Robaxin, and IV fluids Results were reviewed when available and demonstrated unremarkable work-up, blood work negative The patient was re-evaluated and was stable, heart rate had improved to normal rate, pain was improved, she states she was itching from the Robaxin, was given IV Benadryl afterwards. Evaluation was most consistent with chronic back pain, discussed the patient she would not be receiving any more opiate medications for her back pain, she is given prescription for gabapentin and advised to follow-up with chronic pain management. Results were discussed with the patient at this point, after careful consideration I feel that that patient can be discharged from the emergency department, the patient was educated treatments and reasons to return to the emergency department based on their presumed diagnosis as noted above, they were advised to followup with a primary care physician in 2-3 days. Patient was agreeable to plan of care. *Note is created using voice recognition software and may contain spelling, syntax or grammatical errors. Laboratory 01/19/19 01/19/19 01/19/19 00:32 00:32 00:32 WBC 6.5 RBC 5.80 H Hgb 14.9 Hct 44.8 MCV 77 L MCH 25.8 L MCHC 33.3 RDW 14.6 H Plt Count 201 Seg Neutrophils % 49.0 Lymphocytes % 41.7 Monocytes % 7.8 Eosinophils % 0.7 Basophils % 0.8 Absolute Neutrophils 3.2 Absolute Lymphocytes 2.7 Absolute Monocytes 0.5 Absolute Eosinophils 0.0 Absolute Basophils 0.1 Sodium Cancelled Potassium Cancelled Chloride Cancelled Carbon Dioxide Cancelled Anion Gap Cancelled BUN Cancelled Creatinine Cancelled Est GFR ( Amer) Cancelled Est GFR (Non-Af Amer) Cancelled Glucose Cancelled Calcium Cancelled Total Bilirubin Cancelled Direct Bilirubin Cancelled Neonat Total Bilirubin Cancelled Neonat Direct Bilirubin Cancelled Neonat Indirect Bili Cancelled AST Cancelled ALT Cancelled Alkaline Phosphatase Cancelled Creatine Kinase CK-MB (CK-2) Troponin I Cancelled Total Protein Cancelled Albumin Cancelled 01/19/19 01/19/19 01:20 01:20 WBC RBC Hgb Hct MCV MCH MCHC RDW Plt Count Seg Neutrophils % Lymphocytes % Monocytes % Eosinophils % Basophils % Absolute Neutrophils Absolute Lymphocytes Absolute Monocytes Absolute Eosinophils Absolute Basophils Sodium 138.6 Potassium 3.3 L Chloride 105 Carbon Dioxide 25 Anion Gap 9 BUN 10 Creatinine 0.59 Est GFR ( Amer) > 60 Est GFR (Non-Af Amer) > 60 Glucose 93 Calcium 8.8 Total Bilirubin 0.2 Direct Bilirubin 0.1 Neonat Total Bilirubin Not Reportable Neonat Direct Bilirubin Not Reportable Neonat Indirect Bili Not Reportable AST 15 ALT 17 Alkaline Phosphatase 55 Creatine Kinase 43 CK-MB (CK-2) < 0.22 Troponin I < 0.012 Total Protein 6.9 Albumin 3.9 Chest X-Ray 01/19/19 00:35 IMPRESSION: Clear lungs. - Vital Signs Vital signs: Temp Pulse Resp BP Pulse Ox 97.3 F 87 12 104/70 100 01/18/19 23:59 01/19/19 04:21 01/19/19 04:21 01/19/19 04:21 01/19/19 04:21 - Laboratory Result Diagrams: 01/19/19 00:32 01/19/19 01:20 Laboratory results interpreted by me: 01/19/19 01/19/19 00:32 01:20 RBC 5.80 H MCV 77 L MCH 25.8 L RDW 14.6 H Potassium 3.3 L - EKG Interpretation by Me Additional EKG results interpreted by me: EKG demonstrates sinus tachycardia with a ventricular rate of 161 bpm, normal axis, normal intervals, no evidence of acute ischemia in this EKG, compared to prior EKG from 10/21/2018, where the tachycardia appears to be the only change. Discharge - Discharge Clinical Impression: Chronic low back pain Qualifiers: Back pain laterality: right Sciatica presence: without sciatica Qualified Code(s): M54.5 - Low back pain Condition: Stable Disposition: HOME, SELF-CARE Instructions: Chronic Back Pain ([facility]) Additional Instructions: You need to follow-up with the chronic pain clinic, and it may benefit you to look into having minimally invasive procedures to help treat your chronic back pain, or long-term chronic pain management. A pain management clinic, has been listed with your discharge paperwork. Prescriptions: Gabapentin [Neurontin 100 mg Capsule] 100 mg PO TID #30 capsule Referrals: [facility] [Provider Group] - Follow up in 3-5 days
[2019-01-19] MEDS ORDERED: FENTANYL CITRATE INJ/PF 100 MCG/2 ML AMPUL IV ONE (00:21)
[2019-01-19] MEDS ORDERED: ONDANSETRON HCL INJ/PF 4 MG/2 ML SDV IV ONE (00:22)
[2019-01-19 00:42] LABS: ABSOLUTE BASOPHILS # (AUTO) 0.1 10^3/uL (0.0-0.2); ABSOLUTE LYMPHOCYTES (AUTO) 2.7 10^3/uL (0.5-4.7); ABSOLUTE MONOCYTES (AUTO) 0.5 10^3/uL (0.1-1.4); ABSOLUTE NEUT (AUTO) 3.2 10^3/uL (1.7-8.2); BASOPHILS % (AUTO) 0.8 % (0-2); EOSINOPHILS % (AUTO) 0.7 % (0-6); HEMATOCRIT 44.8 % (36.0-47.0); HEMOGLOBIN 14.9 g/dL (12.0-15.5); LYMPHOCYTES % (AUTO) 41.7 % (13-45); MEAN CORPUSCULAR HEMOGLOBIN 25.8 pg (27.0-33.4); MEAN CORPUSCULAR HGB CONC 33.3 g/dL (32.0-36.0); MEAN CORPUSCULAR VOLUME 77 fl (80-97); MONOCYTES % (AUTO) 7.8 % (3-13); PLATELET COUNT 201 10^3/uL (150-450); RED CELL DISTRIBUTION WIDTH 14.6 % (11.5-14.0); TOTAL CELLS COUNTED % (AUTO) 100 %; WHITE BLOOD COUNT 6.5 10^3/uL (4.0-10.5)
--- NOTE | 2019-01-19 01:16 | RADIOLOGY REPORT (SQ) ---
CLINICAL HISTORY: palpitations COMPARISON: November 15, 2018. TECHNIQUE: XR CHEST 1 VIEW 01/19/2019 12:35 AM CDT FINDINGS: Cardiac silhouette is normal in size. Lungs are clear without consolidation, atelectasis, mass or edema. There is no pleural effusion. There is no pneumothorax. There are no acute osseous findings. There is S-shaped scoliosis of the thoracolumbar spine. IMPRESSION: Clear lungs.
[2019-01-19] MEDS ORDERED: METHOCARBAMOL INJ/PF 1000 MG/10 ML SDV IV ONE (01:28)
[2019-01-19 02:07] LABS: ALANINE AMINOTRANSFERASE 17 U/L (9-52); ALBUMIN 3.9 g/dL (3.5-5.0); ALKALINE PHOSPHATASE 55 U/L (38-126); ANION GAP 9 (5-19); ASPARTATE AMINO TRANSFERASE 15 U/L (14-36); BILIRUBIN,DIRECT 0.1 mg/dL (0.0-0.4); BILIRUBIN,TOTAL 0.2 mg/dL (0.2-1.3); BLOOD UREA NITROGEN 10 mg/dL (7-20); CALCIUM 8.8 mg/dL (8.4-10.2); CARBON DIOXIDE 25 mmol/L (22-30); CHLORIDE 105 mmol/L (98-107); CREATINE KINASE 43 U/L (30-135); GLUCOSE 93 mg/dL (75-110); POTASSIUM 3.3 mmol/L (3.6-5.0); TOTAL PROTEIN 6.9 g/dL (6.3-8.2)
[2019-01-19 02:21] LABS: CREATINE KINASE MB < 0.22 ng/mL (<4.55); TROPONIN I < 0.012 ng/mL
[2019-01-19] MEDS ORDERED: POTASSIUM CHLORIDE 10 MEQ CAPSULE.ER PO ONE (02:22)
[2019-01-19] MEDS ORDERED: DIPHENHYDRAMINE HCL 50 MG/ML VIAL IV ONE (02:49)
[2019-01-19 04:09] VITALS: BP 104/70
--- NOTE | 2019-01-19 23:49 | EKG REPORT ---
SEVERITY:- ABNORMAL ECG - SINUS TACHYCARDIA BORDERLINE ST DEPRESSION, DIFFUSE LEADS ABNORMAL T, CONSIDER ISCHEMIA, INFERIOR LEADS : Confirmed by: Devang Angel 19-Jan-2019 23:48:33
== END 2019-01-19 04:21 | disposition home or self-care (01) ==
LOC: ER 23:43
DX: M54.5 Low back pain (principal); R07.9 Chest pain, unspecified; G89.29 Other chronic pain; E78.00 Pure hypercholesterolemia, unspecified; I10 Essential (primary) hypertension; Z90.710 Acquired absence of both cervix and uterus
CPT/HCPCS: 93005; 99285; 96361; 96374; 96375; 36415; 82553; 82550; 85025; 80053; 84484; 71045; 93010; J1200; J3010; J2800; J2405; J7030; 96365

== ENCOUNTER 2019-02-16 21:06 | Emergency (ER) | payer SELFPAY ==
[2019-02-17] MEDS ORDERED: OXYCODONE-ACETAMINOPHEN 5-325 MG TABLET PO ONE (00:33)
[2019-02-17] MEDS ORDERED: CYCLOBENZAPRINE HCL 10 MG TABLET PO ONE (00:34)
[2019-02-17 00:47] VITALS: BP 117/84
--- NOTE | 2019-02-17 00:47 | ER Document Report ---
Entered by NIMA ESCUDERO SCRIBE 02/17/19 0017 Acting as scribe for:CARIDAD HUA MD ED Neck/Back Problem - General Chief Complaint: Fall Injury Stated Complaint: BACK PAIN Time Seen by Provider: 02/16/19 23:47 Mode of Arrival: Medic Information source: Patient Notes: Patient is a 33-year-old female with chronic back pain who presents to the emergency department today with complaints of back pain. Patient states that she usually tries to "embrace her pain naturally" however when reviewing [facility] records it is evident that the patient has exhibited drug-seeking behavior quite frequently here. Patient becomes upset when drug-seeking is mentioned and states that "everyone talks like she is trying to get drugs". Patient states she called EMS earlier today for her chronic back pain and her "blood pressure was high and her heart rate was high" but she did not want to be brought here at that time. Patient states tonight she decided to cook herself dinner and she had a syncopal event that she describes as "blacking out while cooking" so she decided to call EMS again. Patient reports prior to her syncopal event she "felt hot and her blood pressure was kind of high". TRAVEL OUTSIDE OF THE [place] IN LAST 30 DAYS: No - Related Data Allergies/Adverse Reactions: ketorolac [From Toradol] Allergy (Verified 01/18/19 11:28) Hives codeine [From Tylenol-Codeine #3] Adverse Reaction (Verified 01/18/19 11:28) Anxiety tramadol Adverse Reaction (Verified 01/18/19 11:28) Anxiety Past Medical History - General Information source: Patient, [facility] Records - Social History Smoking Status: Former Smoker Cigarette use (# per day): No Chew tobacco use (# tins/day): No Smoking Education Provided: No Frequency of alcohol use: None Drug Abuse: None Lives with: Family Family History: Reviewed & Not Pertinent, CAD, DM, Hyperlipidemia, Hypertension, Malignancy Patient has suicidal ideation: No Patient has homicidal ideation: No - Past Medical History Cardiac Medical History: Reports: Hx Hypercholesterolemia, Hx Hypertension Renal/ Medical History: Reports: Hx Ovarian Cysts GI Medical History: Reports: Hx Ulcer Musculoskeletal Medical History: Reports Hx Muscle Spasm, Reports Hx Musculoskeletal Deformity, Reports Hx Musculoskeletal Trauma Psychiatric Medical History: Reports: Hx Anxiety, Hx Depression Past Surgical History: Reports: Hx Abdominal Surgery, Hx Section - 4, Hx Hysterectomy, Hx Kidney (Renal Surgery) - one removed - Immunizations Immunizations up to date: Yes Hx Diphtheria, Pertussis, Tetanus Vaccination: Yes - 2014 Review of Systems - Review of Systems Constitutional: No symptoms reported EENT: No symptoms reported Cardiovascular: See HPI, Syncope Respiratory: No symptoms reported Gastrointestinal: No symptoms reported Genitourinary: No symptoms reported Female Genitourinary: No symptoms reported Musculoskeletal: See HPI, Back pain Skin: No symptoms reported Hematologic/Lymphatic: No symptoms reported Neurological/Psychological: No symptoms reported -: Yes All other systems reviewed and negative Physical Exam - Vital signs Vitals: Temp Pulse Resp BP Pulse Ox 98 F 87 16 132/92 H 97 02/16/19 21:20 02/16/19 21:20 02/16/19 21:20 02/16/19 21:20 02/16/19 21:20 - Notes Notes: Physical Exam: General: Alert, appears well. HEENT: Normocephalic. Atraumatic. PERRL. Extraocular movements intact. Oropharynx clear. Neck: Supple. Non-tender. Respiratory: No respiratory distress. Clear and equal breath sounds bilaterally. Cardiovascular: Regular rate and rhythm. Abdominal: Normal Inspection. Non-tender. No distension. Normal Bowel Sounds. Back: Tenderness with palpation over the mid and lower lumbar spinous processes. Minimal tenderness in the paraspinal lumbar musculature. Extremities: Moves all four extremities. Upper extremities: Normal inspection. Normal ROM. Lower extremities: Normal inspection. No edema. Normal ROM. Neurological: Normal cognition. AAOx4. Normal speech. Psychological: Normal affect. Normal Mood. Skin: Warm. Dry. Normal color. Course - Re-evaluation Re-evalutation: 02/17/19 00:31 Patient does claim to be allergic to Toradol, however she has received that medication many times in the past. She states she received Toradol the last time she was here and broke out in hives, however review of the records shows that she received was Robaxin. When I pointed that out, she states she does not know what we call those things. However she does state that the only medicine that her body "adapts to is oxycodone". - Vital Signs Vital signs: Temp Pulse Resp BP Pulse Ox 98.0 F 85 16 117/84 97 02/17/19 00:43 02/17/19 00:43 02/17/19 00:43 02/17/19 00:43 02/17/19 00:43 Discharge - Discharge Clinical Impression: Acute exacerbation of chronic low back pain Condition: Stable Disposition: HOME, SELF-CARE Additional Instructions: Low Back Pain Three out of every four people will have an episode of disabling back pain during their lifetime. Most commonly the pain is due to straining of the muscles and ligaments in the low back. Usual treatment includes: (1) Rest on a firm surface. Avoid lying on your stomach. (2) Ice pack the painful area. After a few days, gentle heat may be used intermittently to relax the area, or ice packs can be continued. (3) Medication may be needed -- muscle relaxers and antiinflammatory medicines are commonly used. (4) As the back improves, exercises are prescribed to strengthen the back and abdominal muscles. Your doctor will advise you on the proper care for your back at each stage in your recovery. You may be better in a few days -- or healing may take several weeks. If new symptoms of a "herniated disc" (radiation of pain, numbness, or tingling down the back of the leg or weakness in the leg) occur, you should be re-examined. Further testing may be necessary. Take the muscle relaxers as prescribed. Take Tylenol and ibuprofen or Aleve for back pain. Follow-up with a local primary care provider for further management of your back pain if you do not improve. RETURN TO THE EMERGENCY ROOM IF ANY NEW OR WORSENING SYMPTOMS. Prescriptions: Cyclobenzaprine HCl [Flexeril 5 mg Tablet] 5 mg PO TID PRN #15 tablet PRN Reason: Scribe Attestation: 02/17/19 00:35 I personally performed the services described in the documentation, reviewed and edited the documentation which was dictated to the scribe in my presence, and it accurately records my words and actions. I personally performed the services described in the documentation, reviewed and edited the documentation which was dictated to the scribe in my presence, and it accurately records my words and actions.
--- NOTE | 2019-02-17 09:03 | EKG REPORT ---
SEVERITY:- ABNORMAL ECG - SINUS RHYTHM FIRST DEGREE AV BLOCK PROBABLE LEFT ATRIAL ABNORMALITY PROBABLE LEFT VENTRICULAR HYPERTROPHY : Confirmed by: Dolores Monique MD 17-Feb-2019 09:02:08
== END 2019-02-17 00:53 | disposition home or self-care (01) ==
LOC: ER 21:06
DX: G89.29 Other chronic pain (principal); M54.5 Low back pain; Z88.6 Allergy status to analgesic agent; E78.00 Pure hypercholesterolemia, unspecified; I10 Essential (primary) hypertension; Z90.710 Acquired absence of both cervix and uterus
CPT/HCPCS: 93005; 93010

== ENCOUNTER 2019-03-27 07:51 | Emergency (ER) | payer SELFPAY ==
[2019-03-27 08:05] LABS: ABSOLUTE BASOPHILS # (AUTO) 0.1 10^3/uL (0.0-0.2); ABSOLUTE EOSINOPHILS # (AUTO) 0.1 10^3/uL (0.0-0.6); ABSOLUTE LYMPHOCYTES (AUTO) 3.7 10^3/uL (0.5-4.7); ABSOLUTE MONOCYTES (AUTO) 0.7 10^3/uL (0.1-1.4); ABSOLUTE NEUT (AUTO) 4.9 10^3/uL (1.7-8.2); EOSINOPHILS % (AUTO) 0.6 % (0-6); HEMATOCRIT 44.4 % (36.0-47.0); HEMOGLOBIN 14.7 g/dL (12.0-15.5); LYMPHOCYTES % (AUTO) 38.7 % (13-45); MEAN CORPUSCULAR HEMOGLOBIN 25.7 pg (27.0-33.4); MEAN CORPUSCULAR HGB CONC 33.2 g/dL (32.0-36.0); MEAN CORPUSCULAR VOLUME 78 fl (80-97); MONOCYTES % (AUTO) 7.7 % (3-13); PLATELET COUNT 171 10^3/uL (150-450); RED BLOOD COUNT 5.71 10^6/uL (3.72-5.28); RED CELL DISTRIBUTION WIDTH 14.2 % (11.5-14.0); TOTAL CELLS COUNTED % (AUTO) 100 %; WHITE BLOOD COUNT 9.5 10^3/uL (4.0-10.5)
[2019-03-27 08:15] VITALS: BP 133/93
[2019-03-27 08:22] LABS: ALBUMIN 4.8 g/dL (3.5-5.0); ALKALINE PHOSPHATASE 103 U/L (38-126); ANION GAP 13 (5-19); ASPARTATE AMINO TRANSFERASE 21 U/L (14-36); BILIRUBIN,DIRECT 0.1 mg/dL (0.0-0.4); BILIRUBIN,TOTAL 0.2 mg/dL (0.2-1.3); BLOOD UREA NITROGEN 11 mg/dL (7-20); CALCIUM 10.2 mg/dL (8.4-10.2); CARBON DIOXIDE 27 mmol/L (22-30); CHLORIDE 99 mmol/L (98-107); CREATINE KINASE 40 U/L (30-135); GLUCOSE 142 mg/dL (75-110); POTASSIUM 3.3 mmol/L (3.6-5.0); TOTAL PROTEIN 8.2 g/dL (6.3-8.2)
[2019-03-27 08:36] LABS: TROPONIN I < 0.012 ng/mL
--- NOTE | 2019-03-27 08:37 | RADIOLOGY REPORT (SQ) ---
EXAM DESCRIPTION: CHEST 2 VIEWS COMPLETED DATE/TIME: 03/27/2019 8:28 am REASON FOR STUDY: chest pain COMPARISON: 01/19/2019 EXAM PARAMETERS: NUMBER OF VIEWS: two views TECHNIQUE: Digital Frontal and Lateral radiographic views of the chest acquired. RADIATION DOSE: NA LIMITATIONS: none FINDINGS: LUNGS AND PLEURA: No opacities, masses or pneumothorax. No pleural effusion. MEDIASTINUM AND HILAR STRUCTURES: No masses or contour abnormalities. HEART AND VASCULAR STRUCTURES: Heart normal size. No evidence for failure. BONES: No acute findings. HARDWARE: None in the chest. OTHER: No other significant finding. IMPRESSION: NO ACUTE RADIOGRAPHIC FINDING IN THE CHEST. TECHNICAL DOCUMENTATION: JOB ID: [id number] [employer]- All Rights Reserved Reading location - IP/workstation name: [email or web address]
[2019-03-27] MEDS ORDERED: NORMAL SALINE 1000 ML 1,000 ML IV ONE (09:25)
[2019-03-27] MEDS ORDERED: METHOCARBAMOL INJ/PF 1000 MG/10 ML SDV IV ONE (10:37)
[2019-03-27] MEDS ORDERED: POTASSIUM CHLORIDE 10 MEQ CAPSULE.ER PO ONE (11:17)
--- NOTE | 2019-03-27 13:27 | ER Document Report ---
ED General - General Chief Complaint: Palpitations Stated Complaint: HEART PALPITATIONS Time Seen by Provider: 03/27/19 09:19 TRAVEL OUTSIDE OF THE [place] IN LAST 30 DAYS: No - HPI Notes: Patient is a 34-year-old female presents emergency department for evaluation of chest pain and back pain. She has a history of scoliosis. She also states has been having palpitations. She states she woke up suddenly with the symptoms. On further questioning, however, she has had severe palpitations and elevated he art rate with her chronic back pain in the past. She states this is just an exacerbation of her chronic back pain. She states she occasionally feels short of breath. She denies any nausea or vomiting. No fevers or chills. No bowel or bladder incontinence, no saddle anesthesia, no focal numbness or weakness. - Related Data Allergies/Adverse Reactions: ketorolac [From Toradol] Allergy (Verified 03/27/19 08:13) Hives codeine [From Tylenol-Codeine #3] Adverse Reaction (Verified 03/27/19 08:13) Anxiety tramadol Adverse Reaction (Verified 03/27/19 08:13) Anxiety Past Medical History - General Information source: Patient - Social History Smoking Status: Current Every Day Smoker Chew tobacco use (# tins/day): No Frequency of alcohol use: Occasional Drug Abuse: None Family History: Reviewed & Not Pertinent, CAD, DM, Hyperlipidemia, Hypertension, Malignancy Patient has suicidal ideation: No Patient has homicidal ideation: No - Past Medical History Cardiac Medical History: Reports: Hx Hypercholesterolemia, Hx Hypertension Renal/ Medical History: Reports: Hx Ovarian Cysts. Denies: Hx Peritoneal Dialysis GI Medical History: Reports: Hx Ulcer Musculoskeletal Medical History: Reports Hx Muscle Spasm, Reports Hx Musculoskeletal Deformity, Reports Hx Musculoskeletal Trauma Psychiatric Medical History: Reports: Hx Anxiety, Hx Depression - anxiety Past Surgical History: Reports: Hx Abdominal Surgery, Hx Section - 4, Hx Hysterectomy, Hx Kidney (Renal Surgery) - one removed - Immunizations Immunizations up to date: Yes Hx Diphtheria, Pertussis, Tetanus Vaccination: Yes - 2014 Review of Systems - Review of Systems Constitutional: No symptoms reported EENT: No symptoms reported Cardiovascular: No symptoms reported Respiratory: No symptoms reported Gastrointestinal: No symptoms reported Genitourinary: No symptoms reported Musculoskeletal: No symptoms reported Skin: No symptoms reported Neurological/Psychological: No symptoms reported Physical Exam - Vital signs Vitals: Temp Resp BP 98.7 F 14 133/93 H 03/27/19 08:03 03/27/19 08:03 03/27/19 08:03 - Notes Notes: Vital signs reviewed, please refer to chart. Head is normocephalic, atraumatic. Pupils equal round, reactive to light. Neck is supple without meningismus. Heart is tachycardic with normal S1-S2. Lungs are clear to auscultation bilaterally. Abdomen is soft, nontender, normoactive bowel sounds throughout. Extremities without cyanosis, clubbing. Posterior calves are nontender. Pe ripheral pulses are equal. Spine yields near global tenderness throughout the thoracic and lumbar spine without appreciable step-off or paraspinal musculature tension. Skin is warm and dry. Patient is awake, alert, neurological exam is nonfocal. Course - Re-evaluation Re-evalutation: 03/27/19 13:24 Patient presents emergency department for evaluation. She has been here multiple times with complaints of back pain and found to be tachycardic. She is had an extensive work-up, including admission, CT angiogram. When she was originally seen here with that she had cocaine and marijuana in her system. She is here complaining primarily of the chronic back pain rather than the palpitations. I explained to the patient I be happy to treat her with muscle relaxers, anti-inflammatories. She did point out her allergies to Toradol, codeine, and Ultram. She states she got little relief with IV Robaxin. Despite being here for several hours, including long enough to have 2- troponins, the patient has been unable to provide me a urine sample. At this point patient is agitated. She asked for something stronger for pain. I told her I did not think that was indicated at this time. Her heart rate came down to about 100, she was resting comfortably, but every time she was awoken to be asked for a urine sample, she asked for something stronger for pain. At this point I notified the patient states she wants to leave AGAINST MEDICAL ADVICE. I do not have a urinalysis. I do not have a drug screen. I do not have any strong concern for serious etiology of this patient's tachycardia, back and chest pain. These are all chronic findings for her at this time. I do not feel comfortable treating this chronic condition with narcotics of any sort. I do not feel comfortable offering a beta-katherine to the tachycardic patient who has a history of cocaine abuse. Patient would not supply urinalysis. I cannot rule out infection as a source of her back pain and elevated heart rate. I do feel comfortable giving narcotics to this patient. I attempted to explain my return to the patient and she elected to leave AGAINST MEDICAL ADVICE. She would not hear me out. - Vital Signs Vital signs: Temp Pulse Resp BP Pulse Ox 98.7 F 14 133/93 H 100 03/27/19 08:03 03/27/19 08:03 03/27/19 08:03 03/27/19 08:16 - Laboratory Result Diagrams: 03/27/19 07:55 03/27/19 07:55 Laboratory results interpreted by me: 03/27/19 03/27/19 07:55 07:55 RBC 5.71 H MCV 78 L MCH 25.7 L RDW 14.2 H Potassium 3.3 L Glucose 142 H - Diagnostic Test Radiology reviewed: Reports reviewed Radiology results interpreted by me: 03/27/19 13:26 Chest X-Ray 03/27/19 00:00 IMPRESSION: NO ACUTE RADIOGRAPHIC FINDING IN THE CHEST. - EKG Interpretation by Me Additional EKG results interpreted by me: 03/27/19 13:26 Sinus tachycardia with rate of 118 bpm. Normal axis and intervals, no acute ST changes concerning for ischemia or infarction. Discharge - Discharge Clinical Impression: Tachycardia Lower back pain Qualifiers: Chronicity: chronic Back pain laterality: bilateral Sciatica presence: without sciatica Qualified Code(s): M54.5 - Low back pain Chest pain Qualifiers: Chest pain type: unspecified Qualified Code(s): R07.9 - Chest pain, unspecified Disposition: ELOPED
--- NOTE | 2019-03-28 00:50 | EKG REPORT ---
SEVERITY:- BORDERLINE ECG - SINUS TACHYCARDIA PROBABLE LEFT ATRIAL ABNORMALITY : Confirmed by: Devang Angel 28-Mar-2019 00:50:26
== END 2019-03-27 13:40 | disposition left against medical advice (07) ==
LOC: ER 07:51
DX: R00.0 Tachycardia, unspecified (principal); M54.5 Low back pain; R07.9 Chest pain, unspecified; M54.9 Dorsalgia, unspecified; M41.9 Scoliosis, unspecified; G89.29 Other chronic pain; F17.200 Nicotine dependence, unspecified, uncomplicated; I10 Essential (primary) hypertension
CPT/HCPCS: 93005; 36415; 82553; 82550; 83735; 84443; 84703; 85025; 80053; 84484; 71046; 93010; J2800; J7030; 96361; 96365; 99285

== ENCOUNTER 2019-05-16 04:44 | Emergency (ER) | payer SELFPAY ==
[2019-05-16 04:51] VITALS: BP 118/73
== END 2019-05-16 05:38 | disposition left against medical advice (07) ==
LOC: ER 04:44
DX: Z53.21 Procedure and treatment not carried out due to patient leaving prior to being seen by health care provider (principal)

== ENCOUNTER 2019-07-28 11:51 | Emergency (ER) | payer SELFPAY ==
[2019-07-28 12:08] VITALS: BP 118/81
--- NOTE | 2019-07-28 12:48 | ER Document Report ---
ED Neck/Back Problem - General Chief Complaint: Back Pain Stated Complaint: BACK PAIN Time Seen by Provider: 07/28/19 12:45 Primary Care Provider: [facility] [Provider Group] - Follow up as needed Mode of Arrival: Wheelchair Information source: Patient Notes: 34-year-old female presents to ED for complaint of she states chronic back pain since she was a baby. She states she has scoliosis but she has no insurance at this time so she has no primary care or anyone to treat her back pain. She states she has not fallen or anything to increase her pain. She states she cut her hand and went to the [facility] last week and they did x-rays of her back and told her that she had a tumor on her back. She states because she was in a [place] area when she cut her hand is why she went to the [facility]. Patient is alert and oriented respirations regular nonlabored. She is in a wheelchair. TRAVEL OUTSIDE OF THE [place] IN LAST 30 DAYS: No - HPI Patient complains to provider of: Pain, Lower back Onset: Other - Chronic Onset: Chronic Timing: Still present Severity: Moderate Pain Level: 3 Recent injury: No Associated symptoms: Lower back pain Relieved by: Nothing Similar symptoms previously: Yes Recently seen / treated by doctor: No - Related Data Allergies/Adverse Reactions: ketorolac [From Toradol] Allergy (Verified 03/27/19 08:13) Hives codeine [From Tylenol-Codeine #3] Adverse Reaction (Verified 03/27/19 08:13) Anxiety tramadol Adverse Reaction (Verified 03/27/19 08:13) Anxiety Past Medical History - General Information source: Patient - Social History Smoking Status: Former Smoker Frequency of alcohol use: None Drug Abuse: None Lives with: Parents Family History: Reviewed & Not Pertinent, CAD, DM, Hyperlipidemia, Hypertension, Malignancy Patient has suicidal ideation: No Patient has homicidal ideation: No - Past Medical History Cardiac Medical History: Reports: Hx Hypercholesterolemia, Hx Hypertension Renal/ Medical History: Reports: Hx Ovarian Cysts GI Medical History: Reports: Hx Ulcer Musculoskeletal Medical History: Reports Hx Muscle Spasm, Reports Hx Musculoskeletal Deformity, Reports Hx Musculoskeletal Trauma Skin Medical History: Reports None Psychiatric Medical History: Reports: Hx Anxiety, Hx Depression - anxiety Traumatic Medical History: Reports: None Infectious Medical History: Reports: None Past Surgical History: Reports: Hx Abdominal Surgery, Hx Section - 4, Hx Hysterectomy, Hx Kidney (Renal Surgery) - one removed - Immunizations Immunizations up to date: Yes Hx Diphtheria, Pertussis, Tetanus Vaccination: Yes - 2014 Review of Systems - Review of Systems Constitutional: No symptoms reported EENT: No symptoms reported Cardiovascular: No symptoms reported Respiratory: No symptoms reported Gastrointestinal: No symptoms reported Genitourinary: No symptoms reported Female Genitourinary: No symptoms reported Musculoskeletal: Back pain, Muscle pain, Muscle stiffness Skin: No symptoms reported Hematologic/Lymphatic: No symptoms reported Neurological/Psychological: No symptoms reported -: Yes All other systems reviewed and negative Physical Exam - Vital signs Vitals: Temp Pulse Resp BP Pulse Ox 98.3 F 71 16 118/81 100 07/28/19 12:07 07/28/19 12:07 07/28/19 12:07 07/28/19 12:07 07/28/19 12:07 Interpretation: Normal - General General appearance: Appears well, Alert - HEENT Head: Normocephalic, Atraumatic Eyes: Normal Pupils: PERRL - Respiratory Respiratory status: No respiratory distress Chest status: Nontender Breath sounds: Normal Chest palpation: Normal - Cardiovascular Rhythm: Regular Heart sounds: Normal auscultation Murmur: No - Abdominal Inspection: Normal Distension: No distension Bowel sounds: Normal Tenderness: Nontender Organomegaly: No organomegaly - Back Back: Normal, Tender, Vertebra tenderness Notes: Signs and symptoms of cauda equina - Extremities General upper extremity: Normal inspection, Nontender, Normal color, Normal ROM, Normal temperature General lower extremity: Normal inspection, Nontender, Normal color, Normal ROM, Normal temperature, Normal weight bearing. No: Santi's sign - Neurological Neuro grossly intact: Yes Cognition: Normal Orientation: AAOx4 [place] Coma Scale Eye Opening: Spontaneous Irene Coma Scale Verbal: Oriented Irene Coma Scale Motor: Obeys Commands [place] Coma Scale Total: 15 Speech: Normal Motor strength normal: LUE, RUE, LLE, RLE Sensory: Normal - Psychological Associated symptoms: Normal affect, Normal mood - Skin Skin Temperature: Warm Skin Moisture: Dry Skin Color: Normal Course - Re-evaluation Re-evalutation: 07/28/19 21:40 After performing a Medical Screening Examination, I estimate there is LOW risk for EXPANDING OR RUPTURED ABDOMINAL AORTIC ANEURYSM, CAUDA EQUINA SYNDROME, EPIDURAL MASS LESION, or HERNIATED DISK CAUSING SEVERE SPINAL STENOSIS, thus I consider the discharge disposition reasonable. I have reevaluated this patient multiple times and no significant life threatening changes are noted. The patient and I have discussed the diagnosis and risks, and we agree with discharging home and close follow-up. We also discussed returning to the Emergency Department immediately if new or worsening symptoms occur with the understanding that symptoms and presentations can change. We have discussed the symptoms which are most concerning (e.g., saddle anesthesia, urinary or bowel incontinence or retention, changing or worsening pain) that necessitate immediate return. - Vital Signs Vital signs: Temp Pulse Resp BP Pulse Ox 98.3 F 71 16 118/81 100 07/28/19 12:07/28/19 12:07 07/28/19 12:07/28/19 12:07/28/19 12:07 Discharge - Discharge Clinical Impression: Chronic low back pain Qualifiers: Back pain laterality: bilateral Sciatica presence: without sciatica Qualified Code(s): M54.5 - Low back pain Condition: Stable Disposition: HOME, SELF-CARE Additional Instructions: Chronic Back Pain Chronic back pain (pain persisting longer than three months) is a common problem. A medical evaluation can look for herniated disc, arthritis, osteoporosis, tumors, and infections. But at least half the time, there's no obvious treatable cause. Anxiety and depression tend to worsen back pain. Ibuprofen or other anti-inflammatory medicine can help. A heating pad, used for 15-20 minutes at a time, can ease pain. For this type of back pain, narcotic medicines should be avoided. Muscle relaxers are rarely helpful unless you're having spasms. Activity is important. Find an aerobic exercise program that your back can tolerate. Too much rest makes back pain worse. Specific back exercises are usually prescribed to strengthen the back and abdominal muscles. Often, a physical therapist can help. Avoid heavy lifting, working while bent over, or standing with both knees straight. Most back pain patients do better with a firm mattress. If new symptoms of a "herniated disc" (radiation of pain, numbness, or tingling down the back of the leg or weakness in the leg) occur, you should be re-examined. Chronic Pain Control Stress, inactivity, and depression make pain more severe regardless of the cause of the pain. Stress and poor physical condition can cause pain such as headaches and backache. Relaxation: Rest in a quiet place with your eyes closed for 20 minutes twice daily. Concentrate on a pleasant image, or simply "feel" your breathing. Clear your mind. Stress management: Deal with your "stressors." Either take action, or eliminate the stressor from your life. Don't let things hang over you. Accept those things you can't change. Nutrition: Eat small, balanced meals -- don't skip, don't overeat. Meals should be high-carbohydrate, low-sugar, low-fat. Exercise: Exercise helps painful conditions and eases stress. Get 30 minutes of moderate exercise, five days a week. Do an activity that does not flare your pain. Precautions: Pain which continues to disrupt daily activities, or which changes in nature, requires a medical evaluation. Pain Clinic referral is available. We do not manage chronic pain in the Emergency Department. We will try to appropriately help you through an acute flare of your chronic painful condition, but for on-going chronic pain that does not improve, you will need to see your private doctor or [facility]. We do not provide repeated medication management of chronic painful conditions. If you wish, we can provide the name of local pain management physicians. ORAL NARCOTIC MEDICATION: You have been given a Percocet for pain control. This medication is a narcotic. It's best taken with food, as nausea can result if taken on an empty stomach. Don't operate machinery or drive within six hours of taking this medication. Do not combine this medicine with alcohol, or with any medication which can cause sedation (such as cold tablets or sleeping pills) unless you get permission from the physician. Narcotics tend to cause constipation. If possible, drink plenty of fluids and eat a diet high in fiber and fruits. Please be aware that prescription narcotics also have the potential for abuse. People become addicted to these medications because of the general sense of wellbeing that they induce. This feeling along with a significant reduction in tension, anxiety, and aggression provides a stimulating seductive quality to these drugs. Once your pain is under control, we encourage you to discard your unused narcotics. Ice Packs Apply ice packs frequently against the painful area. Many different schedules are recommended, such as "20 minutes on, 20 minutes off" or "one hour ice, two hours rest." If you need to work, you may need to go longer between ice treatments. You should plan to have the area ice packed AT LEAST one fourth of the time. The ice should be applied over the wrap, tape, or splint, or over a layer of cloth -- not directly against the skin. Some ice bags have a built-in cloth and can be put directly on the skin WARM PACKS: After approximately two days, apply gentle heat (such as a heating pad or hot water bottle) for about 20 to 30 minutes about every two hours -- at least four times daily. Warmth and elevation will help you make a more rapid recovery, and will ease the pain considerably. Do not use HOT heat, and never apply heat for longer than 30 minutes. The continuous heat can invisibly damage skin and muscles -- even when no burn is seen on the surface. Damaged muscles can make you MORE sore. FOLLOW-UP CARE: If you have been referred to a physician for follow-up care, call the physicians office for an appointment as you were instructed or within the next two days. If you experience worsening or a significant change in your symptoms, notify the physician immediately or return to the Emergency Department at any time for re-evaluation. Referrals: [facility] [Provider Group] - Follow up as needed
[2019-07-28] MEDS ORDERED: OXYCODONE-ACETAMINOPHEN 5-325 MG TABLET PO ONE (12:51)
== END 2019-07-28 13:00 | disposition home or self-care (01) ==
LOC: ER 11:51
DX: G89.29 Other chronic pain (principal); M54.5 Low back pain; E78.00 Pure hypercholesterolemia, unspecified; I10 Essential (primary) hypertension; Z90.710 Acquired absence of both cervix and uterus; Z88.6 Allergy status to analgesic agent
CPT/HCPCS: 99283

== ENCOUNTER 2019-09-25 12:16 | Emergency (ER) | payer SELFPAY ==
[2019-09-25] MEDS ORDERED: ONDANSETRON HCL INJ/PF 4 MG/2 ML SDV IV ONE (12:28)
[2019-09-25] MEDS ORDERED: DIPHENHYDRAMINE HCL 50 MG/ML VIAL IV ONE (12:28)
[2019-09-25] MEDS ORDERED: NORMAL SALINE 1000 ML 1,000 ML IV ONE (12:28)
--- NOTE | 2019-09-25 12:32 | ER Document Report ---
ED Medical Screen (RME) - General Chief Complaint: Headache Stated Complaint: MIGRAINE Time Seen by Provider: 09/25/19 12:21 TRAVEL OUTSIDE OF THE [place] IN LAST 30 DAYS: No - HPI Notes: 09/25/19 12:29 34-year-old female presents to the emergency room via EMS for a headache in which they noted that she refused to give any information. Patient states she started with a headache this morning as well as shortness of breath, patient refused to give this provider any information because she reports "I have a headache I should not have to answer any of these questions". pt was able to report that she has blurred vision double vision loss of vision, reports that this headache is "the worst headache of my life". Patient states her father gave her a pill today but was not sure what it was, she thinks that something for her allergies. Patient states that she does not want to answer any questions and she should not have to because she is "here all the time". I have greeted and performed a rapid initial assessment of this patient. A comprehensive ED assessment and evaluation of the patient, analysis of test results and completion of the medical decision making process will be conducted by additional ED providers. PHYSICAL EXAMINATION: GENERAL: Well-appearing, well-nourished and in no acute distress. HEAD: Atraumatic, normocephalic. EYES: Pupils equal round extraocular movements intact, conjunctiva are normal CV: s1, s2 regular LUNGS: No respiratory distress NEUROLOGICAL: Normal speech, - Related Data Allergies/Adverse Reactions: ketorolac [From Toradol] Allergy (Verified 09/25/19 12:21) Hives codeine [From Tylenol-Codeine #3] Adverse Reaction (Verified 09/25/19 12:21) Anxiety tramadol Adverse Reaction (Verified 09/25/19 12:21) Anxiety Past Medical History - Past Medical History Cardiac Medical History: Reports: Hx Hypercholesterolemia, Hx Hypertension Renal/ Medical History: Reports: Hx Ovarian Cysts. Denies: Hx Peritoneal Dialysis GI Medical History: Reports: Hx Ulcer Musculoskeltal Medical History: Reports Hx Muscle Spasm, Reports Hx Musculoskeletal Deformity, Reports Hx Musculoskeletal Trauma Psychiatric Medical History: Reports: Hx Anxiety, Hx Depression - anxiety Past Surgical History: Reports: Hx Abdominal Surgery, Hx Section - 4, Hx Hysterectomy, Hx Kidney (Renal Surgery) - one removed - Immunizations Immunizations up to date: Yes Hx Diphtheria, Pertussis, Tetanus Vaccination: Yes - 2015 Physical Exam - Vital signs Vitals: Temp Pulse Resp BP Pulse Ox 98.1 F 79 14 114/91 H 100 09/25/19 12:19 09/25/19 12:19 09/25/19 12:19 09/25/19 12:19 09/25/19 12:19 Course - Vital Signs Vital signs: Temp Pulse Resp BP Pulse Ox 98.1 F 79 14 114/91 H 100 09/25/19 12:19 09/25/19 12:19 09/25/19 12:19 09/25/19 12:19 09/25/19 12:19
--- NOTE | 2019-09-25 13:38 | RADIOLOGY REPORT (SQ) ---
EXAM DESCRIPTION: CT HEAD WITHOUT IMAGES COMPLETED DATE/TIME: 09/25/2019 12:58 pm REASON FOR STUDY: worst LORENZ of life per pt COMPARISON: 09/11/2013 TECHNIQUE: Axial images acquired through the brain without intravenous contrast. Images reviewed wi th bone, brain and subdural windows. Additional sagittal and coronal reconstructions were generated. Images stored on PACS. All CT scanners at this facility use dose modulation, iterative reconstruction, and/or weight based d osing when appropriate to reduce radiation dose to as low as reasonably achievable (ALARA). [facility]: Dose Right [facility]: CareDose [facility]: Dose Right [facility]: Teradose 4D [facility]: Celery RADIATION DOSE: CT Rad equipment meets quality standard of care and radiation dose reduction techniq ues were employed. CTDIvol: 53.2 mGy. DLP: 991 mGy-cm. mGy. LIMITATIONS: None. FINDINGS: VENTRICLES: Normal size and contour. CEREBRUM: No masses. No hemorrhage. No midline shift. No evidence for acute infarction. Normal gra y/white matter differentiation. No areas of low density in the white matter. CEREBELLUM: No masses. No hemorrhage. No alteration of density. No evidence for acute infarction. EXTRAAXIAL SPACES: No fluid collections. No masses. ORBITS AND GLOBE: No intra- or extraconal masses. Normal contour of globe without masses. CALVARIUM: No fracture. PARANASAL SINUSES: No fluid or mucosal thickening. SOFT TISSUES: No mass or hematoma. OTHER: No other significant finding. IMPRESSION: NORMAL BRAIN CT WITHOUT CONTRAST. EVIDENCE OF ACUTE STROKE: NO. COMMENT: Quality ID # [id number]: Final reports with documentation of one or more dose reduction techniques (e.g., Automated exposure control, adjustment of the mA and/or kV according to patient size, use of iterative reconstruction technique) TECHNICAL DOCUMENTATION: JOB ID: [id number] 2010 [employer]- All Rights Reserved Reading location - IP/workstation name: [email or web address]
[2019-09-25] MEDS ORDERED: PROCHLORPERAZINE EDISYLATE INJ 10 MG/2 ML VIAL IV ONE ×2 (13:43→14:17)
[2019-09-25 13:51] LABS: ABSOLUTE LYMPHOCYTES (AUTO) 0.9 10^3/uL (0.5-4.7); ABSOLUTE MONOCYTES (AUTO) 0.6 10^3/uL (0.1-1.4); ABSOLUTE NEUT (AUTO) 4.6 10^3/uL (1.7-8.2); BASOPHILS % (AUTO) 0.3 % (0-2); EOSINOPHILS % (AUTO) 0.7 % (0-6); HEMATOCRIT 41.4 % (36.0-47.0); HEMOGLOBIN 13.5 g/dL (12.0-15.5); LYMPHOCYTES % (AUTO) 14.4 % (13-45); MEAN CORPUSCULAR HEMOGLOBIN 25.6 pg (27.0-33.4); MEAN CORPUSCULAR HGB CONC 32.7 g/dL (32.0-36.0); MEAN CORPUSCULAR VOLUME 78 fl (80-97); MONOCYTES % (AUTO) 9.1 % (3-13); PLATELET COUNT 166 10^3/uL (150-450); RED BLOOD COUNT 5.28 10^6/uL (3.72-5.28); RED CELL DISTRIBUTION WIDTH 14.7 % (11.5-14.0); SEGMENTED NEUTROPHILS % (AUTO) 75.5 % (42-78); TOTAL CELLS COUNTED % (AUTO) 100 %
[2019-09-25 14:00] LABS: APPEARANCE,URINE SLIGHTLY-CLOUDY; BILIRUBIN,URINE NEGATIVE (NEGATIVE); COLOR,URINE YELLOW; GLUCOSE, URINE NEGATIVE (NEGATIVE); KETONES,URINE NEGATIVE (NEGATIVE); LEUKOCYTE ESTERASE,URINE MODERATE (NEGATIVE); NITRITE,URINE NEGATIVE (NEGATIVE); PROTEIN,URINE NEGATIVE (NEGATIVE); URINE SPECIFIC GRAVITY 1.018; UROBILINOGEN,URINE NEGATIVE mg/dL (<2.0)
[2019-09-25 14:08] LABS: ALBUMIN 4.2 g/dL (3.5-5.0); ALKALINE PHOSPHATASE 59 U/L (38-126); ANION GAP 7 (5-19); ASPARTATE AMINO TRANSFERASE 20 U/L (14-36); BILIRUBIN,TOTAL 0.5 mg/dL (0.2-1.3); BLOOD UREA NITROGEN 15 mg/dL (7-20); CALCIUM 9.4 mg/dL (8.4-10.2); CARBON DIOXIDE 31 mmol/L (22-30); CHLORIDE 98 mmol/L (98-107); GLUCOSE 110 mg/dL (75-110); POTASSIUM 4.4 mmol/L (3.6-5.0); TOTAL PROTEIN 7.5 g/dL (6.3-8.2)
[2019-09-25 14:26] LABS: ERYTHROCYTE SEDIMENTATION RATE 7 mm/hr (0-20)
[2019-09-25 14:59] VITALS: BP 117/83
--- NOTE | 2019-09-25 15:00 | ER Document Report ---
Entered by NIMA ESCUDERO SCRIBE 09/25/19 1259 Acting as scribe for:CARIDAD HUA MD ED General - General Chief Complaint: Headache Stated Complaint: MIGRAINE Time Seen by Provider: 09/25/19 12:21 Mode of Arrival: Medic Information source: Patient, Emergency Med Personnel, [facility] Records Notes: This 34-year-old female patient comes emergency room via EMS 911 system this morning complaints of headache. She states that when she woke up this morning she noticed that her vision was blurry, she had a headache, and she felt hot. She says she drank 3 glasses of water, took some Motrin, and went back to sleep for about an hour. When she woke up from this nap her headache was worse. She took an over the counter medication from her father which she thinks was Xyzal. It did not help. Reviewing the EMS run sheet, they noted the patient refused to give any inform ation. The nurses caring for the patient also stated she refused to answer any questions and was quite rude to them. The triage provider's note also mentions that she "refused to give this provider any information because she reports "I have a headache I should not have to answer any of these questions". TRAVEL OUTSIDE OF THE [place] IN LAST 30 DAYS: No - Related Data Allergies/Adverse Reactions: ketorolac [From Toradol] Allergy (Verified 09/25/19 12:21) Hives codeine [From Tylenol-Codeine #3] Adverse Reaction (Verified 09/25/19 12:21) Anxiety tramadol Adverse Reaction (Verified 09/25/19 12:21) Anxiety Past Medical History - General Information source: Patient, Emergency Med Personnel, [facility] Records - Social History Smoking Status: Unknown if Ever Smoked Cigarette use (# per day): No Chew tobacco use (# tins/day): No Smoking Education Provided: No Frequency of alcohol use: None Drug Abuse: Marijuana Family History: Reviewed & Not Pertinent, CAD, DM, Hyperlipidemia, Hypertension, Malignancy Patient has suicidal ideation: No Patient has homicidal ideation: No Renal/ Medical History: Reports: Hx Ovarian Cysts GI Medical History: Reports: Hx Ulcer Musculoskeletal Medical History: Reports Hx Muscle Spasm, Reports Hx Musculoskeletal Deformity, Reports Hx Musculoskeletal Trauma Psychiatric Medical History: Reports: Hx Anxiety, Hx Depression Past Surgical History: Reports: Hx Section - 4, Hx Hysterectomy, Hx Kidney (Renal Surgery) - one removed - Immunizations Immunizations up to date: Yes Hx Diphtheria, Pertussis, Tetanus Vaccination: Yes - 2014 Review of Systems - Review of Systems Neurological/Psychological: See HPI, Headaches Physical Exam - Vital signs Vitals: Temp Pulse Resp BP Pulse Ox 98.1 F 79 14 114/91 H 100 09/25/19 12:19 09/25/19 12:19 09/25/19 12:19 09/25/19 12:19 09/25/19 12:19 - Notes Notes: PHYSICAL EXAMINATION: GENERAL: Well-appearing, well-nourished and in no acute distress. Patient is on cell phone speaking with someone when we entered the room. HEAD: Atraumatic, normocephalic. Temporal and frontal scalp is very tender to palpate. Posterior cervical muscles are tender to palpate with the left greater than the right. EYES: Pupils equal round and reactive to light, extraocular movements intact, sclera anicteric, conjunctiva are normal. ENT: nares patent, oropharynx clear without exudates. Moist mucous membranes. NECK: Normal range of motion, supple without lymphadenopathy. Tenderness to the posterior cervical muscles, left greater than right, some tenderness to trapezius muscles. LUNGS: Breath sounds clear to auscultation bilaterally and equal. No wheezes rales or rhonchi. HEART: Regular rate and rhythm without murmurs ABDOMEN: Soft, nontender, normoactive bowel sounds. No guarding, no rebound. No masses appreciated. EXTREMITIES: Normal range of motion, no pitting or edema. No cyanosis. NEUROLOGICAL: Cranial nerves grossly intact. Normal speech, normal gait. Normal sensory, motor, and reflex exams. PSYCH: Normal mood, normal affect. SKIN: Warm, Dry, normal turgor, no rashes or lesions noted. Course - Re-evaluation Re-evalutation: 09/25/19 15:01 While I was seeing the patient, and noted that the IV fluids were not running. I found that it was clamped off adjacent to the IV site, so I opened it up and allow the fluids to flow. I told the patient I was going to order some additional medications for her headache, she states the Benadryl she received did not help any. After I put the order in, the nurse came and told me the patient stated she wanted IV out and she was leaving. I canceled the Compazine order. Sometime later, the nurse told me the patient change her mind and will stay and wants to be treated. I reentered the Compazine order. I did go back to speak with the patient because her chart shows she is allergic to Toradol, wh ile she told me only tramadol and codeine. I also noticed she had received Toradol many times in the past. In trying to clear this up with the patient, she claimed that she had a severe reaction, I asked Roel and she stated just now when I opened the IV up it because the medicine that was in the tube to go into her and caused a reaction. She also implied it was Toradol that caused the reaction, but she did not receive any of that medicine. She also began complaining that I was not treating her back pain, and I was not doing anything about her high blood pressure. Her blood pressure was 114/91 when she checked in. She also repeatedly stated that they always treat her with Percocet and that is what she needs. I informed her that we are not in the habit of using narcotics to treat tension headaches or chronic pain in the emergency room. She then stated she just wanted the IV out and wanted to leave. I said that would be fine because I did not see any emergency medical condition. - Vital Signs Vital signs: Temp Pulse Resp BP Pulse Ox 98.8 F 94 16 117/83 100 09/25/19 14:57 09/25/19 14:57 09/25/19 14:57 09/25/19 14:57 09/25/19 14:57 - Laboratory Result Diagrams: 09/25/19 13:27 09/25/19 13:27 Laboratory results interpreted by me: 09/25/19 09/25/19 09/25/19 13:27 13:27 13:27 MCV 78 L MCH 25.6 L RDW 14.7 H Sodium 135.7 L Carbon Dioxide 31 H Creatinine 0.51 L Ur Leukocyte Esterase MODERATE H Discharge - Discharge Clinical Impression: Chronic back pain greater than 3 months duration Tension type headache Qualifiers: Headache chronicity pattern: unspecified pattern Intractability: not intractable Qualified Code(s): G44.209 - Tension-type headache, unspecified, not intractable Condition: Stable Disposition: HOME, SELF-CARE Additional Instructions: Tension Headache Your problem has been diagnosed as muscle tension headache. This very comm on type of headache occurs because of tightness in the muscles of the head and neck. The cause may be neck or jaw joint problems, but most commonly the cause is emotional stress. The headache may last hours or days. The treatment of uncomplicated tension headaches is rest and pain medication. Often, the newer antiinflammatory pain medications are prescribed, as these also decrease the irritability of the painful tissues. Muscle relaxers, cold packs, or warm packs are sometimes helpful. Anti-anxiety medication or narcotics are sometimes needed temporarily, but are best avoided in the long run. Your doctor has evaluated your headache problem, and finds no evidence of a serious health problem as a cause for the headache. If your headache becomes more severe, or if new symptoms develop (such as fever, stiff neck, vomiting, or decreasing alertness) you should be re-examined by the physician. Chronic Back Pain Chronic back pain (pain persisting longer than three months) is a common problem. A medical evaluation can look for herniated disc, arthritis, osteoporosis, tumors, and infections. But at least half the time, there's no obvious treatable cause. Anxiety and depression tend to worsen back pain. Ibuprofen or other anti-inflammatory medicine can help. A heating pad, used for 15-20 minutes at a time, can ease pain. For this type of back pain, narcotic medicines should be avoided. Muscle relaxers are rarely helpful unless you're having spasms. Activity is important. Find an aerobic exercise program that your back can tolerate. Too much rest makes back pain worse. Specific back exercises are usually prescribed to strengthen the back and abdominal muscles. Often, a physical therapist can help. Avoid heavy lifting, working while bent over, or standing with both knees straight. Most back pain patients do better with a firm mattress. If new symptoms of a "herniated disc" (radiation of pain, numbness, or tingling down the back of the leg or weakness in the leg) occur, you should be re-examined. You have decided to refuse the medication I wanted to offer you for your headache. I have informed you that we do not treat chronic back pain with narcotics in the emergency room. You should follow-up with your primary care provider for management of your pain issues. I personally performed the services described in the documentation, reviewed and edited the documentation which was dictated to the scribe in my presence, and it accurately records my words and actions.
== END 2019-09-25 14:57 | disposition home or self-care (01) ==
LOC: ER 12:16
DX: G44.209 Tension-type headache, unspecified, not intractable (principal); M54.9 Dorsalgia, unspecified; G89.29 Other chronic pain; Z88.8 Allergy status to other drugs, medicaments and biological substances
CPT/HCPCS: 99284; 96361; 96374; 96375; 36415; 85025; 85652; 81025; 80053; 81001; 70450; J1200; J2405; J7030

== ENCOUNTER 2019-11-15 13:23 | Emergency (ER) | payer SELFPAY ==
[2019-11-15 13:35] VITALS: BP 119/71
[2019-11-15] MEDS ORDERED: DEXAMETHASONE SOD PHOS INJ 10 MG/1 ML VIAL IM ONE (14:06)
[2019-11-15] MEDS ORDERED: OXYCODONE-ACETAMINOPHEN 5-325 MG TABLET PO ONE (14:07)
[2019-11-15 14:28] LABS: APPEARANCE,URINE CLEAR; BILIRUBIN,URINE NEGATIVE (NEGATIVE); COLOR,URINE YELLOW; GLUCOSE, URINE NEGATIVE (NEGATIVE); KETONES,URINE NEGATIVE (NEGATIVE); LEUKOCYTE ESTERASE,URINE NEGATIVE (NEGATIVE); NITRITE,URINE NEGATIVE (NEGATIVE); PROTEIN,URINE NEGATIVE (NEGATIVE); URINE SPECIFIC GRAVITY 1.015; UROBILINOGEN,URINE NEGATIVE mg/dL (<2.0)
--- NOTE | 2019-11-15 14:50 | ER Document Report ---
ED Medical Screen (RME) - General Chief Complaint: Back Pain Stated Complaint: BACK PAIN/HIGH BLOOD PRESSURE Time Seen by Provider: 11/15/19 13:50 Mode of Arrival: Ambulatory Information source: Patient Notes: 34-year-old female patient presenting to the emergency department with chief complaint of low back pain. Patient reports she has chronic back pain from her scoliosis however she also reports she was diagnosed with a tumor in her back about a year ago and reports that the pain is worsening. She denies any new injury. Denies any loss of control of bowel or bladder. She ambulated into the emergency department with a steady gait. There is vertebral tenderness in the lumbar spine. Patient adamantly requesting new imaging today. I have greeted and performed a rapid initial assessment of this patient. A comprehensive ED assessment and evaluation of the patient, analysis of test results and completion of the medical decision making process will be conducted by additional ED providers. I have specifically instructed the patient or family members with the patient to immediately return to any nursing staff should anything change in the patient's condition or with their chief complaint. TRAVEL OUTSIDE OF THE [place] IN LAST 30 DAYS: No - Related Data Allergies/Adverse Reactions: ketorolac [From Toradol] Allergy (Verified 09/25/19 12:21) Hives codeine [From Tylenol-Codeine #3] Adverse Reaction (Verified 09/25/19 12:21) Anxiety tramadol Adverse Reaction (Verified 09/25/19 12:21) Anxiety Past Medical History - Social History Frequency of alcohol use: None Drug Abuse: None - Past Medical History Cardiac Medical History: Reports: Hx Hypercholesterolemia, Hx Hypertension Renal/ Medical History: Reports: Hx Ovarian Cysts. Denies: Hx Peritoneal Dialysis GI Medical History: Reports: Hx Ulcer Musculoskeltal Medical History: Reports Hx Muscle Spasm, Reports Hx Musculoskeletal Deformity, Reports Hx Musculoskeletal Trauma Psychiatric Medical History: Reports: Hx Anxiety, Hx Depression Past Surgical History: Reports: Hx Abdominal Surgery, Hx Section - x4, Hx Hysterectomy, Hx Kidney (Renal Surgery) - one removed - Immunizations Immunizations up to date: Yes Hx Diphtheria, Pertussis, Tetanus Vaccination: Yes - 2014 Physical Exam - Vital signs Vitals: Temp Pulse Resp BP Pulse Ox 98.1 F 83 16 119/71 100 11/15/19 13:34 11/15/19 13:34 11/15/19 13:34 11/15/19 13:34 11/15/19 13:34 Course - Vital Signs Vital signs: Temp Pulse Resp BP Pulse Ox 98.1 F 83 16 119/71 100 11/15/19 14:04 11/15/19 13:34 11/15/19 13:34 11/15/19 13:34 11/15/19 13:34
--- NOTE | 2019-11-15 16:00 | RADIOLOGY REPORT (SQ) ---
EXAM DESCRIPTION: CT LUMBAR SPINE WITHOUT IMAGES COMPLETED DATE/TIME: 11/15/2019 3:45 pm REASON FOR STUDY: low back pain worsening, pt reports hx of tumor COMPARISON: 10/06/2009, 06/06/2018 TECHNIQUE: Axial images acquired through the lumbar spine without intravenous contrast. Images revi ewed with lung, soft tissue and bone windows. Reconstructed coronal and sagittal MPR images reviewed . All images stored on PACS. All CT scanners at this facility use dose modulation, iterative reconstruction, and/or weight based d osing when appropriate to reduce radiation dose to as low as reasonably achievable (ALARA). [facility]: Dose Right [facility]: CareDose [facility]: Dose Right [facility]: Teradose 4D [facility]: CL3VER RADIATION DOSE: mGy. LIMITATIONS: None. FINDINGS: SEGMENTATION: Normal. No transitional anatomy. ALIGNMENT: Mild serpiginous thoracolumbar curvature. VERTEBRAL BODIES: No fractures. No dislocation. No acute findings. DISCS: Mild disc height loss at L4-5 and L5-S1. Broad posterior disc bulge at L3-4, L4-5 and L5-S1. No evidence of high-grade spinal canal stenosis although evaluation limited without intrathecal cont rast. There is mild associated neural foraminal narrowing at those levels secondary to disc disease. PEDICLES, TRANSVERSE PROCESSES: No fractures. No dislocation. No suspicious osseous lesions. FACETS, POSTERIOR ELEMENTS: No significant facet arthropathy. No facet dislocation. HARDWARE: None in the spine. VISUALIZED RIBS: No fractures. SOFT TISSUES: Absent right kidney. OTHER: No other significant finding. IMPRESSION: 1. No evidence of acute bony abnormality of the lumbar spine. 2. Mild multilevel disc height loss and posterior disc bulges from L3-S1 without high-grade spinal c anal stenosis or neural foraminal narrowing. Evaluation limited without intrathecal contrast. TECHNICAL DOCUMENTATION: JOB ID: [id number] Quality ID # [id number]: Final reports with documentation of one or more dose reduction techniques (e.g., Au tomated exposure control, adjustment of the mA and/or kV according to patient size, use of iterative reconstruction technique) 2010 [employer]- All Rights Reserved Reading location - IP/workstation name: [email or web address]
--- NOTE | 2019-11-15 16:44 | ER Document Report ---
ED General - General Chief Complaint: Back Pain Stated Complaint: BACK PAIN/HIGH BLOOD PRESSURE Time Seen by Provider: 11/15/19 13:50 Mode of Arrival: Ambulatory TRAVEL OUTSIDE OF THE [place] IN LAST 30 DAYS: No - HPI Notes: Patient is a 34-year-old female who presents to the emergency department for evaluation of lower back pain. She has chronic low back pain. She has scoliosis. She states she was also diagnosed with a "tumor" in her back about a year ago. She states she does not have money to see a doctor. She went to [facility], and they told her she would need to see pain management. She states that her pain is been increasing over the last several months. She denies any bowel or bladder incontinence, no saddle anesthesia, no focal numbness or weakness. She states he tries [id number] medications and they do not help. - Related Data Allergies/Adverse Reactions: ketorolac [From Toradol] Allergy (Verified 09/25/19 12:21) Hives codeine [From Tylenol-Codeine #3] Adverse Reaction (Verified 09/25/19 12:21) Anxiety tramadol Adverse Reaction (Verified 09/25/19 12:21) Anxiety Past Medical History - General Information source: Patient - Social History Smoking Status: Unknown if Ever Smoked Frequency of alcohol use: None Drug Abuse: None Family History: Reviewed & Not Pertinent, CAD, DM, Hyperlipidemia, Hypertension, Malignancy Patient has homicidal ideation: No - Past Medical History Cardiac Medical History: Reports: Hx Hypercholesterolemia, Hx Hypertension Renal/ Medical History: Reports: Hx Ovarian Cysts. Denies: Hx Peritoneal Dialysis GI Medical History: Reports: Hx Ulcer Musculoskeletal Medical History: Reports Hx Muscle Spasm, Reports Hx Musculoskeletal Deformity, Reports Hx Musculoskeletal Trauma Psychiatric Medical History: Reports: Hx Anxiety, Hx Depression Past Surgical History: Reports: Hx Abdominal Surgery, Hx Section - x4, Hx Hysterectomy, Hx Kidney (Renal Surgery) - one removed - Immunizations Immunizations up to date: Yes Hx Diphtheria, Pertussis, Tetanus Vaccination: Yes - 2015 Review of Systems - Review of Systems Musculoskeletal: See HPI -: Yes All other systems reviewed and negative Physical Exam - Vital signs Vitals: Temp Pulse Resp BP Pulse Ox 98.1 F 83 16 119/71 100 11/15/19 13:34 11/15/19 13:34 11/15/19 13:34 11/15/19 13:34 11/15/19 13:34 - Notes Notes: Vital signs reviewed, please refer to chart. Head is normocephalic, atraumatic. Pupils equal round, reactive to light. Neck is supple without meningismus. Heart is regular rate and rhythm. Lungs are clear to auscultation bilaterally. Abdomen is soft, nontender, normoactive bowel sounds throughout. Examination of the spine shows no midline tenderness step-off. She has paraspinal musculature tenderness throughout the lower lumbar spine. Negative straight leg raise bilaterally. Patellar and Achilles reflexes are 2+ and 1+ respectively. They are symmetrical bilaterally. Sensation appears to be intact. Extremities without cyanosis, clubbing. Posterior calves are nontender. Peripheral pulses are equal. Skin is warm and dry. Patient is awake, alert, neurological exam is nonfocal. Course - Re-evaluation Re-evalutation: 11/15/19 16:47 Patient presents to the emergency department for evaluation. She admits this is an exacerbation of her chronic back pain. I explained to the patient that I could not write narcotic medications for this, would be happy to write steroids and muscle relaxers. Patient became very agitated and belligerent. She started screaming about how another provider gave her "percs for getting a ring off of my finger, how come you cannot write me some?" I explained to the patient that I was apologetic for her noticing this being an inconsistent level of care, but I did not feel comfortable writing Percocet for this patient. I did also note that she has a history of polysubstance abuse per her prior diagnoses here in the emergency department. I tried to explain to the patient my reasoning, she threw me out of the room. I did write discharge papers, wrote a prescription for Robaxin and steroids. I explained to her that she should follow-up as soon as possible and return to the ED with worsening. - Vital Signs Vital signs: Temp Pulse Resp BP Pulse Ox 98.1 F 83 16 119/71 100 11/15/19 14:04 11/15/19 13:34 11/15/19 13:34 11/15/19 13:34 11/15/19 13:34 - Diagnostic Test Radiology reviewed: Reports reviewed Radiology results interpreted by me: 11/15/19 16:[address] 11/15/19 14:48 IMPRESSION: 1. No evidence of acute bony abnormality of the lumbar spine. 2. Mild multilevel disc height loss and posterior disc bulges from L3-S1 w ithout high-grade spinal canal stenosis or neural foraminal narrowing. Evaluation limited without intrathecal contrast. Discharge - Discharge Clinical Impression: Chronic low back pain Qualifiers: Back pain laterality: bilateral Sciatica presence: without sciatica Qualified Code(s): M54.5 - Low back pain Condition: Stable Disposition: HOME, SELF-CARE Instructions: Low Back Pain ([facility]) Additional Instructions: Take medications as prescribed. Moist heat to the lower back. Follow-up with primary care next week. Return to the emergency department with worsening or new concerning symptoms of any sort. Prescriptions: Prednisone [Deltasone 20 mg Tablet] See Protocol PO DAILY 5 Days #20 tablet Methocarbamol [Robaxin-750] 750 mg PO TID PRN #21 tablet PRN Reason:
== END 2019-11-15 17:05 | disposition home or self-care (01) ==
LOC: ER 13:23
DX: M54.5 Low back pain (principal); G89.29 Other chronic pain; M41.9 Scoliosis, unspecified; E78.00 Pure hypercholesterolemia, unspecified; I10 Essential (primary) hypertension; Z88.6 Allergy status to analgesic agent
CPT/HCPCS: 99284; 96372; 81001; 72131; J1100

== ENCOUNTER 2019-11-25 23:10 | Emergency (ER) | payer SELFPAY ==
--- NOTE | 2019-11-26 00:38 | ER Document Report ---
ED General Pain - General Chief Complaint: Dizziness Stated Complaint: BACK PAIN Time Seen by Provider: 11/26/19 00:28 Notes: CHIEF COMPLAINT: Back pain, hypertension, dizziness HPI: History is obtained from the patient and the records that were reviewed. A 34-year-old female with a history of chronic back pain presenting by EMS again for evaluation and management of her chronic back pain. Patient states that she does have a blood pressure machine at home and when she checks her pressure at home it is normally 120/80. When her back pain becomes out of control she states her blood pressure elevates as it did today. Patient states that she felt slightly lightheaded and worn out today because she has not eaten today. She denies headache. She denies neck pain chest pain shortness of breath. She denies abdominal pain pelvic pain incontinence of urine or bowel. States the back pain that she has is in the lower back and is caused by her chronic sciatic issues. She states she has no insurance so has not followed up despite multiple visits to the emergency department for back pain issues. Patient states the back pain she is having today is similar to the back pain that she typically has. ROS: See HPI - all other systems were reviewed and are otherwise negative Constitutional: no fever Eyes: no drainage, no blurred vision ENT: no runny nose, no sore throat Cardiovascular: no chest pain Resp: no SOB, no cough GI: no vomiting, no diarrhea, no abdominal pain : no dysuria Integumentary: no rash Allergy: no hives Musculoskeletal: no extremity pain or swelling, positive back pain Neurological: no numbness/tingling, no weakness MEDICATIONS: I agree with the patient medications as charted by the RN. ALLERGIES: I agree with the allergies as charted by the RN. PAST MEDICAL HISTORY/PAST SURGICAL HISTORY: Reviewed and agree as charted by RN. SOCIAL HISTORY: Reviewed and agree as charted by RN. FAMILY HISTORY: No significant familial comorbid conditions directly related to patient complaint EXAM: Reviewed vital signs as charted by RN. CONSTITUTIONAL: Alert and oriented and responds appropriately to questions. Well-appearing; well-nourished HEAD: Normocephalic; atraumatic EYES: PERRL; Conjunctivae clear, sclerae non-icteric ENT: normal nose; no rhinorrhea; moist mucous membranes; pharynx without lesions noted, no uvula edema or deviation, no tonsillar hypertrophy, phonation normal NECK: Supple without meningismus; non-tender; no cervical lymphadenopathy, no masses CARD: RRR; no murmurs, no clicks, no rubs, no gallops; symmetric distal pulses RESP: Normal chest excursion without splinting or tachypnea; breath sounds clear and equal bilaterally; no wheezes, no rhonchi, no rales, pulse oximetry ABD/GI: Normal bowel sounds; non-distended; soft, non-tender, no rebound, no guarding; no palpable organomegaly or masses. BACK: The back appears normal and is mildly tender to palpation across the lumbar back, there is no CVA tenderness EXT: Normal ROM in all joints; non-tender to palpation; no cyanosis, no effusions, no edema SKIN: Normal color for age and race; warm; dry; good turgor; no acute lesions noted NEURO: Moves all extremities equally; Motor and sensory function intact. Strength equal 5/5 bilateral lower extremities. Sensation intact and equal bilateral lower extremities. Straight leg raise is negative. No saddle anesthesia on exam. DTRs 2+ intact and equal bilateral lower extremities. PSYCH: The patient's mood and manner are appropriate. Grooming and personal hygiene are appropriate. MDM: 34-year-old female presenting again for back pain. She has been seen multiple times in the past for this most recently 1 week ago where she had negative urinalysis and negative lumbar spine CT. She did show some degenerative changes but no acute findings. I spoke with the patient at length. Her dizziness complaint is actually just feeling slightly lightheaded and worn out because she states she has not eaten today. She is no unilateral symptoms suggesting an acute CVA. Her primary presentation is for the back pain. I did offer testing including urinalysis and lab work given her complaints she declines any testing in the emergency department at this time stating "I am going to be honest with you I really just want something for my back pain and I want to be discharged to go home. I know that I need to follow-up with someone regarding this". As patient is declining any further testing at this time we will treat the patient's pain and discharge, will provide her with medical referral for follow-up TRAVEL OUTSIDE OF THE [place] IN LAST 30 DAYS: No - Related Data Allergies/Adverse Reactions: ketorolac [From Toradol] Allergy (Verified 11/26/19 00:05) Hives codeine [From Tylenol-Codeine #3] Adverse Reaction (Verified 11/26/19 00:05) Anxiety tramadol Adverse Reaction (Verified 11/26/19 00:05) Anxiety Home Medications: Motrin 800mg PRN Back pain Past Medical History - Social History Smoking Status: Never Smoker Chew tobacco use (# tins/day): No Frequency of alcohol use: Occasional Drug Abuse: None Family History: Reviewed & Not Pertinent, CAD, DM, Hyperlipidemia, Hypertension, Malignancy Patient has homicidal ideation: No - Past Medical History Cardiac Medical History: Reports: Hx Hypercholesterolemia, Hx Hypertension Renal/ Medical History: Reports: Hx Ovarian Cysts. Denies: Hx Peritoneal Dialysis GI Medical History: Reports: Hx Ulcer Musculoskeletal Medical History: Reports Hx Muscle Spasm, Reports Hx Musculoskeletal Deformity, Reports Hx Musculoskeletal Trauma Psychiatric Medical History: Reports: Hx Anxiety, Hx Depression Past Surgical History: Reports: Hx Abdominal Surgery, Hx Section - x4, Hx Hysterectomy, Hx Kidney (Renal Surgery) - one removed - Immunizations Immunizations up to date: Yes Hx Diphtheria, Pertussis, Tetanus Vaccination: Yes - 2014 Physical Exam - Vital signs Vitals: Temp 98.1 F 11/25/19 23:10 Course - Vital Signs Vital signs: Temp Pulse Resp BP Pulse Ox 98.1 F 82 18 148/101 H 98 11/25/19 23:27 11/25/19 23:27 11/25/19 23:27 11/25/19 23:27 11/25/19 23:27 Discharge - Discharge Clinical Impression: Chronic back pain Qualifiers: Back pain location: low back pain Back pain laterality: bilateral Sciatica presence: without sciatica Qualified Code(s): M54.5 - Low back pain Condition: Fair Disposition: HOME, SELF-CARE Additional Instructions: You have declined further treatment options today in the emergency department indicating you wish only pain management at discharge. It is imperative that you follow-up with a primary care provider or pain management physician for further evaluation and management of your chronic back problems. You will no longer receive narcotic treatment in the emergency department for this ongoing issue. You may follow-up with the health department. You may follow-up with your listed primary provider. This is an ongoing issue that you should establish with a primary provider with for further care
[2019-11-26] MEDS ORDERED: OXYCODONE-ACETAMINOPHEN 5-325 MG TABLET PO ONE (00:55)
[2019-11-26 01:29] VITALS: BP 110/75
== END 2019-11-26 01:30 | disposition home or self-care (01) ==
LOC: ER 23:10
DX: G89.29 Other chronic pain (principal); M54.5 Low back pain; M47.816 Spondylosis without myelopathy or radiculopathy, lumbar region; R42 Dizziness and giddiness; I10 Essential (primary) hypertension
CPT/HCPCS: 99284

== ENCOUNTER 2019-12-07 13:01 | Emergency (ER) | payer SELFPAY ==
[2019-12-07 13:22] VITALS: BP 131/94
--- NOTE | 2019-12-07 13:36 | ER Document Report ---
ED Medical Screen (RME) - General Chief Complaint: Back Pain Stated Complaint: POSSIBLE OVERDOSE Time Seen by Provider: 12/07/19 13:33 Primary Care Provider: SHIRA NEVAREZ PA-C [Primary Care Provider] - Follow up as needed Mode of Arrival: Wheelchair Information source: Patient Notes: 24-year-old female presents to ED for complaint of feeling like her heart was racing and almost passing out while trying to drive to the hospital. She states she was at a friend's house and they told her to try some medical medical marijuana for her pain as she has chronic back pain. She states she took 3 pulls of the joint and her heart started racing and she did not feel like she was going to be able to drive and she drove to the hospital in the walk-in. She does not feel well. She does she always have chronic back pain and thyroid problems and panic attacks as well as high blood pressure. She states she does not usually smoke marijuana. Patient is alert oriented respirations regular and unlabored speaking in full sentences. EKG does show sinus rhythm at 80 I have greeted and performed a rapid initial assessment of this patient. A comprehensive ED assessment and evaluation of the patient, analysis of test results and completion of medical decision making process will be conducted by an additional ED providers. TRAVEL OUTSIDE OF THE [place] IN LAST 30 DAYS: No - Related Data Allergies/Adverse Reactions: ketorolac [From Toradol] Allergy (Verified 12/07/19 13:26) Hives codeine [From Tylenol-Codeine #3] Adverse Reaction (Verified 12/07/19 13:26) Anxiety tramadol Adverse Reaction (Verified 12/07/19 13:26) Anxiety Past Medical History - Social History Chew tobacco use (# tins/day): No Drug Abuse: Marijuana - Past Medical History Cardiac Medical History: Reports: Hx Hypercholesterolemia, Hx Hypertension Renal/ Medical History: Reports: Hx Ovarian Cysts. Denies: Hx Peritoneal Dialysis GI Medical History: Reports: Hx Ulcer Musculoskeltal Medical History: Reports Hx Muscle Spasm, Reports Hx Musculoskeletal Deformity, Reports Hx Musculoskeletal Trauma Psychiatric Medical History: Reports: Hx Anxiety, Hx Depression Past Surgical History: Reports: Hx Abdominal Surgery, Hx Section - x4, Hx Hysterectomy, Hx Kidney (Renal Surgery) - one removed - Immunizations Immunizations up to date: Yes Hx Diphtheria, Pertussis, Tetanus Vaccination: Yes - 2014 Physical Exam - Vital signs Vitals: Temp Pulse Resp BP Pulse Ox 98.5 F 85 16 131/94 H 99 12/07/19 13:21 12/07/19 13:21 12/07/19 13:21 12/07/19 13:21 12/07/19 13:21 Course - Vital Signs Vital signs: Temp Pulse Resp BP Pulse Ox 98.5 F 85 16 131/94 H 99 12/07/19 13:27 12/07/19 13:21 12/07/19 13:21 12/07/19 13:21 12/07/19 13:21 Doctor's Discharge - Discharge Referrals: SHIRA NEVAREZ PA-C [Primary Care Provider] - Follow up as needed
--- NOTE | 2019-12-08 07:59 | EKG REPORT ---
SEVERITY:- NORMAL ECG - SINUS RHYTHM : Confirmed by: Dolores Monique MD 08-Dec-2019 07:58:30
== END 2019-12-07 13:33 | disposition left against medical advice (07) ==
LOC: ER 13:01
DX: F12.10 Cannabis abuse, uncomplicated (principal); M54.9 Dorsalgia, unspecified; G89.29 Other chronic pain; F41.0 Panic disorder [episodic paroxysmal anxiety]; R09.89 Other specified symptoms and signs involving the circulatory and respiratory systems; I10 Essential (primary) hypertension; Z53.20 Procedure and treatment not carried out because of patient's decision for unspecified reasons; Z88.8 Allergy status to other drugs, medicaments and biological substances
CPT/HCPCS: 93005; 93010; 99281

== ENCOUNTER 2020-01-17 09:40 | Emergency (ER) | payer SELFPAY ==
[2020-01-17 10:01] LABS: ABSOLUTE EOSINOPHILS # (AUTO) 0.1 10^3/uL (0.0-0.6); ABSOLUTE LYMPHOCYTES (AUTO) 1.9 10^3/uL (0.5-4.7); ABSOLUTE MONOCYTES (AUTO) 0.5 10^3/uL (0.1-1.4); ABSOLUTE NEUT (AUTO) 5.9 10^3/uL (1.7-8.2); BASOPHILS % (AUTO) 0.4 % (0-2); EOSINOPHILS % (AUTO) 1.2 % (0-6); HEMATOCRIT 39.4 % (36.0-47.0); HEMOGLOBIN 12.9 g/dL (12.0-15.5); LYMPHOCYTES % (AUTO) 22.6 % (13-45); MEAN CORPUSCULAR HEMOGLOBIN 26.2 pg (27.0-33.4); MEAN CORPUSCULAR HGB CONC 32.7 g/dL (32.0-36.0); MEAN CORPUSCULAR VOLUME 80 fl (80-97); MONOCYTES % (AUTO) 6.3 % (3-13); PLATELET COUNT 156 10^3/uL (150-450); RED BLOOD COUNT 4.91 10^6/uL (3.72-5.28); RED CELL DISTRIBUTION WIDTH 15.1 % (11.5-14.0); SEGMENTED NEUTROPHILS % (AUTO) 69.5 % (42-78); TOTAL CELLS COUNTED % (AUTO) 100 %; WHITE BLOOD COUNT 8.5 10^3/uL (4.0-10.5)
[2020-01-17 10:20] LABS: APPEARANCE,URINE SLIGHTLY-CLOUDY; BILIRUBIN,URINE NEGATIVE (NEGATIVE); COLOR,URINE STRAW; GLUCOSE, URINE >=500 mg/dL (NEGATIVE); KETONES,URINE NEGATIVE (NEGATIVE); LEUKOCYTE ESTERASE,URINE NEGATIVE (NEGATIVE); NITRITE,URINE NEGATIVE (NEGATIVE); PROTEIN,URINE 100 mg/dL (NEGATIVE); URINE SPECIFIC GRAVITY 1.011; UROBILINOGEN,URINE NEGATIVE mg/dL (<2.0)
[2020-01-17 10:24] LABS: ALBUMIN 3.4 g/dL (3.5-5.0); ALKALINE PHOSPHATASE 84 U/L (38-126); ANION GAP 6 (5-19); ASPARTATE AMINO TRANSFERASE 103 U/L (14-36); BILIRUBIN,TOTAL 0.2 mg/dL (0.2-1.3); BLOOD UREA NITROGEN 16 mg/dL (7-20); CALCIUM 8.4 mg/dL (8.4-10.2); CARBON DIOXIDE 23 mmol/L (22-30); CHLORIDE 105 mmol/L (98-107); GLUCOSE 244 mg/dL (75-110); POTASSIUM 3.9 mmol/L (3.6-5.0); TOTAL PROTEIN 6.3 g/dL (6.3-8.2)
[2020-01-17 10:29] LABS: ACETAMINOPHEN < 10 ug/mL (10-30); ALCOHOL < 10 mg/dL (NONE DETECTED); SALICYLATE < 1.0 mg/dL (2.0-20.0)
[2020-01-17 10:41] LABS: URINE AMPHETAMINES SCREEN NEGATIVE; URINE BARBITURATES SCREEN NEGATIVE; URINE BENZODIAZEPINES SCREEN NEGATIVE; URINE COCAINE SCREEN NEGATIVE; URINE MARIJUANA (THC) SCREEN NEGATIVE; URINE METHADONE SCREEN NEGATIVE; URINE PHENCYCLIDINE SCREEN NEGATIVE
[2020-01-17] MEDS ORDERED: NORMAL SALINE 1000 ML 1,000 ML IV ONE (10:55)
--- NOTE | 2020-01-17 12:21 | ER Document Report ---
ED General - General Chief Complaint: Overdose Stated Complaint: POSSIBLE OVERDOSE Time Seen by Provider: 01/17/20 09:53 Primary Care Provider: SHIRA NEVAREZ PA-C [Primary Care Provider] - Follow up as needed Mode of Arrival: Medic Information source: Patient TRAVEL OUTSIDE OF THE [place] IN LAST 30 DAYS: No - HPI Notes: Patient is brought in by EMS for accidental overdose on an opiate. She states she bought a Percocet on the street and took it for her chronic pain. Apparently a fellow member of the household found patient unresponsive and called the ambulance. Ambulance personnel state they found the patient unresponsive with low O2 saturations. They state the patient responded to Narcan. Patient states that she has no desire to hurt her self or others. She states that this was accidental and she was trying to control her chronic pain. Patient states that she is no auditory or visual hallucinations. She states she has chronic back pain from scoliosis. She states currently this pain is severe. It is chronic. Is worse with movement and better with rest. It radiates up and down her back. - Related Data Allergies/Adverse Reactions: ketorolac [From Toradol] Allergy (Verified 01/17/20 09:47) Hives codeine [From Tylenol-Codeine #3] Adverse Reaction (Verified 01/17/20 09:47) Anxiety tramadol Adverse Reaction (Verified 01/17/20 09:47) Anxiety Home Medications: pt denies Past Medical History - General Information source: Patient - Social History Smoking Status: Current Every Day Smoker Chew tobacco use (# tins/day): No Frequency of alcohol use: Occasional Drug Abuse: Prescription drugs, Other Family History: Reviewed & Not Pertinent, CAD, DM, Hyperlipidemia, Hypertension, Malignancy - Past Medical History Cardiac Medical History: Reports: Hx Hypercholesterolemia, Hx Hypertension Renal/ Medical History: Reports: Hx Ovarian Cysts. Denies: Hx Peritoneal D ialysis GI Medical History: Reports: Hx Ulcer Musculoskeletal Medical History: Reports Hx Muscle Spasm, Reports Hx Musculoskeletal Deformity, Reports Hx Musculoskeletal Trauma Psychiatric Medical History: Reports: Hx Anxiety, Hx Depression Past Surgical History: Reports: Hx Abdominal Surgery, Hx Section - x4, Hx Hysterectomy, Hx Kidney (Renal Surgery) - one removed - Immunizations Immunizations up to date: Yes Hx Diphtheria, Pertussis, Tetanus Vaccination: Yes - 2014 Review of Systems - Review of Systems Constitutional: denies: Chills, Fever - Hold Cardiovascular: denies: Chest pain, Palpitations Gastrointestinal: denies: Diarrhea, Vomiting -: Yes All other systems reviewed and negative Physical Exam - Vital signs Vitals: Temp 98.5 F 01/17/20 09:40 Interpretation: Tachycardic - General General appearance: Appears well, Alert - HEENT Head: Normocephalic, Atraumatic Eyes: Normal Pupils: PERRL - Respiratory Respiratory status: No respiratory distress Chest status: Nontender Breath sounds: Normal Chest palpation: Normal - Cardiovascular Rhythm: Tachycardia Heart sounds: Normal auscultation Murmur: No - Abdominal Inspection: Normal Distension: No distension Bowel sounds: Normal Tenderness: Nontender Organomegaly: No organomegaly - Back Back: Normal, Nontender - Extremities General upper extremity: Normal inspection, Nontender, Normal color, Normal ROM, Normal temperature General lower extremity: Normal inspection, Nontender, Normal color, Normal ROM, Normal temperature, Normal weight bearing. No: Santi's sign - Neurological Neuro grossly intact: Yes Cognition: Normal Orientation: AAOx4 Coral Coma Scale Eye Opening: Spontaneous Coral Coma Scale Verbal: Oriented Coral Coma Scale Motor: Obeys Commands Coral Coma Scale Total: 15 Speech: Normal Motor strength normal: LUE, RUE, LLE, RLE Sensory: Normal - Psychological Associated symptoms: Agitated, Angry - That she cannot have pain meds - Skin Skin Temperature: Warm Skin Moisture: Dry Skin Color: Normal Course - Re-evaluation Re-evalutation: 01/17/20 12:34 Patient presented after apparent narcotic overdose. Her talk screen is positive for narcotics. She is been in the emergency room some with 3 hours now with no significant altered mental status. She has been seen by psychiatry and is also had consultation from social work. She is already linked with the [facility]. She denies wanting any help with narcotics at this time. She states that she does not have a problem and only uses them for pain. I can find no evidence that she is a threat to herself or others. She insists this overdose was accidental. Her laboratories and vitals are stable. At this time patient will be discharged. - Vital Signs Vital signs: Temp Pulse Resp BP Pulse Ox 98.5 F 16 100/75 100 01/17/20 09:40 01/17/20 10:01 01/17/20 10:01 01/17/20 10:01 - Laboratory Result Diagrams: 01/17/20 09:44 01/17/20 09:44 Laboratory results interpreted by me: 01/17/20 01/17/20 01/17/20 09:44 09:44 10:00 MCH 26.2 L RDW 15.1 H Sodium 134.4 L Glucose 244 H AST 103 H ALT 57 H Albumin 3.4 L Urine Protein 100 H Urine Glucose (UA) >=500 H Salicylates < 1.0 L Acetaminophen < 10 L Discharge - Discharge Clinical Impression: Accidental overdose Qualifiers: Encounter type: initial encounter Qualified Code(s): T50.901A - Poisoning by unspecified drugs, medicaments and biological substances, accidental (unintentional), initial encounter Condition: Stable Disposition: HOME, SELF-CARE Instructions: Instructions for Home Care Following a Drug Overdose ([facility]), Overdose ([facility]) Additional Instructions: Please follow-up with your primary care physician as soon as possible. Forms: Return to Work Referrals: SHIRA NEVAREZ PA-C [Primary Care Provider] - Follow up tomorrow
[2020-01-17] MEDS ORDERED: ACETAMINOPHEN 325 MG TABLET PO ONE (12:59)
--- NOTE | 2020-01-17 13:18 | PSYCHOLOGICAL NOTE ---
Psych Note - Psych Note Date seen by psych provider: 01/17/20 Time seen by psych provider: 11:45 Psych Note: Reason for Consult: Overdose Patient presented to [facility] ED via EMS after accidental overdose. She reports she "can't believe they gave me the wrong stuff." She admittedly denies thoughts of wanting to harm herself or wanting to . She states she purchases Percocets of the street because she does not have insurance; "I don't have a problem...I have a back injury and in pain....I don't need detox." Patient declines substance abuse assessment, treatment or detox. EMS reports patient states she took a 0.5 tab of perc 30 which may have been laced with Fentanyl. EMS states in approximate last 6 months they have responded to patient for overdose over a dozen times. Patient is a alert and orientated to person, place, time and circumstance. Mood is irritable with congruent affect. Patient denies suicidal and homicidal ideation. Delusions are absent behaviors congruent with an intact reality based presentation i.e. organized and linear thought process. Eye contact is well maintained. Conversational speech is within normal rate, tone and prosody. Intellectual abilities appear to be within the average range. Attention and concentration are fair. Insight, judgment, impulse control are poor due to his substance abuse. Clinical impression: Accidental Overdose Substance abuse; poor prognosis for treatment Impression/Plan: Patient is cleared from acute psychiatric services. Patient accidental overdosed on percocets laced with fentanyl. Patient does not believe she has a substance use issue, stating she buys off the street because of a lack of insurance. Patient has an open referral to [facility]. Patient will be provided local resources for detox facilities and local providers for substance abuse treatment if she changes her mind. Dr Hernandez was consulted on the care and management of this patient; attending physician is in agreement with recommendations and disposition.
[2020-01-17 13:21] VITALS: BP 98/76
--- NOTE | 2020-01-17 13:35 | ER Document Report ---
Doctor's Note Notes: 01/17/20 13:31 At discharge patient has asked for pain medication. Due to patient's allergies and history of overdosing on opiates today I offered the patient Tylenol. She states that this does not help and that she has Tylenol at home. She asked for opiates. I explained her that I do not feel that this would be in her best interest nor did I feel comfortable giving the patient opiates in light of her history of an overdose, as well as reviewing her past medical history I see that she has been here for ingesting different substances such as medical marijuana and "mollies". She has been here for reactions to these different medications. I also see that patient has a diagnosis of drug-seeking behavior and opioid dependence. I have tried to refer the patient for opiate dependence and have tried to discuss methadone or Suboxone with the patient however she declined. I also tried to explain to the patient about her high glucose and that I felt she needed to have this rechecked within the next 48 hours however patient continued to perseverate on the fact that I would not give her narcotics. She would not discuss her glucose with me but kept changing the subject to her need for pain medications and called me a "liar" and stated that I was "judging her".
--- NOTE | 2020-01-18 09:25 | EKG REPORT ---
SEVERITY:- ABNORMAL ECG - SINUS TACHYCARDIA FIRST DEGREE AV BLOCK PROBABLE LEFT ATRIAL ABNORMALITY BORDERLINE T ABNORMALITIES, INFERIOR LEADS : Confirmed by: Devang Angel 18-Jan-2020 09:24:57
== END 2020-01-17 13:30 | disposition home or self-care (01) ==
LOC: ER 09:40
DX: T40.2X1A Poisoning by other opioids, accidental (unintentional), initial encounter (principal); G89.29 Other chronic pain; F17.200 Nicotine dependence, unspecified, uncomplicated; I10 Essential (primary) hypertension; Z88.8 Allergy status to other drugs, medicaments and biological substances
CPT/HCPCS: 93005; 99285; 96360; 36415; 80307 ×4; 85025; 81025; 80053; 81001; 93010; J7030